=== PATIENT | female | born 1980 | race Caucasian/White ===

== ENCOUNTER → 2018-04-12 13:00 | Outpatient (CLI) | payer BC, SELFPAY ==
[2018-04-12 16:40] LABS: Chlamydia Trachomatis by PCR Negative (Negative); Neisserai gonorrhoeae by PCR Negative (Negative); Probe Check PASS; Sample Adequacy Control PASS; Specimen Processing Control PASS
== END ==
PROVIDERS: Visit Provider Obstetrics & Gynecology
DX: Z11.3 Encounter for screening for infections with a predominantly sexual mode of transmission (principal)
CPT/HCPCS: 87491; 87591

== ENCOUNTER 2018-05-03 10:45 | Day surgery (SDC) | payer BC, SELFPAY ==
[2018-05-03] VITALS (8 sets, daily range): BP systolic 93–110; BP diastolic 43–61; PULSE 71–96; RESP 14–18; TEMP 36.1–36.8; O2SAT 98–100; BMI 21.9
--- NOTE | 2018-05-03 10:58 | PCM.HP.BLA ---
History and Physical Date of Admission: 05/03/18 HISTORY OF PRESENT ILLNESS: On 05/03/2018, Laurence Loomis, a 37 year old female 1 1 0 0 2, presented for: -- Incomplete Miscarriage -- IUP without FHTs by u/s today at 8+ weeks gestation. 6 week size. Some bleeding starting this morning. ALLERGIES: NKDA MEDICATIONS HISTORY: Patient is also takin. Vitamin tablet REVIEW OF SYSTEMS: GENERAL - Denies fever, or chills SKIN - Denies skin changes EYES - Denies visual changes EARS - Denies difficulty hearing NOSE - Denies nasal congestion or bleeding MOUTH - Denies sore throat or difficulty swallowing NECK - Denies pain or swelling RESPIRATORY - Denies shortness of breath or wheezing CARDIOVASCULAR - Denies palpitations or chest pain GASTROINTESTINAL - Denies nausea, vomiting, diarrhea, constipation GENITOURINARY - amenorrhea and some spotting MUSCULOSKELETAL - Denies joint or muscle pain NEUROLOGICAL - Denies localized numbness or weakness PSYCHIATRIC - Denies depression or anxiety ENDOCRINE - Denies heat or cold intolerance, weight loss or gain HEMATO-IMMUNOLOGIC - Denies excesive bleeding with cuts PAST HISTORY: Breast/Ovarian/Colon Cancers - Aunt had Breast Cancer and maternal grandparent uterine ca Infections - Chicken pox childhood Illnesses - Abn paps,HPV,Herpes Accidents - no injuries of consequence History of Abnormal PAPS - YES Hospitalizations - None SURGICAL HISTORY: 1. 06/27/2014 primary Sandeep Corea M.D. failure to progress and CPD MENSTRUAL HISTORY: LMP Known?- DefiniteAmount/Duration - spotting, LMP - 02/21/18, Age Onset Menarche - 12 PAST PREGNANCIES: Total Pregnancies - 3; Full Term Pregnancies - 1; Premature - 1; Abortions, Induced - 0; Abortions, Spontaneous - 0; Ectopics - 0; Multiple Births - 0; Living Children - 2 FAMILY HISTORY: Father - FH: Diabetes mellitus type 2; Mother - FH: Hypertension; Aunt - Cancer; MaternalGrandparent - FH: Diabetes mellitus type 2; MaternalGrandparent - Cancer; PaternalGrandparent - Type 2 Diabetes; SOCIAL HISTORY: Alcohol Use - occasionally not while Smoking - Never Diet - moderate, balanced diet, caffeine > 2 drinks per day and LOW SALT Lifestyle - low stress lifestyle Exercise - Cardio and strength training Seat Belt Use - always 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 Drug Use - denies use of street drugs Sexual Activity - Hours Worked - 40-43 Spouse-Sig Other Name - Chris Loomis Spouse-Sig Other Occupation - [employer] Spouse-Sig Other Phone No - [phone] Children Name(s) - Adele(14) Jeannie Olvera(16) Control - Mirena PHYSICAL EXAMINATION BP Systolic: 104 BP Diastolic: 60 Weight: 114 CONSTITUTIONAL - NAD, well nourished, and well developed SKIN - No rash, lesions, or ulcers HEENT - Normocephalic, PERRLA, EOMI NECK - No nodes, no nuchal rigidity and thyroid normal size and texture LYMPH NODES - Palpation of lymph nodes in neck and groins within normal limits LUNGS - CTA x2 without wheezes, crackles or rales CARDIAC - Regular rate and rhythm without rubs, murmurs, or gallops ABDOMEN - Without hepatosplenomegaly, distention, masses, rebound, or guarding; normal bowel sounds; no hernias EXTREMITIES - No edema or calf tenderness NEUROLOGICAL - Cranial nerves II-XII grossly intact PSYCHIATRIC - A and O to time, place, person, mood and affect ASSESSMENT: 1. Spontaneous , Incomplete, Without Mention Of Complication PLAN BY DIAGNOSIS: 1. Spontaneous , Incomplete, Without Mention Of Complication Discussed options and patient desires proceeding with Suction D and E. Discussed RBAs and all questions answered.
[2018-05-03 11:33] LABS: Hematocrit 38.4 % (37-47); Hemoglobin 13.5 g/dl (12.0-15.0); Mean Corp Hgb Conc 35.2 g/gl (32-36); Mean Corpuscular Hgb 31.2 pg (27.0-32.0); Mean Corpuscular Volume 88.7 fL (81-99); Mean Platelet Vol. 10.4 fl (6.2-12.0); Platelet Count 291 K/mm3 (150-450); RBC Distribution Width SD 38.4 fl (35.1-43.9); Red Blood Count 4.33 M/mm3 (4.2-5.4); Scan Indicated on CBC? Y/N NO; White Blood Count 9.6 K/mm3 (4.4-11.0)
--- NOTE | 2018-05-03 13:30 | POC_PTH ---
PATIENT: IRENE LONDONO LOC: [facility] [place] U[place][id number] AGE/SX: 37/F ROOM: RE05/03/[address]: Dr. Sandeep Corea MD : 1980 BED: DIS: 05/03/2018 SPEC #: [id number] RECD: 05/03/18 14:23 STATUS: ABDIAS LEEROY #: [id number] VIVIEN: 05/03/18 13:[address]: Sandeep Corea DEPT: SURGICAL PATHOLOGY RECD BY: Norma Perez ENTERED: 05/04/18 08:38 SP TYPE: PROD CONC OTHR DR: Dr. Gayatri Becker, DO Tissues: Product of conception, NOS Procedures: Surgery Specimen Level IV HEADER OPERATION: Dilation and curettage, suction PRE-OP DIAGNOSIS: Incomplete spontaneous TISSUE SUBMITTED: Products of conception MICROSCOPIC DIAGNOSIS Products of conception: Decidua, gestational endometrium and immature chorionic villi (products of conception). See comment. SJ:ron 05/07/18 COMMENT A few of the villi show hydropic changes. Significant trophoblastic hyperplasia is not seen. Correlation with clinical findings and appropriate follow up are necessary. MICROSCOPIC DESCRIPTION Slides are reviewed. GROSS DESCRIPTION Received in fixative is one container labeled with the patient's name and designated products of conception. The specimen consists of multiple pieces of khan soft tissue that in aggregate measure 3 x 4 x 0.5 cm. tissue is not identified. The entire specimen is submitted in three cassettes. / RAAD:ron 04/2718 TC:5 CPT: 40636
--- NOTE | 2018-05-03 13:41 | PCM.OP.BLANK ---
Operative Report Date of Procedure: 05/03/18 Pre/Post-op: Incomplete Miscarriage Surgeon: Sandeep Corea MD, FACOG Anesthesia: Tan Solo CNA Type of anesthesia: MAC Procedure: Suction Dilation and Evacuation Findings: 8 cm EM cavity with POC Indication: 37 Year patient with incomplete AB at 8 weeks gestation with a 6 week IUP without FHTs. Pt has been counseled re RBAs and all questions answered. Procedure: Pt taken to the OR where she was given IV sedation. The patient was prepped and draped in the usual sterile fashion. Anterior cervix grasped and cervix dilated to 10mm. An 8 mm suction curette was inserted into the cervix and all contents removed. Uterus was gently curetted and remaining tissue removed. Pt tolerated the procedure well and was taken to the recovery room in satisfactory condition. Sponge, instruments and needle counts were all correct. There were no apparent complications of the surgery. To Pathology: POC EBL Minimal.
--- NOTE | 2018-05-03 13:43 | DCINST_ITS ---
Discharge Diet: No Restrictions Discharge Activity: Return to Normal Activity, May Shower, May Take a Tub Bath Call your doctor if you observe: Fever of 101 or Higher, Inability to urinate, Inability to have a bowel movement, Using more than one pad per hour Allergies/Adverse Reactions: Allergies No Known Allergies Allergy (Verified 03/18/16 19:58) Medications to take at Discharge Vits [Prenatabs FA ] 1 tablet PO DAILY 06/26/14 Primary Care Physician: Gayatri Becker DO [Primary Care Provider] - Test Results: Test results from this visit will be discussed in further detail at your follow- up appointment, if applicable. Please Follow Up With: Sandeep Corea MD When: 3-4 weeks
== END 2018-05-03 15:21 | disposition home or self-care (01) ==
LOC: SDC 10:49 → AC 11:09
PROVIDERS: Family Provider Family Medicine; PCP Family Medicine; Visit Provider Obstetrics & Gynecology
PROC: (CPT 59812; principal; 2018-05-03 13:15)
DX: O03.4 Incomplete spontaneous abortion without complication (principal)
CPT/HCPCS: 59812; 36415; 85027; 86850; 86900; 88305; J7120

== ENCOUNTER → 2018-08-02 21:47 | Outpatient (CLI) | payer BC, SELFPAY ==
[2018-08-08 10:32] LABS: HPV Reflexed? NOT INDICATED
== END ==
PROVIDERS: Family Provider Family Medicine; PCP Family Medicine; Referring Provider Obstetrics & Gynecology; Visit Provider Obstetrics & Gynecology
DX: Z12.4 Encounter for screening for malignant neoplasm of cervix (principal)
CPT/HCPCS: 87624; 88175; G0145

== ENCOUNTER → 2018-12-13 18:14 | Outpatient (CLI) | payer BC, SELFPAY ==
[2018-12-13 21:30] LABS: Chlamydia Trachomatis by PCR Negative (Negative); Neisserai gonorrhoeae by PCR Negative (Negative); Probe Check PASS; Sample Adequacy Control PASS; Specimen Processing Control PASS
== END ==
PROVIDERS: Family Provider Family Medicine; PCP Family Medicine; Referring Provider Obstetrics & Gynecology; Visit Provider Obstetrics & Gynecology
DX: Z11.3 Encounter for screening for infections with a predominantly sexual mode of transmission (principal)
CPT/HCPCS: 87491; 87591

== ENCOUNTER 2019-01-03 10:51 | Day surgery (SDC) | payer BC, SELFPAY ==
--- NOTE | 2019-01-03 09:17 | PCM.HP.BLA ---
History and Physical Date of Admission: 01/03/19 HISTORY OF PRESENT ILLNESS: On 01/02/2019, Laurence Loomis, a 38 year old female 1 1 2 0 2, presented for: -- Inevitable Miscarriage -- Laurence presents here today for follow-up from [facility] in our Office for possible SAB with calcified gestational sac and no heart beat. 38 y.o. G 4 P 2 non-smoker reporting that she continues with daily nausea. Denies spotting/bleeding thus far. Medication list up-dated. ALLERGIES: NKDA MEDICATIONS HISTORY: Patient is also takin. Vitamin tablet REVIEW OF SYSTEMS: GENERAL - Denies fever, or chills SKIN - Denies skin changes EYES - Denies visual changes EARS - Denies difficulty hearing NOSE - Denies nasal congestion or bleeding MOUTH - Denies sore throat or difficulty swallowing NECK - Denies pain or swelling RESPIRATORY - Denies shortness of breath or wheezing CARDIOVASCULAR - Denies palpitations or chest pain GASTROINTESTINAL - nausea continues GENITOURINARY - Denies dysuria, frequency of urination, incontinence of urine MUSCULOSKELETAL - Denies joint or muscle pain NEUROLOGICAL - Denies localized numbness or weakness PSYCHIATRIC - Denies depression or anxiety ENDOCRINE - Denies heat or cold intolerance, weight loss or gain HEMATO-IMMUNOLOGIC - Denies excesive bleeding with cuts PAST HISTORY: Breast/Ovarian/Colon Cancers - Aunt had Breast Cancer and maternal grandparent uterine ca Infections - Chicken pox childhood Illnesses - Abn paps,HPV,Herpes Accidents - no injuries of consequence History of Abnormal PAPS - YES Hospitalizations - None SURGICAL HISTORY: 1. 06/27/2014 primary Sandeep Corea M.D. failure to progress and CPD 2. 05/03/2018 Suction D and E Sandeep Corea M.D. MENSTRUAL HISTORY: LMP Known?- DefiniteAmount/Duration - 4-5 DAYS, Regularity - Regular, Frequency - monthly days, LMP - 10/29/18, Age Onset Menarche - 12 PAST PREGNANCIES: Total Pregnancies - 4; Full Term Pregnancies - 1; Premature - 1; Abortions, Induced - 0; Abortions, Spontaneous - 2; Ectopics - 0; Multiple Births - 0; Living Children - 2 FAMILY HISTORY: Father - FH: Diabetes mellitus type 2; Mother - FH: Hypertension; Aunt - Cancer; MaternalGrandparent - FH: Diabetes mellitus type 2; MaternalGrandparent - Cancer; PaternalGrandparent - Type 2 Diabetes; SOCIAL HISTORY: Alcohol Use - occasionally not while Smoking - Never Diet - moderate, balanced diet, caffeine > 2 drinks per day and LOW SALT Lifestyle - low stress lifestyle Exercise - Cardio and strength training Seat Belt Use - always 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 Drug Use - denies use of street drugs Sexual Activity - Hours Worked - 40-43 Spouse-Sig Other Name - Chris Loomis Spouse-Sig Other Occupation - [employer] Spouse-Sig Other Phone No - [phone] Children Name(s) - Adele(14) Jeannie Olvera(16) Control - NONE PHYSICAL EXAMINATION BP- 122/76 Sitting, Right arm, regular cuff Weight- 119.00 lbs Height- 60.00 inch BMI:23.29 CONSTITUTIONAL - NAD, well nourished, and well developed SKIN - No rash, lesions, or ulcers HEENT - Normocephalic, PERRLA, EOMI NECK - No nodes, no nuchal rigidity and thyroid normal size and texture LYMPH NODES - Palpation of lymph nodes in neck and groins within normal limits LUNGS - CTA x2 without wheezes, crackles or rales CARDIAC - Regular rate and rhythm without rubs, murmurs, or gallops ABDOMEN - Without hepatosplenomegaly, distention, masses, rebound, or guarding; normal bowel sounds; no hernias EXTREMITIES - No edema or calf tenderness NEUROLOGICAL - Cranial nerves II-XII grossly intact PSYCHIATRIC - A and O to time, place, person, mood and affect DETAILED PELVIC EXAM External Genitial Vagina - non-tender without lesions Urethra/Urethral Meatus - non-tender Bladder - non-tender Vagina - vaginal gonzalez are pink and moist without loss of rugae and no evidence of atropy Cervix - without cervical motion tenderness and has normal size and features without evident lesions Uterus - multiparous size 6 cm & wt 75-125 g Adnexa - clear without massess or tenderness ASSESSMENT: 1. Spontaneous , Incomplete, Without Mention Of Complication PLAN BY DIAGNOSIS: 1. Spontaneous , Incomplete, Without Mention Of Complication 9 week gestation with 5+ week fetus without FHTs confirmed last week and again today. No bleeding yet but having significant nausea. Discussed options and pt desires we proceed with Suction D and E. Discussed RBAs and all questions answered.
[2019-01-03 11:14] VITALS: BP 103/44; PULSE 65; RESP 16; TEMP 36.7; O2SAT 100; BMI 22.4
[2019-01-03 11:14] LABS: Hematocrit 37.3 % (37-47); Hemoglobin 13.3 g/dl (12.0-15.0); Mean Corp Hgb Conc 35.7 g/gl (32-36); Mean Corpuscular Hgb 31.3 pg (27.0-32.0); Mean Corpuscular Volume 87.8 fL (81-99); Mean Platelet Vol. 10.1 fl (6.2-12.0); Platelet Count 288 K/mm3 (150-450); RBC Distribution Width CV 12.6 % (11.6-14.6); RBC Distribution Width SD 40.7 fl (35.1-43.9); Red Blood Count 4.25 M/mm3 (4.2-5.4); White Blood Count 8.8 K/mm3 (4.4-11.0)
[2019-01-03 11:18] LABS: Scan Indicated on CBC? Y/N NO
--- NOTE | 2019-01-03 12:30 | POC_PTH ---
PATIENT: IRENE LONDONO LOC: [facility] – [place] U#:[id number] AGE/SX: 38/F ROOM: RE01/03/[address]: Dr. Sandeep Corea MD : 1980 BED: DIS: 01/03/2019 SPEC #: [id number] RECD: 01/03/19 13:52 STATUS: ABDIAS REFerny #: [id number] VIVIEN: 01/03/19 12:[address]: Sandeep Corea DEPT: SURGICAL PATHOLOGY RECD BY: Chris uMnoz ENTERED: 01/03/19 14:21 SP TYPE: PROD CONC OTHR DR: Dr. Gayatri Becker, DO Tissues: Product of conception, NOS Procedures: Surgery Specimen Level IV HEADER OPERATION: Dilation and curettage, suction PRE-OP DIAGNOSIS: Missed TISSUE SUBMITTED: Products of conception MICROSCOPIC DIAGNOSIS Products of conception: Decidua, gestational endometrium and immature chorionic villi (products of conception). SJ:ron 01/04/19 MICROSCOPIC DESCRIPTION Slides are reviewed. GROSS DESCRIPTION Received in fixative is one container labeled with the patient's name and designated products of conception. The specimen consists of multiple irregular fragments of pink-khan soft tissue that in aggregate measure 8 x 6.5 x 1 cm. parts are not grossly recognized. Otr Owner Operator Truck Driver portions are submitted in one cassette. / AM:ron 01/03/19 TC:5 CPT: 65872
--- NOTE | 2019-01-03 12:46 | PCM.OPRPT ---
Report of Operation Date of Procedure: 01/03/19 Pre-Operative Diagnosis: Inevitable Miscarriage Post-Operative Diagnosis: Inevitable Miscarriage Surgery/Procedure Performed:: Suction Dilation and Evacuation Description of Surgical Findings:: 10 cm endometrial cavity with products of conception. Type of Anesthesia:: MAC Anesthesiologist: Carlos Ritchie Estimated Blood Loss (mL): Minimal Fluids Replaced: Crystalloid Description of Procedure: Surgeon: Sandeep Corea MD, FACOG Indication: 38 year old patient with incomplete AB at 9 weeks gestation with a 6 week IUP without FHTs. Pt has been counseled re RBAs and all questions answered. Procedure: Pt taken to the OR where she was given IV sedation. Approximately 150 cc of clear yellow urine was drained from the bladder with a red rubber catheter. The patient was prepped and draped in the usual sterile fashion. Anterior cervix grasped and cervix dilated to 8-9 mm. An 9 mm suction curette was inserted into the cervix and all contents removed. Uterus was gently curetted and remaining tissue removed. Pt tolerated the procedure well and was taken to the recovery room in satisfactory condition. Sponge, instruments and needle counts were all correct. Cefotan 2 g IV was given prior to beginning the operative procedure. There were no apparent complications of the surgery. Specimen the pathology was products of conception. Grafts/Implants Used: None - Complications None - Admit VTE Documentation VTE Present on Admission: Yes VTE Mechan Device Prophylaxis: SCD's VTE Pharm Prophylaxis ordered?: No Reason prophylaxis not ordered:: Treatment Not Indicated
--- NOTE | 2019-01-03 12:52 | DCINST_ITS ---
Discharge Diet: No Restrictions Discharge Activity: Return to Normal Activity, May Shower, May Take a Tub Bath Call your doctor if you observe: Fever of 101 or Higher, Inability to urinate, Inability to have a bowel movement, Using more than one pad per hour Allergies/Adverse Reactions: Allergies No Known Allergies Allergy (Verified 03/18/16 19:58) Medications to take at Discharge Vits [Prenatabs FA ] 1 tablet PO DAILY 06/26/14 Primary Care Physician: Gayatri Becker DO [Primary Care Provider] - Test Results: Test results from this visit will be discussed in further detail at your follow- up appointment, if applicable. Please Follow Up With: Sandeep Corea MD When: 2-3 weeks
[2019-01-03 13:15] VITALS: BP 103/44; BP 91/46; PULSE 74; RESP 14; TEMP 37.3; O2SAT 96
[2019-01-03 13:20] VITALS: BP 103/44; BP 91/54; PULSE 64; RESP 16; O2SAT 96
[2019-01-03 13:25] VITALS: BP 103/44; BP 84/54; PULSE 60; RESP 16; O2SAT 96
[2019-01-03 13:30] VITALS: BP 103/44; BP 83/44; PULSE 64; RESP 16; TEMP 36.4; O2SAT 97
[2019-01-03 14:40] VITALS: BP 103/44
== END 2019-01-03 14:57 | disposition home or self-care (01) ==
LOC: SDC 10:53 → AC 10:54
PROVIDERS: Anesthesiology; Family Provider Family Medicine; PCP Family Medicine; Referring Provider Obstetrics & Gynecology; Visit Provider Obstetrics & Gynecology
PROC: (CPT 59812; principal; 2019-01-03 12:15)
DX: O03.4 Incomplete spontaneous abortion without complication (principal); Z3A.09 9 weeks gestation of pregnancy
CPT/HCPCS: 01965; 59812; 85027; 86850; 86900; 88305; J7120

== ENCOUNTER → 2019-04-25 | Outpatient (CLI) | payer BC, SELFPAY ==
[2019-04-25 18:06] LABS: hCG Titer Quant., Serum 17108 mIU/mL (1-3)
== END | disposition home or self-care (01) ==
LOC: MTLAB 16:20
PROVIDERS: Family Provider Family Medicine; PCP Family Medicine; Referring Provider Nurse Practitioner Women's Health; Visit Provider Nurse Practitioner Women's Health
DX: O09.299 Supervision of pregnancy with other poor reproductive or obstetric history, unspecified trimester (principal); Z3A.00 Weeks of gestation of pregnancy not specified
CPT/HCPCS: 36415; 84702

== ENCOUNTER → 2019-04-27 | Outpatient (CLI) | payer BC, SELFPAY ==
[2019-04-27 11:45] LABS: hCG Titer Quant., Serum 25317 mIU/mL (1-3)
== END | disposition home or self-care (01) ==
LOC: LAB 10:03
PROVIDERS: Family Provider Family Medicine; PCP Family Medicine; Referring Provider Nurse Practitioner Women's Health; Visit Provider Nurse Practitioner Women's Health
DX: O09.299 Supervision of pregnancy with other poor reproductive or obstetric history, unspecified trimester (principal); Z3A.00 Weeks of gestation of pregnancy not specified
CPT/HCPCS: 36415; 84702

== ENCOUNTER → 2019-05-08 | Outpatient (CLI) | payer BC, SELFPAY ==
[2019-04-30 04:06] VITALS: BMI 22.4
--- NOTE | 2019-05-08 13:48 | US_ITS ---
STUDY: FIRST TRIMESTER OBSTETRICAL ULTRASOUND REASON FOR EXAM: Female, 38 years old. with bleeding. LMP: 03/13/2019 TECHNIQUE: Transvaginal TECHNICAL QUALITY: Adequate. PRIOR ULTRASOUND: None. FINDINGS: There is visualization of a single gestational sac in a normal intrauterine position. The mean sac diameter (MSD) measures 3 cm, indicating an estimated gestational age (EGA) of 8 weeks, 2 days. The gestational sac shape is within normal limits. 1.7 cm probable subchorionic hemorrhage. There is a visualized yolk sac. The yolk sac measures 5.7 mm. The placenta is non-visualized. There is visualization of a live embryo. The crown-rump length (CRL) measures 1.0 cm, indicating an estimated gestational age (EGA) of 7 weeks, 1 days. There is demonstrated cardiac activity with a heart rate of 130 bpm. The estimated gestation age (EGA) by LMP is 8 weeks, 0 days. The estimated date of delivery (JULIEN) by LMP is 12/18/2019. The estimated gestation age (EGA) by US is 7 weeks, 5 days. The estimated date of delivery (JULIEN) by US is 12/20/2019 The uterus measures 9.7 x 6.5 x 5.3 cm. There is no demonstrated uterine fibroid. The cervix is closed. The right ovary measures 3.2 x 2.9 x 2.2 cm. There is no right ovarian cyst. There is no visualized right adnexal mass or complex lesion. The left ovary measures 4.1 x 3.7 x 1.9 cm. There is a 1.6 cm cyst. There is no visualized left adnexal mass or complex lesion. There is no fluid in the cul de sac. US/Init OB < 14Wks US IMPRESSION: Single live intrauterine gestation with ultrasound EGA of 7 weeks 5 days. Probable small subchorionic hemorrhage. Suggest short interval follow-up. Electronically Signed: Mat Gomez MD at 20:54 EDT , Service support ,
== END | disposition home or self-care (01) ==
LOC: OPUS 13:47
PROVIDERS: Family Provider Family Medicine; PCP Family Medicine; Referring Provider Obstetrics & Gynecology; Visit Provider Obstetrics & Gynecology
DX: O20.9 Hemorrhage in early pregnancy, unspecified (principal); Z3A.00 Weeks of gestation of pregnancy not specified
CPT/HCPCS: 76801

== ENCOUNTER → 2019-05-21 | Outpatient (CLI) | payer BC, SELFPAY ==
[2019-05-21 13:26] VITALS: BMI 22.4
[2019-05-21 18:53] LABS: Chlamydia Trachomatis by PCR Negative (Negative); Neisserai gonorrhoeae by PCR Negative (Negative); Probe Check PASS; Sample Adequacy Control PASS; Specimen Processing Control PASS
== END | disposition home or self-care (01) ==
LOC: LABSPEC 16:53
PROVIDERS: Family Provider Family Medicine; PCP Family Medicine; Referring Provider Nurse Practitioner Women's Health; Visit Provider Nurse Practitioner Women's Health
DX: O09.90 Supervision of high risk pregnancy, unspecified, unspecified trimester (principal); Z3A.00 Weeks of gestation of pregnancy not specified
CPT/HCPCS: 87086; 87088; 87491; 87591

== ENCOUNTER → 2019-06-04 | Outpatient (CLI) | payer BC, SELFPAY ==
[2019-06-04 14:51] VITALS: BMI 24.0
[2019-06-04 17:06] LABS: Absolute Lymphocyte Count 2.47 X10^3/uL (0.83-4.51); Absolute Neutrophil Count 9.6 X10^3/uL (2.0-7.7); Basophil# 0.06 X10^3/uL; Basophil% 0.5 % (0-1); Eosinophil# 0.24 X10^3/uL; Eosinophils% 1.8 % (0-5); Hematocrit 37.7 % (37-47); Hemoglobin 13.3 g/dL (12.0-15.0); Lymphocyte # 2.47 X10^3/ul (4.0); Lymphocyte % 18.6 % (19-41); Mean Corp Hgb Conc 35.3 g/dL (32-36); Mean Corpuscular Hgb 31.2 pg (27.0-32.0); Mean Corpuscular Volume 88.5 fL (81-99); Mean Platelet Vol. 10.5 fl (6.2-12.0); Monocyte# 0.84 X10^3/uL; Monocyte% 6.3 % (0-10); NRBC Flagged by Analyzer 0 % (0-5); Neutrophil # 9.59 X10^3/uL (2.7-7.7); Neutrophil % 72.3 % (47-70); Platelet Count 261 K/mm3 (150-450); RBC Distribution Width SD 39.1 fl (35.1-43.9); Red Blood Count 4.26 M/mm3 (4.2-5.4); White Blood Count 13.3 K/mm3 (4.4-11.0)
[2019-06-04 18:30] LABS: HIV - WCH Non-Reactive (Nonreactive); Rubella IgG 28.4 IU/mL
[2019-06-07 00:54] LABS: Rapid Plasmin Reagin (RPR) NONREACTIVE (NONREACTIVE)
== END | disposition home or self-care (01) ==
LOC: LAB 15:46
PROVIDERS: Family Provider Family Medicine; PCP Family Medicine; Referring Provider Nurse Practitioner Women's Health; Visit Provider Nurse Practitioner Women's Health
DX: Z34.81 Encounter for supervision of other normal pregnancy, first trimester (principal); O09.90 Supervision of high risk pregnancy, unspecified, unspecified trimester; Z3A.00 Weeks of gestation of pregnancy not specified
CPT/HCPCS: 36415; 85025; 86592; 86703; 86762; 86850; 86900; 86901

== ENCOUNTER → 2019-09-24 12:03 | Outpatient (CLI) | payer BC, SELFPAY ==
[2019-09-17 13:22] VITALS: BMI 22.4
[2019-09-24 13:37] LABS: Absolute Lymphocyte Count 1.41 X10^3/uL (0.83-4.51); Absolute Neutrophil Count 7.7 X10^3/uL (2.0-7.7); Basophil# 0.04 X10^3/uL; Basophil% 0.4 % (0-1); Eosinophil# 0.14 X10^3/uL; Eosinophils% 1.4 % (0-5); Hemoglobin 11.1 g/dL (12.0-15.0); Lymphocyte # 1.41 X10^3/ul (4.0); Mean Corp Hgb Conc 34.7 g/dL (32-36); Mean Corpuscular Hgb 31.4 pg (27.0-32.0); Mean Corpuscular Volume 90.4 fL (81-99); Mean Platelet Vol. 10.3 fl (6.2-12.0); Monocyte# 0.66 X10^3/uL; Monocyte% 6.5 % (0-10); NRBC Flagged by Analyzer 0 % (0-5); Neutrophil # 7.65 X10^3/uL (2.7-7.7); Neutrophil % 75.8 % (47-70); Platelet Count 237 K/mm3 (150-450); RBC Distribution Width CV 13.2 % (11.6-14.6); RBC Distribution Width SD 43.3 fl (35.1-43.9); Red Blood Count 3.54 M/mm3 (4.2-5.4); White Blood Count 10.1 K/mm3 (4.4-11.0)
[2019-09-24 13:53] LABS: Glucose Challenge Gest 1H 50g 118 mg/dL (70-140)
[2019-09-24 14:14] LABS: Hepatitis B Surface Antigen Non-Reactive (Nonreactive)
== END ==
PROVIDERS: Family Provider Family Medicine; PCP Family Medicine; Referring Provider Obstetrics & Gynecology; Visit Provider Obstetrics & Gynecology
DX: O09.91 Supervision of high risk pregnancy, unspecified, first trimester (principal); Z3A.00 Weeks of gestation of pregnancy not specified
CPT/HCPCS: 36415; 82950; 85025; 87340

== ENCOUNTER → 2019-11-21 | Outpatient (CLI) | payer BC, SELFPAY ==
[2019-11-21 15:36] VITALS: BMI 22.4
== END | disposition home or self-care (01) ==
LOC: LABSPEC 17:08
PROVIDERS: PCP Family Medicine; Referring Provider Obstetrics & Gynecology; Visit Provider Obstetrics & Gynecology
DX: O09.91 Supervision of high risk pregnancy, unspecified, first trimester (principal); Z3A.00 Weeks of gestation of pregnancy not specified
CPT/HCPCS: 87081

== ENCOUNTER 2019-11-29 22:45 | Inpatient (IN) | payer BC, SELFPAY ==
[2019-10-08 09:57] VITALS: BMI 22.4
[2019-11-28 11:28] VITALS: BMI 22.4
--- NOTE | 2019-11-29 | MISC_PTH ---
PATIENT: IRENE LONDONO LOC: [facility] U#:[id number] AGE/SX: 38/F ROOM: WP015 RE11/29/[address]: Dr. Mine Worrell MD : 1980 BED: 1 DIS: 12/01/2019 SPEC #: [id number] RECD: 11/30/19 07:42 STATUS: ABDIAS LEEROY #: [id number] VIVIEN: 11/29/19 00:[address]: Mine Worrell DEPT: SURGICAL PATHOLOGY RECD BY: Irving Mcmanus ENTERED: 12/02/19 09:16 SP TYPE: MISC OT DR: Dr. Gayatri Becker, DO Tissues: Skin appendage, NOS Procedures: Surgery Specimen Level IV HEADER OPERATION: Biopsy PRE-OP DIAGNOSIS: Mole TISSUE SUBMITTED: Tissue MICROSCOPIC DIAGNOSIS Skin lesion, not otherwise specified, biopsy: Compound nevus with predominantly intradermal component. See comment. AM:ron 12/03/19 COMMENT The lesion appears to have been completely excised in the planes examined. MICROSCOPIC DESCRIPTION Slides are reviewed. GROSS DESCRIPTION Received is one container labeled with the patient's name and not further designated. The specimen consists of an irregular fragment of dark khan soft tissue measuring 0.7 x 0.6 x 0.3 cm. The specimen is bisected and totally submitted in one cassette. / AM:ron 12/02/19 TC:5 CPT: 55912
[2019-11-30] VITALS (18 sets, daily range): BP systolic 90–118; BP diastolic 51–66; PULSE 72–94; RESP 14–20; TEMP 35.6–37.1; O2SAT 94–99; BMI 28.4
[2019-11-30] MEDS: Lactated Ringers 1,000 ML 50 ML IV (00:15)
[2019-11-30 00:42] LABS: Absolute Lymphocyte Count 1.22 X10^3/uL (0.83-4.51); Absolute Neutrophil Count 11.8 X10^3/uL (2.0-7.7); Basophil# 0.06 X10^3/uL; Basophil% 0.4 % (0-1); Eosinophil# 0.13 X10^3/uL; Eosinophils% 0.9 % (0-5); Hematocrit 31.8 % (37-47); Lymphocyte # 1.22 X10^3/ul (4.0); Lymphocyte % 8.5 % (19-41); Mean Corp Hgb Conc 34.6 g/dL (32-36); Mean Corpuscular Hgb 30.3 pg (27.0-32.0); Mean Corpuscular Volume 87.6 fL (81-99); Mean Platelet Vol. 10.5 fl (6.2-12.0); Monocyte# 0.92 X10^3/uL; Monocyte% 6.4 % (0-10); NRBC Flagged by Analyzer 0 % (0-5); Neutrophil % 82.6 % (47-70); Platelet Count 237 K/mm3 (150-450); RBC Distribution Width CV 13.7 % (11.6-14.6); RBC Distribution Width SD 43.1 fl (35.1-43.9); Red Blood Count 3.63 M/mm3 (4.2-5.4); White Blood Count 14.3 K/mm3 (4.4-11.0)
[2019-11-30] MEDS: Lactated Ringers 1,000 ML 200 ML IV (01:17)
[2019-11-30] MEDS: Sodium Citrate/Citric Acid 30 ML UDC PO (05:12)
--- NOTE | 2019-11-30 05:24 | HP.PCM_ITS ---
- Problem List (1) Placental insufficiency in third trimester Status: Acute (2) heart rate decelerations affecting management of mother Status: Acute (3) Velamentous insertion of umbilical cord Status: Acute Qualifiers: Comment: growth us every 4 weeks (4) History of Status: Acute Comment: First delivery CPD, plan RLTCS (5) Status: Acute Qualifiers: Comment: nl carrier, NIPT low risk. afp declined. anatomy reviewed (6) History of delivery, currently Status: Acute Comment: nl cervical lengths, growth borderline possible IUGR (7) History of cholestasis during Status: Acute (8) Supervision of high-risk Status: Acute Qualifiers: Comment: PRR JULIEN: 12/18/19 gender surprise for PC:Jeannie Angulo Spouse Chris History Date of Admission: 01/03/19 Final JULIEN: 12/18/19 Gestational age: 37 Weeks and 3 Days History of this : This is a 38 year-old, , at 37 weeks gestational age presents for co ntractions- made some initial cervical change from the office from 3 to 4 cm. Upon initial evaluation patient had several late decelerations which improved with IV fluids. Diagnosis of placental insufficiency was made and is recommended to proceed with delivery. Surgical History: Surgical History (Last Reviewed 11/28/19 @ 11:28 by Janet Jimenez) delivery delivered O82 x1 H/O dilation and curettage Z98.890 x2 2017,2018 Allergies No Known Allergies Allergy (Verified 11/30/19 00:11) Home Medications: Home Medications Vits [Prenatabs FA ] 1 tab PO DAILY 06/26/14 Oseltamivir Phosphate [Tamiflu] 75 mg PO DAILY 11/30/19 Smoking Status: Never smoker Alcohol: None Number of Fetus(es): 1 NST - FHR Rate Baby A Baseline: 140 Variability:: Moderate Accelerations:: 15 x 15 Decelerations:: Late - resolved with fluids NST Reactive:: Yes FHR Category:: Category II Uterine Activity:: q 2-5 History Past Pregnancies: Past Pregnancies Pregancy History 5 Elective abortions Hx Para 2 Spontaneous abortions 2 Hx # Term Pregnancies Ectopic pregnancies Hx # Pregnancies Multiple births # of living children 2 Past Pregnancies Del. Date Name GA/Weeks Outcome Route Bth Weight Gen Labor Lgth Anesthesia Del Locatn Provider FOB Unknown 2013 Adele 37 live - full term 6lbs 11oz Female spinal [facility] Anmol Perez Unknown 2015 Vera 30 live - 2lbs 11oz [place] Delivery Date: No notes to display Delivery Date: On 04/29/19 @ 14:46 Janet Jimenez Delivered in [place] on vacation Labs: Mom's Problem List Problem Status Onset Code Placental insufficiency in third trimester Acute O36.5130 heart rate decelerations affecting management of mother Acute O36.8390 Mom's Labs & Results 11/30/19 11/30/19 00:15 00:15 WBC 14.3 H RBC 3.63 L Hgb 11.0 L Hct 31.8 L MCV 87.6 MCH 30.3 MCHC 34.6 RDW Std Deviation 43.1 RDW Coeff of Opal 13.7 Plt Count 237 MPV 10.5 Immature Gran % (Auto) 1.200 H Neut % (Auto) 82.6 H Lymph % (Auto) 8.5 L Ford % (Auto) 6.4 Eos % (Auto) 0.9 Baso % (Auto) 0.4 Absolute Neuts (auto) 11.8 H Absolute Lymphs (auto) 1.22 Nucleated RBC % 0 Blood Type B POSITIVE Antibody Screen NEGATIVE Course Did the patient receive Yes care? Labs Blood Type: B RH: POSITIVE RPR/VDRL/Syphilis Nonreactive Rubella status Immune HbSAg Negative Date Done: 09/24/19 Chlamydia Negative Gonorrhea Negative HIV/AIDS Non-Reactive Group B Strep: Negative Current Obstetrical History Gestational Diabetes No Incompetent Cervix No Infertility No IUGR No Macrosomia No Hypertension/Pre-eclampsia No Placenta Previa/Abruption No PTL/PROM No Uterine anomaly No Oligohydramnios No Polyhydramnios No Multiple gestation No Past Medical History Asthma No Diabetes No Hypertension No Heart disease No Mitral valve prolapse No Neurologic/Seizure disorder/ No Migraines Kidney disease No Liver disease No Varicosities No Clotting disorders/Hx of DVT No Thyroid Dysfunction No Other medical diseases No Psychiatric disorders No Major trauma No Abnormal PAP smear Yes Sleep apnea No Mammogram in the last 2 years No Social History Marital Status: Alleged father Chris Hx Smoking No Smoking Status Never smoker Expected Delivery Method: Repeat Section Review of Systems Constitutional: Denies: Fever, Malaise Eyes: Denies: Blurred vision, Vision Change HEENT: Denies: Head Aches, Visual Changes Cardiovascular: Denies: Chest Pain, Palpitations Respiratory: Denies: Cough, Shortness of Breath, Wheezing Gastrointestinal: Denies: Abdominal Pain, Diarrhea, Nausea, Vomiting Genitourinary: Denies: Dysuria, Hematuria Musculoskeletal: Denies: Joint Pain, Muscle pain Skin: Denies: Lesions, Rash Neurological: Denies: Blurred vision, Focal weakness, Headaches Psychiatric: Denies: Anxiety, Depression Endocrine: Denies: Heat/ Cold Intolerance Hematologic/ Lymphatic: Denies: Easy Bruising, Easy Bleeding Physical Exam General: Alert, Cooperative, No apparent distress HEENT: Atraumatic, Normocephalic. Negative for: Thyromegaly, Lymphadenopathy Cardiovascular: Regular rate Lungs: Normal air movement Abdomen: Soft, Non Tender, Gravid Neurological: Deep Tendon Reflexes 2+/4 and Symmetrical, Neuro grossly intact. 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 Negative for: Vulvar lesions Estimated gestational size: Appropriate for gestational size Presentation: Cephalic Cervix Dilation (cm): 4 Station: 0 Effacement (%): 80 Assessment/Plan All Active Problems (Last Reviewed 11/28/19 @ 11:28 by Janet Jimenez) Placental insufficiency in third trimester (Acute) heart rate decelerations affecting management of mother (Acute) Velamentous insertion of umbilical cord (Acute) History of (Acute) (Acute) History of delivery, currently (Acute) History of cholestasis during (Acute) Supervision of high-risk (Acute) Bleeding in early (Resolved) Low-lying placenta (Resolved) This is a 38 year-old, at 37 weeks gestational age presents with placental insufficiency, decels. Recommend proceeding with repeat low transverse . Declines trial of labor. Patient ate at 930 this past evening, heart rate tracing at this time is stable so if remains reassuring will wait for n.p.o. status. Patient tima and if she makes additional cervical change would proceed with immediate .
[2019-11-30] MEDS: Cefazolin 2 GM in 0.9% Normal Saline 100 ML IV (05:35)
[2019-11-30] MEDS: Ketorolac 30 MG/ML Syringe IV ×4 (06:10→23:37)
[2019-11-30] MEDS: Methylergonovine 0.2 MG/ML Ampul IM (06:52)
[2019-11-30] MEDS: 0.9% Saline Lock 10 ML Syringe IV ×6 (07:15→23:37)
[2019-11-30 07:38] LABS: Pathology Specimen OB SEE PATHOLOGY REPORT
[2019-11-30] MEDS: Oxytocin 30 units/NS 500 ml 30 UNITS/500 ML IV.SOLN 167 UNITS IV (07:38)
--- NOTE | 2019-11-30 07:39 | PCM.OPRPT ---
Problem List (1) Placental insufficiency in third trimester Status: Acute (2) heart rate decelerations affecting management of mother Status: Acute (3) Velamentous insertion of umbilical cord Status: Acute Qualifiers: Comment: growth us every 4 weeks (4) History of Status: Acute Comment: First delivery CPD, plan RLTCS (5) Status: Acute Qualifiers: Comment: nl carrier, NIPT low risk. afp declined. anatomy reviewed (6) History of delivery, currently Status: Acute Comment: nl cervical lengths, growth borderline possible IUGR (7) History of cholestasis during Status: Acute (8) Supervision of high-risk Status: Acute Qualifiers: Comment: PRR JULIEN: 12/18/19 gender surprise for PC:Jeannie Angulo Spouse Chris Delivery Classification: Scheduled Final JULIEN: 12/18/19 Gestational age: 37 Weeks and 3 Days Type of Anesthesia:: Spinal Special Medications: luigi floseal Implants Used: none Date of Procedure: 11/30/19 Pre-Operative Diagnosis: heart rate decelerations, contractions and previous . placental insufficiency velamentous cord insertion Post-Operative Diagnosis: same Indications for : Repeat Elective Description of Procedure: 38-year-old presented at 37 and 3 with contractions and 4 cm dilated. She was stable with no further cervical change but she was noted to have intermittent late decelerations initially with contractions therefore placental insufficiency was suspected. Tracing improved with IV fluids but due to patient being term decision for proceeding with a repeat low transverse was made. Patient had eaten recently and therefore due to the stability of the fetus decision was made to wait until she was with an adequate n.p.o. status. spinal anesthesia was placed without difficulty. John catheter was placed. The patient was placed in the dorsal supine position with leftward tilt. Patient was prepped and draped in the normal sterile fashion. Pfannenstiel skin incision was made with the scalpel and carried through to the underlying layer of fascia with the scalpel. Fascia was nicked in the midline and the incision extended laterally. The rectus bellies were dissected off superiorly and inferiorly with out complication both sharply and bluntly. The peritoneum was entered digitally. The incision was stretched and a low transverse uterine incision was made with the scalpel. The 's head was delivered atraumatically followed by the anterior and posterior shoulders without complication the rest of the infant delivered. The cord was clamped and cut and the infant was handed off to awaiting nurse. The placenta was delivered spontaneously immediately following and was noted to be intact and have a three-vessel cord. The uterus was exteriorized cleared of all clots and debris, and the incision was closed in a double layer closure using #1 Monocryl. Additional [id number] suture was used to try and obtain hemostasis. Luigi was placed over the incision also and still some oozing was noted. The ovaries and fallopian tubes were noted to be within normal limits. The uterus was returned to the maternal abdomen and gutters were cleared of all clots and debris. Floseal was placed over the incision and finally hemostasis was noted. The peritoneum was closed with 3-0 Monocryl in a running fashion. Gloves were changed prior to fascial closure. Fascia was closed with 0 PDS in a running fashion. Subcutaneous tissue was copiously irrigated and the skin was closed with 3-0 Monocryl in a subcuticular fashion. Mepilex dressing was applied without complication. Patient was taken to recovery in stable condition. Amniotic Membrane Rupture Type: Artificial Amniotic Fluid Description: Clear Placenta Disposition: [facility] Drain: John to straight drain Fluids Replaced: crystalloid Cord Entanglement: None Nuchal Cord Compression: Without compression Esitmated Blood Loss (ml): 600 Infant Gender: Male Delayed cord clamping: Yes Antibiotic Given: Ancef 2 grams IV x1 Pt instructed on risks of surgery: Bleeding, Anesthesia Risks, Infection, Injury to surrounding structure(s) including bowel and bladder Complications: None - Admit VTE Documentation VTE Present on Admission: No VTE Mechan Device Prophylaxis: SCD's Multi Select Codes - Urinary/Genital Urinary/Genital CPT Codes: 58614 Delivery [facility]
[2019-11-30 08:03] LABS: Hemoglobin 9.8 g/dL (12.0-15.0)
[2019-11-30] MEDS: proCHLORPERazine 10 MG/2 ML Vial IV (09:44)
[2019-11-30] MEDS: Lactated Ringers 1,000 ML 100 ML IV (09:58)
[2019-11-30] MEDS: Lactated Ringers 1,000 ML 999 ML IV (11:46)
[2019-12-01 04:48] VITALS: BP 109/51; PULSE 69; RESP 18; TEMP 36.3
[2019-12-01] MEDS: 0.9% Saline Lock 10 ML Syringe IV ×2 (05:42→12:08)
[2019-12-01] MEDS: Ketorolac 30 MG/ML Syringe IV ×2 (05:42→12:08)
[2019-12-01 05:57] LABS: Hematocrit 24.5 % (37-47); Hemoglobin 8.2 g/dL (12.0-15.0); Mean Corp Hgb Conc 33.5 g/dL (32-36); Mean Corpuscular Hgb 30.1 pg (27.0-32.0); Mean Corpuscular Volume 90.1 fL (81-99); Mean Platelet Vol. 9.9 fl (6.2-12.0); Platelet Count 193 K/mm3 (150-450); RBC Distribution Width CV 14.2 % (11.6-14.6); RBC Distribution Width SD 45.9 fl (35.1-43.9); Red Blood Count 2.72 M/mm3 (4.2-5.4); White Blood Count 13.9 K/mm3 (4.4-11.0)
--- NOTE | 2019-12-01 08:45 | PCM.PN.OB ---
Patient Problems: Active and Suspected Problems (Last Reviewed 11/28/19 @ 11:28 by Janet Jimenez) Placental insufficiency in third trimester (Acute) heart rate decelerations affecting management of mother (Acute) Subjective: doing well no complaints pain controlled no CP SOB N V ambulating well tolerating po lochia moderate, going well - Physical Exam Vitals/I&O's: Vital Signs Temp Pulse Resp BP Pulse Ox 97.3 F L 69 18 109/51 L 98 12/01/19 04:48 12/01/19 04:48 12/01/19 04:48 12/01/19 04:48 11/30/19 17:31 Oxygen Delivery Method Room Air Weight: 145 lb 8.081 oz Body Mass Index (BMI) 28.4 Intake and Output for Last 24 Hours 11/29/19 11/30/19 12/01/19 23:59 23:59 23:59 Intake Total 4652.10 / 4652.10 Output Total 1600 / 1600 600 / 600 Balance 3052.10 / 3052.10 -600 / -600 General: Alert, Oriented x3 Laboratory Results 12/01/19 05:50: WBC 13.9 H, RBC 2.72 L, Hgb 8.2 L, Hct 24.5 L, MCV 90.1, MCH 30.1, MCHC 33.5, RDW Std Deviation 45.9 H, RDW Coeff of Opal 14.2, Plt Count 193, MPV 9.9 Current Medications Acetaminophen (Tylenol) 1,000 mg PO Q8H PRN PRN Reason: Pain Score 1-3/10 Bisacodyl (Dulcolax) 10 mg RECTAL UD PRN PRN Reason: If no BM Hydrocortisone (Hytone) 1 applic TOPICAL TID PRN PRN; Protocol PRN Reason: Discomfort Naloxone HCl 4 mg/ Dextrose 504 mls @ 0 mls/hr IV .Q0M PRN; Protocol PRN Reason: Respiratory depression Ketorolac Tromethamine (Toradol (Bkc)) 30 mg IV Q6 SACHIN Stop: 12/02/19 00:01 Last Admin: 12/01/19 05:42 Dose: 30 mg Documented by: Methylergonovine Maleate (Methergine) 0.2 mg IM X1 PRN PRN Reason: Uterine Atony Last Admin: 11/30/19 06:52 Dose: 0.2 mg Documented by: Naloxone HCl (Narcan) 0.02 mg IV Q1M PRN PRN Reason: RR <10 and pt unresponsive Naproxen (Naprosyn) 250 - 500 mg PO Q8H PRN PRN PRN Reason: Pain Score 1-3/10 Ondansetron HCl (Zofran) 4 mg IV Q4H PRN PRN PRN Reason: Nausea Oxycodone HCl (Oxyir) 5 - 10 mg PO Q4H PRN PRN PRN Reason: Pain Score 4-10/10 Multivit/Folic Acid/Iron (Prenatabs Fa) 1 tablet PO DAILY@1200 SACHIN Last Admin: 11/30/19 12:32 Dose: Not Given Documented by: Prochlorperazine Edisylate (Compazine Iv) 10 mg IV Q6H PRN PRN PRN Reason: NAUSEA Last Admin: 11/30/19 09:44 Dose: 10 mg Documented by: Senna/Docusate Sodium (Senokot-S, Imani-Colace) 0 tablet PO DAILY PRN PRN Reason: Constipation Simethicone (Mylicon) 80 mg PO PCHS PRN PRN Reason: Indigestion/stomach pain Sodium Chloride () 5 - 15 ml IV UD PRN PRN Reason: SALINE FLUSH Last Admin: 12/01/19 05:42 Dose: 10 ml Documented by: Medical Necessity - Tobacco Use Smoking Status: Never smoker Assessment/Plan All Active Problems (Last Reviewed 11/28/19 @ 11:28 by Janet Jimenez) Placental insufficiency in third trimester (Acute) heart rate decelerations affecting management of mother (Acute) Velamentous insertion of umbilical cord (Acute) History of (Acute) (Acute) History of delivery, currently (Acute) History of cholestasis during (Acute) Supervision of high-risk (Acute) Bleeding in early (Resolved) Low-lying placenta (Resolved) s/p LTCS PPD # 1 1. routine post care 2. breast feeding- support given 3. rh positive 4. rubella immune possible dc home
--- NOTE | 2019-12-01 08:46 | DCINST_ITS ---
Discharge Diet: No Restrictions Discharge Activity: May Not Drive - for 2 weeks, May not drive while taking narcotic pain medications., May Shower, May Take a Tub Bath - in 7 days May resume sexual activity in: 4-6 weeks Lifting Restrictions: 20 pounds Additional Activity Instructions:: Nothing in the vagina for 4-6 weeks. You may return to work/school in 6 weeks. Call your doctor if your incision/area has: Continuous Slow Oozing, Sudden Increased Bleeding, Increased Pain/ Swelling, Increased Redness, Foul Smelling Discharge Call your doctor if you observe: Fever of 101 or Higher, Using more than one pad per hour - for 2 hours Suture Line Care: Avoid Pulling/Pushing, Avoid Pinching/Bending Cleanse incision/area with: Keep Dressing Clean & Dry Additional Instructions: If you experience any of the following, contact your healthcare provider. * Bleeding that soaks a pad every hour for 2 hours * Fever 100.4 or higher * Unrelieved incision or abdominal pain * Swelling, redness, discharge or bleeding from your incision or episiotomy site * Your incision begins to separate * Problems urinating (including inability to urinate or burning while urinating). * Visual changes * Severe headache * Flu-like symptoms * Pain or redness in one of both of your breasts * Pain, warmth, tenderness or swelling in your legs, especially the calf area * Frequent nausea and vomiting * Symptoms of depression or anxiety If you experience any of the following, call 911 or go to the nearest Emergency Room. * Chest pain * Problems breathing * Seizure activity * Partial or complete paralysis of a body part, slurred speech, weakness or drooping of the face, or a sudden inability to walk or hold your balance Allergies/Adverse Reactions: Allergies No Known Allergies Allergy (Verified 11/30/19 00:11) Medications to take at Discharge Vits [Prenatabs FA ] 1 tab PO DAILY 06/26/14 Oseltamivir Phosphate [Tamiflu] 75 mg PO DAILY 11/30/19 Naproxen [Naprosyn] 250 - 500 mg PO Q8H PRN PRN #30 tab 12/01/19 Oxycodone HCl/Acetaminophen [Percocet 5-325] 1 - 2 tablet PO Q6H PRN PRN 7 Days #15 tablet 12/01/19 The following prescriptions were given: Naproxen [Naprosyn] 250 - 500 mg PO Q8H PRN PRN #30 tab PRN Reason: MILD PAIN Transmission Status: Pending to [facility] Oxycodone HCl/Acetaminophen [Percocet 5-325] 1 - 2 tablet PO Q6H PRN PRN 7 Days #15 tablet PRN Reason: Pain Transmission Status: [facility] Follow-Up: Call to make an appointment with your doctor for an incision check in 1-2 weeks. You will also need a 6 week post- follow up appointment. Test results from this visit will be discussed in further detail at your follow- up appointment, if applicable. Please Follow Up With: Mine Worrell MD - Call to make an appointment for an incision check in 1-2 [phone] When: You will need a post- check in 6 weeks. Primary Care Physician: Gayatri Becker DO [Primary Care Provider] -
[2019-12-01 08:55] VITALS: BP 100/55; PULSE 86; RESP 16; TEMP 37
[2019-12-01 14:38] VITALS: BP 97/49; PULSE 81; RESP 16; TEMP 36.6
== END 2019-12-01 15:00 | disposition home or self-care (01) | DRG 788 ==
PROVIDERS: Admitting Provider Obstetrics & Gynecology; Family Provider Family Medicine; PCP Family Medicine; Referring Provider Obstetrics & Gynecology; Visit Provider Obstetrics & Gynecology
DX: O34.211 Maternal care for low transverse scar from previous cesarean delivery (principal); N85.8 Other specified noninflammatory disorders of uterus; Z3A.37 37 weeks gestation of pregnancy; Z37.0 Single live birth; O76 Abnormality in fetal heart rate and rhythm complicating labor and delivery; O43.123 Velamentous insertion of umbilical cord, third trimester
CPT/HCPCS: 59025; 59050; 85018; 85025; 85027; 86850; 86900; 86901; 88305; 99218; 99251; J7120; A4216; G0378; G0463; J2405

== ENCOUNTER → 2019-12-12 | Outpatient (CLI) | payer BC, SELFPAY ==
[2019-12-12 10:45] VITALS: BMI 28.4
== END | disposition home or self-care (01) ==
LOC: LABSPEC 16:54
PROVIDERS: PCP Family Medicine; Referring Provider Nurse Practitioner Women's Health; Visit Provider Nurse Practitioner Women's Health
DX: R30.0 Dysuria (principal)
CPT/HCPCS: 87086; 87088

== ENCOUNTER 2022-01-06 16:04 | Outpatient (CLI) | payer BC, SELFPAY ==
[2022-01-12 16:38] LABS: HPV APTIMA, High Risk Negative (Negative)
== END 2022-01-06 23:59 | disposition home or self-care (01) ==
LOC: LABSPEC 16:05
PROVIDERS: PCP Family Medicine; Visit Provider Obstetrics & Gynecology
DX: Z12.4 Encounter for screening for malignant neoplasm of cervix (principal)
CPT/HCPCS: 87624; 88175; G0145

== ENCOUNTER → 2022-02-10 | Outpatient (CLI) | payer BC, SELFPAY ==
--- NOTE | 2022-02-10 15:33 | BI_ITS ---
MAMMOGRAPHY - BILATERAL SCREENING REASON FOR EXAM: Female, 41 years old. Routine annual screening examination. PERTINENT HISTORY: Aunt with breast cancer. TECHNIQUE: Digital bilateral breast mode (3D mammographic acquisition) in the CC and MLO projections. 2-D mediolateral oblique (MLO) and craniocaudad (CC) views of both breasts were obtained. CAD: Full Field Digital Mammography with Computer Added Detection was performed. COMPARISON: None. Baseline examination. FINDINGS: Breast Composition: The breasts are extremely dense, which lowers the sensitivity of mammography. There are no dominant masses or suspicious calcifications. No other significant abnormalities are identified. BI/SCRN MAMM (CAD)W/MODE BILAT IMPRESSION: Negative screening mammogram. Yearly followup mammogram recommended. (A) ASSESSMENT CATEGORY: BIRADS Category 1: Negative. A letter regarding these results will be sent to the patient by the facility within 30 days. Approximately 10% of breast cancers are not detected by mammography. A normal mammogram should not delay biopsy of a clinically suspicious abnormality. [id number] Electronically Signed: Natanael Ridley MD at 8:32 EDT ,
== END | disposition home or self-care (01) ==
LOC: WPPAT 15:32
PROVIDERS: PCP Family Medicine; Visit Provider Obstetrics & Gynecology
DX: Z12.31 Encounter for screening mammogram for malignant neoplasm of breast (principal)
CPT/HCPCS: 77063; 77067

== ENCOUNTER 2022-04-19 13:17 | Observation (INO) | payer BC, SELFPAY ==
[2022-04-19] VITALS (10 sets, daily range): BP systolic 98–136; BP diastolic 39–88; PULSE 70–99; RESP 16–18; TEMP 36.6–37.4; O2SAT 98–100; BMI 23.4; BMI 24.6
--- NOTE | 2022-04-19 13:36 | CT_ITS ---
STUDY: CT ABDOMEN AND PELVIS WITHOUT CONTRAST REASON FOR EXAM: Female, 41 years old. 2 day history of right lower quadrant pain. Elevated white cell count. RADIATION DOSAGE (If Supplied By Facility): CTDIvol = ( 6.1 ) mGy, DLP = ( 274.15 ) mGycm TECHNIQUE: Transaxial images were obtained from the dome of the diaphragm to the symphysis pubis without oral contrast, and without intravenous contrast. Sagittal and coronal images were reconstructed. Individualized dose optimization techniques were used for this CT. COMPARISON: None. FINDINGS: The visualized lung bases are unremarkable. The visualized portions of the heart are within normal limits. Normal liver. There are multiple small gallstones. Normal spleen. Normal pancreas. Normal bilateral adrenal glands. Normal right kidney. Normal left kidney. Normal visualized stomach. Normal small intestine. Inflammatory changes are seen in the peritoneal fat in the right lower quadrant extending into the region of the hepatic flexure. Small amount of fluid is seen along the inferior edge of the right lobe of the liver. The appendix is not identified with certainty. Mesenteric lymph nodes are seen in the right lower quadrant. Normal abdominal aorta. Normal inferior vena cava. Normal retroperitoneum. Normal urinary bladder. There is diastases of the rectus sheath. Normal osseous structures. CT/Abdomen/Pelvis without Cont IMPRESSION: Inflammatory changes are seen in the right lower quadrant extending into the region of the hepatic flexure with a small amount of free fluid along the inferior edge of the right lobe of the liver. The appendix is not identified with certainty. Multiple tiny gallstones. Electronically Signed: Natanael Ridley MD at 14:34 EDT ,
--- NOTE | 2022-04-19 13:36 | EDS_ITS ---
HPI HPI - GI History of Present Illness Chief Complaint: Abd Pain Detail of Chief Complaint: Aminal pain x3 days Informant: patient Abdominal Pain/Flank Pain Current Severity: 4/10 Nausea/Vomiting/Emesis GI Symptom: Positive for Nausea Narrative Narrative: Patient presents to the emergency department with complaint of abdominal pain that started 3 days ago. Patient describes it as right lower quadrant with at times some mild radiation to her back. Patient's had nausea and dry heaves at times. She denies any diarrhea. She denies blood in her stool or black tarry stool. She denies urinary symptoms. Her last menstrual period was March 30. Patient describes lack of appetite. Patient states the pain is worse with movement. Patient also states that she had a hard time sleeping last night because of the pain. Prior similar symptoms: No PFSH PFSH Home Medications multivitamin 1 tab PO DAILY 01/06/22 [History Last Taken Unknown] Allergy/AdvReac Type Severity Reaction Status Date / Time No Known Allergies Allergy Verified 01/06/22 14:11 Family History Mother Hypertension Hyperlipidemia Father Diabetes Hyperlipidemia Hypertension Surgical History delivery delivered H/O dilation and curettage Social History (Updated 01/06/22 @ 14:12 by Edel Gan) Smoking Status: Never smoker alcohol intake: current details: social substance use type: does not use caffeine: Yes what type of physical activity do you participate in: aerobics and weight training frequency: 5-6 times per week seatbelt use: always do you feel safe at home: Yes additional social history: [employer] 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 ROS ROS ED Review of Systems ROS Unobtainable: other Constitutional Constitutional ED: Reports lethargy; Denies chills, fever(s), sweats or weight loss Eyes Eyes: Denies blurry vision, change in vision or diplopia ENT ENT ED: Denies rhinorrhea or sore throat Cardiovascular Cardiovascular: Reports chest pain and racing heartbeat; Denies orthopnea Respiratory/Chest Respiratory/Chest: Reports dyspnea and dyspnea on exertion; Denies cough, orthopnea or sputum Gastrointestinal Gastrointestinal: Reports abdominal pain and nausea; Denies diarrhea or vomiting Genitourinary Genitourinary ED: Denies dysuria, hematuria or urinary frequency Musculoskeletal Musculoskeletal: Denies arthralgias, back pain, myalgias or neck pain Integumentary Denies abscess, Abrasions or rash Neurologic Neurologic: Denies headache(s) or weakness Psychiatric Psychiatric: Denies anxiety, depression or suicidal thoughts Endocrine Endocrinology: Denies polydipsia, polyphagia or polyuria Hematologic/Lymphatic Hematologic/Lymphatic: Denies easy bleeding, easy bruising or lymphadenopathy Allergic/Immunologic Allergic/Immunologic ED: Denies mouth swelling, tongue swelling or urticaria EXAM Physical Exam Const Vital Signs: 04/19/22 13:17 Temperature 99.3 F H Temperature Source Temporal Pulse Rate 99 Respiratory Rate 17 Blood Pressure 136/82 H Blood Pressure Mean 100 Pulse Ox 99 Oxygen Delivery Method Room Air Positive well nourished and well developed General Appearance ED: well developed and NAD HEENT Reports TM's clear and moist mucous membranes normocephalic and atraumatic; Negative for trauma or tenderness Tympanic Membrane ED: Yes TM's clear Eyes PERRL and EOMs intact bilaterally General Eye ED: Negative for pale conjunctiva or scleral icterus Neck no lymphadenopathy, supple and no JVD General: Negative for tenderness Chest Wall inspection of chest normal and palpation of chest normal Chest: Negative for tenderness Resp normal respiratory effort and clear to auscultation bilaterally Effort and Inspection: Negative for respiratory distress or pain with movement Auscultation: Negative for rhonchi, wheezes or diminished lung sounds Cardio regular rate, regular rhythm, S1 normal heart sound, S2 normal heart sound and no murmurs Peripheral Pulses: pulses 2+ throughout GI normal to inspection, nondistended, normoactive bowel sounds, soft to palpation, non-distended and no masses GI Narrative: Patient has tenderness to palpation over the right lower quadrant with guarding. No rebound, rigidity, peritoneal signs. She has positive heel strike. No CVA tenderness on exam. No tenderness over the right upper quadrant or left side of the abdomen. Back/Spine no CVA tenderness and no thoracic nor lumbar tenderness Extremity normal to inspection General Extremety ED: Negative for edema General Extremity: Negative for edema Neuro oriented x3, CN's II-XII intact bilaterally, no sensory deficits noted and gait normal Sensorium / Orientation: awake, alert, oriented to person, oriented to place and oriented to time Motor Exam: strength 5/5 throughout and strength abnormal Psych mental status grossly normal Skin no rashes or lesions noted and no wounds MDM MDM MDM Narrative Medical decision making narrative: Established on arrival. Patient did not want a thing for pain. She was noted to have an elevated white blood cell count of 14.1. Chemistries unremarkable and hCG was negative. CT scan of the abdomen pelvis was read by radiology as inflammatory changes to the right lower quadrant as well as some enlarged mesenteric lymph nodes however the appendix was not definitively seen. I did discuss case with Dr. Dixon who is on for general surgery who recommended we repeat the CAT scan with IV and p.o. contrast. Patient will be turned over to evening physician and surgeon will follow-up also on the CT results. Lab Data Attestation: I reviewed the patient's lab results. Labs: Laboratory Results - last 24 hr 04/19/22 04/19/22 04/19/22 13:26 13:26 13:26 WBC 14.1 H RBC 4.25 Hgb 13.0 Hct 38.0 MCV 89.4 MCH 30.6 MCHC 34.2 RDW Std Deviation 40.3 RDW Coeff of Opal 12.4 Plt Count 318 MPV 10.8 Immature Gran % (Auto) 0.400 Neut % (Auto) 80.1 H Lymph % (Auto) 11.2 L Benton % (Auto) 5.8 Eos % (Auto) 1.9 Baso % (Auto) 0.6 Absolute Neuts (auto) 11.2 H Absolute Lymphs (auto) 1.58 Nucleated RBC % 0 Sodium 137 Potassium 3.5 Chloride 103 Carbon Dioxide 27.0 Anion Gap 7 BUN 14 Creatinine 0.71 Estim Creat Clear Calc 74.90 Est GFR (MDRD) Af Amer 117 Est GFR (MDRD) Non-Af 97 BUN/Creatinine Ratio 19.8 Glucose 123 H Calcium 9.1 Serum , Qual NEGATIVE Urine Color Urine Clarity Urine pH Ur Specific [place] Urine Protein Urine Glucose (UA) Urine Ketones Urine Occult Blood Urine Nitrite Urine Bilirubin Urine Urobilinogen Ur Leukocyte Esterase Urine RBC Urine WBC Ur Squamous Epith Cells Urine Bacteria Urine Mucus 04/19/22 13:45 WBC RBC Hgb Hct MCV MCH MCHC RDW Std Deviation RDW Coeff of Opal Plt Count MPV Immature Gran % (Auto) Neut % (Auto) Lymph % (Auto) Benton % (Auto) Eos % (Auto) Baso % (Auto) Absolute Neuts (auto) Absolute Lymphs (auto) Nucleated RBC % Sodium Potassium Chloride Carbon Dioxide Anion Gap BUN Creatinine Estim Creat Clear Calc Est GFR (MDRD) Af Amer Est GFR (MDRD) Non-Af BUN/Creatinine Ratio Glucose Calcium Serum , Qual Urine Color Straw Urine Clarity Clear Urine pH 6.5 Ur Specific [place] 1.015 Urine Protein Negative Urine Glucose (UA) Normal Urine Ketones Negative Urine Occult Blood 10 H Urine Nitrite Negative Urine Bilirubin Negative Urine Urobilinogen Normal Ur Leukocyte Esterase Negative Urine RBC 0 SEEN Urine WBC 0 SEEN Ur Squamous Epith Cells 0-5 SEEN Urine Bacteria 0 SEEN Urine Mucus 0 SEEN Radiography Diagnostic Testing: Clinical Impression(s) from Imaging Studies Abdomen/Pelvis CT 04/19/22 13:36 IMPRESSION: Inflammatory changes are seen in the right lower quadrant extending into the region of the hepatic flexure with a small amount of free fluid along the inferior edge of the right lobe of the liver. The appendix is not identified with certainty. Multiple tiny gallstones. Electronically Signed: Natanael Ridley MD at 14:34 EDT , Discharge Plan Triage Chief Complaint: Abd Pain ED Provider: Irineo Kohli Dx/Rx/DC Orders Clinical Impression: Abdominal pain Prescriptions: No Action multivitamin Tablet 1 tab PO DAILY Primary Care Provider: Gayatri Becker Referrals: Gayatri Becker DO [Primary Care Provider] -
[2022-04-19] MEDS: 0.9% Normal Saline 1,000 ML 125 ML IV (13:44)
[2022-04-19 13:50] LABS: Bacteria 0 SEEN /hpf (None Seen); Mucous, Urine 0 SEEN /hpf (<or=2+); Red Blood Cells-Urine 0 SEEN /hpf (0-5); White Blood Cells 0 SEEN /hpf (0-5)
[2022-04-19 13:51] LABS: Absolute Lymphocyte Count 1.58 X10^3/uL (0.83-4.51); Absolute Neutrophil Count 11.2 X10^3/uL (2.0-7.7); Basophil# 0.08 X10^3/uL; Basophil% 0.6 % (0-1); Eosinophil# 0.27 X10^3/uL; Eosinophils% 1.9 % (0-5); Lymphocyte # 1.58 X10^3/ul (0.83-4.51); Lymphocyte % 11.2 % (19-41); Mean Corp Hgb Conc 34.2 g/dL (32-36); Mean Corpuscular Hgb 30.6 pg (27.0-32.0); Mean Corpuscular Volume 89.4 fL (81-99); Mean Platelet Vol. 10.8 fl (6.2-12.0); Monocyte# 0.82 X10^3/uL; Monocyte% 5.8 % (0-10); NRBC Flagged by Analyzer 0 % (0-5); Neutrophil # 11.24 X10^3/uL (2.7-7.7); Neutrophil % 80.1 % (47-70); Platelet Count 318 K/mm3 (150-450); RBC Distribution Width CV 12.4 % (11.6-14.6); RBC Distribution Width SD 40.3 fl (35.1-43.9); Red Blood Count 4.25 M/mm3 (4.2-5.4); White Blood Count 14.1 K/mm3 (4.4-11.0)
[2022-04-19 13:51] LABS: Color, Urine Straw (Yellow); Glucose, Dipstick Normal (Normal); Ketone-Dipstick Negative (Negative); Leukocyte Esterase-Dipstick Negative /ul (Negative); Nitrite-Dipstick Negative (Negative); Occult Blood-Urine 10 /ul (Negative); Protein-Dipstick Negative (Negative); Specific Gravity, Urine 1.015 (1.002-1.030); Urine Bilirubin Dipstick Negative (Negative); Urine Clarity Clear (Clear); Urine Urobilinogen Normal (Normal); Urine pH 6.5 (5.0 - 8.0)
[2022-04-19 13:56] LABS: Internal QC Validated? YES +Cl - CLEAR BKGD; Pregnancy, Serum, hCG Quali. NEGATIVE Negative
[2022-04-19 13:58] LABS: Squamous Epithelial Cells - UA 0-5 SEEN /hpf (5-10)
[2022-04-19 14:01] LABS: Anion Gap 7 (5-15); BUN 14 mg/dL (7-18); BUN/Creat Ratio 19.8 RATIO (10-20); Calcium,Total 9.1 mg/dL (8.5-10.1); Chloride 103 mmol/L (98-107); Creatinine, Serum 0.71 mg/dL (0.55-1.02); EST Glomerular Filtration Rate 97 mL/min (>60); Est Glom Filt Rate - Afr Amer 117 mL/min (>60); Glucose 123 mg/dL (74-106); Potassium 3.5 mmol/L (3.5-5.1); Sodium Level 137 mmol/L (136-145)
--- NOTE | 2022-04-19 14:51 | CT_ITS ---
STUDY: CT ABDOMEN AND PELVIS WITH CONTRAST REASON FOR EXAM: Female, 41 years old. ro appendicitis RADIATION DOSAGE (If Supplied By Facility): CTDIvol = ( 10.22 ) mGy, DLP = ( 358.77 ) mGycm TECHNIQUE: Transaxial images were obtained from the dome of the diaphragm to the symphysis pubis without oral contrast. Oral and amp; IV Gastrografin and amp; 100mL Isovue-300 was administered. Sagittal and coronal images were reconstructed. Individualized dose optimization techniques were used for this CT. COMPARISON: None. FINDINGS: The visualized lung bases are unremarkable. The visualized portions of the heart are within normal limits. Normal liver. Tiny polyps or poorly calcified gallstones without pericholecystic edema.. Normal spleen. Normal pancreas. Normal bilateral adrenal glands. Normal right kidney. Normal left kidney. Normal visualized stomach. Mild ileus with diffuse fecal retention in the colon.. There is marked thickening of the gonzalez of the appendix with narrowing of the lumen and stranding in the fat consistent with acute appendicitis is no periappendiceal abscess. Normal abdominal aorta. Normal inferior vena cava. Normal retroperitoneum. Normal urinary bladder. There is a very small right ovarian cyst and small amount of fluid in cul-de-sac possibly due to recent ovulation. Mild diastases of the transverse rectus sheath within the midline.. Normal osseous structures. CT/Abdomen/Pelvis WITH Contrast IMPRESSION: Findings consistent with acute appendicitis without evidence for periappendiceal abscess Tiny poorly calcified gallstones or polyps without pericholecystic edema. Small right ovarian cyst with small amount of fluid in the cul-de-sac Electronically Signed: Ferdinand Cantu MD at 16:52 EDT ,
--- NOTE | 2022-04-19 16:10 | NURSING ---
pt reports a little more discomfort to rt side and mild nausea after drinking contrast. iv atb completed and waiting on ct time. denies need of antiemetic or more pain meds. call light within reach. at bedside
--- NOTE | 2022-04-19 17:09 | NURSING ---
dr rivero in at bedside to see. pt aware of need for or
--- NOTE | 2022-04-19 17:20 | HP.PCM_ITS ---
HPI - General General Date of Service: 04/19/22 Chief Complaint: Right lower quadrant pain x3 days HPI Narrative IRENE LOMOIS, is a 41 F who presents to [facility] with acute onset abdominal pain that began 3 days ago. Pain has remained about the same intensity, but given the inability to get comfortable and interference with sleep last evening, Mrs. Loomis decided to present for evaluation. She states that there has been some anorexia and nausea associated with this abdominal pain. ER work-up is notable for CBC with leukocytosis of 14,000 and left shift. She had initial CT abdomen pelvis without contrast that showed some inflammator y changes in the right lower quadrant along with mesenteric adenopathy, but repeat CT with p.o. and IV contrast showed clear evidence of acute appendicitis without abscess. Patient notes that she is otherwise healthy and has a surgical history of 2 prior sections. [facility] Home Medications multivitamin 1 tab PO DAILY 01/06/22 [History Last Taken Unknown] Allergy/AdvReac Type Severity Reaction Status Date / Time No Known Allergies Allergy Verified 01/06/22 14:11 Family History Mother Hypertension Hyperlipidemia Father Diabetes Hyperlipidemia Hypertension Surgical History delivery delivered H/O dilation and curettage Social History (Updated 01/06/22 @ 14:12 by Edel Gan) Smoking Status: Never smoker alcohol intake: current details: social substance use type: does not use caffeine: Yes what type of physical activity do you participate in: aerobics and weight training frequency: 5-6 times per week seatbelt use: always do you feel safe at home: Yes additional social history: [employer] 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 Small umbilical hernia (estimated 1 cm fascial defect) without tenderness. Supraumbilical piercing present Results Lab / Micro Data Result Diagrams: 04/19/22 13:26 04/19/22 13:26 Labs: Laboratory Results - last 24 hr 04/19/22 13:26: WBC 14.1 H, RBC 4.25, Hgb 13.0, Hct 38.0, MCV 89.4, MCH 30.6, MCHC 34.2, RDW Std Deviation 40.3, RDW Coeff of Opal 12.4, Plt Count 318, MPV 10.8, Immature Gran % (Auto) 0.400, Neut % (Auto) 80.1 H, Lymph % (Auto) 11.2 L, [place] % (Auto) 5.8, Eos % (Auto) 1.9, Baso % (Auto) 0.6, Absolute Neuts (auto) 11.2 H, Absolute Lymphs (auto) 1.58, Nucleated RBC % 0 04/19/22 13:26: Sodium 137, Potassium 3.5, Chloride 103, Carbon Dioxide 27.0, Anion Gap 7, BUN 14, Creatinine 0.71, Estim Creat Clear Calc 74.90, Est GFR (MDRD) Af Amer 117, Est GFR (MDRD) Non-Af 97, BUN/Creatinine Ratio 19.8, Glucose 123 H, Calcium 9.1 04/19/22 13:26: Serum , Qual NEGATIVE 04/19/22 13:45: Urine Color Straw, Urine Clarity Clear, Urine pH 6.5, Ur Specific [place] 1.015, Urine Protein Negative, Urine Glucose (UA) Normal, Urine Ketones Negative, Urine Occult Blood 10 H, Urine Nitrite Negative, Urine Travis irubin Negative, Urine Urobilinogen Normal, Ur Leukocyte Esterase Negative, Urine RBC 0 SEEN, Urine WBC 0 SEEN, Ur Squamous Epith Cells 0-5 SEEN, Urine Bacteria 0 SEEN, Urine Mucus 0 SEEN Radiology Impression Abdomen/Pelvis CT 04/19/22 13:36 IMPRESSION: Inflammatory changes are seen in the right lower quadrant extending into the region of the hepatic flexure with a small amount of free fluid along the inferior edge of the right lobe of the liver. The appendix is not identified with certainty. Multiple tiny gallstones. Electronically Signed: Natanael Ridley MD at 14:34 EDT , Abdomen/Pelvis CT 04/19/22 14:51 IMPRESSION: Findings consistent with acute appendicitis without evidence for periappendiceal abscess Tiny poorly calcified gallstones or polyps without pericholecystic edema. Small right ovarian cyst with small amount of fluid in the cul-de-sac Electronically Signed: Ferdinand Cantu MD at 16:52 EDT , Assessment & Plan Assessment/Plan (1) Acute appendicitis: PLAN: Patient with signs and symptoms of acute appendicitis. Per CT imaging there is no evidence of perforation. Laparoscopic appendectomy recommended and recommendation shared with patient along with citation of recent CODA trial findings. Patient is excepting of this recommendation and we will plan to proceed with emergent laparoscopic appendectomy. Postoperative care instructions briefly covered. (2) Umbilical hernia without obstruction and without gangrene: PLAN: Patient with incidental finding of umbilical hernia that is neither incarcerated or strangulated. Does not appear to be symptomatic. Given that she has a supraumbilical piercing, this represents an ideal site for our port placement and therefore I will plan to perform a primary umbilical hernia repair along with above laparoscopic procedure.
--- NOTE | 2022-04-19 17:26 | NURSING ---
pt to or via bed with
[2022-04-19] MEDS: Bupivacaine 0.25% 30 ML Vial (20:19)
--- NOTE | 2022-04-19 20:20 | PCM.OPRPT ---
Report of Operation Date of Procedure: 04/19/22 Pre-Operative Diagnosis: 1. Acute appendicitis 2. Nonincarcerated umbilical hernia Post-Operative Diagnosis: 1. Acute, uncomplicated appendicitis 2. Nonincarcerated umbilical hernia Surgery/Procedure Performed:: 1. Laparoscopic appendectomy 2. Primary repair of umbilical hernia Surgeon: Dm Dixon measurement and verification engineer: None Anesthesiologist: Kandis Harden Estimated Blood Loss (mL): 10 Description of Procedure: After appropriate identification in the preoperative holding area, the patient was brought to the operating room and placed supine on the operating room table. Antibiotics had been preoperatively administered. Patient was then induced with general endotracheal anesthetic. The abdomen was prepped and draped in usual sterile fashion. Formal timeout was conducted to confirm both the patient and the procedure. I began the procedure with a block of local anesthetic at an infraumbilical position using 0.25% bupivacaine. 10 to the infraumbilical skin between 2 hemostats a 2 cm curvilinear incision was made. I then used a hemostat to bluntly dissect the soft tissue down to the level of the fascia and encircled the umbilical stalk. A knife was used to sharply separate the umbilical skin from the stalk and care was taken not to thin the umbilical skin. With the umbilical skin completely freed we visualized a almost 2 cm defect in the abdominal wall fascia and could visualize the omentum through this defect. After use of selective electrocautery to address some mild oozing on the fascia, a 12 mm balloon Laws trocar was placed through this defect and pneumoperitoneum established at 15 mmHg. Patient was positioned in Trendelenburg with the left side down. Performing sequential local blocks at the respective sites, 2 additional 5 mm trocars were placed in the left lower quadrant and suprapubic positions. The peritoneum was inspected and there were no signs of inadvertent injury from this Laws entry. The appendix was visualized with moderate to severe inflammation and only the appendiceal base was clearly visible. The appendix appeared to curl towards the right lateral sidewall and cephalad against the base of the cecum. I used a harmonic scalpel device to divide some adhesions to the lateral sidewall. Using blunt laparoscopic dissection, a window was made in the mesoappendix adjacent to the appendiceal base. Using a chopsticks technique I was able to establish a plane between the retroperitoneum and the severely inflamed mesoappendix. Except the more distal portion of the appendix could not clearly be extricated from the adjacent cecum due to an intense inflammatory reaction towards the appendiceal tip. Therefore the base of the appendix was sealed and amputated with the use of an Endo SWATI stapler and I continued to work with a combination of blunt dissection and very selective use of energy to divide adhesions towards the appendiceal tip. Ultimately I was able to clearly define this tip from the inflammatory process overlying the cecum and with additional blunt dissection. Some remaining attachments of the sale of the appendix to the lateral sidewall were divided with our energy device. Then the appendix was placed in an Endo Catch bag. The staple line was inspected for hemostasis. After hemostasis was confirmed the appendix was removed from the umbilical port site. All remaining irrigation was suctioned free of the peritoneum. Pneumoperitoneum was then evacuated and the ports were removed. The umbilical hernia was then closed in a running fashion using #1 PDS. We used a single interrupted 4-0 Monocryl to tack the umbilical skin back down to the fascia and the skin of this port site was then closed in a running subcuticular fashion. The remaining 5 mm port sites were closed with single interrupted 4-0 Monocryl in a subcuticular fashion. Steri-Strips and OpSite dressings were applied. At the umbilical hernia closure site, a rolled Telfa gauze was used to train the umbilical skin back down to the deeper fascia and a Tegaderm dressing was used to hold this ensemble in place. Patient tolerated procedure well without any apparent complications. They were awoken from general anesthetic without issue and transferred to post anesthesia care unit for ongoing recovery. Complications None Admit VTE Documentation VTE Present on Admission: Yes VTE Mechan Device Prophylaxis: SCD's
[2022-04-19] MEDS: 0.9% Normal Saline 1,000 ML 50 ML IV (21:15)
[2022-04-19] MEDS: HYDROmorphone 0.5 MG/0.5 ML SYRINGE IV (21:15)
--- NOTE | 2022-04-20 | APP_PTH ---
PATIENT: IRENE LONDONO LOC: MS3 U#:[id number] AGE/SX: 41/F ROOM: [facility] [place] RE04/19/[address]: Dr. Dm Dixon MD : 1980 BED: 1 DIS: 04/20/2022 SPEC #: [id number] RECD: 04/20/22 12:30 STATUS: ABDIAS REFerny #: [id number] VIVIEN: 04/20/22 00:[address]: Dm Dixon DEPT: SURGICAL PATHOLOGY RECD BY: Irving Mcmanus ENTERED: 04/20/22 12:30 SP TYPE: APPENDIX OTHR DR: Dr. Gayatri Becker, DO Tissues: Appendix, NOS Procedures: Surgery Specimen Level III HEADER OPERATION: Laparoscopic appendectomy with umbilical hernia repair PRE-OP DIAGNOSIS: Acute appendicitis TISSUE SUBMITTED: Appendix MICROSCOPIC DIAGNOSIS Appendix, appendectomy: Acute appendicitis and periappendicitis. RAAD:ron 04/21/2022 MICROSCOPIC DESCRIPTION Slides are reviewed. GROSS DESCRIPTION Received in fixative is one container labeled with the patient's name and designated appendix. The specimen consists of a previously, partially opened C-shaped appendix measuring 7 cm in length and up to 1.5 cm in diameter. No obvious perforation is identified. The serosal surface is covered with fairchild, purulent exudate. The lumen does not contain any fecalith. Lead Machinist sections are submitted in one cassette. / SJ:rg 04/20/2022 TC:2 CPT: 77626
[2022-04-20] MEDS: Ibuprofen 400 MG Tablet PO ×2 (00:53→06:10)
[2022-04-20 01:03] VITALS: BP 98/53; PULSE 65; RESP 16; TEMP 36.9; O2SAT 100
[2022-04-20 06:09] VITALS: BP 96/58; PULSE 73; RESP 16; TEMP 36.9; O2SAT 100
--- NOTE | 2022-04-20 08:29 | PCM.PN.SRG ---
Subjective Subjective Patient was seen and examined during AM rounds. She reports feeling much better but sore. States that she has already been up walking around. She has only required [id number] pain medication postoperatively. Objective Data Objective Data Vital Signs: Vital Signs Temp Pulse Resp BP Pulse Ox O2 Del Method 98.4 F 73 16 96/58 L 100 Room Air 04/20/22 06:09 04/20/22 06:09 04/20/22 06:09 04/20/22 06:09 04/20/22 06:09 04/20/22 06:09 Oxygen Delivery Method Room Air Weight: 125 lb 7.088 oz Body Mass Index (BMI) 24.6 Intake & Output: Intake and Output for Last 24 Hours 04/18/22 04/19/22 04/20/22 23:59 23:59 23:59 Intake Total 995.84 / 995.84 600 / 600 Output Total 300 / 300 Balance 995.84 / 995.84 300 / 300 Lab / Micro Data Result Diagrams: 04/19/22 13:26 04/19/22 13:26 Labs: Laboratory Results - last 24 hr 04/19/22 13:26: WBC 14.1 H, RBC 4.25, Hgb 13.0, Hct 38.0, MCV 89.4, MCH 30.6, MCHC 34.2, RDW Std Deviation 40.3, RDW Coeff of Opal 12.4, Plt Count 318, MPV 10.8, Immature Gran % (Auto) 0.400, Neut % (Auto) 80.1 H, Lymph % (Auto) 11.2 L, [place] % (Auto) 5.8, Eos % (Auto) 1.9, Baso % (Auto) 0.6, Absolute Neuts (auto) 11.2 H, Absolute Lymphs (auto) 1.58, Nucleated RBC % 0 04/19/22 13:26: Sodium 137, Potassium 3.5, Chloride 103, Carbon Dioxide 27.0, Anion Gap 7, BUN 14, Creatinine 0.71, Estim Creat Clear Calc 74.90, Est GFR (MDRD) Af Amer 117, Est GFR (MDRD) Non-Af 97, BUN/Creatinine Ratio 19.8, Glucose 123 H, Calcium 9.1 04/19/22 13:26: Serum , Qual NEGATIVE 04/19/22 13:45: Urine Color Straw, Urine Clarity Clear, Urine pH 6.5, Ur Specific [place] 1.015, Urine Protein Negative, Urine Glucose (UA) Normal, Urine Ketones Negative, Urine Occult Blood 10 H, Urine Nitrite Negative, Urine Bilirubin Negative, Urine Urobilinogen Normal, Ur Leukocyte Esterase Negative, Urine RBC 0 SEEN, Urine WBC 0 SEEN, Ur Squamous Epith Cells 0-5 SEEN, Urine Bacteria 0 SEEN, Urine Mucus 0 SEEN Radiography Diagnostic Testing: Radiology Impression Abdomen/Pelvis CT 04/19/22 13:36 IMPRESSION: Inflammatory changes are seen in the right lower quadrant extending into the region of the hepatic flexure with a small amount of free fluid along the inferior edge of the right lobe of the liver. The appendix is not identified with certainty. Multiple tiny gallstones. Electronically Signed: Natanael Ridley MD at 14:34 EDT , Abdomen/Pelvis CT 04/19/22 14:51 IMPRESSION: Findings consistent with acute appendicitis without evidence for periappendiceal abscess Tiny poorly calcified gallstones or polyps without pericholecystic edema. Small right ovarian cyst with small amount of fluid in the cul-de-sac Electronically Signed: Ferdinand Cantu MD at 16:52 EDT , Physical Exam Const oriented x3 and no apparent distress Resp normal respiratory effort GI GI Narrative: Nondistended, mild amount of red blood to patient's umbilical dressing beneath the Tegaderm. Otherwise the surgical dressings are intact. Soft, minimally tender to palpation Assessment & Plan Assessment/Plan (1) S/P appendectomy: PLAN: Patient postoperative day 1 from laparoscopic appendectomy with primary umbilical hernia repair. She reports that she is feeling better today with only minimal soreness. We will plan to advance her diet and if this is tolerated, discharge her later this morning. We have reviewed postoperative expectations and she confirms her intent to follow-up with me in 1 week to review her healing and pathology.
--- NOTE | 2022-04-20 08:33 | DCINST_ITS ---
Discharge Instructions Diet Discharge Diet: No restrictions Activity Discharge Activity: May Not Drive (May not drive while taking narcotic pain medications) and May Shower (May begin showering 48hours postop. Please avoid baths or submerging surgical incisions before skin is completely healed.) May shower in (days): 2 May resume sexual activity in: 2 weeks Ice area for (Minutes): 20 Lifting Restrictions: Limit lifting to <15lbs for 4 weeks following surgery Dressing / Incision Call your doctor if your incision/area has: Sudden Increased Bleeding, Increased Pain/ Swelling, Increased Redness, Foul Smelling Discharge and Swelling at the incision site Call your doctor if you observe: Fever of 101 or Higher, Inability to urinate, Inability to have a bowel movement and Uncontrolled pain Suture Line Care: Avoid Pulling/Pushing Remove Dressing in: 2 days (Please leave steri strips (medical tape) in place until they fall off spontaneously or are removed at your follow-up appointment) Cleanse incision/area with: Keep Dressing Clean & Dry Additional Dressing/Incision Instructions:: Please leave umbilical dressing in place for 3 days postop. The remaining dressings can be removed tomorrow Follow Up Care Please Follow Up With: Dm Dixon MD When: 2 weeks postop Test Results: Test results from this visit will be discussed in further detail at your follow- up appointment, if applicable. Discharge Plan Admission Admit Date/Time: 04/19/22 20:46 Primary Reason for Your Visit: Acute appendicitis Attending Provider: Dm Dixon Primary Care Provider: Gayatri Becker Instructions Patient Instructions: Appendectomy Laparoscopic Dc Discharge Orders/Prescriptions Prescriptions: New oxycodone 5 mg Tablet 5 mg PO Q6H PRN PRN (Reason: Pain Score 6-10) 3 Days Qty: 7 0RF Continued multivitamin Tablet 1 tab PO DAILY Referrals / Follow Up: Gayatri Becker DO [Primary Care Provider] - Disposition Disposition (needs filled in before D/C Order can be placed): Home, Self Care
--- NOTE | 2022-04-20 08:38 | DS.PCM_ITS ---
Providers Date of Admission: 04/19/22 Primary Care Physician: Dr. Gayatri Becker DO Reason For Visit: ACUTE APPENDICITIS Diagnosis Discharge Diagnosis (1) S/P appendectomy: Status: Acute Code(s): Z90.49 - Acquired absence of other specified parts of digestive tract Plan: Patient postoperative day 1 from laparoscopic appendectomy with primary umbilical hernia repair. She reports that she is feeling better today with only minimal soreness. We will plan to advance her diet and if this is tolerated, discharge her later this morning. We have reviewed postoperative expectations and she confirms her intent to follow-up with me in 1 week to review her healing and pathology. Medications at Discharge Home Medications multivitamin 1 tab PO DAILY 01/06/22 oxycodone 5 mg tablet 5 mg PO Q6H PRN PRN Pain Score 6-10 3 days #7 tabs 04/20/22 Hospital Course Operations appendectomy Procedures None Summary of Care Provided Minutes Spent on Discharge: 5 Hospital Course: Patient is a 41-year-old female who was admitted on 04/19/2022 following a laparoscopic appendectomy for acute appendicitis. The case proceeded uncomplicated, but given the late hour and more extensive dissection that was required, elected to admit the patient for observation. She did well during this observation stay and required minimal pain medications. On the morning of postoperative day 1 she was visited and found to have adequate pain control and had already begun ambulating. Her diet was advanced and she requested discharge to home. After reviewing postoperative activity restrictions and wound care instructions her request was granted. We will plan to follow-up in 1 week to review her healing progress and pathology. Physical Exam Const alert, oriented x3 and no apparent distress Weight / BMI Weight Weight: 125 lb 7.088 oz Body Mass Index (BMI) 24.6 ABG / Lab / Microbiology Data Result Diagrams: 04/19/22 13:26 04/19/22 13:26 Laboratory: Laboratory Results - last 24 hr 04/19/22 13:26: WBC 14.1 H, RBC 4.25, Hgb 13.0, Hct 38.0, MCV 89.4, MCH 30.6, MCHC 34.2, RDW Std Deviation 40.3, RDW Coeff of Opal 12.4, Plt Count 318, MPV 10.8, Immature Gran % (Auto) 0.400, Neut % (Auto) 80.1 H, Lymph % (Auto) 11.2 L, [place] % (Auto) 5.8, Eos % (Auto) 1.9, Baso % (Auto) 0.6, Absolute Neuts (auto) 11.2 H, Absolute Lymphs (auto) 1.58, Nucleated RBC % 0 04/19/22 13:26: Sodium 137, Potassium 3.5, Chloride 103, Carbon Dioxide 27.0, Anion Gap 7, BUN 14, Creatinine 0.71, Estim Creat Clear Calc 74.90, Est GFR (MDRD) Af Amer 117, Est GFR (MDRD) Non-Af 97, BUN/Creatinine Ratio 19.8, Glucose 123 H, Calcium 9.1 04/19/22 13:26: Serum , Qual NEGATIVE 04/19/22 13:45: Urine Color Straw, Urine Clarity Clear, Urine pH 6.5, Ur Specific [place] 1.015, Urine Protein Negative, Urine Glucose (UA) Normal, Urine Ketones Negative, Urine Occult Blood 10 H, Urine Nitrite Negative, Urine Bilirubin Negative, Urine Urobilinogen Normal, Ur Leukocyte Esterase Negative, Urine RBC 0 SEEN, Urine WBC 0 SEEN, Ur Squamous Epith Cells 0-5 SEEN, Urine Bacteria 0 SEEN, Urine Mucus 0 SEEN Radiography Diagnostic Testing: Radiology Impression Abdomen/Pelvis CT 04/19/22 13:36 IMPRESSION: Inflammatory changes are seen in the right lower quadrant extending into the region of the hepatic flexure with a small amount of free fluid along the inferior edge of the right lobe of the liver. The appendix is not identified with certainty. Multiple tiny gallstones. Electronically Signed: Natanael Ridley MD at 14:34 EDT , Abdomen/Pelvis CT 04/19/22 14:51 IMPRESSION: Findings consistent with acute appendicitis without evidence for periappendiceal abscess Tiny poorly calcified gallstones or polyps without pericholecystic edema. Small right ovarian cyst with small amount of fluid in the cul-de-sac Electronically Signed: Ferdinand Cantu MD at 16:52 EDT , D/C Instructions Discharge Diet: No restrictions May shower in (days): 2 May resume sexual activity in: 2 weeks Ice area for (Minutes): 20 Call your doctor if your incision/area has: Sudden Increased Bleeding, Increased Pain/ Swelling, Increased Redness, Foul Smelling Discharge and Swelling at the incision site Call your doctor if you observe: Fever of 101 or Higher, Inability to urinate, Inability to have a bowel movement and Uncontrolled pain Suture Line Care: Avoid Pulling/Pushing Cleanse incision/area with: Keep Dressing Clean & Dry Additional Dressing/Incision Instructions: Please leave umbilical dressing in place for 3 days postop. The remaining dressings can be removed tomorrow Please Follow Up With: Dm Dixon MD When: 2 weeks postop Meaningful Use Info Meaningful Use Diagnoses (Choose all that apply): None applicable Discharge Plan Admission Admit Date/Time: 04/19/22 20:46 Primary Reason for Your Visit: Acute appendicitis Attending Provider: Dm Dixon Primary Care Provider: Gayatri Becker Instructions Patient Instructions: Appendectomy Laparoscopic Dc Discharge Orders/Prescriptions Prescriptions: New oxycodone 5 mg Tablet 5 mg PO Q6H PRN PRN (Reason: Pain Score 6-10) 3 Days Qty: 7 0RF Continued multivitamin Tablet 1 tab PO DAILY Referrals / Follow Up: Gayatri Becker DO [Primary Care Provider] - Disposition Disposition (needs filled in before D/C Order can be placed): Home, Self Care
[2022-04-20 10:25] VITALS: BP 100/45; PULSE 86; RESP 16; TEMP 36.6; O2SAT 100
== END 2022-04-20 11:20 | disposition home or self-care (01) ==
LOC: ED 13:38 → AC 17:29 → MS3 20:42 → AC 20:50 → MS3 20:50
PROVIDERS: Admitting Provider Surgery; Emergency Provider Emergency Medicine; PCP Family Medicine; Referring Provider Surgery; Visit Provider Surgery
PROC: 0DTJ4ZZ Resection of Appendix, Percutaneous Endoscopic Approach (ICD-10-PCS; CPT 44970; principal; 2022-04-19 15:45)
DX: K35.80 Unspecified acute appendicitis (principal); K42.9 Umbilical hernia without obstruction or gangrene
CPT/HCPCS: 44970; 49652; 00840; 74176; 74177; 80048; 81001; 84703; 85025; 88304; 96361; 96365; 96375; 99218; 99285; J7030; Q9967; G0378; J2405

== ENCOUNTER → 2022-06-23 | Outpatient (CLI) | payer BC, SELFPAY ==
[2022-06-23 10:11] LABS: Hematocrit 37.6 % (37-47); Hemoglobin 12.9 g/dL (12.0-15.0); Mean Corp Hgb Conc 34.3 g/dL (32-36); Mean Corpuscular Hgb 31.2 pg (27.0-32.0); Mean Platelet Vol. 10.5 fl (6.2-12.0); Platelet Count 299 K/mm3 (150-450); RBC Distribution Width CV 12.4 % (11.6-14.6); RBC Distribution Width SD 41.2 fl (35.1-43.9); Red Blood Count 4.13 M/mm3 (4.2-5.4); White Blood Count 5.7 K/mm3 (4.4-11.0)
[2022-06-23 10:18] LABS: International Normalized Ratio 0.9; Prothrombin Time (Protime)PT. 12.3 SECONDS (11.7-14.9)
[2022-06-23 10:36] LABS: ALB/GLOB Ratio 1.2 RATIO (0.9-2.4); AST(SGOT) 16 U/L (15-37); Alanine Aminotransfer ALT/SGPT 30 U/L (13-56); Albumin, Serum 4.1 g/dL (3.2-5.0); Alkaline Phosphatase 78 U/L (45-117); Anion Gap 5 (5-15); BUN 26 mg/dL (7-18); BUN/Creat Ratio 29.6 RATIO (10-20); Calcium,Total 9.4 mg/dL (8.5-10.1); Chloride 105 mmol/L (98-107); Creatinine, Serum 0.88 mg/dL (0.55-1.02); EST Glomerular Filtration Rate 75 mL/min (>60); Est Glom Filt Rate - Afr Amer 91 mL/min (>60); Globulin 3.3 g/dL (2.2-4.2); Glucose 110 mg/dL (74-106); Protein, Total 7.4 g/dL (6.4-8.2); Sodium Level 138 mmol/L (136-145)
== END | disposition home or self-care (01) ==
PROVIDERS: PCP Family Medicine
DX: Z01.812 Encounter for preprocedural laboratory examination (principal); H80.90 Unspecified otosclerosis, unspecified ear
CPT/HCPCS: 36415; 80053; 85027; 85610; 85730

== ENCOUNTER → 2022-08-04 | Outpatient (CLI) | payer BC, SELFPAY ==
[2022-08-04 12:55] LABS: Cholesterol 195 mg/dL (200); High Density Lipoprotein 80 mg/dL; Triglycerides 62 mg/dL; Very Low Density Lipoprotein 12 mg/dL (5-40)
== END | disposition home or self-care (01) ==
PROVIDERS: PCP Family Medicine; Visit Provider Family Medicine
DX: Z00.00 Encounter for general adult medical examination without abnormal findings (principal)
CPT/HCPCS: 36415; 80061

== ENCOUNTER → 2023-08-01 | Outpatient (CLI) | payer BC, SELFPAY ==
--- NOTE | 2023-08-01 15:56 | BI_ITS ---
MAMMOGRAPHY - BILATERAL SCREENING REASON FOR EXAM: Female, 42 years old. Routine annual screening examination. PERTINENT HISTORY: Aunt with breast cancer. TECHNIQUE: Digital bilateral breast mode (3D mammographic acquisition) in the CC and MLO projections. 2-D mediolateral oblique (MLO) and craniocaudad (CC) views of both breasts were obtained. CAD: Full Field Digital Mammography with Computer Added Detection was performed. COMPARISON: Comparison is made with prior examination of February 10, 2022. FINDINGS: Breast Composition: The breasts are extremely dense, which lowers the sensitivity of mammography. There are no dominant masses or suspicious calcifications. No other significant abnormalities are identified. There has been no significant change since the prior study. BI/SCRN MAMM (CAD)W/MODE BILAT IMPRESSION: Stable bilateral screening mammogram. Yearly follow-up mammogram recommended. (A) ASSESSMENT CATEGORY: BIRADS Category 1: Negative. A letter regarding these results will be sent to the patient by the facility within 30 days. Approximately 10% of breast cancers are not detected by mammography. A normal mammogram should not delay biopsy of a clinically suspicious abnormality. [id number] Electronically Signed: Natanael Ridley MD at 8:20 EDT ,
== END | disposition home or self-care (01) ==
LOC: OPBI 15:56
PROVIDERS: PCP Family Medicine; Referring Provider Obstetrics & Gynecology; Visit Provider Obstetrics & Gynecology
DX: Z12.31 Encounter for screening mammogram for malignant neoplasm of breast (principal); Z80.3 Family history of malignant neoplasm of breast
CPT/HCPCS: 77063; 77067

== ENCOUNTER → 2024-08-02 | Outpatient (CLI) | payer BC, SELFPAY ==
--- NOTE | 2024-08-02 07:10 | BI_ITS ---
MAMMOGRAPHY - BILATERAL SCREENING REASON FOR EXAM: Female, 43 years old. Routine annual screening examination. PERTINENT HISTORY: Aunt with breast cancer. TECHNIQUE: Digital bilateral breast mode (3D mammographic acquisition) in the CC and MLO projections. 2-D mediolateral oblique (MLO) and craniocaudad (CC) views of both breasts were obtained. CAD: Full Field Digital Mammography with Computer Added Detection was performed. COMPARISON: Comparison is made with prior study dated August 01, 2023 and February 10, 2022. FINDINGS: Breast Composition: The breasts are extremely dense, which lowers the sensitivity of mammography. There are no dominant masses or suspicious calcifications. No other significant abnormalities are identified. There has been no significant change since the prior study. BI/SCRN MAMM (CAD)W/MODE BILAT IMPRESSION: Stable bilateral screening mammogram. Yearly follow-up mammogram recommended. (A) ASSESSMENT CATEGORY: BIRADS Category 1: Negative. A letter regarding these results will be sent to the patient by the facility within 30 days. Approximately 10% of breast cancers are not detected by mammography. A normal mammogram should not delay biopsy of a clinically suspicious abnormality. [id number] Electronically Signed: Natanael Ridley MD at 8:18 EDT ,
--- OUTSIDE RECORDS SUMMARY | 2024-08-02 07:13 | XMS RPT_ITS | CCD ---
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 Antonina Manriquez Attending Unav ailable Malys, Dr. Gayatri Randolph Primary Care Unavailable Shay, Dr. Kitty Galan Referring Unavail able Shay, Dr. Kitty Galan Referring Unavail able Malys, Dr. Gayatri Randolph Primary Care Unavailable Shay, Dr. Kitty Galan Attending Unavail able Shay, Dr. Kitty Galan Attending Unavail able Malys, Dr. Gayatri Randolph Primary Care Unavailable Shay, Dr. Kitty Galan Referring Unavail able Shay, Dr. Kitty Galan Attending Unavail able Malys, Dr. Gayatri Randolph Primary Care Unavailable Shay, Dr. Kitty Galan Admitting Unavail able Shay, Dr. Kitty Galan Referring Unavail able Shay, Dr. Kitty Galan Attending Unavail able Self, Referral Referring Unavailable Malys, Dr. Gayatri Randolph Primary Care Unavailable Gayatri Becker DO Primary Care Provider [phone] KITTY DAY Attending Unavailable MALYS, GAYATRI RANDOLPH Primary Care Unavailable Medications Current Medications Medication Drug Class(es) Dates Sig (Normalized) Sig (Original) multivit-min/ferrous fumarate (MULTI VITAMIN ORAL) (1 source) multivit-min/ashley derrick fumarate (MULTI VITAMIN ORAL) Take by mouth. 0 Active Completed/Discontinued Medications Medication Drug Class(es) Dates Sig (Normalized) Sig (Original) methylPREDNISolone 4 MG Oral Tablet Therapy Pack (1 source) Start: 11-26-2020 methylPREDNISolone 4 MG Oral Tablet Therapy Pack Quantity: 21 Refills: 0 Ordered: 26-Nov-2020 DO Start : 18-Feb-2021 Active Multi Vitamin Oral Tablet (5 sources) Start: 04-25-2022 take 1 tablet by mouth once daily Multi Vitamin Oral Tablet TAKE 1 TABLET DAILY. Quantity: 0 Refills: 0 Ordered: 25-Apr-2022 DO Start : 25-Apr-2022 Active Problems Active Problems Problem Classification Problem Date Documented Date Episodic/Chronic Other ear and sense organ disorders (9 sources) Conductive hearing loss, unilateral, left ear, with unrestricted hearing on the contralateral side; Translations: [Conductive hearing loss in left ear] Onset: 07-19-2022 Chronic Other ear and sense organ disorders (1 source) Mixed conductive AND sensorineural hearing loss; Translations: [Mixed hearing loss, bilateral] Chronic Other ear and sense organ disorders (1 source) Mixed conductive and sensorineural hearing loss, unilateral, right ear with restricted hearing on the contralateral side; Translations: [Mix cndct/snrl hear loss,uni,r ear w rstrcd hear cntra side] Onset: 10-20-2022 Chronic Other ear and sense organ disorders (1 source) Conductive hearing loss, unspecified; Translations: [Conductive hearing loss, unspecified] Onset: 07-19-2022 Chronic Otitis media and related conditions (12 sources) Otosclerosis; 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, unspecified] Onset: 07-19-2022 Episodic Past or Other Problems Problem Classification Problem Date Documented Da te Episodic/Chronic Unclassified (1 source) Onset: 10-19-2023 10-19-2023 Unclassified (1 source) s/p stapedectomy Onset: 10-19-2023 Results Test Name Value Interpretation Reference Range Facility Established Visit (Otolaryng ology)on 10-20-2022 Established Visit (Otolaryngology) Diagnoses/Problems 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 She is status post a left stapedectomy on 07/19/22. The patient is doing well and presents with no new otological complaints at this time. The patient?s current medications, active allergies and list of medical problems were reviewed in the EHR and confirmed electronically. RECALL 08/18/22: Post-op visit History of present illness: The patient is a 41-year-old female presenting for her first post-operative visit following a left stapedectomy on 07/19/22. Overall, pain is adequately controlled, and she denies significant imbalance, or discharge from the surgical ear. She has noticed improvements in her hearing subjectively following the surgical procedure. Physical Examination: CONSTITUTIONAL: No acute distress VOICE: No hoarseness or other abnormality RESPIRATION: Breathing comfortably, no stridor CV: No clubbing/cyanosis/edema in hands EYES: EOM intact, sclera clear NEURO: Alert and oriented times 3, Cranial nerves II-XII grossly intact and symmetric bilaterally HEAD AND FACE: Symmetric facial features, no masses or lesions RIGHT EAR: Normal external ear and post auricular area, no visible lesions, external auditory canal patent, tympanic membrane intact, no retraction, no signs of mass, effusion, or infection within the middle ear LEFT EAR: Air conduction is greater than bone conduction at 1024 Hz tuning forks in the left ear. Normal external ear and post auricular area, no visible lesions, external auditory canal patent, tympanic membrane intact, no retraction, no signs of mass, effusion, or infection within the middle ear NOSE: External nose midline, anterior rhinoscopy is normal with limited visualization to the anterior aspect of the interior turbinates, no bleeding or drainage, no lesions ORAL CAVITY/OROPHARYNX/LIPS: Normal mucous membranes, normal floor of mouth/tongue/OP, no masses or lesions PHARYNGEAL DEE: No masses or lesions NECK/LYMPH: No LAD, no thyroid masses, trachea midline SKIN: Neck and facial skin is without scar or injury PSYCH: Alert and oriented with appropriate mood and affect Diagnostic testing: Audiogram reviewed shows excellent closure of the air-bone gap on the left side. Excellent speech discrimination. On the right, moderate-mild conductive hearing loss. I personally reviewed the available patient?s external record and independently reviewed their audiometric testing and radiographic imaging through the appropriate viewing software as detailed in my note and agree with the detailed report. Impression: Status post left stapedectomy Recommendation: -Doing well. -Right ear is not a surgical candidate yet. -The patient will schedule for a follow-up visit in 1 year. This note was created using speech recognition plastics scientist software/or [employer] plastics scientist services. Despite proofreading, several typographical errors might be present that might affect the meaning of the content. Please call with any questions. By signing my name below, I, Jose Carlos Vo, attest that this documentation has been prepared under the direction and in the presence of Dr. Day. All medical record entries made by the Elliotibe were at my direction and personally dictated by me. I have reviewed the chart and agree that the record accurately reflects my personal performance of the history, physical exam, discussion, and plan. 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 Mixed hearing loss right ear. RECOMMENDATIONS 1. Continue medical follow-up with Kitty Day MD. 2. Return for audiologic assessment in conjunction with otologic care or annually. The patient and/or guardian received, read, and verbally consented to the Audiology Services notice, indicating all audiology services rendered will be billed separately from any other specialty services (ENT, Craniofacial, etc.) obtained in the same day. TIME: [phone] Chief Complaint post-op left stapedectomy Adult Risk ScreeningThere are no spiritual/cultural practices/values/needs that are important to know Domestic Violence Screen: Does not feel threatened or abused physically, emotionally or sexually. Do you feel UNSAFE? The patient feels safe in the home. Depression/Suicide Screening: During the past 2 weeks, the patient has not felt down, depressed or hopeless. During the past 2 weeks, the patient has not felt little interest or pleasure in doing things. Reference Documentation See scanned note audiogram. History of Present Illness Ms. Loomis, age 41 years, arrives today for a hearing evaluation following a left stapedectomy due to bilateral otosclerosis and conductive hearing loss (see audiogram from 06/17/2021). She reports improvement in hearing in the left ear since stapedectomy, denies pain, drainage, fullness, vertigo. Patient's preferred language: Czech Preferred language of the parent, legal guardian or surrogate decision-maker of this minor or incapacitated patient: Czech No overt signs of domestic violence/neglect/abuse. No referral made to Emergency Medical Technician. Pain not interfering with optimal level of function or ability to assess and/or treat. Pain Scale rank: 0/10 Pain Scale used: Numeric No referral made to primary care provider (PCP). Factors/Barriers influencing patient's ability to complete assessment or learn: none. Person taught: patient. Readiness to learn: no barriers. Results of Teaching/Counseling: verbalize recall / understanding and teaching complete. Procedure Otoscopy revealed clear ear canals and tympanic membrane visualized, bilaterally. RIGHT Tympanometry revealed normal middle ear pressure, mobility, and ear canal volume. Ipsilateral stapedial acoustic reflexes were absent 500-2000Hz. Behavioral audiometry was completed with supra-aural phones and good reliability revealed severe rising to mild mixed hearing loss with excellent word recognition (recorded; NU 6 list 2). LEFT Tympanometry revealed normal middle ear pressure, hypermobility, and normal ear canal volume. Ipsilateral stapedial acoustic reflexes were absent 500-2000Hz. Behavioral audiometry was completed with supra-aural phones and good reliability revealed mild conductive hearing loss at 250 Hz rising to within the normal hearing range with excellent word recognition (recorded; NU 6 list 3). Signatures Electronically signed by : Manuela Weaver; Oct 20 2022 9:54AM EST (Author) Normal [facility] Established Visit (Otolaryng ology)on 08-18-2022 Established Visit (Otolaryngology) Chief Complaint Post-operative visit status post left stapedectomy on 07/19/22 History of Present IllnessPost-op visit History of present illness: The patient is a 41-year-old female presenting for her first post-operative visit following a left stapedectomy on 07/19/22. Overall, pain is adequately controlled, and she denies significant imbalance, or discharge from the surgical ear. She has noticed improvements in her hearing subjectively following the surgical procedure. Physical Examination: Steri-strips were removed revealing the incision healing well without signs of infection. Ear canal examined using the otomicroscope. Packing was removed. Graft appears to be healing well. There are no signs to suggest an infection. Air conduction is greater than bone conduction at 1024 Hz tuning forks in the left ear. Impression: Status post left stapedectomy Doing well. Plan: Maintain dry ear precautions. Schedule a follow up in 8-10 weeks with an audiogram. This note was created using speech recognition plastics scientist software/or [employer] plastics scientist services. Despite proofreading, several typographical errors might be present that might affect the meaning of the content. Please call with any questions. By signing my name below, I, Jose Carlos Vo, attest that this documentation has been prepared under the direction and in the presence of Dr. Day. All medical record entries made by the Scribe were at my direction and personally dictated by me. I have reviewed the chart and agree that the record accurately reflects my personal performance of the history, physical exam, discussion, and plan. 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 Vitals Vital Signs Recorded: 18Aug2022 02:17PM [id number] F Rneslt121 lb 0.4 oz BMI Wzuvtnjtkq99.64 kg/m2 BSA Calculated1.51 'Scores and Scales' Signatures Electronically signed by : Kitty Day MD; Aug 18 2022 4:39PM EST (Author) Normal [facility] Order Reconciliationon 07-19 Order Reconciliation Page 1 Discharge Reconciliation Document Reconciliation Type: Discharge requested on behalf of Carmelita Dangelo (Resident) done by Carmelita Dangelo ( (Resident)) Discharge - Reconciliation: 19-Jul-2022 10:56 by: Carmelita Dangelo ( (Resident)) Home Medications EnteredHOME MEDICATIONS AT DISCHARGE DateReconciliation Comment/ Additional Information multivitamin orally once a day 19-Jul-2022 09:18 multivitamin orally once a day 19-Jul-2022 09:18 multivitamin is continued as multivitamin Current OrdersDateHOME MEDICATIONS AT DISCHARGE DateReconciliation Comment/ Additional Information ceFAZolin 1 gram Vial_IPRO SolutionGive 2 gram(s), IntraVenous, ONCE 19-Jul-2022 10:49 ceFAZolin 1 gram Vial_IPRO is not required DEXAMETHASONE 4MG/1ML 1ML INJ_IPRO SolutionGive 4 mg, IntraVenous, ONCE 19-Jul-2022 10:49 DEXAMETHASONE 4MG/1ML 1ML INJ_IPRO is not required FENTANYL 50MCG/1ML 2ML INJ_IPRO SolutionGive 50 microgram(s), IntraVenous, ONCE 19-Jul-2022 10:49 FENTANYL 50MCG/1ML 2ML INJ_IPRO is not required Ketorolac 30 mg/mL Inj 1mL_IPRO SolutionGive 30 mg, IntraVenous, ONCE 19-Jul-2022 10:50 Ketorolac 30 mg/mL Inj 1mL_IPRO is not required LIDOCAINE 2% PF 5ML VIAL_IPRO SolutionGive 50 mg, IntraVenous, ONCE 19-Jul-2022 10:50 LIDOCAINE 2% PF 5ML VIAL_IPRO is not required MIDAZOLAM PF 2MG/2ML 2ML INJ_IPRO SolutionGive 2 mg, IntraVenous, ONCE 19-Jul-2022 10:50 MIDAZOLAM PF 2MG/2ML 2ML INJ_IPRO is not required ONDANSETRON 4MG/2ML 2ML INJ_IPRO SolutionGive 4 mg, IntraVenous, ONCE 19-Jul-2022 10:50 ONDANSETRON 4MG/2ML 2ML INJ_IPRO is not required Propofol 10 mg/mL 50 mL Inj_IPRO SolutionGive 190.7725 mg, IntraVenous, ONCE 19-Jul-2022 10:50 Propofol 10 mg/mL 50 mL Inj_IPRO is not required Home Medications Added During Discharge Reconciliation Activity as Tolerated 19-Jul-2022, Routine, Assistance Level: None, Restrictions: None Additional Patient Instructions Do not engage in sports, heavy work or lifting. Additional Patient Instructions See handout for additional instructions Call Physician For: excessive bleeding (slow general oozing that completely soaks dressing or fresh bright red bleeding) or bleeding that will not stop. Apply pressure to the area and elevate. Call Physician For: signs and sypmtoms of infection Increased redness or swelling at incision site, increased pain/tenderness at surgical site, increased temperature greater than 100 degress, increasing and/or progressive drainage from surgical site, and/or unusual odor from surgical site. cephalexin 500 mg oral tablet 1 tab(s) orally 3 times a day Diet Regular Discharge Discharge Diagnosis< H80.90 Otosclerosis Discharge Provider, Kitty Day Discharge Disposition : .Home Condition at Discharge: Satisfactory Discharge Communication Instructions for Nursing Only: Remove IV prior to discharge from hospital. Do not remove any midline, if present, without an order from the provider. Discharge Instructions - PHR After your discharge from the hospital, two Summary of Care Documents will be available online in your Personal Health Record (PHR). 1.Consolidated-Clinical Document Architecture (C-CDA) Patient Discharge Summary This document is a summary of your hospital stay to be kept for your reference.2.C-CDA Visit Summary This document is a summary of your hospital stay to be shared with your follow-up providers (doctor, life sciences instructor, physical therapist, etc.). Follow Up with Shay in 4 Weeks 08/22/22 @ 11:45 [facility] clinic May not drive or operate motor vehicles for 24 hours. May shower ofloxacin 0.3% ophthalmic solution 5 drop(s) in each ear 2 times a day Post Procedure Discharge Criteria Criteria: Easily arousable / responding appropriately; Significant complications are absent; SpO2 = or > 92%, or if SpO2 < 92%, maintains within 2% of baseline; Vital signs +/- 20% of preprocedure status; Ambulates without dizziness / age appropriate activity and ambulatory status returns to pre-procedure baseline. All Active Home Medications at time of Discharge Reconciliation: 19-Jul-2022 10:56 Activity as Tolerated 19-Jul-2022, Routine, Assistance Level: None, Restrictions: None Additional Patient Instructions Do not engage in sports, heavy work or lifting. Additional Patient Instructions See handout for additional instructions Call Physician For: excessive bleeding (slow general oozing that completely soaks dressing or fresh bright red bleeding) or bleeding that will not stop. Apply pressure to the area and elevate. Call Physician For: signs and sypmtoms of infection Increased redness or swelling at incision site, increased pain/tenderness at surgical site, increased temperature greater than 100 degress, increasing and/or progressive drainage from surgical site, and/or unusual odor from surgical site. cephalexin 500 mg oral tablet 1 tab(s) orally 3 times a day Diet Regular Discharge Discharge Diagnosis< H80 (more content not included)... Normal [facility] Patient Profile - Preop v3on 07-18-2022 Patient Profile - Preop v3 Patient Profile - Preop: Initial Info: Patient DemographicsName: LAURENCE LOOMIS Date: 1980 Address: [address] [place], [place] [id number] Date/Time [id number] 13:23 Primary Phone [phone] Instructions Givenanticoagulant meds - patient advised to consult ordering provider, appropriate clothing, bring list of medications, bring responsible adult as the wedding transportation driver (procedure may be cancelled if no wedding transportation driver), center location, diabetes meds - patient advised to consult ordering provider, insurance information, remove jewerly/piercings, time to arrive How to be AddressedShannon Spoken Language PreferredEnglish Stated Reason for Admissionleft stapedectomy Primary Contact Name and NumberChris [phone] Medications Brought to Hospitalno General Health: Patient or Family Member Reaction to Anesthesiapatient reaction; no previous family member reaction Patient Reaction to Anesthesianausea and vomiting Blood Avoidance/Restrictionsnone Previous Transfusion Reactionnot applicable Health Mgmt: Symptoms/Conditions Managed at HomeHEENT (head, eyes, ears, nose, throat) HEENT Symptoms/Conditionsear problem(s) HEENT Symptoms/Conditions Commenthearing loss Barriers to Managing Healthnone Relationship/Environ: Lives Withspouse; dependent child(shira) Living Arrangementshouse Resource/Environmental Concernsnone Anticipated Transition [place] [facility] Anticipated at Transitionnone Tobacco Use: Tobacco Useno Pre-op Checklist: Arrival [id number] Arrival Time09:15 Procedure Typeleft stapedectomy NPOyes Last Food [id number] 23:00 ID Band On Patientpatient ID (name) Consent Signedpending Additional Information: Information Review: Allergies, Home Meds and Significant Events have been Reviewed and Verified with Patient/Familyyes Significant Events: 19-Jul-2022 umbilical hernia: Past Surgical History, Active 19-Jul-2022 appendectomy: Past Surgical History, Active 19-Jul-2022 D+ C X 2: Past Surgical History, Active 19-Jul-2022 X 2: Past Surgical History, Active Electronic Signatures: Jes Brumfield (RN) (Signed 19-Jul-2022 09:26) Authored: Initial Info, General Health, Health Mgmt, Relationship/Environ, Pre-op Checklist, Additional Information Tatiana Fournier (ABDULKADIR) (Signed 18-Jul-2022 13:25) Authored: Initial Info, General Health, Health Mgmt, Tobacco Use Last Updated: 19-Jul-2022 09:26 by Jes Brumfield (RN) Normal [facility] CORONAVIRUS 2019, SCREEN ASY MPTOMATICon 07-16-2022 SARS-CoV-2 (COVID-19) RNA ANDRIY+probe Ql (Unsp spec) Not detected Normal Not Detected [facility] Comment on above: Result Comment: . This assay is designed to detect the N, ORF1ab and/or S genes of SARS-CoV-2 via nucleic acid amplification. A Negative (NOT DETECTED) result does not preclude 2019-nCoV infection since the adequacy of sample collection and/or low viral burden may result in presence of viral nucleic acids below the clinical sensitivity of this test method. Negative (NOT DETECTED) result should not be used as the sole basis for treatment or other patient management decisions. Rather negative results should be combined with clinical observations, patient history, and epidemiological information to make patient management decisions. Fact sheet for providers: https://www.fda.gov/media/097037/download Fact sheet for patients: https://www.fda.gov/media/225383/download This test has received FDA Emergency Use Authorization (EUA) and has been verified by [facility] ([facility]). This test is only authorized for the duration of time that circumstances exist to justify the authorization of the emergency use of in vitro diagnostic tests for the detection of SARS-CoV-2 virus and/or diagnosis of COVID-19 infection under section 564(b)(1) of the Act, 21 U.S.C. 360bbb-3(b)(1), unless the authorization is terminated or revoked sooner. [facility] is certified under CLIA-88 as qualified to perform high complexity testing. Testing is performed in the [facility] laboratories located at [address] [place] [address]. Performed By: #### C OVSC #### [facility] [id number] [place] [address] Lab Specimen Source Nasal, Nasopharyngeal Normal [facility] Comment on above: Performed By: #### C OVSC #### [place] [address] Coronavirus 2019 RNA by PCR, Screening Asymptomticon 07-16-2022 Coronavirus 2019 RNA by PCR, Screening Asymptomtic Not detected Normal See Below MG-Otolaryngo logy-Faith howard Work Phone: Comment on above: SOURCE: Nasal, Nasop haryngealReference Range: Not Detected.This assay is designed to detect the N, ORF1ab and/or S genes of SARS-CoV-2 via nucleic acid amplification. A Negative (NOT DETECTED) result does not preclude 2019-nCoV infection since the adequacy of sample collection and/or low viral burden may result in presence of viral nucleic acids below the clinical sensitivity of this test method. Negative (NOT DETECTED) result should not be used as the sole basis for treatment or other patient management decisions. Rather negative results should be combined with clinical observations, patient history, and epidemiological information to make patient management decisions.Fact sheet for providers: https://www.fda.gov/media/110191/downloadFact sheet for patients: https://www.fda.gov/media/862085/downloadThis test has received FDA Emergency Use Authorization (EUA) and has been verified by [facility] ([facility]). This test is only authorized for the duration of time that circumstances exist to justify the authorization of the emergency use of in vitro diagnostic tests for the detection of SARS-CoV-2 virus and/or diagnosis of COVID-19 infection under section 564(b)(1) of the Act, 21 U.S.C. 360bbb-3(b)(1), unless the authorization is terminated or revoked sooner. [facility] is certified under CLIA-88 as qualified to perform high complexity testing. Testing is performed in the [facility] laboratories located at [address] [place] [address]. Covid 19 Resultson 2 SARS-CoV-2 (COVID-19) RNA ANDRIY+probe Ql (Unsp spec) NEGATIVE COVID-19 Test Coronaviruses are common world-wide and are the cause of many common colds. SARS-COV2 is a new coronavirus that began circulating worldwide in 2019 so we are calling it COVID-19. It has been estimated that four out of five patients with COVID-19 will recover at home without the need for medical attention. Symptoms of COVID-19 may include cough, fever, shortness of breath, loss of taste or smell and other flu-like symptoms including chills, sore muscles, sore throat, and headache. Severe illness is more common in older people and people with other health problems such as high blood pressure, obesity, and immune system problems. If the test is positive, you have COVID-19. You will be contacted by the ordering physicians office and instructed to remain on home isolation, in accordance with CDC guidelines. You may also be contacted by the [place] [facility] to see if any of your close contacts may have been exposed to the virus and need to quarantine. If the test is negative, you likely do not have COVID-19 at this time, but you still may have a different illness that can spread to other people (like Influenza, or the Flu) and could still be at risk for getting COVID-19. We recommend that you stay away from other people to limit the spread of illness until your symptoms are improving and you are fever-free for 24 hours without the use of fever lowering medications such as acetaminophen or ibuprofen. No test is 100% accurate so if you are still concerned you may have COVID-19, talk to your doctor about the need to continue to stay away from others. Medicines Unless your provider told you not to use the following: Acetaminophen (Tylenol and others) is generally safe. Anti-inflammatory medications, such as Ibuprofen (Advil or Motrin) or Naproxen (Aleve) can also be used. Rlit-wil-qaokvsh cough and cold medicines can be used according to the instructions on the package. Some dadj-cut-bsregsy medicines also contain acetaminophen. Make sure you are not taking more than your recommended dose. For those not hospitalized, there is no specific treatment available for this illness. Antibiotics do not treat Coronaviruses. Follow-Up Follow up with your doctor by scheduling a virtual visit or consider follow-up at one of our urgent care fever clinics. If you are having difficulty breathing, or are very weak and having difficulty standing, this is a medical emergency. Call 911 or have someone take you to the nearest emergency room immediately. If possible, wear a facemask. Additional guidance from the CDC for patients who tested POSITIVE for COVID-19 How to isolate: Isolate yourself in a specific room at home and limit your contact with others. Use a separate bathroom from other members of the household, when possible. Leave home only to get essential medical care. Do not go to work, school or public areas. Avoid using public transportation, ride-sharing, or taxis. Restrict contact with pets and other animals. If you must care for your pet or be around animals while you are sick, wash your hands before and after your interaction and wear a facemask. Make sure that shared spaces in the home have good airflow, such as by an air conditioner or an opened window, weather permitting. Personal Hygiene Procedures: Wear a face mask when in the same room as other people or pets. If a face mask interferes with your breathing, others should wear a mask when sharing space with you. Frequent hand-washing: wash your hands with soap and water for at least 20 seconds. If soap and water are not available, use alcohol-based hand meat molder. Avoid touching your eyes, nose, and mouth with unwashed hands. Household Hygiene Procedures: Avoid sharing personal household items such as dishes, glassware, cups, eating utensils, towels or bedding with other people or pets in your home. After use, these items should be washed with soap and hot water. Disinfect all high-touch surfaces every day with antibacterial cleaning solutions such as Lysol wipes, bleach, cleansers, etc. High-touch surfaces include tabletops, doorknobs, bathroom fixtures, toilets, phones, keyboards, tablets and bedside tables. Immediately clean any surfaces that may have blood, poop or body fluids on them, using antibacterial cleaning solutions such as Lysol wipes, bleach, cleansers, etc. If clothing or bedding come into contact with blood, poop or body fluids, they should be washed immediately. Follow the directions on the laundry detergent and clothing labels but hot water is recommended when possible. Stopping home isolation precautions: If possible, consult your doctor before stopping home isolation precautions. According to the CDC, you can discontinue home isolation precautions when you have met both of these criteria: Your fever and respiratory symptoms have been gone for 24 ceasar (more content not included)... Normal [facility] Tobacco Screening.on 022 Adult depression screening assessment No [facility] Work Phone: Fall risk assessment a) No falls within the last year [facility] Work Phone: Tobacco use status [facility] b) No [facility] Work Phone: Tobacco Screening.on 021 Fall risk assessment a) No falls within the last year [facility] Work Phone: Tobacco use status [facility] b) No [facility] Work Phone: Vital Signs Date Time Vital Sign Value Performing Clinician Facility 10-19-2023 09:50-0500 Body mass index (BMI) [Ratio] 24.02 kg/m2 Kitty Day MD Work Phone: [facility] 10-19-2023 09:50-0500 Body weight 55.79 kg Kitty Day MD Work Phone: [facility] 08-18-2022 14:17-0500 Body mass index (BMI) [Ratio] 23.64 kg/m2 Gayatri Becker Work Phone: PG-Swqfgwmzkodshj-J [place] Work Phone: 08-18-2022 14:17-0500 Body surface area Derived from formula 1.51 m2 Gayatri Becker Work Phone: ET-Xmlasvtpcryksq-W [place] Work Phone: 08-18-2022 14:17-0500 Body temperature 98 [degF] Gayatri BerryMedivance Work Phone: MG-Lmwamcorqwnvqa-Q [place] Work Phone: 08-18-2022 14:17-0500 Body weight 54.9 kg Gayatri [employer] Work Phone: RI-Dccqyovspzqigt-K [place] Work Phone: 04-25-2022 10:37-0400 Body height 152.4 cm Gayatri BerryMedivance Work Phone: DM-Bepbnkzeoqlb-Nsr [place] Work Phone: 04-25-2022 10:37-0400 Body mass index (BMI) [Ratio] 23.31 kg/m2 Gayatri BerryMedivance Work Phone: ZF-Ljimjuuqsokp-Vel [place] Work Phone: 04-25-2022 10:37-0400 Body surface area Derived from formula 1.5 m2 Gayatri BerryMedivance Work Phone: ND-Jgplbisbyoza-Ufc [place] Work Phone: 04-25-2022 10:37-0400 Body temperature 97.1 [degF] Gayatri BerryMedivance Work Phone: FN-Ecprymwawzgl-Phe [place] Work Phone: 04-25-2022 10:37-0400 Body weight 54.15 kg Gayatri Berryys Work Phone: GP-Mkrhhsimryur-Bwr [place] Work Phone: 07-16-2021 09:06-0400 Body height 152.4 cm Gayatri Berryys Work Phone: IT-Ojgplpiisajxjc-X [place] Work Phone: 07-16-2021 09:06-0400 Body mass index (BMI) [Ratio] 24.42 kg/m2 Gayatri Becker Work Phone: KS-Jeqigqpsrktkrn-P [place] Work Phone: 07-16-2021 09:06-0400 Body surface area Derived from formula 1.53 m2 Gayatri Becker Work Phone: RA-Bnigmhkqvkajhd-Y [place] Work Phone: 07-16-2021 09:06-0400 Body temperature 97.2 [degF] Gayatri Becker Work Phone: GO-Nhjbyiuduotayc-M [place] Work Phone: 07-16-2021 09:06-0400 Body weight 56.71 kg Gayatri Becker Work Phone: YL-Fsddrteqkflrbq-M [place] Work Phone: Encounters Encounter Date Encounter Type Care Provider Facility Start: 10-19-2023 End: 10-19-2023 ambulatory KITTY Cardenas SHAY [facility] Ambulatory Start: 10-19-2023 End: 10-19-2023 Office outpatient visit 15 minutes Kitty Day MD Work Phone: [facility] Comment on above: Otosclerosis, bilate ral (Primary Dx) Start: 10-20-2022 FQHC visit new patient Gayatri Becker Work Phone: KB-Tigudaybz-Gorhwkeiv Work Phone: Start: 10-20-[address] Kitty Austin Shay Facility:[id number] Start: 08-18-2022 Postop follow up vis it related to original px Gayatri Becker Work Phone: HS-Daonkjgdtvlrkc-Orfq sb Work Phone: Start: 08-18-[address] Kitty Austin Shay Facility:[id number] Start: 07-19-2022 SURGWEST, Provider: Kitty Day, Status: Pen, Time: 11:00 AM Gayatri Becker Work Phone: JM-Kgmjyuiwnworep-Scxj [place] Work Phone: Start: 07-19-2022 End: 07-19-[address] Kitty Day Facility:[facility] Start: 07-18-2022 Chart Update Gayatri Becker Work Phone: DX-Jwjlqbtbpksiwl-Upos [place] Work Phone: Start: 04-25-[address] Kitty Day Facility:[id number] Start: 04-25-2022 Office outpatient vi sit 15 minutes Gayatri Becker Work Phone: XC-Mmptmenvuenf-Whtzfk an Work Phone: Start: 07-16-2021 Office consultation new/estab patient 60 min Gayatri Becker Work Phone: GC-Fwrkouikycmomf-Lngc [place] Work Phone: Evaluation finding Gayatri Becker Work Phone: QE-Tiuffuiwhfje-Jxfxhr an Work Phone: Plan of Treatment Date Care Activity Detail Author Start: 2030 Zoster Vaccines (1 of 2) Zoste r Vaccines (1 of 2) [facility] Start: 09-17-2029 DTaP/Tdap/Td Vaccine s (3 - Td or Tdap) DTaP/Tdap/Td Vaccines (3 - Td or Tdap) [facility] Start: 10-19-2023 FUV, Provider: Kitty Day, Status: Pen, Time: 9:45 AM FUV, Provider: Kitty Day, Status: Pen, Time: 9:45 AM LE-Qwafufkur-Ipzcjcdci Work Phone: Start: 10-19-2023 DUALAUDIO, Provider: Antonina Manriquez, Status: Pen, Time: 9:00 AM DUALAUDIO, Provider: Antonina Manriquez, Status: Pen, Time: 9:00 AM AC-Slgrwliyn-Hpanwkevq Work Phone: Start: 06-09-2023 Influenza vaccination Influenza Vacc ine (#1) [facility] Start: 10-20-2022 FUV, Provider: Kitty Day, Status: Pen, Time: 10:30 AM FUV, Provider: Kitty Day, Status: Pen, Time: 10:30 AM ZR-Dqofvfsnhfucnp-Wydi [place] Work Phone: Start: 10-20-2022 DUALAUDIO, Provider: Antonina Manriquez, Status: Pen, Time: 9:30 AM DUALAUDIO, Provider: Antonina Manriquez, Status: Pen, Time: 9:30 AM PF-Xftstscqqzwzqg-Gxsx [place] Work Phone: Start: 08-22-2022 POV, Provider: Kitty Day, Status: Pen, Time: 11:45 AM POV, Provider: Kitty Day, Status: Pen, Time: 11:45 AM TH-Ltnfbudqmexu-Rerqaz an Work Phone: Start: 07-19-2022 SURGWEST, Provider: Kitty Day, Status: Pen, Time: 11:00 AM SURGWEST, Provider: Kitty Day, Status: Pen, Time: 11:00 AM RL-Arfxzqwzvzfcth-Ovzl [place] Work Phone: Start: 11-25-2021 COVID-19 Vaccine (4 - Moderna series) COVID-19 Vaccine (4 - Moderna series) [facility] Start: 10-22-2021 POV, Provider: Kitty Day, Status: Pen, Time: 10:30 AM POV, Provider: Kitty Day, Status: Pen, Time: 10:30 AM JQ-Cpavnvhconsfkx-Xxkb [place] Work Phone: Start: 2020 Screening for malign ant neoplasm of breast Mammogram [facility] Start: 2001 Screening for malign ant neoplasm of cervix [facility] Start: 1998 Hepatitis C screening Hepatitis C [facility] Start: 1981 MMR Vaccines (1 of 1 - Standard series) MMR Vaccines (1 of 1 - Standard series) [facility] Start: 1981 Varicella vaccination Varicell a Vaccines (1 of 2 - 2-dose childhood series) [facility] Start: 1980 Hepatitis B Vaccines (1 of 3 - 3-dose series) Hepatitis B Vaccines (1 of 3 - 3-dose series) [facility] Start: 1980 HIV screening HIV Screening [facility] Start: 1980 Lipid panel Lipid Panel [facility] Start: 1980 Yearly Adult Physical Yearly Adult P hysical [facility] Immunizations Immunization Date Immunization Notes Care Provider Yusuf clark 09-30-2021 Moderna COVID-19 Vac cine 100 MCG/0.5ML Intramuscular Suspension Gayatri A Malys Work Phone: [facility] Work Phone: 11-27-2020 Moderna COVID-19 Vac cine 100 MCG/0.5ML Intramuscular Suspension Gayatri A Malys [facility] Phone: 10-27-2020 Moderna COVID-19 Vac cine 100 MCG/0.5ML Intramuscular Suspension Gayatri A Malys [facility] Work Phone: 09-17-2019 tetanus toxoid, redu matt diphtheria toxoid, and acellular pertussis vaccine, adsorbed Gayatri A Malys Work Phone: [facility] Work Phone: Payers Date Payer Category Payer Unknown 2022 Unknown [id number] 1980 Unknown [id number] [id number]. [id number] 1980 Unknown [id number] 1980 Unknown [id number] [id number]. [id number] 1980 Unknown [id number] 2.16. [id number] 1980 Unknown [id number] 2.16. [id number] 1980 Unknown [id number] Unknown [id number] Social History Date Type Detail Facility Start: 10-19-2023 [facility] Work Phone: Start: 10-19-2023 Tobacco use and exposure Smokeless tobacco non-user [facility] Work Phone: Start: 10-19-2023 History of Social function [facility] Work Phone: Start: 10-19-2023 Tobacco use panel [facility] Work Phone: Start: 1980 Sex Assigned At Not on file U [facility] Work Phone: Start: 10-09-2023 End: 10-19-2023 Exposure to SARS-CoV-2 (event) Not sure [facility] Medical Equipment Procedure Code Equipment Code Equipment Original Text Equipment Identifier Dates Piston, 0.6mm Di a X 4.50mm Eclipse Flat Ribbon Case [id number] Start: 07-19-2022 Comment on above: Description: Convert ed from [facility]. Please see archived information for full log information. History of Present illness Narrative 10-19-2023 Kitty Day MD - 10/19/2023 9:45 AM EST Note Date & Type Note Facility 10-19-2023 History of Present illness Narrative History of present illness: Laurence Loomis is a 42 y.o. female presenting today for her annual follow-up. She has no new complaints. RECALL 10/20/2022 The patient is a 41 year old female presenting in clinic today for a follow-up visit. She is status post a left stapedectomy on 07/19/22. The patient is doing well and presents with no new otological complaints at this time. RECALL 08/18/22: The patient is a 41-year-old female presenting for her first post-operative visit following a left stapedectomy on 07/19/22. Overall, pain is adequately controlled, and she denies significant imbalance, or discharge from the surgical ear. She has noticed improvements in her hearing subjectively following the surgical procedure. The patient's current medications, active allergies and list of medical problems were reviewed in the EHR and confirmed electronically there are as follows; Allergies: No Known Allergies Current list of medications: Current Outpatient Medications Medication Sig Dispense Refill multivit-min/ferrous fumarate (MULTI VITAMIN ORAL) Take by mouth. No current facility-administered medications for this visit. Problem list: There is no problem list on file for this patient. Physical Examination: CONSTITUTIONAL: No acute distress VOICE: No hoarseness or other abnormality RESPIRATION: Breathing comfortably, no stridor CV: No clubbing/cyanosis/edema in hands EYES: EOM intact, sclera clear NEURO: Alert and oriented times 3, Cranial nerves II-XII grossly intact and symmetric bilaterally HEAD AND FACE: Symmetric facial features, no masses or lesions RIGHT EAR: Normal external ear and post auricular area, no visible lesions, external auditory canal patent, tympanic membrane intact, no retraction, no signs of mass, effusion, or infection within the middle ear LEFT EAR: Normal external ear and post auricular area, no visible lesions, external auditory canal patent, tympanic membrane intact, no retraction, no signs of mass, effusion, or infection within the middle ear NOSE: Anterior rhinoscopy clear, no significant external deformity. ORAL CAVITY/OROPHARYNX/LIPS: normal lining, mobile tongue. PHARYNGEAL DEE: Moist mucosal lining, good palatal elevation NECK/LYMPH: No LAD, no thyroid masses, trachea midline SKIN: Neck and facial skin is without scar or injury PSYCH: Alert and oriented with appropriate mood and affect Diagnostic testing: Audiometry: Audiometry testing done on 10/19/23 reveals: On the right: Stable moderate to mild conductive hearing loss(unchanged from previous testing) On the left: Excellent closure of the air-bone gap. Mild hearing loss rising to within normal limits I personally reviewed the available patient's external record and independently reviewed their audiometric testing [and] radiographic imaging through the appropriate viewing software as detailed in my note and agree with the detailed report. Impression: Status post left stapedectomy Recommendation: Doing well. Follow-up with Dr Zapata in 5-6 months. See her on as needed basis. Scribe Attestation By signing my name below, IAlthea Scribe attest that this documentation has been prepared under the direction and in the presence of Kitty Day MD. documented in this encounter [facility] Work Phone: History of Present illness Narrative 07-19-2022 Note Date & Type Note Facility 07-19-2022 History of Present illness Narrative Post-op visitHistory of present illness:The patient is a 41-year-old female presenting for her first post-operative visit following a left stapedectomy on 07/19/22. Overall, pain is adequately controlled, and she denies significant imbalance, or discharge from the surgical ear. She has noticed improvements in her hearing subjectively following the surgical procedure.Physical Examination:Steri-strips were removed revealing the incision healing well without signs of infection.Ear canal examined using the otomicroscope. Packing was removed. Graft appears to be healing well.There are no signs to suggest an infection.Air conduction is greater than bone conduction at 1024 Hz tuning forks in the left ear.Impression:Status post left stapedectomyDoing well.Plan:Maintain dry ear precautions. Schedule a follow up in 8-10 weeks with an audiogram.This note was created using speech recognition plastics scientist software/or [employer] plastics scientist services. Despite proofreading, several typographical errors might be present that might affect the meaning of the content. Please call with any questions.By signing my name below, ILucy Scribe, attest that this documentation has been prepared under the direction and in the presence of Dr. Day. All medical record entries made by the Elliotibe were at my direction and personally dictated by me. I have reviewed the chart and agree that the record accurately reflects my personal performance of the history, physical exam, discussion, and plan. QV-Fxwkagpdknziqe-Uhcwthw rg Work Phone: Clinical Note 07-19-2022 Note Date & Type Note Facility 07-19-2022 Note PROCEDURE DETAILS Preoperative Diagnosis: Left conductive hearing loss Postoperative Diagnosis: Left non-obliterative otosclerosis Surgeon: Shay Resident/Fellow/Other Tyre Builder: Antolin Procedure: 1. Left stapedectomy with use of CO2 Omniguide laser 2. Microsurgical techniques requiring use of operating microscope. Anesthesia: general Estimated Blood Loss: 2 Findings: see operative report Specimens(s) Collected: no, Complications: none Implants: 4.50 x 0.6 mm, 360-degree Eclipse nitinol-based piston manufactured by [employer] Patient Returned To/Condition: PACU/stable Operative Report: Pre-operative diagnosis: Left conductive hearing loss Post-operative diagnosis: Left non-obliterative otosclerosis Procedure: Left stapedectomy with use of CO2 Omniguide laser Microsurgical techniques requiring use of operating microscope. Surgeon: Kitty Day MD Tyre Builder surgeon: Anesthesia: General Endotracheal. Estimated blood loss: 2 ml. History: The patient was referred to the practice for evaluation of Left progressive hearing loss. There was no pertinent past otological history. The physical examination showed an intact tympanic membrane. Her audiogram showed a Left -sided conductive hearing loss, with absent reflexes. The presumed diagnosis was otosclerosis. Options for hearing rehabilitation were discussed and included hearing amplification or stapedectomy. The patient elected to undergo stapes surgery. The risks discussed included but were not limited to bleeding, infection with labyrinthitis, persistent or worsening hearing loss, tinnitus, dizziness, taste disturbance, tympanic membrane perforation and rarely iatrogenic cholesteatoma. Operative findings: the malleus and incus were mobile. The stapes was fixed. A small fenestra stapedotomy was done using the CO2 laser. A 4.25 x 0.6 mm, an Eclipse 360, nitinol-based piston was placed and crimped onto the incus. Gentle palpation confirmed adequate mobility. Operative procedure: The patient was seen in the pre-operative area. The informed consent was signed, and the correct side was marked. the patient was then taken back to the operative suite and laid on the operative table. A time-out was completed according to the protocol. General anesthesia was induced, and endotracheal intubation was done. The endotracheal tube was secured. The table was tilted 180 degrees. The patient was strapped to the surgical bed. The operative ear was exposed and prepped and draped using the standard sterile techniques. An appropriately sized ear speculum was introduced in the ear canal and the operative microscope was brought into the field and utilized throughout the procedure to provide high-powered magnification. Four-quadrant canal injection was done with a mixture of 1% lidocaine and 1/100.000 epinephrine. An anteriorly based tympanomeatal flap was elevated, the tympanic annulus was visualized and elevated and the middle ear was exposed by elevating the annulus circumferentially. The posterior malleolar ligament was lysed, and the chorda tympani was dissected off the undersurface of the drum. The malleus and incus were palpated and noted to be mobile. The stapes was gently palpated and the footplate were fixed confirming the diagnosis. A focus of otosclerosis was seen along the anterior annular ligament. Bone was removed from the scutum with a curette. The incudo-stapedial joint was then . The CO2 laser was utilized to vaporize the stapedial tendon and the posterior kerrie. Then, the stapes superstructure was down fractured and removed. The distance between the incus and footplate was measured. Using the laser, a jerel was created in the footplate. The small fenestration was created with a 0.7 mm fluted microdrill. A 4.50 x 0.6 mm, 360-degree Eclipse nitinol-based piston manufactured by [employer], [place], [place] was then placed and crimped onto the long process using the laser at low thermal energy. Adequate mobility of the prosthesis with movement in and out of the vestibule was confirmed by gently palpating the incus. A blood patch obtained in a sterile fashion was placed in the middle ear and the tympanomeatal flap was laid back to its original position. No perforation was noted. Gelfoam was placed in the canal to pack the flap. The table was then rotated back to the anesthesiologist and the patient was awakened and transferred to recovery in stable condition. I was present and supervised the entire procedure. Attestation: Note Completion: Attending AttestationI was present for the entire procedure Attending AttestationI was present for the entire procedure Electronic Signatures: Carmelita Dangelo (Resident)) (Signed 19-Jul-2022 11:02) Authored: Post-Operative Note, Chart Review, Note Completion Kitty Day) (Signed 27-Jul-2022 07:47) Authored: N (more content not included)... [facility] Clinical Note 07-19-2022 Note Date & Type Note Facility 07-19-2022 Note History of Present I llness: /Lactating: Are You no Are You Currently Breastfeedingno History Present Illness: Reason for surgery: hearing loss HPI: -HPI: 41 [address] Zapata for progressive bilateral CHL L>R. She has hearing loss for the past 3 years, tinnitus more recently. -PMH: CHL -Meds: vitamin -All: NKDA -Social: none -Imaging: none -Last Audio: 06/2021 Allergies: Allergies: No Known Allergies: Home Medication Review: Home Medications Reviewed: no Impression/Procedure: Impression and Planned Procedure: 15 Left middle ear exploration and stapedectomy ERAS (Enhanced Recovery After Surgery): ERAS Patient: no Vital Signs: Temperature C: 36.5 degrees C Temperature F: 97.7 degrees F Heart Rate: 63 beats per minute Respiratory Rate: 18 breath per minute Blood Pressure Systolic: 123 mm/Hg Blood Pressure Diastolic: 63 mm/Hg Physical Exam by System: Respiratory/Thorax: nonlabored Cardiovascular: regular rate Consent: COVID-19 Consent: COVID-19 Risk ConsentSurgeon has reviewed valencia risks related to the risk of tima COVID-19 and if they contract COVID-19 what the risks are. Attestation: Note Completion: Electronic Signatures: Carmelita Dangelo (Resident)) (Signed 19-Jul-2022 09:36) Authored: History of Present Illness, Allergies, Home Medication Review, Impression/Procedure, ERAS, Physical Exam, Consent, Note Completion Kitty Day) (Signed 27-Jul-2022 07:47) Authored: Note Completion Co-Signer: History of Present Illness, Allergies, Home Medication Review, Impression/Procedure, ERAS, Physical Exam, Consent, Note Completion Last Updated: 27-Jul-2022 07:47 by Kitty Day) [facility] Clinical Note 04-25-2022 Note Date & Type Note Facility 04-25-2022 Note Diagnoses/Problems Blood tests prior to treatment or procedure (V72.63) (Z01.812) Otosclerosis (387.9) (H80.90) Orders Complete Blood Count; Status:Active - Retrospective By Protocol Authorization; Requested for:[id number]; Comprehensive Metabolic Panel; Status:Active - Retrospective By Protocol Authorization; Requested for:[id number]; Coagulation Screen; Status:Active - Retrospective By Protocol Authorization; Requested for:[id number]; Chief Complaint Follow-up visit to discuss surgery for a middle ear exploration and possible stapedectomy History of Present IllnessUPDATE: The patient is a 41-year-old female presenting in clinic for a follow-up visit to discuss surgery for a middle ear exploration and possible stapedectomy. She has left conductive hearing loss, likely secondary to otosclerosis. The patient is doing well and notes no significant changes since her prior visit. She states that she underwent an emergency appendectomy and also had repair for an umbilical hernia. She is recovering well. The patient?s current medications, active allergies and list of medical problems were reviewed in the EHR and confirmed electronically. RECALL 07/16/21: History of present illness: This is the initial visit for this patient who is referred by Dr. Zapata for evaluation of progressive bilateral conductive hearing loss worse on the left and possible otosclerosis in the left ear. The patient is 40 years old. When asked about ear pain, hearing loss, discharge from ear, tinnitus, aural fullness or autophony in the affected ear, the patient admits to hearing loss for the past 3 years, tinnitus has started more recently. The patient's better hearing ear subjectively is the right ear. When asked about a significant past otological history including history of prior ear surgery, noise exposure, exposure to ototoxic drugs or agents, and/or family history of hearing loss, the patient admits to none. 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 A comprehensive 10-point review of systems was obtained including constitutional, neurological, HEENT, pulmonary, cardiovascular, genito-urinary, and other pertinent systems and was negative except as noted in the HPI. I have reviewed the intake sheet filled out by the patient and signed it. The patient?s current medications, active allergies and list of medical problems were reviewed in the EHR and confirmed electronically. Physical Examination: CONSTITUTIONAL: No acute distress VOICE: No hoarseness or other abnormality RESPIRATION: Breathing comfortably, no stridor CV: No clubbing/cyanosis/edema in hands EYES: EOM intact, sclera clear NEURO: Alert and oriented times 3, Cranial nerves II-XII grossly intact and symmetric bilaterally HEAD AND FACE: Symmetric facial features, no masses or lesions RIGHT EAR: Normal external ear and post auricular area, no visible lesions, external auditory canal patent, tympanic membrane intact, no retraction, no signs of mass, effusion, or infection within the middle ear. Right AC=BC at 512 and 1024Hz. LEFT EAR: Normal external ear and post auricular area, no visible lesions, external auditory canal patent, tympanic membrane intact, no retraction, no signs of mass, effusion, or infection within the middle ear. Valdez to the left. BC>AC at 512 and 1024Hz. NOSE: External nose midline, anterior rhinoscopy is normal with limited visualization to the anterior aspect of the interior turbinates, no bleeding or drainage, no lesions ORAL CAVITY/OROPHARYNX/LIPS: Normal mucous membranes, normal floor of mouth/tongue/OP, no masses or lesions PHARYNGEAL DEE: No masses or lesions NECK/LYMPH: No LAD, no thyroid masses, trachea midline SKIN: Neck and facial skin is without scar or injury PSYCH: Alert and oriented with appropriate mood and affect Diagnostic testing: Audiogram reviewed from June 2021 shows, on the right, moderate-mild conductive hearing loss. On the left, moderate conductive hearing loss. Large air-bone gap in the low-mid frequency range. The audiogram reviewed showed on the right moderate rising to mild conductive hearing loss with excellent speech discrimination. On the left moderate conductive hearing loss predominantly in the low and mid frequency range with a Carhart notch. Excellent speech discrimination. I personally reviewed the available patient?s external record and independently reviewed their audiometric testing through the appropriate viewing software as detailed in my note and agree with the detailed report. Impression: Bilateral conductive hearing loss Likely bilateral otosclerosis Recommendation: The condition was reviewed and explained. The patient's auditory rehabilitative options were discussed. Those included observation, hearing amplification and stapedectomy. The pros and cons of each of the approaches were discussed. The risks of stapedectomy discussed included but not limited to bleeding, infection, tympanic membrane perforation, taste disturba (more content not included)... [place] History of Present illness Narrative 06-17-2021 Note Date & Type Note Facility 06-17-2021 History of Present illness Narrative Ms. Loomis, age 41 years, arrives today for a hearing evaluation following a left stapedectomy due to bilateral otosclerosis and conductive hearing loss (see audiogram from 06/17/2021). She reports improvement in hearing in the left ear since stapedectomy, denies pain, drainage, fullness, vertigo.Patient's preferred language: EnglishPreferred language of the parent, legal guardian or surrogate decision-maker of this minor or incapacitated patient: EnglishNo overt signs of domestic violence/neglect/abuse.No referral made to Emergency Medical Technician.Pain not interfering with optimal level of function or ability to assess and/or treat.Pain Scale rank: 0/10Pain Scale used: NumericNo referral made to primary care provider (PCP).Factors/Barriers influencing patient's ability to complete assessment or learn: none.Person taught: patient.Readiness to learn: no barriers.Results of Teaching/Counseling: verbalize recall / understanding and teaching complete. [id number] Work Phone: Evaluation note Note Date & Type Note Facility Evaluation note Diagnosis Otosclerosis, bilateral- Primary documented in this encounter [facility] Work Phone: History of Present illness Narrative Note Date & Type Note Facility History of Present illness Narrative History of present illness:This is the initial visit for this patient who is referred by Dr. Zapata for evaluation of progressive bilateral conductive hearing loss worse on the left and possible otosclerosis in the left ear. 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 I have reviewed the intake sheet filled out by the patient and signed it.The patient s current medications, active allergies and list of medical problems were reviewed in the EHR and confirmed electronically.Physical Examination:CONSTITUTIONAL: No acute distressVOICE: No hoarseness or other abnormalityRESPIRATION: Breathing comfortably, no stridorCV: No clubbing/cyanosis/edema in handsEYES: EOM intact, sclera clearNEURO: Alert and oriented times 3, Cranial nerves II-XII grossly intact and symmetric bilaterallyHEAD AND FACE: Symmetric facial features, no masses or lesionsRIGHT EAR: Normal external ear and post auricular area, no visible lesions, external auditory canal patent, tympanic membrane intact, no retraction, no signs of mass, effusion, or infection within the middle earLEFT EAR: Normal external ear and post auricular area, no visible lesions, external auditory canal patent, tympanic membrane intact, no retraction, no signs of mass, effusion, or infection within the middle earWeber to the left.Right AC=BC at 512 and 1024HzLeft BC>AC at 512 and 1024HzNOSE: Deferred due to Covid-19 pandemic.ORAL CAVITY/OROPHARYNX/LIPS: Deferred due to Covid-19 pandemic.PHARYNGEAL DEE: Deferred due to Covid-19 pandemic.NECK/LYMPH: No LAD, no thyroid masses, trachea midlineSKIN: Neck and facial skin is without scar or injuryPSYCH: Alert and oriented with appropriate mood and affectDiagnostic testing:The audiogram reviewed showed on the right moderate rising to mild conductive hearing loss with excellent speech discrimination. On the left moderate conductive hearing loss predominantly in the low and mid frequency range with a Carhart notch. Excellent speech discrimination.I personally reviewed the available patient s external record and independently reviewed their audiometric testing through the appropriate viewing software as detailed in my note and agree with the detailed report.Impression:Left conductive hearing loss.Possible left otosclerosis.Recommendation:The condition was reviewed and explained. The patient's auditory rehabilitative options were discussed. Those included observation, hearing amplification and stapedectomy. The pros and cons of each of the approaches were discussed. The risks of stapedectomy discussed included but not limited to bleeding, infection, tympanic membrane perforation, taste disturbance, hearing loss, dizziness, tinnitus and rarely facial injury. The patient desires to have a left ALONDRA/stapedectomy.I discussed with the patient the complexity of my medical decision making including the treatment and testing rational, indications of their elective procedure and possible adverse effects and/or complications. Based on the provided documentation and my professional assessment of this patient s chronic progressive condition, the complexity of evaluation and treatment is moderate.This note was created using speech recognition plastics scientist software/or [employer] plastics scientist services. Despite proofreading, several typographical errors might be present that might affect the meaning of the content. Please call with any questions.Patient Information:StapedectomyStapedect raven/Stapedotomy is a middle ear operation to restore hearing related to a frozen bone or bones in the middle ear. This allows improvement of hearing by restoring vibration of the middle ear bones to the fluid of the middle ear.Complications from stapedectomy are infrequent and are usually related to uncommon variations in anatomy or defects. The likelihood of total hearing loss is rare. Facial paralysis is extremely rare for stapedectomy. Loss of taste on the side of the tongue is a common complaint that usually resolves within a few months. Some dizziness after surgery is normal and may last several days or weeks. Severe or disabling dizziness is less common and could be a symptom of inner ear disturbances. Tinnitus that was present before surgery commonly persists, but could disappear or diminish. On the other hand, tinnitus may develop as a result of surgery.Failure to improve hearing occurs in about 2-10% of cases. If there is deterioration of hearing after successful surgery and adequate nerve function remains, it may be possible to restore that hearing by additional surgery. The likelihood of success in those cases has been estimated at 60-80%. A hearing aid may be a reasonable alternative to surgery and that option should be discussed. Unless otherwise advised by your surgeon, stapedectomy for otosclerosis is an elective procedure. [facility] Work Phone: History of Present illness Narrative Note Date & Type Note Facility History of Present illness Narrative UPDATE:The patient is a 41-year-old female presenting in clinic for a follow-up visit to discuss surgery for a middle ear exploration and possible stapedectomy. She has left conductive hearing loss, likely secondary to otosclerosis. The patient is doing well and notes no significant changes since her prior visit.She states that she underwent an emergency appendectomy and also had repair for an umbilical hernia. She is recovering well.The patient s current medications, active allergies and list of medical problems were reviewed in the EHR and confirmed electronically.RECALL 07/16/21:History of present illness:This is the initial visit for this patient who is referred by Dr. Zapata for evaluation of progressive bilateral conductive hearing loss worse on the left and possible otosclerosis in the left ear. 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 I have reviewed the intake sheet filled out by the patient and signed it.The patient s current medications, active allergies and list of medical problems were reviewed in the EHR and confirmed electronically.Physical Examination:CONSTITUTIONAL: No acute distressVOICE: No hoarseness or other abnormalityRESPIRATION: Breathing comfortably, no stridorCV: No clubbing/cyanosis/edema in handsEYES: EOM intact, sclera clearNEURO: Alert and oriented times 3, Cranial nerves II-XII grossly intact and symmetric bilaterallyHEAD AND FACE: Symmetric facial features, no masses or lesionsRIGHT EAR: Normal external ear and post auricular area, no visible lesions, external auditory canal patent, tympanic membrane intact, no retraction, no signs of mass, effusion, or infection within the middle ear. Right AC=BC at 512 and 1024Hz.LEFT EAR: Normal external ear and post auricular area, no visible lesions, external auditory canal patent, tympanic membrane intact, no retraction, no signs of mass, effusion, or infection within the middle ear. Valdez to the left. BC>AC at 512 and 1024Hz.NOSE: External nose midline, anterior rhinoscopy is normal with limited visualization to the anterior aspect of the interior turbinates, no bleeding or drainage, no lesionsORAL CAVITY/OROPHARYNX/LIPS: Normal mucous membranes, normal floor of mouth/tongue/OP, no masses or lesionsPHARYNGEAL DEE: No masses or lesionsNECK/LYMPH: No LAD, no thyroid masses, trachea midlineSKIN: Neck and facial skin is without scar or injuryPSYCH: Alert and oriented with appropriate mood and affectDiagnostic testing:Audiogram reviewed from June 2021 shows, on the right, moderate-mild conductive hearing loss. On the left, moderate conductive hearing loss. Large air-bone gap in the low-mid frequency range.The audiogram reviewed showed on the right moderate rising to mild conductive hearing loss with excellent speech discrimination. On the left moderate conductive hearing loss predominantly in the low and mid frequency range with a Carhart notch. Excellent speech discrimination.I personally reviewed the available patient s external record and independently reviewed their audiometric testing through the appropriate viewing software as detailed in my note and agree with the detailed report.Impression:Bilateral conductive hearing lossLikely bilateral otosclerosisRecommendation:The condition was reviewed and explained. The patient's auditory rehabilitative options were discussed. Those included observation, hearing amplification and stapedectomy. The pros and cons of each of the approaches were discussed. The risks of stapedectomy discussed included but not limited to bleeding, infection, tympanic membrane perforation, taste disturbance, hearing loss, dizziness, tinnitus and rarely facial injury. The patient desires to have a left ALONDRA/stapedectomy. All of the patient's questions were answered to her satisfaction. We will reach out to the patient for scheduling the procedure in the future.I discussed with the patient the complexity of my medical decision making including the treatment and testing rational, indications of their elective procedure and possible adverse effects and/or complications. Based on the provided documentation and my professional assessment of this patient s chronic progressive condition, the complexity of evaluation and treatment is moderate.This note was created using speech recognition plastics scientist software/or [employer] plastics scientist services. Despite proofreading, several typographical errors might be present that might affect the meaning of the content. Please call with any questions.By signing my name below, I, Jose Carlos Vo, attest that this documentation has been prepared under the direction and in the presence of Dr. Day. All medical record entries made by the Scribe were at my direction and personally dictated by me. I have reviewed the chart and agree that the record accurately reflects my personal performance of the history, physical exam, discussion, and plan.Patient Information:StapedectomyStapedecto my/Stapedotomy is a middle ear operation to restore hearing related to a frozen bone or bones in the middle ear. This allows improvement of hearing by restoring vibration of the middle ear bones to the fluid of the middle ear.Complications from stapedectomy are infrequent and are usually related to uncommon variations in anatomy or defects. The likelihood of total hearing loss is rare. Facial paralysis is extremely rare for stapedectomy. Loss of taste on the side of the tongue is a common complaint that usually resolves within a few months. Some dizziness after surgery is normal and may last several days or weeks. Severe or disabling dizziness is less common and could be a symptom of inner ear disturbances. Tinnitus that was present before surgery commonly persists, but could disappear or diminish. On the other hand, tinnitus may develop as a result of surgery.Failure to improve hearing occurs in about 2-10% of cases. If there is deterioration of hearing after successful surgery and adequate nerve function remains, it may be possible to restore that hearing by additional surgery. The likelihood of success in those cases has been estimated at 60-80%. A hearing aid may be a reasonable alternative to surgery and that option should be discussed. Unless otherwise advised by your surgeon, stapedectomy for otosclerosis is an elective procedure. TJ[facility]wk[facility]srbkn[facility]Gbbjefwt Work Phone: History of Present illness Narrative Note Date & Type Note Facility History of Present illness Narrative UPDATE:The patient is a 41-year-old female presenting in clinic for a follow-up visit to discuss surgery for a middle ear exploration and possible stapedectomy. She has left conductive hearing loss, likely secondary to otosclerosis. The patient is doing well and notes no significant changes since her prior visit.She states that she underwent an emergency appendectomy and also had repair for an umbilical hernia. She is recovering well.The patient s current medications, active allergies and list of medical problems were reviewed in the EHR and confirmed electronically.RECALL 07/16/21:History of present illness:This is the initial visit for this patient who is referred by Dr. Zapata for evaluation of progressive bilateral conductive hearing loss worse on the left and possible otosclerosis in the left ear. 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 I have reviewed the intake sheet filled out by the patient and signed it.The patient s current medications, active allergies and list of medical problems were reviewed in the EHR and confirmed electronically.Physical Examination:CONSTITUTIONAL: No acute distressVOICE: No hoarseness or other abnormalityRESPIRATION: Breathing comfortably, no stridorCV: No clubbing/cyanosis/edema in handsEYES: EOM intact, sclera clearNEURO: Alert and oriented times 3, Cranial nerves II-XII grossly intact and symmetric bilaterallyHEAD AND FACE: Symmetric facial features, no masses or lesionsRIGHT EAR: Normal external ear and post auricular area, no visible lesions, external auditory canal patent, tympanic membrane intact, no retraction, no signs of mass, effusion, or infection within the middle ear. Right AC=BC at 512 and 1024Hz.LEFT EAR: Normal external ear and post auricular area, no visible lesions, external auditory canal patent, tympanic membrane intact, no retraction, no signs of mass, effusion, or infection within the middle ear. Valdez to the left. BC>AC at 512 and 1024Hz.NOSE: External nose midline, anterior rhinoscopy is normal with limited visualization to the anterior aspect of the interior turbinates, no bleeding or drainage, no lesionsORAL CAVITY/OROPHARYNX/LIPS: Normal mucous membranes, normal floor of mouth/tongue/OP, no masses or lesionsPHARYNGEAL DEE: No masses or lesionsNECK/LYMPH: No LAD, no thyroid masses, trachea midlineSKIN: Neck and facial skin is without scar or injuryPSYCH: Alert and oriented with appropriate mood and affectDiagnostic testing:Audiogram reviewed from June 2021 shows, on the right, moderate-mild conductive hearing loss. On the left, moderate conductive hearing loss. Large air-bone gap in the low-mid frequency range.The audiogram reviewed showed on the right moderate rising to mild conductive hearing loss with excellent speech discrimination. On the left moderate conductive hearing loss predominantly in the low and mid frequency range with a Carhart notch. Excellent speech discrimination.I personally reviewed the available patient s external record and independently reviewed their audiometric testing through the appropriate viewing software as detailed in my note and agree with the detailed report.Impression:Bilateral conductive hearing lossLikely bilateral otosclerosisRecommendation:The condition was reviewed and explained. The patient's auditory rehabilitative options were discussed. Those included observation, hearing amplification and stapedectomy. The pros and cons of each of the approaches were discussed. The risks of stapedectomy discussed included but not limited to bleeding, infection, tympanic membrane perforation, taste disturbance, hearing loss, dizziness, tinnitus and rarely facial injury. The patient desires to have a left ALONDRA/stapedectomy. All of the patient's questions were answered to her satisfaction. We will reach out to the patient for scheduling the procedure in the future.I discussed with the patient the complexity of my medical decision making including the treatment and testing rational, indications of their elective procedure and possible adverse effects and/or complications. Based on the provided documentation and my professional assessment of this patient s chronic progressive condition, the complexity of evaluation and treatment is moderate.This note was created using speech recognition plastics scientist software/or [employer] plastics scientist services. Despite proofreading, several typographical errors might be present that might affect the meaning of the content. Please call with any questions.By signing my name below, I, Jose Carlos Vo, attest that this documentation has been prepared under the direction and in the presence of Dr. Day. All medical record entries made by the Elliotibe were at my direction and personally dictated by me. I have reviewed the chart and agree that the record accurately reflects my personal performance of the history, physical exam, discussion, and plan.Patient Information:StapedectomyStapedecto my/Stapedotomy is a middle ear operation to restore hearing related to a frozen bone or bones in the middle ear. This allows improvement of hearing by restoring vibration of the middle ear bones to the fluid of the middle ear.Complications from stapedectomy are infrequent and are usually related to uncommon variations in anatomy or defects. The likelihood of total hearing loss is rare. Facial paralysis is extremely rare for stapedectomy. Loss of taste on the side of the tongue is a common complaint that usually resolves within a few months. Some dizziness after surgery is normal and may last several days or weeks. Severe or disabling dizziness is less common and could be a symptom of inner ear disturbances. Tinnitus that was present before surgery commonly persists, but could disappear or diminish. On the other hand, tinnitus may develop as a result of surgery.Failure to improve hearing occurs in about 2-10% of cases. If there is deterioration of hearing after successful surgery and adequate nerve function remains, it may be possible to restore that hearing by additional surgery. The likelihood of success in those cases has been estimated at 60-80%. A hearing aid may be a reasonable alternative to surgery and that option should be discussed. Unless otherwise advised by your surgeon, stapedectomy for otosclerosis is an elective procedure. [employer]-Nrv[employer]wr anjana Work Phone: Chief Complaint New patient visit possible otosclerosisFollow-up visit to discuss surgery for a middle ear exploration and possible stapedectomyFollow-up visit to discuss surgery for a middle ear exploration and possible stapedectomyPost-operative visit status post left stapedectomy on 07/19/22post-op left stapedectomy Summary Purpose Family History No Family History Records FoundNo Family History Records FoundNo Family History Records Found Advance Directives No Advanced Directives Records FoundNo Advanced Directives Records FoundNo Advanced Directives Records Found Additional Source Comments INFORMATION SOURCE (unrecogn ized section and content) DATE CREATED AUTHOR 10/20/2022 [facility] DATE CREATED AUTHOR AUTHOR'S ORGANIZ ATION 10/21/2022 [facility] DATE CREATED AUTHOR AUTHOR'S ORGANIZ ATION 10/22/2023 [facility] Ambulatory Reason for Visit (unrecogniz ed section and content) Reason Comments s/p stapedectomy Care Teams (unrecognized sec tion and content) 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 This clinical summary was aggregated from multiple sources. Caution should be exercised in using it in the provision of clinical care. This summary normalizes information from multiple sources, and as a consequence, information in this document may materially change the coding, format and clinical context of patient data. In addition, data may be omitted in some cases. CLINICAL DECISIONS SHOULD BE BASED ON THE PRIMARY CLINICAL RECORDS. [facility]. provides no warranty or guarantee of the accuracy or completeness of information in this document.
== END | disposition home or self-care (01) ==
LOC: OPBI 07:10
PROVIDERS: PCP Family Medicine; Referring Provider Advanced Practice Midwife; Visit Provider Advanced Practice Midwife
DX: Z12.31 Encounter for screening mammogram for malignant neoplasm of breast (principal); Z80.3 Family history of malignant neoplasm of breast
CPT/HCPCS: 77063; 77067

== ENCOUNTER → 2024-08-07 | Outpatient (CLI) | payer BC, SELFPAY ==
[2024-08-07 12:53] LABS: Estradiol 37.4 pg/mL; Follicle Stimulating Hormone 5.2 mIU/mL; Luteinizing Hormone 3.8 mIU/mL
[2024-08-08 04:08] LABS: PROGESTERONE 0.7 ng/mL (.)
[2024-08-08 16:10] LABS: Thyroglobulin Antibody < 1.0 IU/mL (0.0-0.9); Thyroid Peroxidase AB 13 IU/mL (0-34)
== END | disposition home or self-care (01) ==
LOC: BFHLAB 09:00
PROVIDERS: PCP Family Medicine; Referring Provider Family Medicine; Visit Provider Family Medicine
DX: N93.8 Other specified abnormal uterine and vaginal bleeding (principal); N92.1 Excessive and frequent menstruation with irregular cycle; R53.83 Other fatigue
CPT/HCPCS: 36415; 82670; 83001; 83002; 84144; 84443; 86376; 86800

== ENCOUNTER 2025-04-28 07:54 | Emergency (ER) | payer BC, SELFPAY ==
[2025-04-28 07:55] VITALS: BP 123/74; PULSE 109; RESP 16; TEMP 37; O2SAT 99; BMI 25.6
--- NOTE | 2025-04-28 08:24 | CT_ITS ---
EXAM: CT Abdomen and Pelvis With Intravenous Contrast CLINICAL INDICATION: LLQ PAIN TECHNIQUE: Axial computed tomography images of the abdomen and pelvis with intravenous contrast. This CT exam was performed using one or more of the following dose reduction techniques: automated exposure control, adjustment of the mA and/or kV according to patient size, and/or use of iterative reconstruction technique. COMPARISON: No relevant prior studies available. FINDINGS: LUNG BASES: Unremarkable. No mass. No consolidation. ABDOMEN: LIVER: Hepatomegaly with fatty infiltration. GALLBLADDER AND BILE DUCTS: Cholelithiasis and gallbladder sludge. Subtle fat stranding. Acute cholecystitis can not be excluded. Clinical correlation is recommended. No ductal dilation. PANCREAS: Unremarkable. No mass. No ductal dilation. SPLEEN: Unremarkable. No splenomegaly. ADRENALS: Unremarkable. No mass. KIDNEYS AND URETERS: Unremarkable. No solid mass. No hydronephrosis. STOMACH AND BOWEL: Scattered diverticula in the colon. There is mucosal thickening in the descending colon with surrounding inflammation consistent with acute diverticulitis. No abscess. No obstruction. PELVIS: APPENDIX: No findings to suggest acute appendicitis. BLADDER: Unremarkable. No mass. REPRODUCTIVE: Unremarkable as visualized. ABDOMEN and PELVIS: INTRAPERITONEAL SPACE: Unremarkable. No free air. No significant fluid collection. BONES/JOINTS: No acute fracture. No dislocation. SOFT TISSUES: Unremarkable. VASCULATURE: Unremarkable. No abdominal aortic aneurysm. LYMPH NODES: Unremarkable. No enlarged lymph nodes. CT/Abdomen/Pelvis W IV Cont ONLY IMPRESSION: 1. Cholelithiasis and gallbladder sludge. Subtle fat stranding. Acute cholec ystitis can not be excluded. Clinical correlation is recommended. 2. Scattered diverticula in the colon. There is mucosal thickening in the francesco cending colon with surrounding inflammation consistent with acute diverticulitis. No abscess. 3. Hepatomegaly with fatty infiltration. Reading [facility]
--- NOTE | 2025-04-28 08:24 | ED.VIS.GI ---
HPI HPI - GI History of Present Illness Chief Complaint: Abd Pain Informant: patient Narrative Narrative: Present increasing pain in left lower quadrant abdomen for last couple days. Patient states she remembers lifting a heavy case of water which she felt symptoms later. Symptoms worse with movement. Improved with rest. She had a fever yesterday of 100. No urinary symptoms no cough. Today no fevers. Appendectomy 2 years ago with umbilical hernia repair by Dr. Dixon. No nausea or vomiting. x 2 in the past last menstrual period 2 weeks ago. No allergies. No history of diverticulitis. No history of colonoscopy. Having bowel movements having flatus. Prior similar symptoms: No PFSH PFSH Medical History Hearing loss, left Hearing loss, right Non-smoker Placental insufficiency in third trimester Velamentous insertion of umbilical cord History of delivery, currently History of cholestasis during Home Medications ?Medication ?Instructions ?Recorded ?Last Taken ?Type multivitamin 1 tab PO DAILY 01/06/22 Unknown History calcium carbonate (Calcium 600) 600 mg PO QDAY 07/04/24 Unknown History amoxicillin 875 mg-potassium 875 mg PO Q12H #20 TABLETS 04/28/25 Unknown Rx clavulanate 125 mg tablet Allergy/AdvReac Type Severity Reaction Status Date / Time No Known Allergies Allergy Verified 04/28/25 07:57 Family History Mother Hypertension Hyperlipidemia Father Diabetes Hyperlipidemia Hypertension Surgical History Status post umbilical hernia repair, follow-up exam S/P appendectomy H/O dilation and curettage delivery delivered Social History Smoking Status: Never smoker alcohol intake: current details: social substance use type: does not use caffeine: Yes what type of physical activity do you participate in: walking and weight training frequency: 3-4 times per week seatbelt use: always do you feel safe at home: Yes additional social history: ChrisJason RayMiamigurdeep Mtz 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 [facility] ED Constitutional Constitutional ED: Denies chills, fever(s) or sweats ENT ENT ED: Denies sore throat Cardiovascular Cardiovascular: Denies chest pain, leg edema, palpitations or racing heartbeat Respiratory/Chest Respiratory/Chest: Denies cough, dyspnea or dyspnea on exertion Gastrointestinal Gastrointestinal: Reports abdominal pain; Denies diarrhea, nausea or vomiting Genitourinary Genitourinary ED: Denies dysuria, hematuria or urinary frequency Musculoskeletal Musculoskeletal: Denies back pain, extremity pain or neck pain Integumentary Denies rash or wounds Neurologic Neurologic: Denies headache(s), paresthesias or weakness EXAM Physical Exam Const Vital Signs: 04/28/25 07:55 04/28/25 09:54 04/28/25 11:08 Temperature 98.6 F 98.6 F Temperature Source Oral Pulse Rate 109 H 89 97 Respiratory Rate 16 16 18 Blood Pressure 123/74 H 103/57 L 98/59 L Blood Pressure Mean 90 72 72 Pulse Ox 99 100 100 Oxygen Delivery Method Room Air Room Air Positive well nourished and well developed General Appearance ED: well developed and NAD HEENT Reports moist mucous membranes normocephalic and atraumatic Eyes General Eye ED: Yes normal appearance of both eyes Neck full ROM Chest Wall Chest: Negative for tenderness Resp normal respiratory effort and normal air movement Effort and Inspection: symmetric chest movement; Negative for respiratory distress Cardio regular rhythm and no murmurs Rate: tachycardic Peripheral Pulses: pulses 2+ throughout GI normal to inspection, nondistended, normoactive bowel sounds GI Narrative: Tender palpation left lower quadrant. No guarding or rebound. Negative Mcelroy's negative Chelo's. Palpation: Negative for guarding or rebound tenderness present Extremity normal to inspection General Extremety ED: Negative for edema or tenderness General Extremity: Negative for edema Neuro oriented x3 and no sensory deficits noted Sensorium / Orientation: awake and alert Skin no rashes or lesions noted and no wounds MDM MDM MDM Narrative Medical decision making narrative: Interventions / MDM: Differential diagnosis: Acute diverticulitis, left lower quadrant abdominal pain. Diagnosis considered but do not suspect: No clinical cholecystitis. My EKG interpretation: N/A Imaging independently reviewed and interpreted by myself: CT abdomen pelvis IV contrast: Descending diverticulitis. Cholelithiasis with gallbladder sludge. External documents reviewed: N/A Test considered but not ordered:N/A ED course: Patient afebrile progressive left lower quadrant abdominal pain declines any pain medicines currently. IV established for labs will check urine hCG. Fluids started. CT abdomen pelvis IV contrast for further evaluation. 1045: CT scan noncomplicated diverticulitis in the descending colon. Also reported by radiology cholelithiasis gallbladder sludge with concerning fat stranding. Clinically she has no pain in this area. Discussed patient further she has had no biliary colic symptoms with foods. Leukocytosis of 15 for diverticulitis. Started on Augmentin. I will touch bases with surgery due to the cholecystitis report from radiology for outpatient evaluation. I discussed with Dr. Salinas, this patient's history and findings. No clinical cholecystitis. Agrees with Augmentin. Discussed low fiber diet for the patient next few weeks. Patient can follow-up with their office for reevaluation and outpatient colonoscopy discussions. This was discussed with patient who understands and agrees with plan. All questions were answered. Re-evaluation: stable Disposition discussed with patient/family/significant other: Patient Case discussed with consulting clinician: General Surgery This note was generated with [employer] dictation software. It may contain incorrect words, spelling, and punctuation that were not noted in checking the note before signing. Lab Data Attestation: I reviewed the patient's lab results. Labs: Laboratory Results - last 24 hr 04/28/25 04/28/25 08:36 08:50 WBC 15.3 H RBC 4.32 Hgb 13.6 Hct 38.4 MCV 88.9 MCH 31.5 MCHC 35.4 RDW Std Deviation 41.9 RDW Coeff of Opal 12.9 Plt Count 276 MPV 10.4 Immature Gran % (Auto) 0.700 Neut % (Auto) 85.6 H Lymph % (Auto) 6.2 L [place] % (Auto) 6.4 Eos % (Auto) 0.7 Baso % (Auto) 0.4 Absolute Neuts (auto) 13.1 H Absolute Lymphs (auto) 0.95 Nucleated RBC % 0 Sodium 139 Potassium 3.8 Chloride 103 Carbon Dioxide 24.9 Anion Gap 11 BUN 10 Creatinine 0.77 Estim Creat Clear Calc 74.10 Est GFR (MDRD) Non-Af 97 BUN/Creatinine Ratio 13.2 Glucose 111 H Calcium 9.2 Serum , Qual NEGATIVE Urine Color Yellow Urine Clarity Sl. Cloudy Urine pH 6.0 Ur Specific [place] 1.015 Urine Protein 15 H Urine Glucose (UA) Normal Urine Ketones Negative Urine Occult Blood 150 H Urine Nitrite Negative Urine Bilirubin Negative Urine Urobilinogen Normal Ur Leukocyte Esterase 25 H Urine RBC 0-5 SEEN Urine WBC 0-5 SEEN Ur Squamous Epith Cells 0-5 SEEN Urine Bacteria 2+ Urine Mucus RARE Radiography Diagnostic Testing: Clinical Impression(s) from Imaging Studies Abdomen/Pelvis CT 04/28/25 08:24 IMPRESSION: 1. Cholelithiasis and gallbladder sludge. Subtle fat stranding. Acute cholecystitis can not be excluded. Clinical correlation is recommended. 2. Scattered diverticula in the colon. There is mucosal thickening in the descending colon with surrounding inflammation consistent with acute diverticulitis. No abscess. 3. Hepatomegaly with fatty infiltration. Reading Location: [facility] Discharge Plan Triage Chief Complaint: Abd Pain ED Provider: Stephen Plascencia Dx/Rx/DC Orders Clinical Impression: Acute diverticulitis, Abdominal pain, Gallstone Instructions: Diverticulitis Dc, Gallstones Dc Prescriptions: New amoxicillin-pot clavulanate 875-125 mg tablet 875 mg PO Q12H Qty: 20 0RF No Action multivitamin Tablet 1 tab PO DAILY calcium carbonate [Calcium 600] 600 mg calcium (1,500 mg) tablet 600 mg PO QDAY Primary Care Provider: Gayatri Becker Referrals: Gayatri Becker DO [Primary Care Provider] - Dm Dixon MD [Med Staff - Active Staff] - 1-2 Weeks Activity Restrictions/Additional Instructions: Uncomplicated diverticulitis seen on CT white count 15. You had incidental findings gallbladder stones with sludge you have no pain in this area. Taking finish antibiotic as prescribed. Use Tylenol as needed. Low fiber diet for next few weeks after discussion with Dr. Salinas. Follow-up with their office with Dr. Dixon for reevaluation and discussion for future colonoscopy. Print Language: Mosotho Disposition Disposition: Home, Self Care Discharge Date/Time: 04/28/25 11:16
[2025-04-28] MEDS: 0.9% Normal Saline (1000mL) 1,000 ML 125 ML IV (08:32)
[2025-04-28 08:46] LABS: Hematocrit 38.4 % (37-47); Hemoglobin 13.6 g/dL (12.0-15.0); Immature Granulocytes Count 0.100 X10^3/uL (0.0-0.0); Mean Corp Hgb Conc 35.4 g/dL (32-36); Mean Corpuscular Volume 88.9 fL (81-99); Mean Platelet Vol. 10.4 fl (6.2-12.0); NRBC Flagged by Analyzer 0 % (0-5); Platelet Count 276 K/mm3 (150-450); RBC Distribution Width CV 12.9 % (11.6-14.6); RBC Distribution Width SD 41.9 fl (35.1-43.9); Red Blood Count 4.32 M/mm3 (4.2-5.4); White Blood Count 15.3 K/mm3 (4.4-11.0)
[2025-04-28 08:58] LABS: Color, Urine Yellow (Yellow); Glucose, Dipstick Normal (Normal); Ketone-Dipstick Negative (Negative); Leukocyte Esterase-Dipstick 25 /ul (Negative); Nitrite-Dipstick Negative (Negative); Occult Blood-Urine 150 /ul (Negative); Protein-Dipstick 15 mg/dl (Negative); Specific Gravity, Urine 1.015 (1.002-1.030); Urine Bilirubin Dipstick Negative (Negative)
[2025-04-28 09:04] LABS: Mucous, Urine RARE /hpf (<or=2+); Red Blood Cells-Urine 0-5 SEEN /hpf (0-5); Squamous Epithelial Cells - UA 0-5 SEEN /hpf (5-10)
[2025-04-28 09:10] LABS: Anion Gap 11 (5-15); BUN 10 mg/dL (4-19); BUN/Creat Ratio 13.2 RATIO (10-20); Calcium,Total 9.2 mg/dL (7.6-11.0); Carbon Dioxide 24.9 mmol/L (21.0-32.0); Chloride 103 mmol/L (98-108); Estimated Creatinine Clearance 74.10 ml/min (50-250); Glucose 111 mg/dL (70-99); Potassium 3.8 mmol/L (3.3-5.1)
[2025-04-28 09:29] LABS: Internal QC Validated? YES +Cl - CLEAR BKGD; Pregnancy, Serum, hCG Quali. NEGATIVE Negative; Record Kit Lot#, Serum Preg. 962302
[2025-04-28 09:54] VITALS: BP 103/57; PULSE 89; RESP 16; O2SAT 100
[2025-04-28 11:08] VITALS: BP 98/59; PULSE 97; RESP 18; TEMP 37; O2SAT 100
--- OUTSIDE RECORDS SUMMARY | 2025-04-28 13:23 | XMS RPT_ITS | CCD ---
Author Organization [facility] Care Team Providers Care Double End Production Grinder Name Role Phone Gayatri Becker Unavailable Unavailable Unavailable Dr. Gayatri Becker Primary Care Provider [phone] Dr. Gayatri Becker Referring Provider [phone] Liberty Rondon Attending Provider [phone] Dr. Gayatri Becker Primary Care Provider Dr. Irineo Kohli Emergency Provider Dr. Dm Dixon Attending Provider [phone] Zack, Dr. Chaidez Referring Provider [phone] Zack, Dr. Chaidez Other Provider [phone] Zack, Dr. Chaidez Admit Provider Ms. Antonina Manriquez Attending Unav ailable Eugenio, Dr. Gayatri Foss Primary Care Unavailable Shay, Dr. Kitty Galan Referring Unavail able Shay, Dr. Kitty Galan Referring Unavail able Malys, Dr. Gayatri Foss Primary Care Unavailable Shay, Dr. Kitty Galan Attending Unavail able Shay, Dr. Kitty Galan Attending Unavail able Malys, Dr. Gayatri Foss Primary Care Unavailable Shay, Dr. Kitty Galan Referring Unavail able Shay, Dr. Kitty Galan Attending Unavail able Malys, Dr. Gayatri Foss Primary Care Unavailable Shya, Dr. Kitty Galan Admitting Unavail able Shay, Dr. Kitty Galan Referring Unavail able Shay, Dr. Kitty Galan Attending Unavail able Self, Referral Referring Unavailable Eugenio, Dr. Gayatri Foss Primary Care Unavailable Malys , Gayatri Foss Primary Care Provider [phone] Gayatri Becker Primary Care Unavailable Shani Mo Attending Unavailable Jamalazalea Gayatri Referring Unavailable JamalMckenna tristana Attending Unavailable MalGayatri tristan Primary Care Unavailable Malazalea, Gayatri Referring Unavailable MalGayatri tristan Primary Care Unavailable Shani Mo Referring Unavailable Shani Mo Attending Unavailable SHAY, MAROUN T Attending Unavailable GAYATRI BECKER AGUSTÍN Primary Care Unavailable SHAY, MAROUN T Attending Unavailable JAMALAZALEAGAYATRI AGUSTÍN Primary Care Unavailable SHAY, MAROUN T Admitting Unavailable SHAY, MAROUN T Attending Unavailable JAMALGAYATRI TRISTAN AGUSTÍN Primary Care Unavailable Dr. Gayatri Becker DO Primary Care Provider [phone] Stephen Plascencia DO Emergency Provider Medications Current Medications Medication Drug Class(es) Dates Sig (Normalized) Sig (Original) amoxicillin 875 mg / clavulanate 125 mg oral tablet (1 source) Penicillin-class Antibacterial Start: 04-28-2025 take 1 tablet by mouth every twelve hours Amoxicillin-Pot Clavulanate 875-125 mg tablet Active 875 mg PO Q12H 20 0 April 28, 2025 12:00am calcium carbonate 1500 mg oral tablet (1 source) Start: 07-04-2024 take 1 tablet by mouth once daily Calcium Carbonate (Calcium 600) 600 mg calcium (1,500 mg) tablet Active 600 mg PO daily July 04, 2024 12:00am multivit-min/aleksandra us fumarate (MULTI VITAMIN ORAL) (2 sources) multivit-min/ashley r ous fumarate (MULTI VITAMIN ORAL) Take by mouth. Active multivit-min/ashley derrick fumarate (MULTI VITAMIN ORAL) Take by mouth. 0 Active Multivitamin preparation (4 sources) Start: 01-06-2022 take 1 tablet by mouth once daily Multivitamin Active 1 TABLET PO DAILY January 06, 2022 2:12pm Start: 01-06-2022 take 1 tablet by enriqueta th once daily Multivitamin Active 1 TABLET PO DAILY January 06, 2022 12:00am Multivitamin tablet (1 source) Start: 01-06-2022 Multivitamin t ablet Active 1 {tbl} PO DAILY January 06, 2022 12:00am Completed/Discontinued Medications Medication Drug Class(es) Dates Sig (Normalized) Sig (Original) 1.1 ml HYDROXYprogesterone caproate (prison) 250 mg/ml auto-injector (5 sources) Start: 05-27-2019 End: 10-10-2019 Hydroxyprogest(Pf)( Preg Presv) (Larose (Pf)) 275 mg/1.1 mL auto-injector Discontinued 275 mg SC EVERY WEEK 1.1 12 May 27, 2019 12:00am October 10, 2019 9:37am acetaminophen 325 mg / oxyCODONE hydrochloride 5 mg oral tablet (5 sources) Opioid Agonist Start: 12-01-2019 End: 12-08-2019 Oxycodone-Acetamino phen 1 TABLET tablet Discontinued 1 - 2 {tbl} PO EVERY 6 HOURS NEEDED as needed for Pain 15 7 0 December 01, 2019 December 07, 2019 1:00am December 08, 2019 1:10am Other acute postprocedural pain Start: 12-01-2019 End: 12-08-2019 take 1 tablet by mouth every six hours as needed Oxycodone-Acetaminophen Discontinued 1 - 2 TABLET PO EVERY 6 HOURS NEEDED 15 7 December 01, 2019 December 08, 2019 1:10am cephalexin 500 mg oral capsule (5 sources) Cephalosporin Antibacterial Start: 12-12-2019 End: 12-19-2019 take 1 capsule by mouth every twelve hours Cephalexin (Keflex) 500 mg capsule Discontinued 500 mg PO Q12H 14 7 0 December 12, 2019 1:00am December 18, 2019 12:00am December 19, 2019 12:07am methylPREDNISolone 4 MG Oral Tablet Therapy Pack (1 source) Start: 11-26-2020 methylPREDNISolone 4 MG Oral Tablet Therapy Pack Quantity: 21 Refills: 0 Ordered: 26-Nov-2020 DO Start : 26-Nov-2020 Active Multi Vitamin Oral Tablet (5 sources) Start: 04-25-2022 take 1 tablet by mouth once daily Multi Vitamin Oral Tablet TAKE 1 TABLET DAILY. Quantity: 0 Refills: 0 Ordered: 25-Apr-2022 DO Start : 25-Apr-2022 Active naproxen 250 mg oral tablet (5 sources) Nonsteroidal Anti-inflammatory Drug Start: 12-01-2019 End: 12-12-2019 take 250-500 mg by mouth every eight hours as needed for pain Naproxen 250 MG tablet Discontinued 250 - 500 mg PO EVERY 8 HOURS NEEDED as needed for MILD PAIN 30 1 December 01, 2019 1:00am December 12, 2019 11:44am oseltamivir 75 mg oral capsule (10 sources) Neuraminidase Inhibitor Start: 11-25-2019 End: 12-12-2019 take 1 capsule by mouth once daily Oseltamivir 75 MG capsule Discontinued 75 mg PO DAILY November 30, 2019 1:15am December 12, 2019 11:45am Check with primary doctor oxyCODONE hydrochloride 5 mg oral tablet (3 sources) Opioid Agonist Start: 04-20-2022 End: 06-02-2023 take 1 tablet by mouth every six hours as needed for pain Oxycodone 5 mg Tablet Discontinued 5 mg PO EVERY 6 HOURS NEEDED as needed for Pain Score 6-10 7 3 0 April 20, 2022 June 02, 2023 11:28am Status post appendectomy Acquired absence of other specified parts of digestive tract Vit,[id number]-Ywso-Huelb (4 sources) Start: 06-26-2014 End: 01-06-2022 take 1 tablet by mouth once daily Vit,Unpw84-Mpte-Qzobw Discontinued 1 TABLET PO DAILY June 26, 2014 4:08pm January 06, 2022 2:11pm Start: 06-26-2014 End: 01-06-2022 take 1 tablet by mouth once daily Vit,Gzjn39-Ghcx-Jocou Discontinued 1 TABLET PO DAILY June 26, 2014 12:00am January 06, 2022 2:11pm Vit,Fxff16-Bpad-Vjgjf 1 TABLET tablet (1 source) Start: 06-26-2014 End: 01-06-2022 take 1 tablet by mouth once daily Vit,Fhvb68-Dril-Xolnr 1 TABLET tablet Discontinued 1 {tbl} PO DAILY June 26, 2014 12:00am January 06, 2022 2:11pm Problems Active Problems Problem Classification Problem Date Documented Date Episodic/Chronic Abdominal hernia (5 sources) Umbilical hernia; Translations: [Umbilical hernia without obstruction or gangrene] Episodic Abdominal pain (6 sources) Abdominal pain; Translations: [Unspecified abdominal pain] Episodic Appendicitis and other appendiceal conditions (5 sources) Acute appendicitis; Translations: [Unspecified acute appendicitis] Episodic Biliary tract disease (1 source) Gallstone; Translations: [Calculus of gallbladder without cholecystitis without obstruction] 04-28-2025 Episodic Diverticulosis and diverticulitis (1 source) Diverticulitis of intestine; Translations: [Diverticulitis of intestine, part unspecified, without perforation or abscess without bleeding] 04-28-2025 Chronic Hemorrhage during ; abruptio placenta; placenta previa (10 sources) Antepartum hemorrhage; Translations: [Hemorrhage in early , unspecified] 09-17-2019 Episodic Comment on above: Subchorionic hematom a: 05/08: 1.7cm; 13 .9cm resolved. Other aftercare (3 sources) History of repair of umbilical hernia; Translations: [Encounter for follow-up examination after completed treatment for conditions other than malignant neoplasm] 06-02-2023 Episodic Comment on above: Patient is status po st primary repair of umbilical hernia. He has some mounding of the scar tissue deep to her incision (particularly in the right side). However, the wound appears well-healing. I have informed the patient that she requires another 6 months before we will see the final appearance of this wound. She has now encouraged to apply triple antibiotic to her wound at least nightly to facilitate further healing. 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 Other aftercare (2 sources) Encounter for follow-up examination after completed treatment for conditions other than malignant neoplasm; Translations: [Follow-up examination, following other surgery] Episodic Other complications of (4 sources) bradycardia affecting management of mother; Translations: [Maternal care for abnormalities of the heart rate or rhythm, unspecified trimester, not applicable or unspecified] Episodic Other complications of (4 sources) High risk ; Translations: [Supervision of high risk , unspecified, unspecified trimester] Episodic Other complications of (5 sources) Placental insufficiency; Translations: [Maternal care for known or suspected placental insufficiency, third trimester, not applicable or unspecified] 06-02-2023 Episodic Other complications of (5 sources) H/O: premature delivery; Translations: [Supervision of other high risk pregnancies, unspecified trimester] 06-02-2023 Episodic Comment on above: nl cervical lengths, growth borderline possible IUGR Other ear and sense organ disorders (9 [...] [Conductive hearing loss, unspecified] Onset: 07-19-2022 Chronic Other ear and sense organ disorders (3 sources) Conductive hearing loss, unilateral, right ear, with unrestricted hearing on the contralateral side; Translations: [Conductive hearing loss, unilateral] Onset: 09-19-2024 09-19-2024 Chronic Other female genital disorders (1 source) Other specified abnormal uterine and vaginal bleeding; Translations: [Other specified abnormal uterine and vaginal bleeding] Onset: 08-28-2024 Chronic Other and delivery including normal (4 sources) ; Translations: [Encounter for supervision of normal , unspecified, unspecified trimester] Episodic Other screening for suspected conditions (not mental disorders or infectious disease) (1 source) Encounter for screening mammogram for malignant neoplasm of breast; Translations: [Encounter for screening mammogram for malignant neoplasm of breast] Onset: 08-23-2024 Episodic Otitis media and related conditions (18 sources) Otosclerosis; 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, unspecified] Onset: 07-19-2022 Episodic Residual codes; unclassified (5 sources) History of cholestasis in ; Translations: [Personal history of other complications of , childbirth and the puerperium] 06-02-2023 Episodic Residual codes; unclassified (4 sources) Acquired absence of other specified parts of digestive tract; Translations: [Other postprocedural status] Episodic Umbilical cord complication (5 sources) Velamentous insertion of umbilical cord; Translations: [Velamentous insertion of umbilical cord, unspecified trimester] 06-02-2023 Episodic Comment on above: growth us every 4 we eks Unclassified (2 sources) s/p stapedectomy Onset: 10-19-2023 Past or Other Problems Problem Classification Problem Date Documented Da te Episodic/Chronic Unclassified (2 sources) Onset: 10-19-2023 Resolved: 09-19-2024 4 Results Test Name Value Interpretation Reference Range Facility Absolute lymphocyte countOrd ered By: Stephne Plascencia on 04-28-2025 Lymphocytes Auto (Unsp spec) [#/Vol] 0.95 10*3/uL 0.83-4.51 [facility] Absolute neutrophil countOrd ered By: Stephen Plascencia on 04-28-2025 Neutrophils (Bld) [#/Vol] 13.1 10*3/uL High 2.0-7.7 [facility] Anion gap in Serum or Plasma Ordered By: Stephen Plascencia on 04-28-2025 Anion gap [Moles/Vol] 11 mmol/L 5-15 [facility] Automated lymphocyte count a s percentage of total leukocytesOrdered By: Stephen Plascencia on 04-28-2025 Lymphocytes/100 WBC Auto (Unsp spec) 6.2 % Low 19-41 [facility] BUN/creatinine ratioOrdered By: Stephen Plascencia on 04-28-2025 Urea nitrogen/Creatinine [Mass ratio] 13.2 mg/mg 10-20 [facility] Basophil percentageOrdered B y: Stephen Plascencia on 04-28-2025 Basophils/100 WBC (Bld) 0.4 % 0-1 [facility] Bilirubin Test strip Ql (U)O rdered By: Stephen Plascencia on 04-28-2025 Bilirubin Ql (U) Negative Negative [facility] Carbon dioxide, total [Moles /volume] in Central venous bloodOrdered By: Stephen Plascencia on 04-28-2025 CO2 [Moles/Vol] 24.9 mmol/L 21.0-32.0 [facility] Chloride assayOrdered By: Yonis Plascencia on 04-28-2025 Chloride [Moles/Vol] 103 mmol/L 98-108 [facility] Eosinophil percentageOrdered By: Stephen Plascencia on 04-28-2025 Eosinophils/100 WBC (Bld) 0.7 % 0-5 [facility] Erythrocyte distribution wid th ratioOrdered By: Stephen Plascencia on 04-28-2025 Erythrocyte distribution width (RBC) [Ratio] 12.9 % 11.6-14.6 [facility] Erythrocyte distribution wid th standard deviationOrdered By: Stephen Plascencia on 04-28-2025 Erythrocyte distribution width (RBC) [Ratio] 41.9 fl 35.1-43.9 [facility] Glomerular filtration rate ( GFR) estimation/1.73 sq m using serum, plasma, or whole bOrdered By: tSephen Plascencia on 04-28-2025 GFR/1.73 sq M.predicted among non-blacks MDRD (S/P/Bld) [Vol rate/Area] 97 mL/min/{1.73_m2} >60 [facility] Comment on above: mL/min/1.73m2 CKD-EP I Creatinine Equation (2020) Hematocrit Auto (Bld) [Volum e fraction]Ordered By: Stephen Plascencia on 04-28-2025 Hematocrit (Bld) [Volume fraction] 38.4 % 37-47 [facility] Hemoglobin measurementOrdere d By: Stephen Plascencia on 04-28-2025 Hemoglobin (Bld) [Mass/Vol] 13.6 g/dL 12.0-15.0 [facility] Immature granulocytes/100 WB C Auto (Bld)Ordered By: Stephen Plascencia 04-28-2025 Immature granulocytes/100 WBC (Bld) 0.700 % 0.0-0.9 [facility] Comment on above: IG% - Immature Granu locytes (promyelocytes, myelocytes and metamyelocytes) > 1% indicates that a LEFT SHIFT is Present. Ketones Test strip Ql (U)Ord ered By: Stephen Plascencia on 04-28-2025 Ketones Ql (U) Negative Negative [facility] MCV (mean corpuscular volume ) determinationOrdered By: Stephen Plascencia 04-28-2025 MCV (RBC) [Entitic vol] 88.9 fL 81-99 [facility] Mean corpuscular hemoglobin (MCH) determinationOrdered By: Stephen Plascencia 04-28-2025 MCH (RBC) [Entitic mass] 31.5 pg 27.0-32.0 [facility] Mean corpuscular hemoglobin concentration (MCHC) determinationOrdered By: Stephen Plascencia 04-28-2025 MCHC (RBC) [Mass/Vol] 35.4 g/dL 32-36 [facility] Mean platelet volume determi nationOrdered By: Stephen Plascencia 04-28-2025 Platelet mean volume (Bld) [Entitic vol] 10.4 fL 6.2-12.0 [facility] Microscopic analysis of urin e for red blood cells (RBC)Ordered By: Stephen Plascencia on 04-28-2025 Microscopic analysis of urine for red blood cells (RBC) 0-5 SEEN /hpf 0-5 [facility] Monocyte percentageOrdered B y: Stephen Berny on 04-28-2025 Monocytes/100 WBC (Bld) 6.4 % 0-10 [facility] Mucus LM Ql (Urine sed)Order ed By: Stephen Plascencia on 04-28-2025 Mucus Ql (Urine sed) RARE /hpf [facility] Neutrophil percentageOrdered By: Stephen Plascencia on 04-28-2025 Neutrophils/100 WBC (Bld) 85.6 % High 47-70 [facility] Nitrite Test strip Ql (U)Ord ered By: Stephen Plascencia on 04-28-2025 Nitrite Ql (U) Negative Negative [facility] Nucleated red blood cell per centageOrdered By: Stephen Plascencia on 04-28-2025 Nucleated RBC/100 WBC (Bld) [Ratio] 0 % 0-5 [facility] Platelet countOrdered By: Yonis Plascencia on 04-28-2025 Platelets (Bld) [#/Vol] 276 10*3/uL 150-450 [facility] Potassium measurement (mass/ volume)Ordered By: Stephen Plascencia on 04-28-2025 Potassium (Unsp spec) [Mass/Vol] 3.8 mmol/L 3.3-5.1 [facility] Protein Test strip Ql (U)Ord ered By: Stephen Plascencia on 04-28-2025 Protein Ql (U) 15 mg/dl High Negative [facility] RBC Auto (Bld) [#/Vol]Ordere d By: Stephen Plascencia on 04-28-2025 RBC (Bld) [#/Vol] 4.32 10*6/uL 4.2-5.4 [facility] Serum beta-hCG test, qualita tiveOrdered By: Stephen Plascencia on 04-28-2025 Beta HCG ( test) Ql Negative [facility] Serum creatinine measurement (mass/volume)Ordered By: Stephen Plascencia on 04-28-2025 Creatinine [Mass/Vol] 0.77 mg/dL 0.70-1.20 [facility] Serum glucose measurement (m ass/volume)Ordered By: Stephen Plascencia on 04-28-2025 Glucose [Mass/Vol] 111 mg/dL High 70-99 [facility] Serum or plasma calcium blake urement (mass/volume)Ordered By: Stephen Plascencia on 04-28-2025 Calcium [Mass/Vol] 9.2 mg/dL 7.6-11.0 [facility] Serum or plasma urea nitroge n measurement (mass/volume)Ordered By: Stephen Plascencia on 04-28-2025 Urea nitrogen [Mass/Vol] 10 mg/dL 4-19 [facility] Sodium levelOrdered By: Stephen Plascencia on 04-28-2025 Sodium [Moles/Vol] 139 mmol/L 133-145 [facility] Squamous epithelial cells de tection in urine sediment by light microscopyOrdered By: Stephen Plascencia on 04-28-2025 Epithelial cells.squamous LM Ql (Urine sed) 0-5 SEEN /hpf 5-10 [facility] Urine clarityOrdered By: Nazario Plascencia on 04-28-2025 Clarity (U) Sl. Cloudy Clear [facility] Urine color determinationOrd ered By: Stephen Plascencia on 04-28-2025 Color (U) Yellow Yellow [facility] Urine glucose detectionOrder ed By: Stephen Plascencia on 04-28-2025 Glucose Ql (U) Normal mg/dl Normal [facility] Urine leukocyte esterase det ection by dipstickOrdered By: Stephen Plascencia on 04-28-2025 Leukocyte esterase Test strip Ql (U) 25 /ul High Negative [facility] Urine pHOrdered By: Stephen Plascencia on 04-28-2025 pH (U) 6.0 [pH] 5.0 - 8.0 [facility] Urine sediment bacteria coun t by microscopy (number/high power field)Ordered By: Stephen Plascencia on 04-28-2025 Bacteria LM.HPF (Urine sed) [#/Area] 2 /[HPF] None Seen [facility] Urine specific gravity measu rementOrdered By: Stephen Plascencia on 04-28-2025 Specific gravity (U) [Rel density] 1.015 1.002-1.030 [facility] Urine urobilinogen measureme ntOrdered By: Stephen Plascencia on 04-28-2025 Urobilinogen Ql (U) Normal mg/dl Normal [facility] White blood cell (WBC) count Ordered By: Stephen Plascencia on 04-28-2025 WBC (Bld) [#/Vol] 15.3 10*3/uL High 4.4-11.0 [facility] White blood cell countOrdere d By: Stephen Plascencia on 04-28-2025 White blood cell count 0-5 SEEN /hpf 0-5 [facility] PROGESTERONE 4317on 08-08-20 24 PROGESTERONE 0.7 ng/mL Normal . [facility] Comment on above: Order Comment: N Result Comment: Foll icular phase 0.1 - 0.9 Luteal phase 1.8 - 23.9 Ovulation phase 0.1 - 12.0 First trimester 11.0 - 44.3 Second trimester 25.4 - 83.3 Third trimester 58.7 - 214.0 Postmenopausal 0.0 - 0.1 Performed at: [email or web address] [id number] General Science Teacher: Mike Anderson PhD, Phone: [phone] Performed By: #### L 3300.6750, L801.2600, L501.9520, L3100.5170, L3100.5125, L3300.1750 #### [facility] [address] [place], [place], [id number] Thyroid Antibodieson 024 TG AB < 1.0 Normal 0.0-0.9 [facility] Comment on above: Result Comment: Thyr oglobulin Antibody measured by [employer] It should be noted that the presence of thyroglobulin antibodies may not be pathogenic nor diagnostic, especially at very low levels. The assay instructor business education has found that four percent of individuals without evidence of thyroid disease or autoimmunity will have positive TgAb levels up to 4 IU/mL. Performed at: [email or web address] [id number] General Science Teacher: Mike Anderson PhD, Phone: [phone] Performed By: #### L 3300.6750, L801.2600, L501.9520, L3100.5170, L3100.5125, L3300.1750 #### [facility] [address] [place], [place], [id number] THYR PEROX AB 13 IU/mL Normal 0-34 [facility] Comment on above: Performed By: #### L 3300.6750, L801.2600, L501.9520, L3100.5170, L3100.5125, L3300.1750 #### [facility] [address] [place], [place], [id number] Estradiolon 08-07-2024 ESTRADIOL 37.4 pg/mL Normal [facility] Comment on above: Result Comment: NORM AL REFERENCE RANGES FEMALE FOLLICULAR 21.4 - 164.8 pg/mL MID-CYCLE PEAK 49.9 - 367.2 pg/mL LUTEAL 40.2 - 259.0 pg/mL POST-MENOPAUSAL ON MHT <11.0 - 462.1 pg/mL NOT ON MHT <11.0 - 58.3 pg/mL MALE <11.0 - 52.5 pg/mL NOTE: [employer] HAS CONFIRMED THE DRUG FULVETRANT (FASLODEX) MAY CAUSE FALSELY ELEVATED ESTRADIOL RESULTS WHEN USING THIS TEST METHOD. IF PATIENT IS TAKING FULVESTRANT AN ALTERNATIVE METHOD SHOULD BE USED TO DETERMINE ESTRADIOL CONCENTRATION. Performed By: #### L 3300.6750, L801.2600, L501.9520, L3100.5170, L3100.5125, L3300.1750 #### [facility] [address] [place], [place], [id number] Follicle Stimulating Hormone on 08-07-2024 FSH 5.2 mIU/mL Normal [facility] Comment on above: Result Comment: NORMAL REFERENCE RANGES FEMALE FOLLICULAR 2.3 - 12.6 mIU/mL MID-CYCLE PEAK 5.2 - 17.5 mIU/mL LUTEAL 1.7 - 12.9 mIU/mL POST-MENOPAUSAL ON MHT 5.9 - 72.8 mIU/mL NOT ON MHT 12.7 - 132.2 mlU/mL MALE 0.7 - 10.8 mIU/mL Performed By: #### L 3300.6750, L801.2600, L501.9520, L3100.5170, L3100.5125, L3300.1750 #### [facility] [address] [facility] [place], [address] ( Luteinizing Hormoneon 2023 LH 3.8 mIU/mL Normal [facility] Comment on above: Result Comment: NORMAL REFERENCE RANGES FEMALE FOLLICULAR 1.9 - 26.2 mIU/mL MID-CYCLE PEAK 22.8 - 76.1 mIU/mL LUTEAL 0.6 - 16.6 mIU/mL POST-MENOPAUSAL ON MHT 1.1 - 52.4 mIU/mL NOT ON MHT 8.6 - 61.8 mIU/mL MALE 1.2 - 10.6 mIU/mL Performed By: #### L 3300.6750, L801.2600, L501.9520, L3100.5170, L3100.5125, L3300.1750 #### [facility] [address] [facility] [place], [place], [id number] Thyroid Stim Hormone (TSH)on 08-07-2024 TSH 1.600 uIU/mL Normal 0.358-3.740 [facility] Comment on above: Performed By: #### L 3300.6750, L801.2600, L501.9520, L3100.5170, L3100.5125, L3300.1750 #### [facility] [address] [place], [place], [id number] SCRN MAMM (CAD)W/MODE BILATo n 08-02-2024 SCRN MAMM (CAD)W/MODE BILAT [facility] [address] [place], [place] [id number] SCRN MAMM (CAD)W/MODE BILAT MR#: [id number] Acct: [id number] Name: IRENE LOOMIS Rep #: [id number] : 1980 F 43 From: Natanael montano MD PCP: Dr. Gayatri Becker, DO Status: REG CLI Study: SCRN MAMM (CAD)W/MODE BILAT Date of Exam: 07/10 03/01 Exam# [id number] Ordering Dr: Shani Mo CNM [id number] MAMMOGRAPHY - BILATERAL SCREENING REASON FOR EXAM: Female, 43 years old. Routine annual screening examination. PERTINENT HISTORY: Aunt with breast cancer. TECHNIQUE: Digital bilateral breast mode (3D mammographic acquisition) in the CC and MLO projections. 2-D mediolateral oblique (MLO) and craniocaudad (CC) views of both breasts were obtained. CAD: Full Field Digital Mammography with Computer Added Detection was performed. COMPARISON: Comparison is made with prior study dated August 01, 2023 and February 10, 2022. FINDINGS: Breast Composition: The breasts are extremely dense, which lowers the sensitivity of mammography. There are no dominant masses or suspicious calcifications. No other significant abnormalities are identified. There has been no significant change since the prior study. BI/SCRN MAMM (CAD)W/MODE BILAT IMPRESSION: Stable bilateral screening mammogram. Yearly follow-up mammogram recommended. (A) ASSESSMENT CATEGORY: BIRADS Category 1: Negative. A letter regarding these results will be sent to the patient by the facility within 30 days. Approximately 10% of breast cancers are not detected by mammography. A normal mammogram should not delay biopsy of a clinically suspicious abnormality. [id number] Electronically Signed: Natanael Ridley MD at 8:18 EDT , CC: GATITO Mo; Dr. Gayatri Malys, DO Java Flex Developer: Signed Normal [facility] Digital Recruiter Office Visit Reporton 07-04-2024 Digital Recruiter Office Visit Report [facility]'s [address], [address] [place] [address] OFFICE VISIT Date of Service: 07/04/24 MR#: [id number] Acct: [id number] Name: IRENE LOOMIS Rep #: [id number] : 1980 Provider: GATITO Kuhn ams Age/Sex: 43/F [place] [facility] [place]: Signed Intake Vital Signs 06/02/23 11:24 07/04/24 08:05 07/04/24 08:11 Height 4 ft 11 in 4 ft 11 in 4 ft 11 in Weight: 124 lb BMI 25.0 BP 106/71 Intake Visit Reasons: Annual (VP 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) Surveillance Investigator Required: No Is patient in pain?: No Allergies No Known Allergies Allergy (Verified 07/04/24 08:06) Medications ???Medication ???Instructions ???Recorded ???Confirmed ???Type multivitamin 1 tab PO DAILY 01/06/22 07/04/24 History calcium carbonate (Calcium 600) 600 mg PO QDAY 07/04/24 07/04/24 History Is last menstrual period known: Yes Last Menstrual Period: 06/14/24 Post menopausal: No Patient : No : No Control Method: Vasectomy [facility] Medical History Hearing loss, left Hearing loss, right Non-smoker Placental insufficiency in third trimester Velamentous insertion of umbilical cord History of delivery, currently History of cholestasis during Surgical History (Updated 06/02/23 @ 11:30 by Edel Gan) Status post umbilical hernia repair, follow-up exam S/P appendectomy H/O dilation and curettage delivery delivered Family History Mother Hypertension Hyperlipidemia Father Diabetes Hyperlipidemia Hypertension Social History Smoking Status: Never smoker alcohol intake: current details: social substance use type: does not use caffeine: Yes what type of physical activity do you participate in: walking and weight training frequency: 3-4 times per week seatbelt use: always do you feel safe at home: Yes additional social history: ShannenJason Nighat Mtz 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 Date Name GA/Weeks Outcome Route Bth Weight Gen Labor Lgth Anesthesia Del Locatn Provider FOB Unknown 2013 Adele 37 live - full term 6lbs 11oz Female spinal WC H Anmol Perez Unknown 2015 Vera 30 live - 2lbs 11oz Female [facility] Car olina 11/30/19 Natanael 37 live - full term Male spinal [facility] M Delivery Date: Last Updated by: Janet Jimenez Delivered in [place] on vacation HPI Encounter for routine gynecological examination Details: IRENE LOOMIS is a 43 year old who presents for annual exam. Last PAP: 2021 History of abnormal PAP: several years ago Last mammogram: 07/2023 History of abnormal mammogram: no Other preventative health care screenings: Malys - sees PCP at the end of JUL Female Reproductive History Last Menstrual Period: 06/14/24 Cycle Length: 21-35 Bleeding Duration: 5 Questions: metorrhagia: No, sexually active: Yes, dyspareunia: No and PCB: No ROS Const Constitutional: Reports system reviewed and no additional complaints, except as documented Eyes Eyes: Reports system reviewed and no additional complaints, except as documented ENT ENT: Reports system reviewed and no additional complaints, except as documented Cardio Card: Reports system reviewed and no additional complaints, except as documented Resp Resp: Reports system reviewed and no additional complaints, except as documented GI GI: Reports system reviewed and no additional complaints, except as documented; Denies nausea or vomiting : Reports system reviewed and no additional complaints, except as documented Musc Musc: Reports system reviewed and no additional complaints, except as documented Skin Skin/Breast: Reports system reviewed and no additional complaints, except as documented Neuro Neuro: Reports system reviewed and no additional complaints, except as documented Psych Psych: Reports system reviewed and no additional complaints, except as documented Endo Endo: Reports system reviewed and no additional complaints, except as documented Cedric/Lymph Hematologic/Lymphatic: Reports system reviewed and no additional complaints, except as documented Aller/Immun Allergic/Immunologic: Reports system reviewed and no additional complaints, except as documented Exam Const General: cooperative, healthy appearing and no acute distress Orientation: alert, awake and oriented x3 Neck Neck: normal visual inspection and full ROM T (more content not included)... Normal [facility] Established Visit (Otolaryng ology)on 10-20-2022 Established Visit [...] This note was created using speech recognition coat operator software/or [employer] coat operator services. Despite proofreading, several typographical errors might [...] Oct 20 2022 10:52AM EST (Author) Normal [facility] Office Visit (Audiology)on 0 10-20-2022 Follow-up visit [...] pain, drainage, fullness, vertigo. Patient's preferred language: Bermudian Preferred language of the parent, legal guardian or surrogate decision-maker of this minor or incapacitated patient: Bermudian No overt signs of domestic violence/neglect/abuse. No referral made to Medical Sales Associate. Pain not interfering with optimal level of [...] Oct 20 2022 9:54AM EST (Author) Normal [facility] Established Visit (Otolaryng ology)on 08-18-2022 Established Visit [...] This note was created using speech recognition coat operator software/or [employer] coat operator services. Despite proofreading, several typographical errors might [...] DAILY. Vitals Vital Signs Recorded: 18Aug2022 02:17PM [id number] F Cospqv027 lb 0.4 oz BMI Wjzuuamfrc88.64 kg/m2 BSA Calculated1.51 'Scores and Scales' Signatures Electronically signed by : Kitty Day MD; Aug 18 2022 4:39PM EST (Author) Normal [facility] Basophil percentageon 2021 Cholesterol [Mass/Vol] 195 mg/dL <200 [facility] Work Phone: Comment on above: <200 mg/dL Desirable 200-240 mg/dL Borderline >240 mg/dL High Risk Triglyceride [Mass/Vol] 62 mg/dL <199 [facility] Work Phone: Comment on above: The drugs N-Acetylcy steine and Metamizole may falsely depress this assay.Serum Triglycerides Reference Interval Normal <150 mg/dL Borderline high 150 - 199 mg/dL High 200 - 499 mg/dL Very High > or = 500 mg/dL Serum or plasma cholesterol in HDL measurement (mass/volume)on 08-04-2022 Cholesterol in HDL [Mass/Vol] 80 mg/dL >40 [facility] Work Phone: Comment on above: The drugs N-Acetylcy steine and Metamizole may falsely depress this assay. Reference Range HDL <40 mg/dL Low HDL Cholesterol HDL >or= 60 mg/dL High HDL Cholesterol Serum or plasma cholesterol in VLDL measurement (mass/volume)on 08-04-2022 Cholesterol in VLDL [Mass/Vol] 12 mg/dL 5-40 [facility] Work Phone: Serum or plasma low density lipoprotein (LDL) cholesterol measurement (mass/volume)on 08-04-2022 Cholesterol in LDL [Mass/Vol] 103 mg/dL 0-130 [facility] Work Phone: Order Reconciliationon 07-19 Order Reconciliation Page 1 [...] be shared with your follow-up providers (doctor, major assembly inspector, physical therapist, etc.). Follow Up with Shay in 4 Weeks 08/22/22 @ 11:45 [facility] clinic May not drive or [...] Diagnosis< H80 (more content not included)... Normal [facility] Patient Profile - Preop v3on 07-18-2022 Patient Profile - Preop v3 Patient Profile - Preop: Initial Info: Patient DemographicsName: IRENE LOOMIS Date: 1980 [address]: [address] [place] [address] Date/Time [id number] 13:23 Primary Phone [phone] Instructions Givenanticoagulant meds - patient advised to consult ordering provider, appropriate clothing, bring list of medications, bring responsible adult as the emt driver (procedure may be cancelled if no emt driver), center location, diabetes meds - patient advised to consult ordering provider, insurance information, remove jewerly/piercings, time to arrive How to be AddressedShannon Spoken Language PreferredEnglish Stated Reason for Admissionleft stapedectomy Primary Contact Name and NumberWaubay [phone] Medications Brought to Hospitalno General Health: Patient or Family Member Reaction to Anesthesiapatient reaction; no previous family member reaction Patient Reaction to Anesthesianausea and vomiting Blood Avoidance/Restrictionsnon e Previous Transfusion Reactionnot applicable Health Mgmt: Symptoms/Conditions Managed at HomeHEENT (head, eyes, ears, nose, throat) HEENT Symptoms/Conditionsear problem(s) HEENT Symptoms/Conditions Commenthearing loss Barriers to Managing Healthnone Relationship/Environ: Lives Withspouse; dependent child(shira) Living Arrangementshouse Resource/Environmental Concernsnone [facility] Anticipated at Transitionnone Tobacco Use: Tobacco Useno Pre-op Checklist: Arrival [id number] Arrival Time09:15 Procedure Typeleft stapedectomy NPOyes Last Food [id number] 23:00 ID Band On Patientpatient ID (name) [...] 19-Jul-2022 09:26 by Jes Brumfield (RN) Normal [facility] CORONAVIRUS 2019, SCREEN ASY MPTOMATICon 07-16-2022 SARS-CoV-2 (COVID-19) RNA ANDRIY+probe Ql (Unsp spec) Not detected Normal Not Detected [facility] Comment on above: Result Comment: . This [...] patient management decisions. Fact sheet for providers: https://www.fda.gov/media/032212/download Fact sheet for patients: https://www.fda.gov/media/211280/download This test has received FDA Emergency Use Authorization (EUA) and has been verified by [facility] ([facility]). This test is only authorized for the duration of time that circumstances exist to justify the authorization of the emergency use of in vitro diagnostic tests for the detection of SARS-CoV-2 virus and/or diagnosis of COVID-19 infection under section 564(b)(1) of the Act, 21 U.S.C. 360bbb-3(b)(1), unless the authorization is terminated or revoked sooner. [facility] is certified under CLIA-88 as qualified to perform high complexity testing. Testing is performed in the [facility] laboratories located at [address] [place] [address]. Performed By: #### C OVSC #### [place] [address] Lab Specimen Source Nasal, Nasopharyngeal Normal [facility] Comment on above: Performed By: #### C OVSC #### [place] [address] Coronavirus 2019 RNA by PCR, Screening Asymptomticon 07-16-2022 Coronavirus 2019 RNA by PCR, Screening Asymptomtic Not detected Normal See Below -Otolaryng ology-[facility] urg Work Phone: Comment on above: SOURCE: Nasal, [...] make patient management decisions.Fact sheet for providers: https://www.fda.gov/media/598629/downloadFact sheet for patients: https://www.fda.gov/media/470956/downloadThis test has received FDA Emergency Use Authorization (EUA) and has been verified by [facility] ([facility]). This test is only authorized for the duration of time that circumstances exist to justify the authorization of the emergency use of in vitro diagnostic tests for the detection of SARS-CoV-2 virus and/or diagnosis of COVID-19 infection under section 564(b)(1) of the Act, 21 U.S.C. 360bbb-3(b)(1), unless the authorization is terminated or revoked sooner. [facility] is certified under CLIA-88 as qualified to perform high complexity testing. Testing is performed in the [facility] laboratories located at [address] [place] [address]. Covid 19 Resultson 2 SARS-CoV-2 (COVID-19) RNA [...] You may also be contacted by the [facility] to see if any of your close [...] or Naproxen (Aleve) can also be used. Gwds-wds-xunhlpz cough and cold medicines can be used according to the instructions on the package. Some jnaq-ynm-oxarrot medicines also contain acetaminophen. Make sure you [...] water are not available, use alcohol-based hand erp implementation consultant. Avoid touching your eyes, nose, and mouth [...] 24 ceasar (more content not included)... Normal [facility] Basophil percentageon 2021 Bilirubin [Mass/Vol] 0.60 mg/dL 0.20-1.00 [facility] Work Phone: Comment on above: For patients on eltr ombopag therapy, use of Dimension [place] TBIL is not recommended. Chloride [Moles/Vol] 105 mmol/L 98-107 [facility] Work Phone: [phone] Glucose [Mass/Vol] 110 mg/dL 74-106 [facility] Work Phone: [phone] Comment on above: Fasting Glucose resu lt from 100 to 125 mg/dL suggests IMPAIRED HOMEOSTASIS per A.D.A. criteria. Potassium [Moles/Vol] 4.0 mmol/L 3.5-5.1 [facility] Work Phone: [phone] Protein [Mass/Vol] 7.4 g/dL 6.4-8.2 [facility] Work Phone: [phone] Sodium [Moles/Vol] 138 mmol/L 136-145 [facility] Work Phone: [phone] WBC (Bld) [#/Vol] 5.7 10*3/uL 4.4-11.0 [facility] Work Phone: [phone] Blood erythrocytes count (nu mber/volume)on 06-23-2022 RBC (Bld) [#/Vol] 4.13 10*6/uL 4.2-5.4 [facility] Work Phone: Blood hemoglobin measurement (mass/volume)on 06-23-2022 Hemoglobin (Bld) [Mass/Vol] 12.9 g/dL 12.0-15.0 [facility] Work Phone: Blood platelet mean volumeon 06-23-2022 Platelet mean volume (Bld) [Entitic vol] 10.5 fL 6.2-12.0 [facility] Work Phone: Determination of erythrocyte mean corpuscular volume (MCV)on 06-23-2022 MCV (RBC) [Entitic vol] 91.0 fL 81-99 [facility] Work Phone: Hematocrit Auto (Bld) [Volum e fraction]on 06-23-2022 Hematocrit (Bld) [Volume fraction] 37.6 % 37-47 [facility] Work Phone: INR in Blood by Coagulation assayon 06-23-2022 INR Coag (Bld) [Relative time] 0.9 {INR} [facility] Work Phone: Laboratory - Chemistry and C hemistry - challengeon 06-23-2022 ALP [Catalytic activity/Vol] 78 U/L 45-117 [facility] Work Phone: ALT [Catalytic activity/Vol] 30 U/L 13-56 [facility] Work Phone: [phone] CO2 [Moles/Vol] 28.0 mmol/L 21.0-32.0 [facility] Work Phone: Globulin (S) [Mass/Vol] 3.3 g/dL 2.2-4.2 [facility] Work Phone: Urea nitrogen/Creatinine [Mass ratio] 29.6 mg/mg 10-20 [facility] Work Phone: Laboratory - Coagulationon 0 06-23-2022 aPTT Coag (Bld) [Time] 28.0 s 24.1-36.2 [facility] Work Phone: PT Coag (PPP) [Time] 12.3 s 11.7-14.9 [facility] Work Phone: [phone] Laboratory - Hematology and Cell countson 06-23-2022 Erythrocyte distribution width (RBC) [Entitic vol] 41.2 fL 35.1-43.9 [facility] Work Phone: [phone] Erythrocyte distribution width (RBC) [Ratio] 12.4 % 11.6-14.6 [facility] Work Phone: [phone] MCH (RBC) [Entitic mass] 31.2 pg 27.0-32.0 [facility] Work Phone: [phone] MCHC Auto (RBC) [Mass/Vol]on 06-23-2022 MCHC (RBC) [Mass/Vol] 34.3 g/dL 32-36 [facility] Work Phone: [phone] No Panel Informationon 06-23 Estimated GFR (MDRD) Amer 91 mL/min >60 [facility] Work Phone: [phone] Comment on above: GFR Calc Estimated GFR (MDRD) Non-Af Amer 75 mL/min >60 [facility] Work Phone: [phone] Comment on above: Non- GFR Calc Platelets bldon 06-23-2022 Platelets (Bld) [#/Vol] 299 10*3/uL 150-450 [facility] Work Phone: [phone] Serum or plasma albumin blake urement (mass/volume)on 06-23-2022 Albumin [Mass/Vol] 4.1 g/dL 3.2-5.0 [facility] Work Phone: [phone] Serum or plasma albumin/glob ulin mass ratioon 06-23-2022 Albumin/Globulin [Mass ratio] 1.2 {ratio} 0.9-2.4 [facility] Work Phone: [phone] Serum or plasma calcium blake urement (mass/volume)on 06-23-2022 Calcium [Mass/Vol] 9.4 mg/dL 8.5-10.1 [facility] Work Phone: Serum or plasma creatinine m easurement (mass/volume)on 06-23-2022 Creatinine [Mass/Vol] 0.88 mg/dL 0.55-1.02 [facility] Work Phone: Comment on above: The validity of the calculated GFR & GFRAA in patients over 70 years has not been determined. Clinical correlation is essential. Serum or plasma urea nitroge n measurement (mass/volume)on 06-23-2022 Urea nitrogen [Mass/Vol] 26 mg/dL 7-18 [facility] Work Phone: Thin prep Papanicolaou smear with manual screeningon 06-23-2022 Thin prep Papanicolaou smear with manual screening 16 U/L 15-37 [facility] Work Phone: Thin prep Papanicolaou smear with manual screening 5 5-15 [facility] Work Phone: Tobacco Screening.on 022 Adult depression screening assessment No [facility] Work Phone: Fall risk assessment a) No falls within the last year [facility] Work [facility]: Tobacco use status CPH[facility] b) No [facility] Work Phone: Absolute lymphocyte counton 04-19-2022 Lymphocytes Auto (Unsp spec) [#/Vol] 1.58 10*3/uL 0.83-4.51 [facility] Work Phone: Basophil percentageon 2021 Basophil percentage 0 SEEN /hpf 0-5 [facility] Work Phone: Basophils/100 WBC (Bld) 0.6 % 0-1 [facility] Work Phone: Chloride [Moles/Vol] 103 mmol/L 98-107 [facility] Work Phone: Eosinophils/100 WBC (Bld) 1.9 % 0-5 [facility] Work Phone: Glucose [Mass/Vol] 123 mg/dL 74-106 [facility] Work Phone: Comment on above: Fasting Glucose resu lt from 100 to 125 mg/dL suggests IMPAIRED HOMEOSTASIS per A.D.A. criteria. Neutrophils (Bld) [#/Vol] 11.2 10*3/uL 2.0-7.7 [facility] Work Phone: Neutrophils/100 WBC (Bld) 80.1 % 47-70 [facility] Work Phone: Potassium [Moles/Vol] 3.5 mmol/L 3.5-5.1 [facility] Work Phone: Sodium [Moles/Vol] 137 mmol/L 136-145 [facility] Work Phone: WBC (Bld) [#/Vol] 14.1 10*3/uL 4.4-11.0 [facility] Work Phone: Beta hCG serum qualon 2021 Beta HCG ( test) Ql Negative [facility] Work Phone: Bilirubin Test strip Ql (U)o n 04-19-2022 Bilirubin Ql (U) Negative Negative [facility] Work Phone: Blood erythrocytes count (nu mber/volume)on 04-19-2022 RBC (Bld) [#/Vol] 4.25 10*6/uL 4.2-5.4 [facility] Work Phone: Blood hemoglobin measurement (mass/volume)on 04-19-2022 Hemoglobin (Bld) [Mass/Vol] 13.0 g/dL 12.0-15.0 [facility] Work Phone: Blood lymphocytes/100 leukoc yteson 04-19-2022 Lymphocytes/100 WBC (Bld) 11.2 % 19-41 [facility] Work Phone: Blood monocytes/100 leukocyt eson 04-19-2022 Monocytes/100 WBC (Bld) 5.8 % 0-10 [facility] Work Phone: Blood platelet mean volumeon 04-19-2022 Platelet mean volume (Bld) [Entitic vol] 10.8 fL 6.2-12.0 [facility] Work Phone: [phone] Determination of erythrocyte mean corpuscular volume (MCV)on 04-19-2022 MCV (RBC) [Entitic vol] 89.4 fL 81-99 [facility] Work Phone: [phone] Hematocrit Auto (Bld) [Volum e fraction]on 04-19-2022 Hematocrit (Bld) [Volume fraction] 38.0 % 37-47 [facility] Work Phone: [phone] Ketones Test strip Ql (U)on 04-19-2022 Ketones Ql (U) Negative Negative [facility] Work Phone: [phone] Laboratory - Chemistry and C hemistry - challengeon 04-19-2022 CO2 [Moles/Vol] 27.0 mmol/L 21.0-32.0 [facility] Work Phone: [phone] Urea nitrogen/Creatinine [Mass ratio] 19.8 mg/mg 10-20 [facility] Work Phone: [phone] Laboratory - Hematology and Cell countson 04-19-2022 Erythrocyte distribution width (RBC) [Entitic vol] 40.3 fL 35.1-43.9 [facility] Work Phone: [phone] Erythrocyte distribution width (RBC) [Ratio] 12.4 % 11.6-14.6 [facility] Work Phone: [phone] Immature granulocytes/100 WBC (Bld) 0.400 % 0.0-0.9 [facility] Work Phone: [phone] Comment on above: IG% - Immature Granu locytes (promyelocytes, myelocytes and metamyelocytes) > 1% indicates that a LEFT SHIFT is Present. MCH (RBC) [Entitic mass] 30.6 pg 27.0-32.0 [facility] Work Phone: [phone] Nucleated RBC/100 WBC (Bld) [Ratio] 0 % 0-5 [facility] Work Phone: [phone] MCHC Auto (RBC) [Mass/Vol]on 04-19-2022 MCHC (RBC) [Mass/Vol] 34.2 g/dL 32-36 [facility] Work Phone: Mucus LM Ql (Urine sed)on Mucus Ql (Urine sed) 0 SEEN /hpf [facility] Work Phone: Nitrite Test strip Ql (U)on 04-19-2022 Nitrite Ql (U) Negative Negative [facility] Work Phone: No Panel Informationon 04-19 Estimated Creatinine Clearance Calc 74.90 ml/min [facility] Work Phone: Estimated GFR (MDRD) Amer 117 mL/min >60 [facility] Work Phone: Comment on above: GFR Calc Estimated GFR (MDRD) Non-Af Amer 97 mL/min >60 [facility] Work Phone: Comment on above: Non- GFR Calc Platelets bldon 04-19-2022 Platelets (Bld) [#/Vol] 318 10*3/uL 150-450 [facility] Work Phone: Protein Test strip Ql (U)on 04-19-2022 Protein Ql (U) Negative Negative [facility] Work Phone: Serum or plasma calcium blake urement (mass/volume)on 04-19-2022 Calcium [Mass/Vol] 9.1 mg/dL 8.5-10.1 [facility] Work Phone: [phone] Serum or plasma creatinine m easurement (mass/volume)on 04-19-2022 Creatinine [Mass/Vol] 0.71 mg/dL 0.55-1.02 [facility] Work Phone: Comment on above: The validity of the calculated GFR & GFRAA in patients over 70 years has not been determined. Clinical correlation is essential. Serum or plasma urea nitroge n measurement (mass/volume)on 04-19-2022 Urea nitrogen [Mass/Vol] 14 mg/dL 7-18 [facility] Work Phone: [phone] Squamous epithelial cells de tection in urine sediment by light microscopyon 04-19-2022 Epithelial cells.squamous LM Ql (Urine sed) 0-5 SEEN /hpf 5-10 [facility] Work Phone: Thin prep Papanicolaou smear with manual screeningon 04-19-2022 Thin prep Papanicolaou smear with manual screening 7 5-15 [facility] Work Phone: Urine blood detectionon 04-08 RBC Ql (U) 10 /ul Negative [facility] Work Phone: RBC Ql (U) 0 SEEN /hpf 0-5 [facility] Work Phone: Urine clarityon 04-19-2022 Clarity (U) Clear Clear [facility] Work Phone: Urine color determinationon 04-19-2022 Color (U) Straw Yellow [facility] [facility] Work Phone: Urine glucose detectionon Glucose Ql (U) Normal mg/dl Normal [facility] Work Phone: Urine leukocyte esterase det ection by dipstickon 04-19-2022 Leukocyte esterase Test strip Ql (U) Negative Negative [facility] Work Phone: Urine pHon 04-19-2022 pH (U) 6.5 [pH] 5.0 - 8.0 [facility] Work Phone: Urine sediment bacteria coun t by microscopy (number/high power field)on 04-19-2022 Bacteria LM.HPF (Urine sed) [#/Area] 0 /[HPF] None Seen [facility] Work Phone: Urine specific gravity measu rementon 04-19-2022 Specific gravity (U) [Rel density] 1.015 1.002-1.030 [facility] Work Phone: Urobilinogen Auto test strip Ql (U)on 04-19-2022 Urobilinogen Ql (U) Normal mg/dl Normal [facility] Work Phone: Cervical or vagninal specime n microscopic examination by cytology stain (reported ason 01-06-2022 Cytology report Cyto stain Doc (Cvx/Vag) Comment [facility] Work Phone: Comment on above: The Pap smear is a s creening test designed to aid in thedetection of premalignant and malignant conditions of theuterine cervix. It is not a diagnostic procedure andshould not be used as the sole means of detecting cervicalcancer. Both false-positive and false-negative reports dooccur. Detection in cervical specim en of any of human papilloma virus (HPV) 16, 18, 31, 33,on 01-06-2022 HPV 16+18+31+33+35+39+45+5 1+52+56+58+59+66+68 DNA Probe+sig amp Ql (Cvx) Negative Negative [facility] Work Phone: Comment on above: This nucleic acid am plification test detects fourteen high- risk HPV types (16,18,31,33,35,39,45,51,52,56,58,59,66,68)without differentiation.Performed at: - [facility] [id number] Director: Geraldine Aguilar MD, Phone: [phone] at: =[facility] [id number] Director: Geraldine Aguilar MD, Phone: [phone] Laboratory - Cytologyon 12-09 [facility] Cyto stain Nom (Cvx/Vag) [ID] Comment [facility] Work Phone: Comment on above: Radha Gaitan hnologist (ASCP) Laboratory - Miscellaneous t estson 01-06-2022 Service comment (Unsp spec) [Interp] Comment [facility] Work Phone: Comment on above: This liquid based Th inPrep(R) pap test was screened withthe use of an image guided system. Service comment (Unsp spec) [Interp] . [facility] Work Phone: No Panel Informationon 01-06 Pathology report final diagnosis Narrative Comment [facility] Work Phone: Comment on above: NEGATIVE FOR INTRAEP ITHELIAL LESION OR MALIGNANCY. Tobacco Screening.on 021 Fall risk assessment a) No falls within the last year [facility] Work Phone: Tobacco use status [facility] b) No [facility] Work Phone: Vital Signs Date Time Vital Sign Value Performing Clinician Facility 04-28-2025 11:08-0400 Body temperature 98.6 [degF] Dr. Gayatri Becker DO Work Phone: [facility] 04-28-2025 11:08-0400 Diastolic blood pressure 59 mm[Hg] Dr. Gayatri Becker DO Work Phone: [facility] 04-28-2025 11:08-0400 Heart rate 97 /min Dr. Gayatri Becker DO Work Phone: [facility] 04-28-2025 11:08-0400 Respiratory rate 18 /min Dr. Gayatri Becker DO Work Phone: [facility] 04-28-2025 11:08-0400 SaO2% (BldA) [Mass fraction] 100 % Dr. Gayatri Becker DO Work Phone: [facility] 04-28-2025 11:08-0400 Systolic blood pressure 98 mm[Hg] Dr. Gayatri Becker DO Work Phone: [facility] 04-28-2025 07:55-0400 Body height 149.[address] Gayatri Becker DO Work Phone: [facility] 04-28-2025 07:55-0400 Body mass index (BMI) [Ratio] 25.6 kg/m2 Dr. Gayatri Becker DO Work Phone: [facility] 04-28-2025 07:55-0400 Body weight 57.[address] Gayatri Becker DO Work Phone: [facility] 09-19-2024 15:59-0500 Body height 152.4 cm Kitty Day MD Work Phone: [facility] 09-19-2024 15:59-0500 Body mass index (BMI) [Ratio] 23.24 kg/m2 Kitty Day MD Work Phone: [facility] 09-19-2024 15:59-0500 Body temperature 98.6 [degF] Kitty Day MD Work Phone: [facility] 09-19-2024 15:59-0500 Body weight 53.98 kg Kitty Day MD Work Phone: [facility] 10-19-2023 09:50-0500 Body mass index (BMI) [Ratio] 24.02 kg/m2 Kitty Day MD Work Phone: [facility] 10-19-2023 09:50-0500 Body weight 55.79 kg Kitty Day MD Work Phone: [facility] 08-18-2022 14:17-0500 Body mass index (BMI) [Ratio] 23.64 kg/m2 Gayatri Dorota Malys Work Phone: MJ[facility]Frveqquntrjdfe-W [facility] Work Phone: 08-18-2022 14:17-0500 Body surface area Derived from formula 1.51 m2 Gayatri A Malys Work Phone: ZB-Ivptkxkvtqcwcv-Z [facility] Work Phone: 08-18-2022 14:17-0500 Body temperature 98 [degF] Gayatri A Malys Work Phone: JQ-Kcnpyjtnzcwgzs-M [facility] Work Phone: 08-18-2022 14:17-0500 Body weight 54.9 kg Gayatri A Malys Work Phone: UC-Aafradcvyoqteg-L [facility] Work Phone: 04-25-2022 10:37-0400 Body height 152.4 cm Gayatri Becker Work Phone: ON[facility]Clewvmswzsdv[facility] Work Phone: 04-25-2022 10:37-0400 Body mass index (BMI) [Ratio] 23.31 kg/m2 Gayatri Becker Work Phone: II-Aouixgkbkatd-Olp [facility] Work Phone: 04-25-2022 10:37-0400 Body surface area Derived from formula 1.5 m2 Gayatri Becker Work Phone: TW-Gcekyyfmxjoe-Huw [facility] Work Phone: 04-25-2022 10:37-0400 Body temperature 97.1 [degF] aGyatri Becker Work Phone: QD-Yqkssljjbbzi-Hju [facility] Work Phone: 04-25-2022 10:37-0400 Body weight 54.15 kg Gayatri Raya Eugenio Work Phone: LJ-Bmruugsazkqw-Tix [facility] Work Phone: 04-20-2022 10:25-0400 Body temperature 97.9 [degF] Dr. Gayatri Becker Work Phone: [facility] Work Phone: 04-20-2022 10:25-0400 Diastolic blood pressure 45 mm[Hg] Dr. Gayatri Becker Work Phone: [facility] Work Phone: 04-20-2022 10:25-0400 Heart rate 86 /min Dr. Gayatri Becker Work Phone: [facility] Work Phone: 04-20-2022 10:25-0400 Respiratory rate 16 /min Dr. Gayatri Becker Work Phone: [facility] Work Phone: 04-20-2022 10:25-0400 SaO2% (BldA) [Mass fraction] 100 % Dr. Gayatri Becker Work Phone: [facility] Work Phone: 04-20-2022 10:25-0400 Systolic blood pressure 100 mm[Hg] Dr. Gayatri Becker Work Phone: [facility] Work Phone: 04-19-2022 21:25-0400 Body height 151.[address] Gayatri Becker Work Phone: [facility] Work Phone: 04-19-2022 21:25-0400 Body mass index (BMI) [Ratio] 24.6 kg/m2 Dr. Gayatri Becker Work Phone: [facility] Work Phone: 04-19-2022 21:25-0400 Body weight 56.[address] Gayatri Becker Work Phone: [facility] Work Phone: 01-06-2022 14:11-0400 Body height 152.[address] Gayatri Becker Work Phone: [facility] Work Phone: 01-06-2022 14:11-0400 Body mass index (BMI) [Ratio] 23.8 kg/m2 Dr. Gayatri Becker Work Phone: [facility] Work Phone: 01-06-2022 14:11-0400 Body weight 55.[address] Gayatri Becker Work Phone: [facility] Work Phone: 01-06-2022 14:11-0400 Diastolic blood pressure 90 mm[Hg] Dr. Gayatri Becker Work Phone: [facility] Work Phone: 01-06-2022 14:11-0400 Systolic blood pressure 120 mm[Hg] Dr. Gayatri Becker Work Phone: [facility] Work Phone: 07-16-2021 09:06-0400 Body height 152.4 cm Gayatri Becker Work Phone: JL-Qijifbifrglspc-V [facility] Work Phone: 07-16-2021 09:06-0400 Body mass index (BMI) [Ratio] 24.42 kg/m2 Gayatri Berryazalea Work Phone: XH-Fmlkvbnpeemjok-O [facility] Work Phone: 07-16-2021 09:06-0400 Body surface area Derived from formula 1.53 m2 Gayatri Berryazalea Work Phone: TH-Tdefwuwkhyqieg-V [facility] Work Phone: 07-16-2021 09:06-0400 Body temperature 97.2 [degF] Gayatri Berryazalea Work Phone: DC-Oxdvobjfmphvqs-L [facility] Work Phone: 07-16-2021 09:06-0400 Body weight 56.71 kg Gayatri Berryazalea Work Phone: LV-Qhjagnjquepupk-V [facility] Work Phone: Encounters Encounter Date Encounter Type Care Provider Facility Start: 04-28-2025 End: 04-28-2025 Emergency department patient visit Dr. Gayatri Becker DO Work Phone: -Emergency Department Work Phone: Start: 01-15-[address] [facility] Start: 09-19-2024 End: 09-19-2024 Office outpatient visit 15 minutes Kitty Day MD Work Phone: [facility] Comment on above: Conductive hearing l oss of right ear with unrestricted hearing of left ear (Primary Dx); Otosclerosis of right ear Start: 09-19-2024 End: 09-20-2024 ambulatory KITTY Cardenas [facility] Start: 08-07-2024 End: 08-07-2024 ambulatory Gayatri Becker Facility:[facility] Start: 08-02-2024 End: 08-02-2024 ambulatory Gayatri Becker Facility:[facility] Start: 07-04-2024 Encounter for gynecological examination (general) (routine) without abnormal findings Shani Mo [facility] Start: 07-04-2024 End: 07-04-2024 ambulatory Gayatri Becker [place] Start: 10-19-2023 End: 10-19-2023 Office outpatient visit 15 minutes Kitty Day MD Work Phone: [facility] Comment on above: Otosclerosis, bilate ral (Primary Dx) Start: 10-19-2023 End: 10-19-[facility] Start: 10-20-2022 [facility] visit new patient Gayatri Becker Work Phone: XM-Iafkomzux-Jtendbaff Work Phone: Start: 10-20-[address] Kitty Austin Shay Facility:[id number] Start: 08-18-2022 Postop follow up vis it related to original px Gayatri Becker Work Phone: BJ-Lhllvizqspmurw-Nljr sb Work Phone: Start: 08-18-[address] Kitty Day Facility:[id number] Start: 08-04-2022 End: 08-04-[address] Gayatri Becker Work Phone: [facility] Work Phone: Start: 08-04-2022 End: 08-04-[address] Gayatri Becker Work Phone: [facility]-Daljit, Barney Lan [facility] Start: 07-19-2022 SURGWEST, Provider: Kitty Day, Status: Pen, Time: 11:00 AM Gayatri Becker Work Phone: FV-Goysgcrvatdzlx-Vphp [facility] Work Phone: Start: 07-19-2022 End: 07-19-[address] Kitty Day Facility:[facility] Start: 07-18-2022 Chart Update Gayatri Becker Work Phone: WC-Ipwwqfsjwwhidr-Hvxb [facility] Work Phone: Start: 06-23-2022 End: 06-23-[address] Gayatri Becker Work Phone: [facility] Work Phone: Start: 06-23-2022 End: 06-23-[address] Gayatri Becker Work Phone: [facility] Start: 04-29-2022 End: 04-29-[address] Gayatri Becker Work Phone: [facility] Start: 04-25-[address] Kitty Day Facility:[id number] Start: 04-25-2022 Office outpatient vi sit 15 minutes Gayatri Becker Work Phone: QR-Xjjjuqmuphhx-Yecpej an Work Phone: Start: 04-20-2022 Non-patient / Non-visit Dr. Marily Becker Work Phone: [facility] Start: 04-19-2022 End: 04-20-2022 Evaluation and management of inpatient Dr. Gayatri Becker Work Phone: [facility]-Medical Surgical 3 Start: 04-19-2022 Non-patient / Non-visit Dr. Marily Becker Work Phone: [facility] Start: 02-10-2022 End: 02-10-[address] Gayatri Becker Work Phone: [facility] Start: 01-06-2022 End: 01-06-[address] Gayatri Becker Work Phone: [facility]-Laboratory, Specimen Start: 01-06-2022 End: 01-06-[address] Gayatri Becker Work Phone: [facility] Start: 07-16-2021 Office consultation new/estab patient 60 min Gayatri Becker Work Phone: ER-Ppmhqdbgirvnku-Ryqp [facility] Work Phone: Evaluation finding Gayatri Becker Work Phone: KM-Nsschyawajxw-Neyptt an Work Phone: Procedures Date Procedure Procedure Detail Performing Clinician Start: 04-28-2025 Urnls dip stick/tabl et reagent auto microscopy Dr. Gayatri Becker DO Work Phone: Start: 04-28-[address] Gayatri Becker DO Work Phone: Start: 04-28-2025 Computed tomography of abdomen and pelvis with intravenous contrast Dr. Gayatri Becker DO Work Phone: Start: 04-19-2022 Computed tomography of abdomen and pelvis with contrast Dr. Gayatri Becker Work Phone: Start: 04-19-2022 CT of abdomen and pe lvis without contrast Dr. Gayatri Becker Work Phone: Start: 02-10-2022 Screening mammography D taylor Becker Work Phone: H/O: section History of C-sectio n Dr. Gayatri Becker Work Phone: History of appendectomy S/P appendectomy Dr. Gayatri Becekr Work Phone: Comment on above: Patient recovering w ell following laparoscopic appendectomy 04/19/2022. Pathology was reviewed and consistent with acute appendicitis. Her wounds are well-healing. No further formal clinic follow-up required. Plan of Treatment Date Care Activity Detail Author Start: 2030 Zoster Vaccines (1 of 2) Zoster Vaccines (1 of 2) [facility] Start: 09-17-2029 DTaP/Tdap/Td Vaccines (3 - Td or Tdap) DTaP/Tdap/Td Vaccines (3 - Td or Tdap) [facility] Start: 07-22-2025 Subsequent hospital visit by physician 07/22/2025 Hospital Encounter [facility] OR [address] [place] [id number] Kitty Day MD [address] [place] [address] [facility] OR Start: 04-28-2025 [facility] Start: 06-09-2024 COVID-19 Vaccine ( season) COVID-19 Vaccine ( season) [facility] Start: 06-09-2024 Influenza vaccination Influenza Vaccine (#1) [facility] Start: 10-19-2023 FUV, Provider: Kitty Day, Status: Pen, Time: 9:45 AM FUV, Provider: Kitty Day, Status: Pen, Time: 9:45 AM CJ-Drnxpinkq-Maatvykq g Work Phone: Start: 10-19-2023 DUALJOSE ROBERTO, Provider: Antonina Manriquez, Status: Pen, Time: 9:00 AM DUALAUDIO, Provider: Antonina Manriquez, Status: Pen, Time: 9:00 AM LJ-Skaiigepc-Fanefxjh g 202A Work Phone: Start: 06-09-2023 Influenza vaccination Influenza Vaccine (#1) [facility] Start: 10-20-2022 FUV, Provider: Kitty Day, Status: Pen, Time: 10:30 AM FUV, Provider: Kitty Day, Status: Pen, Time: 10:30 AM XB-Astmwvsjaxkcqz-Oav nsburg Work Phone: Start: 10-20-2022 DUALAUDIO, Provider: Antonina Manriquez, Status: Pen, Time: 9:30 AM DUALAUDIO, Provider: Antonina Manriquez, Status: Pen, Time: 9:30 AM ZP-Agxfvzrahlnban-Eap nsburg Work Phone: Start: 08-22-2022 POV, Provider: Kitty Day, Status: Pen, Time: 11:45 AM POV, Provider: Kitty Day, Status: Pen, Time: 11:45 AM TD-Chrytfqafawt-Efbnb ban Work Phone: Start: 07-19-2022 SURGWEST, Provider: Kitty Day, Status: Pen, Time: 11:00 AM SURGWEST, Provider: Kitty Day, Status: Pen, Time: 11:00 AM QM-Edcaallmwpihgo-Izz tlake Work Phone: Start: 04-20-2022 Patient discharge [facility] Work Phone: Start: 04-19-2022 Application of intermittent pneumatic compression device [facility] Work Phone: Start: 04-19-2022 Following clinical pathway protocol [facility] Work Phone: Start: 04-19-2022 Application of ice collar, cap or bag [facility] Work Phone: Start: 04-19-2022 Admission procedure [facility] Work Phone: Start: 04-19-2022 Anesthesia intraperitoneal lower abd w/laps nos ANESTH SURG LOWER ABDOMEN [facility] Work Phone: Start: 04-19-2022 Laparoscopic appendectomy LAPAROSCOPY APPENDECTOMY [facility] Work Phone: Start: 04-19-2022 Laps repair hernia except incal/ingun reducible LAP VENT/ABD HERNIA REPAIR [facility] Work Phone: Start: 11-25-2021 COVID-19 Vaccine (4 - Moderna series) COVID-19 Vaccine (4 - Moderna series) [facility] Start: 10-22-2021 POV, Provider: Kitty Day, Status: Pen, Time: 10:30 AM POV, Provider: Kitty Day, Status: Pen, Time: 10:30 AM SK-Pmhrlgxbsukcri-Qxd nsburg Work Phone: Start: 2020 Screening for malignant neoplasm of breast Mammogram [facility] Start: 2001 Screening for malignant neoplasm of cervix [facility] Start: 12-24-1999 Hepatitis B Vaccines (1 of 3 - 19+ 3-dose series) Hepatitis B Vaccines (1 of 3 - 19+ 3-dose series) [facility] Start: 1998 Hepatitis C screening Hepatitis C Screening [facility] Start: 1993 Varicella vaccination Varicella Vaccines (1 of 2 - 13+ 2-dose series) [facility] Start: 1981 MMR Vaccines (1 of 1 - Standard series) MMR Vaccines (1 of 1 - Standard series) [facility] Start: 1981 Varicella vaccination Varicella Vaccines (1 of 2 - 2-dose childhood series) [facility] Start: 1980 Hepatitis B Vaccines (1 of 3 - 3-dose series) Hepatitis B Vaccines (1 of 3 - 3-dose series) [facility] Start: 1980 HIV screening HIV Screening [facility] Start: 1980 Lipid panel Lipid Panel [facility] Start: 1980 Yearly Adult Physical Yearly Adult Physical [facility] Patient Education [facility] Work Phone: Patient referral [facility] Work Phone: Stapedectomy/stapedotomy Stapede ctomy Otosclerosis of right ear [facility] Immunizations Immunization Date Immunization Notes Care Provider Fa jocelyn 09-30-2021 Hair (Moderna) Dr. Gayatri tristan Work Phone: [facility] 11-27-2020 Moderna COVID-19 Vac cine 100 MCG/0.5ML Intramuscular Suspension Gayatri Becker Work Phone: [facility] 10-27-2020 Moderna COVID-19 Vac cine 100 MCG/0.5ML Intramuscular Suspension Gayatri Becker Work Phone: [facility] 09-17-2019 tetanus toxoid, redu matt diphtheria toxoid, and acellular pertussis vaccine, adsorbed Gayatri Becker Work Phone: [facility] 09-17-2019 diphtheria, tetanus toxoids and acellular pertussis vaccine, unspecified formulation Dr. Gayatri Becker Work Phone: [facility] Work Phone: Payers Date Payer Category Payer Self-pay [id number] 2022 [employer] [place] [facility] [id number] 2022 Unknown 2022 Unknown [id number] 1980 Unknown [id number] 1980 Unknown [id number] 1980 Unknown [id number]. [id number] 1980 Unknown [id number] [id number]. 2.356 1980 Unknown [id number]. [id number] 1980 Unknown [id number]. [id number] 1980 Unknown [id number]. [id number] 1980 Unknown [id number]. [id number] Unknown [id number] Unknown [id number] [id number] Unknown [id number]. [id number] Unknown [id number] [id number] Social History Date Type Detail Facility Start: 01-06-2022 End: 04-19-2022 Tobacco smoking status IAIS Unknown if ever smoked [facility] Work Phone: Start: 11-30-2019 None [facility] Start: 1980 Sex Assigned At Female W [facility] Start: 10-19-2023 End: 04-28-2025 Tobacco smoking status NHIS Never smoked tobacco [facility] Work Phone: Start: 10-19-2023 Tobacco use and exposure Smokeless tobacco non-user [facility] Work Phone: Start: 10-19-2023 End: 09-19-2024 History of Social function [facility] Start: 10-19-2023 End: 09-19-2024 Tobacco use panel [facility] Start: 1980 Sex Assigned At Not on file [facility] Work Phone: Start: 10-09-2023 End: 09-19-2024 Exposure to SARS-CoV-2 (event) Not sure [facility] Medical Equipment Procedure Code Equipment Code Equipment Original Text Equipment Identifier Dates Appendectomy, laparoscopic RELOAD,STD [id number] FDA Start: 04-19-2022 Appendectomy, laparoscopic RELOAD,STD [id number] FDA Start: 04-19-2022 Appendectomy, laparoscopic RELOAD,STD 45 [id number] FDA Start: 04-19-2022 Piston, 0.6mm Di a X 4.50mm Eclipse Flat Ribbon Case [id number] Start: 07-19-2022 Comment on above: Description: Convert ed from [facility]. Please see archived information for full log information. Goals Date Patient Goal Desired Activity /State Functional Status Date Assessment Result Facility 04-20-2022 Functional status Up ad sintia [facility] Work Phone: Mental Status Date Assessment Result Facility 04-20-2022 Cognitive function Level Of Cons ciousness Awake;Alert;Appropriate;Follow s Commands [facility] Work Phone: 04-19-2022 Cognitive function Voice/Name [facility] Work Phone: Clinical Notes 06-17-2021 to 04-28-2025 Kitty Day MD - 09/19/2024 3:45 PM ESTKitty Day MD - 10/19/2023 9:45 AM EST Note Date & Type Note Facility 04-28-2025 Radiology Diagnostic study note [facility] Imaging Services [address], [place] [address] Abdomen/Pelvis W IV Cont ONLY MR#: [id number] Acct: [id number] Name: IRENE LOOMIS Rep #: [id number] : 1980 F 44 From: Sujit Plascencia MD PCP: Dr. Gayatri Becker DO Status: REG ER Study:Abdomen/Pelvis W IV Cont ONLY Date of E xam: 04/28/25 Exam# [id number] Ordering Dr: Stephen Plascencia DO EXAM: CT Abdomen and Pelvis With Intravenous Contrast CLINICAL INDICATION: LLQ PAIN TECHNIQUE: Axial computed tomography images of the abdomen and pelvis with intravenous contrast. This CT exam was performed using one or more of the following dose reduction techniques: automated exposure control, adjustment of the mA and/or kV according to patient size, and/or use of iterative reconstruction technique. COMPARISON: No relevant prior studies available. FINDINGS: LUNG BASES: Unremarkable. No mass. No consolidation. ABDOMEN: LIVER: Hepatomegaly with fatty infiltration. GALLBLADDER AND BILE DUCTS: Cholelithiasis and gallbladder sludge. Subtle fat stranding. Acute cholecystitis can not be excluded. Clinical correlation is recommended. No ductal dilation. PANCREAS: Unremarkable. No mass. No ductal dilation. SPLEEN: Unremarkable. No splenomegaly. ADRENALS: Unremarkable. No mass. KIDNEYS AND URETERS: Unremarkable. No solid mass. No hydronephrosis. STOMACH AND BOWEL: Scattered diverticula in the colon. There is mucosal thickening in the descending colon with surrounding inflammation consistent with acute diverticulitis. No abscess. No obstruction. PELVIS: APPENDIX: No findings to suggest acute appendicitis. BLADDER: Unremarkable. No mass. REPRODUCTIVE: Unremarkable as visualized. ABDOMEN and PELVIS: INTRAPERITONEAL SPACE: Unremarkable. No free air. No significant fluid collection. BONES/JOINTS: No acute fracture. No dislocation. SOFT TISSUES: Unremarkable. VASCULATURE: Unremarkable. No abdominal aortic aneurysm. LYMPH NODES: Unremarkable. No enlarged lymph nodes. CT/Abdomen/Pelvis W IV Cont ONLY IMPRESSION: 1. Cholelithiasis and gallbladder sludge. Subtle fat stranding. Acute cholecystitis can not be excluded. Clinical correlation is recommended. 2. Scattered diverticula in the colon. There is mucosal thickening in the descending colon with surrounding inflammation consistent with acute diverticulitis. No abscess. 3. Hepatomegaly with fatty infiltration. Reading [facility] CC: Dr. Gayatri Becker DO; Dr. Stephen Plascencia DO ~ Java Flex Developer: Signed [facility] 09-19-2024 History of Present illness Narrative History of present illness: Irene Loomis is a 43 y.o. female presenting today for follow up. She is s/p left stapedectomy. She endorses progressive hearing loss in her right ear. Left ear has been doing great. 10/19/2023 Irene Loomis is a 42 y.o. female presenting [...] mass, effusion, or infection within the middle ear, bone conductivity> Air conductivity at 512 Hz Bone conductivity = air conductivity at 1024 Hz LEFT EAR: Normal external ear and post [...] Diagnostic testing: Audiometry: Audiometry testing done on 09/19/2024 reveals: On the right: moderately to severe mixed hearing loss On the left: mild conductive hearing loss I personally reviewed the available patient's external record and independently reviewed their audiometric testing [and] radiographic imaging through the appropriate viewing software as detailed in my note and agree with the detailed report. Impression: Left otosclerosis s/p stapedectomy Right conductive hearing loss Right otosclerosis recommendation: The condition was reviewed and explained. The patient's auditory rehabilitative options were discussed. Those included observation, hearing amplification and stapedectomy. The pros and cons of each of the approaches were discussed. The risks of stapedectomy discussed included but not limited to bleeding, infection, tympanic membrane perforation, taste disturbance, hearing loss, dizziness, tinnitus and rarely facial injury. The patient desires to right-sided middle ear exploration with stapedectomy. I discussed with the patient the complexity of my medical decision making including the treatment and testing rational, indications of their elective procedure and possible adverse effects and/or complications. Based on the provided documentation and my professional assessment of this patient's progressive chronic condition, the complexity of evaluation and treatment is low. This note was created using speech recognition coat operator software. Despite proofreading, several typographical errors might be present that might affect the meaning of the content. Please call with any questions. By signing my name below, IJasvir Scribe attest that this documentation has been prepared under the direction and in the presence of Kitty Day MD documented in this encounter [facility] Work Phone: 10-19-2023 History of Present illness Narrative History of present illness: Irene Loomis is a 42 y.o. female presenting [...] Attestation By signing my name below, IAlthea Jose Carlos Bruno attest that this documentation has been prepared under the direction and in the presence of Kitty Day MD. documented in this encounter [facility] Work Phone: 07-19-2022 History of Present illness Narrative Post-op [...] audiogram.This note was created using speech recognition coat operator software/or [employer] coat operator services. Despite proofreading, several typographical errors might [...] the history, physical exam, discussion, and plan. [facility]xsy[facility]fmjybdocd[facility]Nntzkgin g Work Phone: 07-19-2022 Note PROCEDURE DETAILS Preoperative Diagnosis: Left conductive hearing loss Postoperative Diagnosis: Left non-obliterative otosclerosis Surgeon: Shay Resident/Fellow/Other Volleyball Assembler: Antolin Procedure: 1. Left stapedectomy with use of CO2 Omniguide laser 2. Microsurgical techniques requiring use of operating microscope. Anesthesia: general Estimated Blood Loss: 2 Findings: see operative report Specimens(s) Collected: no, Complications: none Implants: 4.50 x 0.6 mm, 360-degree Eclipse nitinol-based piston manufactured by [employer] Patient Returned To/Condition: PACU/stable Operative Report: Pre-operative diagnosis: Left conductive hearing loss Post-operative diagnosis: Left non-obliterative otosclerosis Procedure: Left stapedectomy with use of CO2 Omniguide laser Microsurgical techniques requiring use of operating microscope. Surgeon: Kitty Day MD Volleyball Assembler surgeon: Anesthesia: General Endotracheal. Estimated blood loss: [...] mm, 360-degree Eclipse nitinol-based piston manufactured by [employer], [place], [place] was then placed and crimped onto [...] 07:47) Authored: N (more content not included)... [facility] 07-19-2022 Note History of Present I llness: [...] Last Updated: 27-Jul-2022 07:47 by Kitty Day) [facility] 04-25-2022 Note Diagnoses/Problems Blood tests prior to treatment or procedure (V72.63) (Z01.812) Otosclerosis (387.9) (H80.90) Orders Complete Blood Count; Status:Active - Retrospective By Protocol Authorization; Requested for:[id number]; Comprehensive Metabolic Panel; Status:Active - Retrospective By Protocol Authorization; Requested for:[id number]; Coagulation Screen; Status:Active - Retrospective By Protocol Authorization; Requested for:[id number]; Chief Complaint Follow-up visit to discuss surgery [...] to none. 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 A comprehensive 10-point review of systems was [...] perforation, taste disturba (more content not included)... [employer] 01-06-2022 Note [facility] Work Phone: Pap Smear Specimen Adequacy January 06, 2022 3:41pm Comment Satisfactory for evaluation. Endocervical and/or squamous metaplasticcells (endocervical component) are present. Comment on above: Satisfactory for josef luation. Endocervical and/or squamous metaplasticcells (endocervical component) are present. 01-06-2022 Note [facility] Work Phone: Pap Smear Specimen Adequacy January 06, 2022 3:41pm Comment Satisfactory for evaluation. Endocervical and/or squamous metaplasticcells (endocervical component) are present. Comment on above: Satisfactory for josef luation. Endocervical and/or squamous metaplasticcells (endocervical component) are present. 06-17-2021 History of Present illness Narrative Ms. [...] signs of domestic violence/neglect/abuse.No referral made to Medical Sales Associate.Pain not interfering with optimal level of function or ability to assess and/or treat.Pain Scale rank: 0/10Pain Scale used: NumericNo referral made to primary care provider (PCP).Factors/Barriers influencing patient's ability to complete assessment or learn: none.Person taught: patient.Readiness to learn: no barriers.Results of Teaching/Counseling: verbalize recall / understanding and teaching complete. [facility] Work Phone: Evaluation note No assessment inform ation available [facility] Work Phone: Evaluation note Diagnosis Onset Date S/P appendectomy acute Abdominal pain resolved Acute appendicitis resolved Umbilical hernia without obs truction and without gangrene resolved S/P appendectomy acute Status post umbilical hernia repair, follow-up exam acute [facility] Work Phone: Evaluation note* Diagnosis Otosclerosis, bilateral- Primary documented in this encounter [facility] Work Phone: Evaluation note* Diagnosis Conductive hearing loss of right ear with unrestricted hearing of left ear- Primary 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 Zapata for evaluation of progressive bilateral conductive hearing loss worse on the left and possible otosclerosis in the left ear.The patient is 40 years old. * When asked about ear pain, hearing loss, discharge from ear, tinnitus, aural fullness or autophony in the affected ear, the patient admits to hearing loss for the past 3 years, tinnitus has started more recently. * The patient's better hearing ear subjectively is the right ear. * When asked about a significant past otological history including history of prior ear surgery, noise exposure, exposure to ototoxic drugs or agents, and/or family history of hearing loss, the patientadmits to none. 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 * A comprehensive 10-point review of systems was obtained including constitutional, neurological, HEENT, pulmonary, cardiovascular, genito- urinary, and other pertinent systems and was negative except as noted in the HPI. I have reviewed the intake sheet filled out by the patient and signed it. * The patient s current medications, active allergies and list of medical problems were reviewed in the EHR and confirmed electronically. * Physical Examination: * CONSTITUTIONAL: No acute distress * VOICE: No hoarseness or other abnormality * RESPIRATION: Breathing comfortably, no stridor * CV: No clubbing/cyanosis/edema in hands * EYES: EOM intact, sclera clear * NEURO: Alert and oriented times 3, Cranial nerves II-XII grossly intact and symmetric bilaterally * HEAD AND FACE: Symmetric facial features, no masses or lesions * RIGHT EAR: Normal external ear and post auricular area, no visible lesions, external auditory canalpatent, tympanic membrane intact, no retraction, no signs of mass, effusion, or infection within the middle ear * LEFT EAR: Normal external ear and post auricular area, no visible lesions, external auditory canal patent, tympanic membrane intact, no retraction, no signs of mass, effusion, or infection within themiddle ear * Valdez to the left. * Right AC=BC at 512 and 1024Hz * Left BC>AC at 512 and 1024Hz * NOSE: Deferred due to Covid-19 pandemic. * ORAL CAVITY/OROPHARYNX/LIPS: Deferred due to Covid-19 pandemic. * PHARYNGEAL DEE: Deferred due to Covid-19 pandemic. * NECK/LYMPH: No LAD, no thyroid masses, trachea midline * SKIN: Neck and facial skin is without scar or injury * PSYCH: Alert and oriented with appropriate mood and affect * Diagnostic testing: * The audiogram reviewed showed on the right moderate rising to mild conductive hearing loss with excellent speech discrimination. On the left moderate conductive hearing loss predominantly in the low and mid frequency range with a Carhart notch. Excellent speech discrimination. * I personally reviewed the available patient s external record and independently reviewed their audiometric testing through the appropriate viewing software as detailed in my note and agree with the detailed report. * Impression: * Left conductive hearing loss. 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 * Recommendation: * The condition was reviewed and explained. The [...] patient desires to have a left ALONDRA/stapedectomy. * I discussed with the patient the complexity of my medical decision making including the treatment and testing rational, indications of their elective procedure and possible adverse effects and/or complications. Based on the provided documentation and my professional assessment of this patient s vp organizational development truong progressive condition, the complexity of evaluation and treatment is moderate. * This note was created using speech recognition coat operator software/or [employer] coat operator services. Despite proofreading, several typographical errors might be present that might affect the meaning of the content. Please call with any questions. * Patient Information: * Stapedectomy * Stapedectomy/Stapedotomy is a middle ear operation to restore hearing related to a frozen bone or bones in the middle ear. This allows improvement of hearing by restoring vibration of the middle ear bones to the fluid of the middle ear. * Complications from stapedectomy are infrequent and are usually related to uncommon variations in anatomy or defects. The likelihood of total hearing loss is rare. Facial paralysis is extremely rare for stapedectomy. Loss of taste on the side of the tongue is a common complaint that usually res olves within a few months. Some dizziness after surgery is normal and may last several days or weeks. Severe or disabling dizziness is less common and could be a symptom of inner ear disturbances. Tinnitus that was present before surgery commonly persists, but could disappear or diminish. On the other hand, tinnitus may develop as a result of surgery. * Failure to improve hearing occurs in about 2-10% [...] stapedectomy for otosclerosis is an elective procedure. [facility]Yybkwsefvgixwx[facility]Vgywkmriy Work Phone: History of Present illness Narrative* UPDATE: * The patient is a 41-year-old female presenting in clinic for a follow-up visit to discuss surgery for a middle ear exploration and possible stapedectomy. She has left conductive hearing loss, likely secondary to otosclerosis. The patient is doing well and notes no significant changes since her prior visit. * She states that she underwent an emergency appendectomy and also had repair for an umbilical hernia. She is recovering well. * The patient s current medications, active allergies and list of medical problems were reviewed in the EHR and confirmed electronically. * RECALL 07/16/21: * History of present illness: * This is the initial visit for this patient who is referred by Dr. Zapata for evaluation of progressive bilateral conductive hearing loss worse on the left and possible otosclerosis in the left ear.The patient is 40 years old. * When asked about ear pain, hearing loss, discharge from ear, tinnitus, aural fullness or autophony in the affected ear, the patient admits to hearing loss for the past 3 years, tinnitus has started more recently. * The patient's better hearing ear subjectively is the right ear. * When asked about a significant past otological history including history of prior ear surgery, noise exposure, exposure to ototoxic drugs or agents, and/or family history of hearing loss, the patientadmits to none. 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 * A comprehensive 10-point review of systems was obtained including constitutional, neurological, HEENT, pulmonary, cardiovascular, genito- urinary, and other pertinent systems and was negative except as noted in the HPI. I have reviewed the intake sheet filled out by the patient and signed it. * The patient s current medications, active allergies and list of medical problems were reviewed in the EHR and confirmed electronically. * Physical Examination: * CONSTITUTIONAL: No acute distress * VOICE: No hoarseness or other abnormality * RESPIRATION: Breathing comfortably, no stridor * CV: No clubbing/cyanosis/edema in hands * EYES: EOM intact, sclera clear * NEURO: Alert and oriented times 3, Cranial nerves II-XII grossly intact and symmetric bilaterally * HEAD AND FACE: Symmetric facial features, no masses or lesions * RIGHT EAR: Normal external ear and post auricular area, no visible lesions, external auditory canalpatent, tympanic membrane intact, no retraction, no signs of mass, effusion, or infection within the middle ear. Right AC=BC at 512 and 1024Hz. * LEFT EAR: Normal external ear and post auricular area, no visible lesions, external auditory canal patent, tympanic membrane intact, no retraction, no signs of mass, effusion, or infection within themiddle ear. Valdez to the left. BC>AC at 512 and 1024Hz. * NOSE: External nose midline, anterior rhinoscopy is normal with limited visualization to the anterior aspect of the interior turbinates, no bleeding or drainage, no lesions * ORAL CAVITY/OROPHARYNX/LIPS: Normal mucous membranes, normal floor of mouth/tongue/OP, no masses orlesions * PHARYNGEAL DEE: No masses or lesions * NECK/LYMPH: No LAD, no thyroid masses, trachea midline * SKIN: Neck and facial skin is without scar or injury * PSYCH: Alert and oriented with appropriate mood and affect * Diagnostic testing: * Audiogram reviewed from June 2021 shows, on the right, moderate-mild conductive hearing loss. On the left, moderate conductive hearing loss. Large air-bone gap in the low-mid frequency range. * The audiogram reviewed showed on the right moderate rising to mild conductive hearing loss with excellent speech discrimination. On the left moderate conductive hearing loss predominantly in the low and mid frequency range with a Carhart notch. Excellent speech discrimination. * I personally reviewed the available patient s external record and independently reviewed their audiometric testing through the appropriate viewing software as detailed in my note and agree with the detailed report. 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 The [...] patient for scheduling the procedure in the future. * I discussed with the patient the complexity of my medical decision making including the treatment and testing rational, indications of their elective procedure and possible adverse effects and/or complications. Based on the provided documentation and my professional assessment of this patient s vp organizational development truong progressive condition, the complexity of evaluation and treatment is moderate. * This note was created using speech recognition coat operator software/or [employer] coat operator services. Despite proofreading, several typographical errors might be present that might affect the meaning of the content. Please call with any questions. * By signing my name below, I, Jose [...] the history, physical exam, discussion, and plan. * Patient Information: * Stapedectomy * Stapedectomy/Stapedotomy is a middle ear operation to restore hearing related to a frozen bone or bones in the middle ear. This allows improvement of hearing by restoring vibration of the middle ear bones to the fluid of the middle ear. * Complications from stapedectomy are infrequent and are usually related to uncommon variations in anatomy or defects. The likelihood of total hearing loss is rare. Facial paralysis is extremely rare for stapedectomy. Loss of taste on the side of the tongue is a common complaint that usually res olves within a few months. Some dizziness after surgery is normal and may last several days or weeks. Severe or disabling dizziness is less common and could be a symptom of inner ear disturbances. Tinnitus that was present before surgery commonly persists, but could disappear or diminish. On the other hand, tinnitus may develop as a result of surgery. * Failure to improve hearing occurs in about 2-10% [...] stapedectomy for otosclerosis is an elective procedure. [facility]lex[facility] Work Phone: History of Present illness Narrative* UPDATE: * The patient is a 41-year-old female presenting in clinic for a follow-up visit to discuss surgery for a middle ear exploration and possible stapedectomy. She has left conductive hearing loss, likely secondary to otosclerosis. The patient is doing well and notes no significant changes since her prior visit. * She states that she underwent an emergency appendectomy and also had repair for an umbilical hernia. She is recovering well. * The patient s current medications, active allergies and list of medical problems were reviewed in the EHR and confirmed electronically. * RECALL 07/16/21: * History of present illness: * This is the initial visit for this patient who is referred by Dr. Zapata for evaluation of progressive bilateral conductive hearing loss worse on the left and possible otosclerosis in the left ear.The patient is 40 years old. * When asked about ear pain, hearing loss, discharge from ear, tinnitus, aural fullness or autophony in the affected ear, the patient admits to hearing loss for the past 3 years, tinnitus has started more recently. * The patient's better hearing ear subjectively is the right ear. * When asked about a significant past otological history including history of prior ear surgery, noise exposure, exposure to ototoxic drugs or agents, and/or family history of hearing loss, the patientadmits to none. 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 * A comprehensive 10-point review of systems was obtained including constitutional, neurological, HEENT, pulmonary, cardiovascular, genito- urinary, and other pertinent systems and was negative except as noted in the HPI. I have reviewed the intake sheet filled out by the patient and signed it. * The patient s current medications, active allergies and list of medical problems were reviewed in the EHR and confirmed electronically. * Physical Examination: * CONSTITUTIONAL: No acute distress * VOICE: No hoarseness or other abnormality * RESPIRATION: Breathing comfortably, no stridor * CV: No clubbing/cyanosis/edema in hands * EYES: EOM intact, sclera clear * NEURO: Alert and oriented times 3, Cranial nerves II-XII grossly intact and symmetric bilaterally * HEAD AND FACE: Symmetric facial features, no masses or lesions * RIGHT EAR: Normal external ear and post auricular area, no visible lesions, external auditory canalpatent, tympanic membrane intact, no retraction, no signs of mass, effusion, or infection within the middle ear. Right AC=BC at 512 and 1024Hz. * LEFT EAR: Normal external ear and post auricular area, no visible lesions, external auditory canal patent, tympanic membrane intact, no retraction, no signs of mass, effusion, or infection within themiddle ear. Valdez to the left. BC>AC at 512 and 1024Hz. * NOSE: External nose midline, anterior rhinoscopy is normal with limited visualization to the anterior aspect of the interior turbinates, no bleeding or drainage, no lesions * ORAL CAVITY/OROPHARYNX/LIPS: Normal mucous membranes, normal floor of mouth/tongue/OP, no masses orlesions * PHARYNGEAL DEE: No masses or lesions * NECK/LYMPH: No LAD, no thyroid masses, trachea midline * SKIN: Neck and facial skin is without scar or injury * PSYCH: Alert and oriented with appropriate mood and affect * Diagnostic testing: * Audiogram reviewed from June 2021 shows, on the right, moderate-mild conductive hearing loss. On the left, moderate conductive hearing loss. Large air-bone gap in the low-mid frequency range. * The audiogram reviewed showed on the right moderate rising to mild conductive hearing loss with excellent speech discrimination. On the left moderate conductive hearing loss predominantly in the low and mid frequency range with a Carhart notch. Excellent speech discrimination. * I personally reviewed the available patient s external record and independently reviewed their audiometric testing through the appropriate viewing software as detailed in my note and agree with the detailed report. 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 The [...] patient for scheduling the procedure in the future. * I discussed with the patient the complexity of my medical decision making including the treatment and testing rational, indications of their elective procedure and possible adverse effects and/or complications. Based on the provided documentation and my professional assessment of this patient s vp organizational development truong progressive condition, the complexity of evaluation and treatment is moderate. * This note was created using speech recognition coat operator software/or [employer] coat operator services. Despite proofreading, several typographical errors might be present that might affect the meaning of the content. Please call with any questions. * By signing my name below, I, Jose [...] the history, physical exam, discussion, and plan. * Patient Information: * Stapedectomy * Stapedectomy/Stapedotomy is a middle ear operation to restore hearing related to a frozen bone or bones in the middle ear. This allows improvement of hearing by restoring vibration of the middle ear bones to the fluid of the middle ear. * Complications from stapedectomy are infrequent and are usually related to uncommon variations in anatomy or defects. The likelihood of total hearing loss is rare. Facial paralysis is extremely rare for stapedectomy. Loss of taste on the side of the tongue is a common complaint that usually res olves within a few months. Some dizziness after surgery is normal and may last several days or weeks. Severe or disabling dizziness is less common and could be a symptom of inner ear disturbances. Tinnitus that was present before surgery commonly persists, but could disappear or diminish. On the other hand, tinnitus may develop as a result of surgery. * Failure to improve hearing occurs in about 2-10% [...] stapedectomy for otosclerosis is an elective procedure. [id number] Work Phone: Hospital Discharge instructionsAdditional Instructions Uncomplicated diverticulitis seen on CT white count 15. You had incidental findings gallbladder stones with sludge you have no pain in this area. Taking finish antibiotic as prescribed. Use Tylenol as needed. Low fiber diet for next few weeks after discussion with Dr. Salinas. Follow-up with their office with Dr. Dixon for reevaluation and discussion for future colonoscopy.[facility] Work Phone: Reason for referral (narrative)No reason for referral information availableWUniversity Hospitals [facility] Work Phone: Chief Complaint New patient visit possible otosclerosisFollow-up visit to discuss surgery for a middle ear exploration and possible stapedectomyFollow-up visit to discuss surgery for a middle ear exploration and possible stapedectomyPost-operative visit status post left stapedectomy on 07/19/22post-op left stapedectomy Chief Complaint and Reason for Visit Chief Complaint Annual (VP HUMAN RESOURCES) Chief Complaint Annual (VP HUMAN RESOURCES) SCREENING Chief Complaint APPENDECTOMY ACUTE APPENDICITIS ACUTE APPENDICITIS ER 10 day f/u appy 04/19 Reason for Visit S/P appendectomy Abdominal pain Acute appendicitis Umbilical hernia without obstruction and without gangrene S/P appendectomy Status post umbilical hernia repair, follow-up exam Chief Complaint Admit Date ABD PAIN; LLQ April 28, 2025 7:54 am Family History Relationship Condition Age at Onset Recorded Date/T [place] mother Hypertension Unknown Hyperlipidemia Unknown father Diabetes mellitus Unknown Hypertension Unknown Advance Directives Advance Directive Response Recorded Date/ Time Advance Directives No August 4:53pm Living Will No November 30 1:44am Power of Vat House Laborer No November 30, 2019 1:44am Advance Directive Response Recorded Date/ Time Advance Directives No August 4:53pm Living Will No April 19, 2022 9:24pm Power of Vat House Laborer No April 19 9:24pm Advance Directive Response Recorded Date/ Time Do you have a Healthcare Power of Vat House Laborer? No April 28, 2025 8:04am Advance Directives No August 4:53pm Summary Purpose Additional Source Comments Goals (unrecognized section and content) Goals may be documented in a n alternate sectionGoals may be documented in an alternate sectionGoals may be documented in an alternate section INFORMATION SOURCE (unrecogn ized section and content) DATE CREATED AUTHOR 10/20/2022 [employer] DATE CREATED AUTHOR AUTHOR'S ORGANIZ ATION 10/21/2022 [facility] DATE CREATED AUTHOR AUTHOR'S ORGANIZ ATION 08/31/2024 [facility] DATE CREATED AUTHOR AUTHOR'S ORGANIZ ATION 09/22/2024 [facility] DATE CREATED AUTHOR AUTHOR'S ORGANIZ ATION 01/17/[address] 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 Gayatri Becker DO Primary Care Provider Active Team Status: Inactive Member Role/Relationship Status Dates Dr. Gayatri Becker DO Primary Care Provider Active Start: April 28, 2025 End: April 28, 2025 Dr. Stephen Plascencia DO Emergency Provider Active Start : April 28, 2025 End: April 28, 2025 FOR RECORDS PERTAINING TO PATIENTS WHO ARE [...] BE BASED ON THE PRIMARY CLINICAL RECORDS. [facility]. provides no warranty or guarantee of the accuracy or completeness of information in this document.
== END 2025-04-28 11:16 | disposition home or self-care (01) ==
PROVIDERS: Emergency Provider Emergency Medicine; PCP Family Medicine; Visit Provider Emergency Medicine
DX: R10.32 Left lower quadrant pain (principal); K80.20 Calculus of gallbladder without cholecystitis without obstruction; K57.92 Diverticulitis of intestine, part unspecified, without perforation or abscess without bleeding; Z90.49 Acquired absence of other specified parts of digestive tract
CPT/HCPCS: 74177; 80048; 81001; 84703; 85025; 96360; 96361; 99283; Q9967

== ENCOUNTER → 2025-05-13 | Outpatient (CLI) | payer BC, SELFPAY ==
--- NOTE | 2025-05-13 07:18 | US_ITS ---
PROCEDURE: ABDOMEN LIMITED 05/13/2025 REASON FOR EXAM: GALLBLADDER SLUDGE COMPARISON: Prior CT scan of the abdomen and pelvis dated April 28, 2025. FINDINGS: Liver: Grossly normal size and echotexture. Gallbladder: Multiple echogenic gallstones are identified. Common bile duct: Normal measuring 3 mm . Pancreas: Normal Other: Visualized portions of the right kidney are unremarkable. No right upper quadrant ascites. US/Abdomen Limited IMPRESSION: Multiple gallstones. Reading Location: [id number]
--- OUTSIDE RECORDS SUMMARY | 2025-05-13 07:29 | XMS RPT_ITS | CCD ---
Author Organization [facility] Care Team Providers Care Art Teacher Name Role Phone Gayatri Becker Unavailable Unavailable Unavailable Dr. Gayatri Becker Primary Care Provider [phone] Eugenio, Dr. Mendieta Referring Provider [phone] Liberty Rondon Attending Provider Eugenio, Dr. Mendieta Primary Care Provider Dr. Irineo Kohli Emergency Provider Dr. Dm Dixon Attending Provider [phone] Zack, Dr. Chaidez Referring Provider Zack, Dr. Chaidez Other Provider [phone] Zack, Dr. Chaidez Admit Provider Ms. Antonina Manriquez Attending Unav ailable Malys, Dr. Gayatri Foss Primary Care Unavailable [...] Self, Referral Referring Unavailable Malys, Dr. Gayatri Foss Primary Care Unavailable Malys DO, Gayatri Foss Primary Care Provider SHAY, MAROUN T Attending Unavailable MALYS, GAYATRI AGUSTÍN Primary Care Unavailable SHAY SUJITOUN T Attending Unavailable MALAZALEA, GAYATRI AGUSTÍN Primary Care Unavailable SHAY, MAROUN T Admitting Unavailable SHAY, MAROUN T Attending Unavailable MALFRANCISCA TRISTANA AGUSTÍN Primary Care Unavailable Jamalazalea , Dr. Mendieta Primary Care Provider [phone] Thais ZHAO, Dr. Mitchell Emergency Provider Thais ZHAO, Dr. Mitchell Attending Provider Eugenio ZHAO, Dr. Mendieta Referring Provider [phone] Dr. Dm Dixon MD Attending Provider Malys, Gayatri Referring Unavailable Malys, Gayatri Attending Unavailable Malys, Gayatri Primary Care Unavailable Malys, Gayatri Primary Care Unavailable Shani Mo Referring Unavailable Shani Mo Attending Unavailable Stephen Plascencia Attending Unavailable Malys, Gayatri Primary Care Unavailable Malys, Gayatri Primary Care Unavailable Dm Dixon Attending Unavailable Dm Dixon Attending Unavailable Malys, Gayatri Primary Care Unavailable Dm Dixon Referring Unavailable Malys, Gayatri Primary Care Unavailable Malys, Gayatri Referring Unavailable Dm Dixon Attending Unavailable Malys, Gayatri Referring Unavailable Malys, Gayatri Primary Care Unavailable Shani Mo Attending Unavailable Medications Current Medications Medication Drug Class(es) Dates Sig (Normalized) Sig (Original) amoxicillin 875 mg / clavulanate 125 mg oral tablet (2 sources) Penicillin-class Antibacterial Start: 04-28-2025 take 1 tablet by mouth every twelve hours Amoxicillin-Pot Clavulanate 875-125 mg tablet Active 875 mg PO Q12H 20 0 April 28, 2025 12:00am calcium carbonate 1500 mg oral tablet (2 sources) Start: 07-04-2024 take 1 tablet by mouth [...] DAILY January 06, 2022 12:00am Multivitamin tablet (2 sources) Start: 01-06-2022 Multivitamin t ablet Active 1 {tbl} PO DAILY January 06, 2022 12:00am Completed/Discontinued Medications Medication Drug Class(es) Dates Sig (Normalized) Sig (Original) 1.1 ml HYDROXYprogesterone caproate (fpc) 250 mg/ml auto-injector (6 sources) Start: 05-27-2019 End: 10-10-2019 Hydroxyprogest(Pf)( Preg Presv) (Gonzalez (Pf)) 275 mg/1.1 mL auto-injector Discontinued 275 mg SC EVERY WEEK 1.1 May 27, 2019 12:00am October 10, 2019 9:37am acetaminophen 325 mg / oxyCODONE hydrochloride 5 mg oral tablet (6 sources) Opioid Agonist Start: 12-01-2019 End: 12-08-2019 [...] 2019 1:10am cephalexin 500 mg oral capsule (6 sources) Cephalosporin Antibacterial Start: 12-12-2019 End: 12-19-2019 [...] 25-Apr-2022 Active naproxen 250 mg oral tablet (6 sources) Nonsteroidal Anti-inflammatory Drug Start: 12-01-2019 End: 12-12-2019 take 250-500 mg by mouth every eight hours as needed for pain Naproxen 250 MG tablet Discontinued 250 - 500 mg PO EVERY 8 HOURS NEEDED as needed for MILD PAIN 30 1 December 01, 2019 1:00am December 12, 2019 11:44am oseltamivir 75 mg oral capsule (12 sources) Neuraminidase Inhibitor Start: 11-25-2019 End: 12-12-2019 take 1 capsule by mouth once daily Oseltamivir 75 MG capsule Discontinued 75 mg PO DAILY November 30, 2019 1:15am December 12, 2019 11:45am Check with primary doctor oxyCODONE hydrochloride 5 mg oral tablet (4 sources) Opioid Agonist Start: 04-20-2022 End: 06-02-2023 take 1 tablet by mouth every six hours as needed for pain Oxycodone 5 mg Tablet Discontinued 5 mg PO EVERY 6 HOURS NEEDED as needed for Pain Score 6-10 7 3 0 April 20, 2022 June 02, 2023 11:28am Status post appendectomy Acquired absence of other specified parts of digestive tract Vit,Exlr25-Bgex-Cjeht (4 sources) Start: 06-26-2014 End: 01-06-2022 take 1 tablet by mouth once daily Vit,Yotp86-Jacx-Nmgxr Discontinued 1 TABLET PO DAILY June 26, 2014 4:08pm January 06, 2022 2:11pm Start: 06-26-2014 End: 01-06-2022 take 1 tablet by mouth once daily Vit,Eigm45-Touw-Puxzp Discontinued 1 TABLET PO DAILY June 26, 2014 12:00am January 06, 2022 2:11pm Vit,Uvpf68-Gzam-Htzsn 1 TABLET tablet (2 sources) Start: 06-26-2014 End: 01-06-2022 take 1 tablet by mouth once daily Vit,Xtkw39-Ispq-Ykcoo 1 TABLET tablet Discontinued 1 {tbl} PO DAILY June 26, 2014 12:00am January 06, 2022 2:11pm Problems Active Problems Problem Classification Problem Date Documented Date Episodic/Chronic Abdominal hernia (6 sources) Umbilical hernia; Translations: [Umbilical hernia without obstruction or gangrene] Episodic Abdominal pain (9 sources) Abdominal pain; Translations: [Unspecified abdominal pain] Onset: 05-01-2025 Episodic Appendicitis and other appendiceal conditions (6 sources) Acute appendicitis; Translations: [Unspecified acute appendicitis] Episodic Biliary tract disease (4 sources) Gallstone; Translations: [Calculus of gallbladder without cholecystitis without obstruction] Onset: 05-06-2025 04-28-2025 Episodic Diverticulosis and diverticulitis (3 sources) Diverticulitis of intestine; Translations: [Diverticulitis of intestine, part unspecified, without perforation or abscess without bleeding] 04-28-2025 Chronic Hemorrhage during ; abruptio placenta; placenta previa (12 sources) Antepartum hemorrhage; Translations: [Hemorrhage in early , unspecified] 09-17-2019 Episodic Comment on above: Subchorionic hematom a: 05/08: 1.7cm; 05/21 .9cm resolved. 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, unspecified] Onset: 07-19-2022 Episodic Residual codes; unclassified (6 sources) History of cholestasis in ; Translations: [Personal history of other complications of , childbirth and the puerperium] 06-02-2023 Episodic Residual codes; unclassified (4 sources) Acquired absence of other specified parts of digestive tract; Translations: [Other postprocedural status] Episodic Umbilical cord complication (6 sources) Velamentous insertion of umbilical cord; Translations: [Velamentous insertion of umbilical cord, unspecified trimester] 06-02-2023 Episodic Comment on above: growth us every 4 we eks Unclassified (2 sources) s/p stapedectomy Onset: 10-19-2023 Past or Other Problems Problem Classification Problem Date Documented Da te Episodic/Chronic Other screening for suspected conditions (not mental disorders or infectious disease) (1 source) Encounter for screening mammogram for malignant neoplasm of breast; Translations: [Encounter for screening mammogram for malignant neoplasm of breast] Onset: 08-23-2024 Episodic Unclassified (2 sources) Onset: 10-19-2023 Resolved: 09-19-2024 10-19-2023 Results Test Name Value Interpretation Reference Range Facility Surgery Visit Reporton 05-06 Surgery Visit Report [facility] [address] [place] [address] OFFICE VISIT Date of Service: 05/06/25 MR#: [id number] Acct: [id number] Name: IRENE LOOMIS Rep #: [id number] : 1980 Provider: Dr. Dm jay MD Age/Sex: 44/F Location: [facility] Status: Signed Intake Vital Signs 04/28/25 07:55 05/06/25 12:39 Height 4 ft 11 in 4 ft 11 in Weight: 125 lb 4 oz BMI 25.2 BP 137/74 H Blood Pressure Location Rt brachial Position Sitting Respiration 18 Pulse 79 Pulse Source Monitor Temp 97.2 F L Temp Source Temporal Pulse Oximetry (%) 99 Oxygen Delivery Method room air Intake Visit Reasons: ER F/U - DIVERTICULITS Chief Complaint: ER F/U- diverticulitis Is patient in pain?: No Allergies No Known Allergies Allergy (Verified 05/06/25 12:39) Medications ???Medication ???Instructions ???Recorded ???Confirmed ???Type multivitamin 1 tab PO DAILY 01/06/22 05/06/25 H istory calcium carbonate (Calcium 600) 600 mg PO QDAY 07/04/24 05/06/25 H istory amoxicillin 875 mg-potassium 875 mg PO Q12H #20 TABLETS 5 05/06/25 Rx clavulanate 125 mg tablet PFSH Medical History (Updated 05/06/25 @ 16:[address] 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 She is known to me for a history of acute appendicitis status post laparoscopic appendectomy April 2022. Approximately ten days ago, she developed left lower quadrant abdominal pain after lifting a heavy object, initially suspecting a hernia. Her visit to the emergency department occurred a day and a half later since symptoms persisted. Medical assessment confirmed acute diverticulitis through CT imaging, and she commenced antibiotic therapy with Augmentin, nearing completion of the course. She reports significant improvement in her symptoms on antibiotics and declares no discomfort presently. She noted no significant alteration in baseline bowel habits prior to the antibiotic but reports transient looser stools following initiation. Generally she describes her bowel habits as experiencing 1 bowel movement daily without significant straining. She estimates her toilet time at approximately 5 minutes. She denies any history of bloody or dark stools. She denies any recent weight change. Family history negative for diverticulitis, inflammatory bowel disease, or colon cancer. Patient has not undergone previous colonoscopy. In addition to diverticulitis, imaging indicated biliary sludge, with no clinical correlation of epigastric discomfort or significant gallbladder-related symptoms. She wishes to know the significance of this finding. She further clarifies that she has had some very seldom epigastric discomfort that occurs no more frequently than 1 time per month. She denies any associated nausea or vomiting. She further denies any unexplained fevers. She expresses surprise that she had evidence of gallstones given her very healthy diet. ROS General General: No weight change, appetite, fatigue, colon cancer, breast cancer or weakness HEENT HEENT: No difficulty swallowing, eye injury, eye surgery, swollen glands or hoarseness Endo Endocrine: No thyroid disease, diabetes mellitus, thyroid cancer, Hair loss, heat intolerance or cold intolerance Skin Skin: No rash or changing moles Musc Musculoskeletal: No back problems, arthritis, rheumatoid arthritis, gout or joint pain Cardio Cardiovascular: No murmur, pacemaker, heart disease, atrial fibrillation, high blood pressure, heart attack, heart stent, palpitations, shortness of breath with exertion or chest pain Psych Psychiatric: No depression, anxiety or hearing voices (more content not included)... Normal [facility] Abdomen/Pelvis W IV Cont ONL Yon 04-28-2025 Abdomen/Pelvis W IV Cont ONLY [facility] [address] [place], [place] [address] Abdomen/Pelvis W IV Cont ONLY MR#: [id number] Acct: [id number] Name: IRENE LOOMIS Rep #: [id number] : 1980 F 44 From: Glenn Plascencia MD PCP: Dr. Gayatri Becker DO Status: REG ER Study: Abdomen/Pelvis W IV Cont ONLY Date of Exam: Exam# [id number] Ordering Dr: Stephen Plascencia DO EXAM: CT [...] 3. Hepatomegaly with fatty infiltration. Reading [facility] CC: Dr. Gayatri Becker DO; Dr. 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 Normal [facility] Absolute lymphocyte countOrd ered By: Stephen Plascencia on 04-28-2025 Lymphocytes Auto (Unsp spec) [#/Vol] 0.95 10*3/uL 0.83-4.51 [facility] Absolute neutrophil countOrd ered By: Stephen Plascencia on 04-28-2025 Neutrophils (Bld) [#/Vol] 13.1 10*3/uL High 2.0-7.7 [facility] Anion gap in Serum or Plasma Ordered By: Stephen Plascencia on 04-28-2025 Anion gap [Moles/Vol] 11 mmol/L 5-15 [facility] Automated lymphocyte count a s percentage of total leukocytesOrdered By: Stephen Plascencia on 04-28-2025 Lymphocytes/100 WBC Auto (Unsp spec) 6.2 % Low 19-41 [facility] BUN/creatinine ratioOrdered By: Stephen Plascencia on 04-28-2025 Urea nitrogen/Creatinine [Mass ratio] 13.2 mg/mg 10-20 [facility] Basic Metabolic Profile (BMP )on 04-28-2025 BUN/CRE 13.2 RATIO Normal - [facility] Comment on above: Performed By: #### L 700.6800, L100.0100, L500.2500 ####[facility] [address] [place], [address] Calcium [Mass/Vol] 9.2 mg/dL Normal 7.6-11.0 [facility] Comment on above: Performed By: #### L 700.6800, L100.0100, L500.2500 ####[facility] [address] [place], [address] Chloride [Moles/Vol] 103 mmol/L Normal 98-108 [facility] Comment on above: Performed By: #### L 700.6800, L100.0100, L500.2500 ####[facility] [address] [place], [address] CO2 [Moles/Vol] 24.9 mmol/L Normal 21.0-32.0 [facility] Comment on above: Performed By: #### L 700.6800, L100.0100, L500.2500 ####[facility] [address] [place], [address] Creatinine [Mass/Vol] 0.77 mg/dL Normal 0.70-1.20 [facility] Comment on above: Performed By: #### L 700.6800, L100.0100, L500.2500 ####[facility] [address] [place], [address] ECRCL 74.10 ml/min Normal 50-250 [facility] Comment on above: Performed By: #### L 700.6800, L100.0100, L500.2500 ####[facility] [address] [place], [address] GAP 11 Normal 5-15 [facility] Comment on above: Performed By: #### L 700.6800, L100.0100, L500.2500 ####[facility] [address] [place], [address] GFR/1.73 sq M.predicted among non-blacks MDRD (S/P/Bld) [Vol rate/Area] 97 mL/min/{1.73_m2} Normal >60 [facility] Comment on above: Result Comment: mL/m in/1.73m2 CKD-EPI Creatinine Equation (2020) Performed By: #### L 700.6800, L100.0100, L500.2500 ####[facility] [address] [place], [address] Glucose [Mass/Vol] 111 mg/dL High 70-99 [facility] Comment on above: Performed By: #### L 700.6800, L100.0100, L500.2500 ####[facility] [address] [place], [address] Potassium [Moles/Vol] 3.8 mmol/L Normal 3.3-5.1 [facility] Comment on above: Performed By: #### L 700.6800, L100.0100, L500.2500 ####[facility] [address] [place], [address] Sodium [Moles/Vol] 139 mmol/L Normal 133-145 [facility] Comment on above: Performed By: #### L 700.6800, L100.0100, L500.2500 ####[facility] [address] [place], [address] Urea nitrogen [Mass/Vol] 10 mg/dL Normal 4-19 [facility] Comment on above: Performed By: #### L 700.6800, L100.0100, L500.2500 ####[facility] [address] [place], [address] Basophil percentageOrdered B y: Stephen Plascencia on 04-28-2025 Basophils/100 WBC (Bld) 0.4 % 0-1 [facility] Bilirubin Test strip Ql (U)O rdered By: Stephen Plascencia on 04-28-2025 Bilirubin Ql (U) Negative Negative [facility] CBC W/Diff, Automatedon 04-09 Absolute Lymph 0.95 X10 3/uL Normal 0.83-4.51 [facility] Comment on above: Performed By: #### L 700.6800, L100.0100, L500.2500 ####[facility] [address] [place], [address] Absolute Neut 13.1 X10 3/uL High 2.0-7.7 [facility] Comment on above: Performed By: #### L 700.6800, L100.0100, L500.2500 ####[facility] [address] [place], [address] Basophils/100 WBC (Bld) 0.4 % Normal 0-1 [facility] Comment on above: Performed By: #### L 700.6800, L100.0100, L500.2500 ####[facility] [address] [place], [address] Eosinophils/100 WBC (Bld) 0.7 % Normal 0-5 [facility] Comment on above: Performed By: #### L 700.6800, L100.0100, L500.2500 ####[facility] [address] [place], [address] Erythrocyte distribution width (RBC) [Ratio] 12.9 % Normal 11.6-14.6 [facility] Comment on above: Performed By: #### L 700.6800, L100.0100, L500.2500 ####[facility] [address] [place], [address] Hematocrit (Bld) [Volume fraction] 38.4 % Normal 37-47 [facility] Comment on above: Performed By: #### L 700.6800, L100.0100, L500.2500 ####[facility] [address] [place], [address] Hemoglobin (Bld) [Mass/Vol] 13.6 g/dL Normal 12.0-15.0 [facility] Comment on above: Performed By: #### L 700.6800, L100.0100, L500.2500 ####[facility] [address] [place], [address] IG% 0.700 Normal 0.0-0.9 [facility] Comment on above: Result Comment: IG% - Immature Granulocytes (promyelocytes, myelocytes and metamyelocytes) > 1% indicates that a LEFT SHIFT is Present. Performed By: #### L 700.6800, L100.0100, L500.2500 ####[facility] [address] [place], [address] Lymphocytes/100 WBC (Bld) 6.2 % Low 19-41 [facility] Comment on above: Performed By: #### L 700.6800, L100.0100, L500.2500 ####[facility] [address] [place], [address] MCH (RBC) [Entitic mass] 31.5 pg Normal 27.0-32.0 [facility] Comment on above: Performed By: #### L 700.6800, L100.0100, L500.2500 ####[facility] [address] [place], [address] MCHC (RBC) [Mass/Vol] 35.4 g/dL Normal 32-36 [facility] Comment on above: Performed By: #### L 700.6800, L100.0100, L500.2500 ####[facility] [address] [place], [address] MCV (RBC) [Entitic vol] 88.9 fL Normal 81-99 [facility] Comment on above: Performed By: #### L 700.6800, L100.0100, L500.2500 ####[facility] [address] [place], [address] Monocytes/100 WBC (Bld) 6.4 % Normal 0-10 [facility] Comment on above: Performed By: #### L 700.6800, L100.0100, L500.2500 ####[facility] [address] [place], [address] Neutrophils/100 WBC (Bld) 85.6 % High 47-70 [facility] Comment on above: Performed By: #### L 700.6800, L100.0100, L500.2500 ####[facility] [address] [place], [address] Nucleated RBC (Bld) [#/Vol] 0 10*3/uL Normal 0-5 [facility] Comment on above: Performed By: #### L 700.6800, L100.0100, L500.2500 ####[facility] [address] [place], [address] Platelet mean volume (Bld) [Entitic vol] 10.4 fL Normal 6.2-12.0 [facility] Comment on above: Performed By: #### L 700.6800, L100.0100, L500.2500 ####[facility] [address] [place], [address] Platelets (Bld) [#/Vol] 276 10*3/uL Normal 150-450 [facility] Comment on above: Performed By: #### L 700.6800, L100.0100, L500.2500 ####[facility] [address] [place], [address] RBC (Bld) [#/Vol] 4.32 10*6/uL Normal 4.2-5.[address] [facility] Comment on above: Performed By: #### L 700.6800, L100.0100, L500.2500 ####[facility] [address] [place], [address] RDW SD 41.9 fl Normal 35.1-43.9 [facility] Comment on above: Performed By: #### L 700.6800, L100.0100, L500.2500 ####[facility] [address] [place], [address] WBC (Bld) [#/Vol] 15.3 10*3/uL High 4.4-11.[address] [facility] Comment on above: Performed By: #### L 700.6800, L100.0100, L500.2500 ####[facility] [address] [place], [address] Carbon dioxide, total [Moles /volume] in Central venous bloodOrdered By: Stephen Plascencia on 04-28-2025 CO2 [Moles/Vol] 24.9 mmol/L 21.0-32.0 [facility] Chloride assayOrdered By: Yonis Plascencia on 04-28-2025 Chloride [Moles/Vol] 103 mmol/L 98-108 [facility] Emergency Department Summary on 04-28-2025 Emergency Department Summary [facility] Medical Records Department [address] [place] [address] Emergency Department Summary 04/28/25 MR#: [id number] Acct: [id number] Name: IRENE LOOMIS Rep #: [id number] : 1980 44 From: Stephen Jones PCP: Dr. Gayatri Becker, DO Status:DEP ER Location: ED HPI HPI - GI History of Present Illness Chief Complaint: Abd Pain Informant: patient Narrative Narrative: Present increasing pain in left lower quadrant abdomen for last couple days. Patient states she remembers lifting a heavy case of water which she felt symptoms later. Symptoms worse with movement. Improved with rest. She had a fever yesterday of 100. No urinary symptoms no cough. Today no fevers. Appendectomy 2 years ago with umbilical hernia repair by Dr. Dixon. No nausea or vomiting. x 2 in the past last menstrual period 2 weeks ago. No allergies. No history of diverticulitis. No history of colonoscopy. Having bowel movements having flatus. Prior similar symptoms: No PFSH PFSH Medical History Hearing loss, left Hearing loss, right Non-smoker Placental insufficiency in third trimester Velamentous insertion of umbilical cord History of delivery, currently History of cholestasis during Home Medications ???Medication ???Instructions ???Recorded ???Last Taken ???Type multivitamin 1 tab PO DAILY 01/06/22 Unknown Hi story calcium carbonate (Calcium 600) 600 mg PO QDAY 07/04/24 Unknown Hi story amoxicillin 875 mg-potassium 875 mg PO Q12H #20 TABLETS 5 Unknown Rx clavulanate 125 mg tablet Allergy/AdvReac Type Severity Reaction Status Date / Time No Known Allergies Allergy Verified 04/28/25 07:57 Family History Mother Hypertension Hyperlipidemia Father Diabetes Hyperlipidemia Hypertension Surgical History Status post umbilical hernia repair, follow-up exam S/P appendectomy H/O dilation and curettage delivery delivered Social History Smoking Status: Never smoker alcohol intake: current details: social substance use type: does not use caffeine: Yes what type of physical activity do you participate in: walking and weight training frequency: 3-4 times per week seatbelt use: always do you feel safe at home: Yes additional social history: Ash Disla Bibi 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 ROS [facility] ED Constitutional Constitutional ED: Denies chills, fever(s) or sweats ENT ENT ED: Denies sore throat Cardiovascular Cardiovascular: Denies chest pain, leg edema, palpitations or racing heartbeat Respiratory/Chest Respiratory/Chest: Denies cough, dyspnea or dyspnea on exertion Gastrointestinal Gastrointestinal: Reports abdominal pain; Denies diarrhea, nausea or vomiting Genitourinary Genitourinary ED: Denies dysuria, hematuria or urinary frequency Musculoskeletal Musculoskeletal: Denies back pain, extremity pain or neck pain Integumentary Denies rash or wounds Neurologic Neurologic: Denies headache(s), paresthesias or weakness EXAM Physical Exam Const Vital Signs: 04/28/25 07:55 04/28/25 09:54 04/28/25 11:08 Temperature 98.6 F 98.6 F Temperature Source Oral Pulse Rate 109 H 89 97 Respiratory Rate 16 16 18 Blood Pressure 123/74 H 103/57 L 98/59 L Blood Pressure Mean 90 72 72 Pulse Ox 99 100 100 Oxygen Delivery Method Room Air Room Air Positive well nourished and well developed General Appearance ED: well developed and NAD HEENT Reports moist mucous membranes normocephalic and atraumatic Eyes General Eye ED: Yes normal appearance of both eyes Neck full ROM Chest Wall Chest: Negative for tenderness Resp normal respiratory effort and normal air movement Effort and Inspection: symmetric chest movement; Negative for respiratory distress Cardio regular rhythm and no murmurs Rate: tachycardic Peripheral Pulses: pulses 2+ throughout GI normal to inspection, nondistended, normoactive bowel sounds GI Narrative: Tender palpation left lower quadrant. No guarding or rebound. Negative Mcelroy's negative Chelo's. Palpation: Negative for guarding or rebound tenderness present Extremity normal to inspection General Extremety ED: Negative for edema or tenderness General Extremity: Negative for edema Neuro oriented x3 and no sensory deficits noted Sensorium / Orientation: awake and alert Skin no rashes or lesions noted and no wounds MDM MDM MDM Narrative Medical decision making narrative: Interventions / MDM: Differential diagnosis: Acute diverticulitis, left lower quadrant abdominal pain. Diagnosis considered but do not yue (more content not included)... Normal [facility] Eosinophil percentageOrdered By: Stephen Plascencia on 04-28-2025 Eosinophils/100 WBC (Bld) 0.7 % 0-5 [facility] Erythrocyte distribution wid th ratioOrdered By: Stephen Plascencia on 04-28-2025 Erythrocyte distribution width (RBC) [Ratio] 12.9 % 11.6-14.6 [facility] Erythrocyte distribution wid th standard deviationOrdered By: Stephen Plascencia on 04-28-2025 Erythrocyte distribution width (RBC) [Ratio] 41.9 fl 35.1-43.9 [facility] Glomerular filtration rate ( GFR) estimation/1.73 sq m using serum, plasma, or whole bOrdered By: Stephen Plascencia on 04-28-2025 GFR/1.73 sq M.predicted among non-blacks MDRD (S/P/Bld) [Vol rate/Area] 97 mL/min/{1.73_m2} >60 [facility] Comment on above: mL/min/1.73m2 CKD-EP I Creatinine Equation (2020) Hematocrit Auto (Bld) [Volum e fraction]Ordered By: Stephen Plascencia on 04-28-2025 Hematocrit (Bld) [Volume fraction] 38.4 % 37-47 [facility] Hemoglobin measurementOrdere d By: Stephen Plascencia on 04-28-2025 Hemoglobin (Bld) [Mass/Vol] 13.6 g/dL 12.0-15.0 [facility] Immature granulocytes/100 WB C Auto (Bld)Ordered By: Stephen Plascencia on 04-28-2025 Immature granulocytes/100 WBC (Bld) 0.700 % 0.0-0.9 [facility] Comment on above: IG% - Immature Granu locytes (promyelocytes, myelocytes and metamyelocytes) > 1% indicates that a LEFT SHIFT is Present. Ketones Test strip Ql (U)Ord ered By: Stephen Plascencia on 04-28-2025 Ketones Ql (U) Negative Negative [facility] MCV (mean corpuscular volume ) determinationOrdered By: Stephen Plascencia 04-28-2025 MCV (RBC) [Entitic vol] 88.9 fL 81-99 [facility] Mean corpuscular hemoglobin (MCH) determinationOrdered By: Stephen Plascencia 04-28-2025 MCH (RBC) [Entitic mass] 31.5 pg 27.0-32.0 [facility] Mean corpuscular hemoglobin concentration (MCHC) determinationOrdered By: Stephen Plascencia 04-28-2025 MCHC (RBC) [Mass/Vol] 35.4 g/dL 32-36 [facility] Mean platelet volume determi nationOrdered By: Stephen Plascencia 04-28-2025 Platelet mean volume (Bld) [Entitic vol] 10.4 fL 6.2-12.0 [facility] Microscopic analysis of urin e for red blood cells (RBC)Ordered By: Stephen Plascencia on 04-28-2025 Microscopic analysis of urine for red blood cells (RBC) 0-5 SEEN /hpf 0-5 [facility] Monocyte percentageOrdered B y: Stephen Le on 04-28-2025 Monocytes/100 WBC (Bld) 6.4 % 0-10 [facility] Mucus LM Ql (Urine sed)Order ed By: Stephen Plascencia on 04-28-2025 Mucus Ql (Urine sed) RARE /hpf [facility] Neutrophil percentageOrdered By: Stephen Plascencia on 04-28-2025 Neutrophils/100 WBC (Bld) 85.6 % High 47-70 [facility] Nitrite Test strip Ql (U)Ord ered By: Stephen Plascencia on 04-28-2025 Nitrite Ql (U) Negative Negative [facility] Nucleated red blood cell per centageOrdered By: Stephen Plascencia on 04-28-2025 Nucleated RBC/100 WBC (Bld) [Ratio] 0 % 0-5 [facility] Platelet countOrdered By: Yonis Plascencia on 04-28-2025 Platelets (Bld) [#/Vol] 276 10*3/uL 150-450 [facility] Potassium measurement (mass/ volume)Ordered By: Stephen Plascencia on 04-28-2025 Potassium (Unsp spec) [Mass/Vol] 3.8 mmol/L 3.3-5.1 [facility] ,Serum,hCG Quali.on 04-28-2025 HCG, SERUM QUAL Negative Normal [facility] Comment on above: Performed By: #### L 700.6800, L100.0100, L500.2500 ####[facility] [address] [place], [place], [id number] Protein Test strip Ql (U)Ord ered By: Stephen Plascencia on 04-28-2025 Protein Ql (U) 15 mg/dl High Negative [facility] RBC Auto (Bld) [#/Vol]Ordere d By: Stephen Plascencia on 04-28-2025 RBC (Bld) [#/Vol] 4.32 10*6/uL 4.2-5.[address] [facility] Serum beta-hCG test, qualita tiveOrdered By: Stephen Plascencia on 04-28-2025 Beta HCG ( test) Ql Negative [facility] Serum creatinine measurement (mass/volume)Ordered By: Stephen Plascencia on 04-28-2025 Creatinine [Mass/Vol] 0.77 mg/dL 0.70-1.20 [facility] Serum glucose measurement (m ass/volume)Ordered By: Stephen Plascencia on 04-28-2025 Glucose [Mass/Vol] 111 mg/dL High 70-99 [facility] Serum or plasma calcium blake urement (mass/volume)Ordered By: Stephen Plascencia on 04-28-2025 Calcium [Mass/Vol] 9.2 mg/dL 7.6-11.0 [facility] Serum or plasma urea nitroge n measurement (mass/volume)Ordered By: Stephen Plascencia on 04-28-2025 Urea nitrogen [Mass/Vol] 10 mg/dL 4-19 [facility] Sodium levelOrdered By: Stephen Plascencia on 04-28-2025 Sodium [Moles/Vol] 139 mmol/L 133-145 [facility] Squamous epithelial cells de tection in urine sediment by light microscopyOrdered By: Stephen Plascencia on 04-28-2025 Epithelial cells.squamous LM Ql (Urine sed) 0-5 SEEN /hpf 5- [facility] Urinalysis, Completeon 04-28 BACTERIA 2+ /hpf Normal None Seen [facility] Comment on above: Order Comment: CLEAN CATCH Performed By: #### L 400.0001 ####[facility] [address] [place], [place], [id number] EPI,SQUAMOUS 0-5 SEEN Normal 5-10 [facility] Comment on above: Order Comment: CLEAN CATCH Performed By: #### L 400.0001 ####[facility] [address] [place], [address] Mucus Ql (Urine sed) RARE Normal [facility] Comment on above: Order Comment: CLEAN CATCH Performed By: #### L 400.0001 ####[facility] [address] [place], [place], [id number] RBC 0-5 SEEN Normal 0-5 [facility] Comment on above: Order Comment: CLEAN CATCH Performed By: #### L 400.0001 ####[facility] [address] [place], [place], [id number] WBC 0-5 SEEN Normal 0-5 [facility] Comment on above: Order Comment: CLEAN CATCH Performed By: #### L 400.0001 ####[facility] [address] [place], [place], [id number] Urine clarityOrdered By: Nazario Plascencia on 04-28-2025 Clarity (U) Sl. Cloudy Clear [facility] Urine color determinationOrd ered By: Stephen Plascencia on 04-28-2025 Color (U) Yellow Yellow [facility] Urine glucose detectionOrder ed By: Stephen Plascencia on 04-28-2025 Glucose Ql (U) Normal mg/dl Normal [facility] Urine leukocyte esterase det ection by dipstickOrdered By: Stephen Plascencia on 04-28-2025 Leukocyte esterase Test strip Ql (U) 25 /ul High Negative [facility] Urine pHOrdered By: Stephen Plascencia on 04-28-2025 pH (U) 6.0 [pH] 5.0 - 8.0 [facility] Urine sediment bacteria coun t by microscopy (number/high power field)Ordered By: Stephen Plascencia on 04-28-2025 Bacteria LM.HPF (Urine sed) [#/Area] 2 /[HPF] None Seen [facility] Urine specific gravity measu rementOrdered By: Stephen Plascencia on 04-28-2025 Specific gravity (U) [Rel density] 1.015 1.002-1.030 [facility] Urine urobilinogen measureme ntOrdered By: Stephen Plascencia on 04-28-2025 Urobilinogen Ql (U) Normal mg/dl Normal [facility] White blood cell (WBC) count Ordered By: Stephen Plascencia on 04-28-2025 WBC (Bld) [#/Vol] 15.3 10*3/uL High 4.4-11.[address] [facility] White blood cell countOrdere d By: Stephen Plascencia on 04-28-2025 White blood cell count 0-5 SEEN /hpf 0-5 [facility] PROGESTERONE 4317on 08-08-20 24 PROGESTERONE 0.7 ng/mL Normal . [facility] Comment on above: Order Comment: N Result Comment: Foll icular phase 0.1 - 0.9 Luteal phase 1.8 - 23.9 Ovulation phase 0.1 - 12.0 First trimester 11.0 - 44.3 Second trimester 25.4 - 83.3 Third trimester 58.7 - 214.0 Postmenopausal 0.0 - 0.1 Performed at: [address] [id number] [employer]: Mike Anderson PhD, Phone: [phone] Performed By: #### L 3100.5125, L3300.1750, L3300.6750, L801.2600, L501.9520, L3100.5170 #### [facility] [address] [place], [address] Thyroid Antibodieson 024 TG AB < 1.0 Normal 0.0-0.9 [facility] Comment on above: Result Comment: Thyr oglobulin Antibody measured by [employer] It should be noted that the presence of thyroglobulin antibodies may not be pathogenic nor diagnostic, especially at very low levels. The assay director underwriter sales has found that four percent of individuals without evidence of thyroid disease or autoimmunity will have positive TgAb levels up to 4 IU/mL. Performed at: [address] [id number] [employer]: Mike Anderson PhD, Phone: [phone] Performed By: #### L 3100.5125, L3300.1750, L3300.6750, L801.2600, L501.9520, L3100.5170 ####[facility] [address] [place], [address] THYR PEROX AB 13 IU/mL Normal 0-34 [facility] Comment on above: Performed By: #### L 3100.5125, L3300.1750, L3300.6750, L801.2600, L501.9520, L3100.5170 ####[facility] [address] [place], [place], [id number] Estradiolon 08-07-2024 ESTRADIOL 37.4 pg/mL Normal [facility] Comment on above: Result Comment: NORM AL [...] DETERMINE ESTRADIOL CONCENTRATION. Performed By: #### L 3100.5125, L3300.1750, L3300.6750, L801.2600, L501.9520, L3100.5170 #### [facility] [address] [place], [address] Follicle Stimulating Hormone on 08-07-2024 FSH 5.2 mIU/mL Normal [facility] Comment on above: Result Comment: NORMAL REFERENCE RANGES FEMALE FOLLICULAR 2.3 - 12.6 mIU/mL MID-CYCLE PEAK 5.2 - 17.5 mIU/mL LUTEAL 1.7 - 12.9 mIU/mL POST-MENOPAUSAL ON MHT 5.9 - 72.8 mIU/mL NOT ON MHT 12.7 - 132.2 mlU/mL MALE 0.7 - 10.8 mIU/mL Performed By: #### L 3100.5125, L3300.1750, L3300.6750, L801.2600, L501.9520, L3100.5170 #### [facility] [address] [place], [place], [address] Luteinizing Hormoneon 2023 LH 3.8 mIU/mL Normal [facility] Comment on above: Result Comment: NORMAL REFERENCE RANGES FEMALE FOLLICULAR 1.9 - 26.2 mIU/mL MID-CYCLE PEAK 22.8 - 76.1 mIU/mL LUTEAL 0.6 - 16.6 mIU/mL POST-MENOPAUSAL ON MHT 1.1 - 52.4 mIU/mL NOT ON MHT 8.6 - 61.8 mIU/mL MALE 1.2 - 10.6 mIU/mL Performed By: #### L 3100.5125, L3300.1750, L3300.6750, L801.2600, L501.9520, L3100.5170 #### [facility] [address] [facility] [place], [address] Thyroid Stim Hormone (TSH)on 08-07-2024 TSH 1.600 uIU/mL Normal 0.358-3.740 [facility] Comment on above: Performed By: #### L 3100.5125, L3300.1750, L3300.6750, L801.2600, L501.9520, L3100.5170 #### [facility] [address] [place], [address] SCRN MAMM (CAD)W/MODE BILATo n 08-02-2024 SCRN MAMM (CAD)W/MODE BILAT [facility] Imaging Services [address] [place], [place] [address] SCRN MAMM (CAD)W/MODE BILAT MR#: [id number] Acct: [id number] Name: RIENE LOOMIS Rep #: [id number] : 1980 F 43 From: Natanael montano MD PCP: Dr. Gayatri Becker, Status: [facility] Study: SCRN MAMM (CAD)W/MODE BILAT Date of Exam: 07/10 03/01 Exam# [id number] Ordering Dr: Shani Mo [facility] [id number] MAMMOGRAPHY - BILATERAL SCREENING REASON FOR EXAM: [...] delay biopsy of a clinically suspicious abnormality. [id number] Electronically Signed: Natanael Ridley MD at 8:18 EDT , CC: GATITO Mo; Dr. Gayatri Becker DO Shot Core Drill Operator: Signed Normal [facility] Diplomatic Interpreter Office Visit Reporton 07-04-2024 Diplomatic Interpreter Office Visit Report [facility] [address], [address] [place] [address] OFFICE VISIT Date of Service: 07/04/24 MR#: [id number] Acct: [id number] Name: IRENE LOOMIS Rep #: [id number] : 1980 Provider: GATITO Kunh ams Age/Sex: 43/F Location: [facility] [place] Status: Signed Intake Vital Signs 06/02/23 11:24 07/04/24 08:05 07/04/24 08:11 Height 4 ft 11 in 4 ft 11 in 4 ft 11 in Weight: 124 lb BMI 25.0 BP 106/71 Intake Visit 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 Is patient in pain?: No Allergies No Known Allergies Allergy (Verified 07/04/24 08:06) Medications ???Medication ???Instructions ???Recorded ???Confirmed ???Type multivitamin 1 tab PO DAILY 01/06/22 07/04/24 History calcium carbonate (Calcium 600) 600 mg PO QDAY 07/04/24 07/04/24 History Is last menstrual period known: Yes Last Menstrual Period: 06/14/24 Post menopausal: No Patient : No : No Control Method: Vasectomy PFSH Medical History Hearing loss, left Hearing loss, [...] safe at home: Yes additional social history: [employer] 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 Date Name GA/Weeks Outcome Route Bth Weight Infant Gen Labor Lgth Anesthesia Del Locatn Provider FOB Unknown 2013 Adele 37 live - full term 6lbs 11oz Female spinal WC H Anmol Perez Unknown 2015 Vera 30 live - 2lbs 11oz Female Gen linares 11/30/19 Natanael 37 live - full term Male spinal [facility] SE M Delivery Date: Last Updated by: Janetgerald Jimenez Delivered in [place] on vacation HPI Encounter for routine gynecological [...] ROM T (more content not included)... Normal [facility] Established Visit (Otolaryng ology)on 10-20-2022 Established Visit [...] This note was created using speech recognition collector of port software/or StudyTube collector of port services. Despite proofreading, several typographical errors might [...] Oct 20 2022 10:52AM EST (Author) Normal [facility] Office Visit (Audiology)on 0 10-20-2022 Follow-up visit [...] pain, drainage, fullness, vertigo. Patient's preferred language: [place] Preferred language of the parent, legal guardian or surrogate decision-maker of this minor or incapacitated patient: [place] No overt signs of domestic violence/neglect/abuse. No referral made to Vc++ Developer. Pain not interfering with optimal level of [...] Oct 20 2022 9:54AM EST (Author) Normal [facility] Established Visit (Otolaryng ology)on 08-18-2022 Established Visit [...] This note was created using speech recognition collector of port software/or StudyTube collector of port services. Despite proofreading, several typographical errors might [...] DAILY. Vitals Vital Signs Recorded: 18Aug2022 02:17PM Ndfamwtnadi66 F Fpjejb071 lb 0.4 oz BMI Mxlwcvulan04.64 kg/m2 BSA Calculated1.51 'Scores and Scales' Signatures Electronically signed by : Kitty Day MD; Aug 18 2022 4:39PM EST (Author) Normal [facility] Basophil percentageon 2021 Cholesterol [Mass/Vol] 195 mg/dL <200 [facility] Work Phone: Comment on above: <200 mg/dL Desirable 200-240 mg/dL Borderline >240 mg/dL High Risk Triglyceride [Mass/Vol] 62 mg/dL <199 [facility] Work Phone: Comment on above: The drugs N-Acetylcy steine and Metamizole may falsely depress this assay.Serum Triglycerides Reference Interval Normal <150 mg/dL Borderline high 150 - 199 mg/dL High 200 - 499 mg/dL Very High > or = 500 mg/dL Serum or plasma cholesterol in HDL measurement (mass/volume)on 08-04-2022 Cholesterol in HDL [Mass/Vol] 80 mg/dL >40 [facility] Work Phone: Comment on above: The drugs N-Acetylcy steine and Metamizole may falsely depress this assay. Reference Range HDL <40 mg/dL Low HDL Cholesterol HDL >or= 60 mg/dL High HDL Cholesterol Serum or plasma cholesterol in VLDL measurement (mass/volume)on 08-04-2022 Cholesterol in VLDL [Mass/Vol] 12 mg/dL 5-40 [facility] Work Phone: Serum or plasma low density lipoprotein (LDL) cholesterol measurement (mass/volume)on 08-04-2022 Cholesterol in LDL [Mass/Vol] 103 mg/dL 0-130 [facility] Work Phone: Order Reconciliationon 07-19 Order Reconciliation Page 1 Discharge Reconciliation Document Reconciliation Type: Discharge requested on behalf of Carmelita Dangelo (Resident) done by Carmelita Dangelo ( (Resident)) Discharge - Reconciliation: 19-Jul-2022 10:56 by: Carmelita Dangelo (Resident)) Home Medications EnteredHOME MEDICATIONS AT DISCHARGE [...] be shared with your follow-up providers (doctor, racing board marker, physical therapist, etc.). Follow Up with Shay in 4 Weeks 08/22/22 @ 11:45 [facility] May not drive or operate motor [...] H80 (more content not included)... Normal [facility] Patient Profile - Preop v3on 07-18-2022 Patient Profile - Preop v3 Patient Profile - Preop: Initial Info: Patient DemographicsName: IRENE LOOMIS Date: 1980 Address: [address] [place] [id number] Date/Time [id number] 13:23 Primary Phone [phone] Instructions Givenanticoagulant meds - patient advised to consult ordering provider, appropriate clothing, bring list of medications, bring responsible adult as the swing driver (procedure may be cancelled if no swing driver), center location, diabetes meds - patient advised to consult ordering provider, insurance information, remove jewerly/piercings, time to arrive How to be AddressedShannon Spoken Language PreferredEnglish Stated Reason for Admissionleft stapedectomy Primary Contact Name and NumberShannen [phone] Medications Brought to Hospitalno General Health: Patient [...] child(shira) Living Arrangementshouse Resource/Environmental Concernsnone Anticipated Transition Tosan pedro Services Anticipated at Transitionnone Tobacco Use: Tobacco Useno Pre-op Checklist: Arrival [id number] Arrival Time09:15 Procedure Typeleft stapedectomy NPOyes Last Food [id number] 23:00 ID Band On Patientpatient ID (name) [...] 09:26 by Jes Brumfield (RN) Normal [facility] CORONAVIRUS 2019, SCREEN ASY MPTOMATICon 07-16-2022 SARS-CoV-2 (COVID-19) RNA ANDRIY+probe Ql (Unsp spec) Not detected Normal Not Detected [facility] Comment on above: Result Comment: . This [...] patient management decisions. Fact sheet for providers: https://www.fda.gov/media/953053/download Fact sheet for patients: https://www.fda.gov/media/019724/download This test has received FDA Emergency Use Authorization (EUA) and has been verified by [facility] ([facility]). This test is only authorized for the duration of time that circumstances exist to justify the authorization of the emergency use of in vitro diagnostic tests for the detection of SARS-CoV-2 virus and/or diagnosis of COVID-19 infection under section 564(b)(1) of the Act, 21 U.S.C. 360bbb-3(b)(1), unless the authorization is terminated or revoked sooner. [facility] is certified under CLIA-88 as qualified to perform high complexity testing. Testing is performed in the [facility] laboratories located at [address] [place] [address]. Performed By: #### C OVSC #### [place] [address] Lab Specimen Source Nasal, Nasopharyngeal Normal [facility] Comment on above: Performed By: #### C OVSC #### [place] [address] Coronavirus 2019 RNA by PCR, Screening Asymptomticon 07-16-2022 Coronavirus 2019 RNA by PCR, Screening Asymptomtic Not detected Normal See Below -Otolaryng ology-[facility] Work Phone: Comment on above: SOURCE: [...] make patient management decisions.Fact sheet for providers: https://www.fda.gov/media/094601/downloadFact sheet for patients: https://www.fda.gov/media/871448/downloadThis test has received FDA Emergency Use Authorization (EUA) and has been verified by [facility] ([facility]). This test is only authorized for the duration of time that circumstances exist to justify the authorization of the emergency use of in vitro diagnostic tests for the detection of SARS-CoV-2 virus and/or diagnosis of COVID-19 infection under section 564(b)(1) of the Act, 21 U.S.C. 360bbb-3(b)(1), unless the authorization is terminated or revoked sooner. [facility] is certified under CLIA-88 as qualified to perform high complexity testing. Testing is performed in the [facility] laboratories located at [address] [place] [id number]. Covid 19 Resultson 2 SARS-CoV-2 (COVID-19) RNA [...] You may also be contacted by the [facility] to see if any of [...] or Naproxen (Aleve) can also be used. Xfie-ahw-jojtqbw cough and cold medicines can be used according to the instructions on the package. Some gyxs-zjp-hlbsndm medicines also contain acetaminophen. Make sure you [...] water are not available, use alcohol-based hand sewing pattern layout technician. Avoid touching your eyes, nose, and mouth [...] ceasar (more content not included)... Normal [facility] Basophil percentageon 2021 Bilirubin [Mass/Vol] 0.60 mg/dL 0.20-1.00 [facility] Work Phone: Comment on above: For patients on eltr ombopag therapy, use of Dimension [place] TBIL is not recommended. Chloride [Moles/Vol] 105 mmol/L 98-107 [facility] Work Phone: [phone] Glucose [Mass/Vol] 110 mg/dL 74-106 [facility] Work Phone: Comment on above: Fasting Glucose resu lt from 100 to 125 mg/dL suggests IMPAIRED HOMEOSTASIS per A.D.A. criteria. Potassium [Moles/Vol] 4.0 mmol/L 3.5-5.1 [facility] Work Phone: [phone] Protein [Mass/Vol] 7.4 g/dL 6.4-8.2 [facility] Work Phone: [phone] Sodium [Moles/Vol] 138 mmol/L 136-145 [facility] Work Phone: [phone] WBC (Bld) [#/Vol] 5.7 10*3/uL 4.4-11.0 [facility] Work Phone: [phone] Blood erythrocytes count (nu mber/volume)on 06-23-2022 RBC (Bld) [#/Vol] 4.13 10*6/uL 4.2-5.[address] [facility] Work Phone: [phone] Blood hemoglobin measurement (mass/volume)on 06-23-2022 Hemoglobin (Bld) [Mass/Vol] 12.9 g/dL 12.0-15.0 [facility] Work Phone: [phone] Blood platelet mean volumeon 06-23-2022 Platelet mean volume (Bld) [Entitic vol] 10.5 fL 6.2-12.0 [facility] Work Phone: Determination of erythrocyte mean corpuscular volume (MCV)on 06-23-2022 MCV (RBC) [Entitic vol] 91.0 fL 81-99 [facility] Work Phone: Hematocrit Auto (Bld) [Volum e fraction]on 06-23-2022 Hematocrit (Bld) [Volume fraction] 37.6 % 37-47 [facility] Work Phone: INR in Blood by Coagulation assayon 06-23-2022 INR Coag (Bld) [Relative time] 0.9 {INR} [facility] Work Phone: Laboratory - Chemistry and C hemistry - challengeon 06-23-2022 ALP [Catalytic activity/Vol] 78 U/L 45-117 [facility] Work Phone: ALT [Catalytic activity/Vol] 30 U/L 13-56 [facility] Work Phone: CO2 [Moles/Vol] 28.0 mmol/L 21.0-32.0 [facility] Work Phone: Globulin (S) [Mass/Vol] 3.3 g/dL 2.2-4.2 [facility] Work Phone: Urea nitrogen/Creatinine [Mass ratio] 29.6 mg/mg 10-20 [facility] Work Phone: Laboratory - Coagulationon 0 06-23-2022 aPTT Coag (Bld) [Time] 28.0 s 24.1-36.2 [facility] Work Phone: PT Coag (PPP) [Time] 12.3 s 11.7-14.9 os [facility] Work Phone: Laboratory - Hematology and Cell countson 06-23-2022 Erythrocyte distribution width (RBC) [Entitic vol] 41.2 fL 35.1-43.9 [facility] Work Phone: Erythrocyte distribution width (RBC) [Ratio] 12.4 % 11.6-14.6 [facility] Work Phone: [phone] MCH (RBC) [Entitic mass] 31.2 pg 27.0-32.0 [facility] Work Phone: [phone] MCHC Auto (RBC) [Mass/Vol]on 06-23-2022 MCHC (RBC) [Mass/Vol] 34.3 g/dL 32-36 [facility] Work Phone: No Panel Informationon 06-23 Estimated GFR (MDRD) Amer 91 mL/min >60 [facility] Work Phone: Comment on above: GFR Calc Estimated GFR (MDRD) Non-Af Amer 75 mL/min >60 [facility] Work Phone: Comment on above: Non- GFR Calc Platelets bldon 06-23-2022 Platelets (Bld) [#/Vol] 299 10*3/uL 150-450 [facility] Work Phone: [phone] Serum or plasma albumin blake urement (mass/volume)on 06-23-2022 Albumin [Mass/Vol] 4.1 g/dL 3.2-5.0 [facility] Work Phone: [phone] Serum or plasma albumin/glob ulin mass ratioon 06-23-2022 Albumin/Globulin [Mass ratio] 1.2 {ratio} 0.9-2.4 [facility] Work Phone: [phone] Serum or plasma calcium blake urement (mass/volume)on 06-23-2022 Calcium [Mass/Vol] 9.4 mg/dL 8.5-10.1 [facility] Work Phone: [phone] Serum or plasma creatinine m easurement (mass/volume)on 06-23-2022 Creatinine [Mass/Vol] 0.88 mg/dL 0.55-1.02 [facility] Work Phone: Comment on above: The validity of the calculated GFR & GFRAA in patients over 70 years has not been determined. Clinical correlation is essential. Serum or plasma urea nitroge n measurement (mass/volume)on 06-23-2022 Urea nitrogen [Mass/Vol] 26 mg/dL 7-18 [facility] Work Phone: Thin prep Papanicolaou smear with manual screeningon 06-23-2022 Thin prep Papanicolaou smear with manual screening 16 U/L 15-37 [facility] Work Phone: Thin prep Papanicolaou smear with manual screening 5 5-15 [facility] Work Phone: Tobacco Screening.on 022 Adult depression screening assessment No [facility] Work Phone: Fall risk assessment a) No falls within the last year [facility] Work [facility]: Tobacco use status CPHS b) No [facility] Work Phone: Absolute lymphocyte counton 04-19-2022 Lymphocytes Auto (Unsp spec) [#/Vol] 1.58 10*3/uL 0.83-4.51 [facility] Work Phone: Basophil percentageon 2021 Basophil percentage 0 SEEN /hpf 0-5 [facility] Work Phone: Basophils/100 WBC (Bld) 0.6 % 0-1 [facility] Work Phone: Chloride [Moles/Vol] 103 mmol/L 98-107 [facility] Work Phone: Eosinophils/100 WBC (Bld) 1.9 % 0-5 [facility] Work Phone: Glucose [Mass/Vol] 123 mg/dL 74-106 [facility] Work Phone: Comment on above: Fasting Glucose resu lt from 100 to 125 mg/dL suggests IMPAIRED HOMEOSTASIS per A.D.A. criteria. Neutrophils (Bld) [#/Vol] 11.2 10*3/uL 2.0-7.7 [facility] Work Phone: Neutrophils/100 WBC (Bld) 80.1 % 47-70 [facility] Work Phone: Potassium [Moles/Vol] 3.5 mmol/L 3.5-5.1 [facility] Work Phone: Sodium [Moles/Vol] 137 mmol/L 136-145 [facility] Work Phone: WBC (Bld) [#/Vol] 14.1 10*3/uL 4.4-11.0 [facility]: Beta hCG serum qualon 2021 Beta HCG ( test) Ql Negative [facility] Work Phone: Bilirubin Test strip Ql (U)o n 04-19-2022 Bilirubin Ql (U) Negative Negative [facility] Work Phone: Blood erythrocytes count (nu mber/volume)on 04-19-2022 RBC (Bld) [#/Vol] 4.25 10*6/uL 4.2-5.[address] [facility] Work Phone: Blood hemoglobin measurement (mass/volume)on 04-19-2022 Hemoglobin (Bld) [Mass/Vol] 13.0 g/dL 12.0-15.0 [facility] Work Phone: Blood lymphocytes/100 leukoc yteson 04-19-2022 Lymphocytes/100 WBC (Bld) 11.2 % 19-41 [facility] Work Phone: [phone] Blood monocytes/100 leukocyt eson 04-19-2022 Monocytes/100 WBC (Bld) 5.8 % 0-10 [facility] Work Phone: [phone] Blood platelet mean volumeon 04-19-2022 Platelet mean volume (Bld) [Entitic vol] 10.8 fL 6.2-12.0 [facility] Work Phone: Determination of erythrocyte mean corpuscular volume (MCV)on 04-19-2022 MCV (RBC) [Entitic vol] 89.4 fL 81-99 [facility] Work Phone: [phone] Hematocrit Auto (Bld) [Volum e fraction]on 04-19-2022 Hematocrit (Bld) [Volume fraction] 38.0 % 37-47 [facility] Work Phone: [phone] Ketones Test strip Ql (U)on 04-19-2022 Ketones Ql (U) Negative Negative [facility] Work Phone: [phone] Laboratory - Chemistry and C hemistry - challengeon 04-19-2022 CO2 [Moles/Vol] 27.0 mmol/L 21.0-32.0 [facility] Work Phone: [phone] Urea nitrogen/Creatinine [Mass ratio] 19.8 mg/mg 10-20 [facility] Work Phone: [phone] Laboratory - Hematology and Cell countson 04-19-2022 Erythrocyte distribution width (RBC) [Entitic vol] 40.3 fL 35.1-43.9 [facility] Work Phone: [phone] Erythrocyte distribution width (RBC) [Ratio] 12.4 % 11.6-14.6 [facility] Work Phone: [phone] Immature granulocytes/100 WBC (Bld) 0.400 % 0.0-0.9 [facility] Work Phone: [phone] Comment on above: IG% - Immature Granu locytes (promyelocytes, myelocytes and metamyelocytes) > 1% indicates that a LEFT SHIFT is Present. MCH (RBC) [Entitic mass] 30.6 pg 27.0-32.0 [facility] Work Phone: [phone] Nucleated RBC/100 WBC (Bld) [Ratio] 0 % 0-5 [facility] Work Phone: [phone] MCHC Auto (RBC) [Mass/Vol]on 04-19-2022 MCHC (RBC) [Mass/Vol] 34.2 g/dL 32-36 [facility] Work Phone: [phone] Mucus LM Ql (Urine sed)on Mucus Ql (Urine sed) 0 SEEN /hpf [facility] Work Phone: [phone] Nitrite Test strip Ql (U)on 04-19-2022 Nitrite Ql (U) Negative Negative [facility] Work Phone: No Panel Informationon 04-19 Estimated Creatinine Clearance Calc 74.90 ml/min [facility] Work Phone: Estimated GFR (MDRD) Amer 117 mL/min >60 [facility] Work Phone: Comment on above: GFR Calc Estimated GFR (MDRD) Non-Af Amer 97 mL/min >60 [facility] Work Phone: Comment on above: Non- GFR Calc Platelets bldon 04-19-2022 Platelets (Bld) [#/Vol] 318 10*3/uL 150-450 [facility] Work Phone: Protein Test strip Ql (U)on 04-19-2022 Protein Ql (U) Negative Negative [facility] Work Phone: Serum or plasma calcium blake urement (mass/volume)on 04-19-2022 Calcium [Mass/Vol] 9.1 mg/dL 8.5-10.1 [facility] Work Phone: Serum or plasma creatinine m easurement (mass/volume)on 04-19-2022 Creatinine [Mass/Vol] 0.71 mg/dL 0.55-1.02 [facility] Work Phone: Comment on above: The validity of the calculated GFR & GFRAA in patients over 70 years has not been determined. Clinical correlation is essential. Serum or plasma urea nitroge n measurement (mass/volume)on 04-19-2022 Urea nitrogen [Mass/Vol] 14 mg/dL 7-18 [facility] Work Phone: [phone] Squamous epithelial cells de tection in urine sediment by light microscopyon 04-19-2022 Epithelial cells.squamous LM Ql (Urine sed) 0-5 SEEN /hpf 5-10 [facility] Work Phone: Thin prep Papanicolaou smear with manual screeningon 04-19-2022 Thin prep Papanicolaou smear with manual screening 7 5-15 [facility] Work Phone: Urine blood detectionon 04-08 RBC Ql (U) 10 /ul Negative [facility] Work Phone: [phone] RBC Ql (U) 0 SEEN /hpf 0-5 [facility] Work Phone: Urine clarityon 04-19-2022 Clarity (U) Clear Clear [facility] Work Phone: Urine color determinationon 04-19-2022 Color (U) Straw Yellow [facility] Work Phone: Urine glucose detectionon Glucose Ql (U) Normal mg/dl Normal [facility] Work Phone: [phone] Urine leukocyte esterase det ection by dipstickon 04-19-2022 Leukocyte esterase Test strip Ql (U) Negative Negative [facility] Work Phone: Urine pHon 04-19-2022 pH (U) 6.5 [pH] 5.0 - 8.0 [facility] Work Phone: Urine sediment bacteria coun t by microscopy (number/high power field)on 04-19-2022 Bacteria LM.HPF (Urine sed) [#/Area] 0 /[HPF] None Seen [facility] Work Phone: Urine specific gravity measu rementon 04-19-2022 Specific gravity (U) [Rel density] 1.015 1.002-1.030 [facility] Work Phone: Urobilinogen Auto test strip Ql (U)on 04-19-2022 Urobilinogen Ql (U) Normal mg/dl Normal [facility] Work Phone: Cervical or vagninal specime n microscopic examination by cytology stain (reported ason 01-06-2022 Cytology report Cyto stain Doc (Cvx/Vag) Comment [facility] Work Phone: Comment on above: The Pap [...] DNA Probe+sig amp Ql (Cvx) Negative Negative [facility] Work Phone: Comment on above: This nucleic acid am plification test detects fourteen high- risk HPV types (16,18,31,33,35,39,45,51,52,56,58,59,66,68)without differentiation.Performed at: - [facility] [id number] Director: Geraldine Aguilar MD, Phone: [phone] at: =G - [facility] [address] [id number] Director: Geraldine Aguilar MD, Phone: [phone] Laboratory - Cytologyon 12-09 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 Service comment (Unsp spec) [Interp] . [facility] Work Phone: No Panel Informationon 01-06 Pathology report final diagnosis Narrative Comment [facility] Work Phone: Comment on above: NEGATIVE FOR INTRAEP ITHELIAL LESION OR MALIGNANCY. Tobacco Screening.on 021 Fall risk assessment a) No falls within the last year [facility] [facility] Work Phone: Tobacco use status CPHS b) No [facility] Work Phone: Vital Signs Date Time Vital Sign Value Performing Clinician Facility 05-06-2025 12:39-0400 Body height 149.[address] Gayatri Becker DO Work Phone: [facility] 05-06-2025 12:39-0400 Body mass index (BMI) [Ratio] 25.2 kg/m2 Dr. Gayatri Becker DO Work Phone: [facility] 05-06-2025 12:39-0400 Body temperature 97.2 [degF] Dr. Gayatri Becker DO Work Phone: [facility] 05-06-2025 12:39-0400 Body weight 56.[address] Gayatri Becker DO Work Phone: [facility] 05-06-2025 12:39-0400 Diastolic blood pressure 74 mm[Hg] Dr. Gayatri Becker DO Work Phone: [facility] 05-06-2025 12:39-0400 Heart rate 79 /min Dr. Gayatri Becker DO Work Phone: [facility] 05-06-2025 12:39-0400 Respiratory rate 18 /min Dr. Gayatri Becker DO Work Phone: [facility] 05-06-2025 12:39-0400 SaO2% (BldA) [Mass fraction] 99 % Dr. Gayatri Becker DO Work Phone: [facility] 05-06-2025 12:39-0400 Systolic blood pressure 137 mm[Hg] Dr. Gayatri Becker DO Work Phone: [facility] 04-28-2025 11:08-0400 Body temperature 98.6 [degF] Dr. Gayatri Becker DO Work Phone: [facility] 04-28-2025 11:08-0400 Diastolic blood pressure 59 mm[Hg] Dr. Gayatri Becker DO Work Phone: [facility] 04-28-2025 11:08-0400 Heart rate 97 /min Dr. Gayatri Becker DO Work Phone: [facility] 04-28-2025 11:08-0400 Respiratory rate 18 /min Dr. Gayatri Becker DO Work Phone: [facility] 04-28-2025 11:08-0400 SaO2% (BldA) [Mass fraction] 100 % Dr. Gayatri Becker DO Work Phone: [facility] 04-28-2025 11:08-0400 Systolic blood pressure 98 mm[Hg] Dr. Gayatri Becker DO Work Phone: [facility] 04-28-2025 07:55-0400 Body height 149.[address] Gayatri Becker DO Work Phone: [facility] 04-28-2025 07:55-0400 Body mass index (BMI) [Ratio] 25.6 kg/m2 Dr. Gayarti Becker DO Work Phone: [facility] 04-28-2025 07:55-0400 Body weight 57.[address] Gayatri Becker DO Work Phone: [facility] 09-19-2024 15:59-0500 Body height 152.4 cm Kitty Day MD Work Phone: [facility] 09-19-2024 15:59-0500 Body mass index (BMI) [Ratio] 23.24 kg/m2 Kitty Day MD Work Phone: [facility] 09-19-2024 15:59-0500 Body temperature 98.6 [degF] Kitty Day MD Work Phone: [facility] 09-19-2024 15:59-0500 Body weight 53.98 kg Kitty Day MD Work Phone: [facility] 10-19-2023 09:50-0500 Body mass index (BMI) [Ratio] 24.02 kg/m2 Kitty Day MD Work Phone: [facility] 10-19-2023 09:50-0500 Body weight 55.79 kg Kitty Day MD Work Phone: [facility] 08-18-2022 14:17-0500 Body mass index (BMI) [Ratio] 23.64 kg/m2 Gayatrilashawn Becker Work Phone: TE-Pipdedwkevwlyo-I [facility] Work Phone: 08-18-2022 14:17-0500 Body surface area Derived from formula 1.51 m2 Gayatri A Malys Work Phone: EK-Kxqtzcxjysnpah-E [facility] Work Phone: 08-18-2022 14:17-0500 Body temperature 98 [degF] Gayatri Berryys Work Phone: CL-Cxfmhwtijvmksp-F [facility] Work Phone: 08-18-2022 14:17-0500 Body weight 54.9 kg Gayatri A Jamalys Work Phone: VL-Tioqjwupzmlahy-T [facility] Work Phone: 04-25-2022 10:37-0400 Body height 152.4 cm Gayatri A Malys Work Phone: RS[facility]Mhthrzpwotmv[facility] Work Phone: 04-25-2022 10:37-0400 Body mass index (BMI) [Ratio] 23.31 kg/m2 Gayatri A Malys Work Phone: YR-Bhhfobfendms-Lgd [facility] Work Phone: 04-25-2022 10:37-0400 Body surface area Derived from formula 1.5 m2 Gayatri A Malys Work Phone: IK-Pmsdfetwhgiq-Elg [facility] Work Phone: 04-25-2022 10:37-0400 Body temperature 97.1 [degF] Gayatri A Malys Work Phone: UR-Ghceryaejzko-Dyb [facility] Work Phone: 04-25-2022 10:37-0400 Body weight 54.15 kg Gayatri Becker Work Phone: PH-Nymociquydmc-Laq [facility] Work Phone: 04-20-2022 10:25-0400 Body temperature 97.9 [degF] Dr. Gayatri Becker Work Phone: [facility] Work Phone: 04-20-2022 10:25-0400 Diastolic blood pressure 45 mm[Hg] Dr. Gayatri Becker Work Phone: [facility] Work Phone: 04-20-2022 10:25-0400 Heart rate 86 /min Dr. Gayatri Becker Work Phone: [facility] Work Phone: 04-20-2022 10:25-0400 Respiratory rate 16 /min Dr. Gayatri Becker Work Phone: [facility] Work Phone: 04-20-2022 10:25-0400 SaO2% (BldA) [Mass fraction] 100 % Dr. Gayatri Becker Work Phone: [facility] Work Phone: 04-20-2022 10:25-0400 Systolic blood pressure 100 mm[Hg] Dr. Gayatri Becker Work Phone: [facility] Work Phone: 04-19-2022 21:25-0400 Body height 151.[address] Gayatri Becker Work Phone: [facility] Work Phone: 04-19-2022 21:25-0400 Body mass index (BMI) [Ratio] 24.6 kg/m2 Dr. Gayatri Becker Work Phone: [facility] Work Phone: 04-19-2022 21:25-0400 Body weight 56.[address] Gayatri Becker Work Phone: [facility] Work Phone: 01-06-2022 14:11-0400 Body height 152.[address] Gayatri Becker Work Phone: [facility] Work Phone: 01-06-2022 14:11-0400 Body mass index (BMI) [Ratio] 23.8 kg/m2 Dr. Gayatri Becker Work Phone: [facility] Work Phone: 01-06-2022 14:11-0400 Body weight 55.[address] Gayatri Becker Work Phone: [facility] Work Phone: 01-06-2022 14:11-0400 Diastolic blood pressure 90 mm[Hg] Dr. Gayatri Becker Work Phone: [facility] Work Phone: 01-06-2022 14:11-0400 Systolic blood pressure 120 mm[Hg] Dr. Gayatri Becker Work Phone: [facility] Work Phone: 07-16-2021 09:06-0400 Body height 152.4 cm Gayatri Becker Work Phone: GM-Clzntezgbixjia-Y [place] Work Phone: 07-16-2021 09:06-0400 Body mass index (BMI) [Ratio] 24.42 kg/m2 Gayatri Becker Work Phone: XP-Qxpxftwkhdwbna-K [place] Work Phone: 07-16-2021 09:06-0400 Body surface area Derived from formula 1.53 m2 Gayatri Becker Work Phone: OO-Kenpmexdqydrlv-Q [place] Work Phone: 07-16-2021 09:06-0400 Body temperature 97.2 [degF] Gayatri Becker Work Phone: QI-Xgllbzplegyvpf-L [place] Work Phone: 07-16-2021 09:06-0400 Body weight 56.71 kg Gayatri Becker Work Phone: HT-Yktqkemkzqtkpz-P [place] Work Phone: Encounters Encounter Date Encounter Type Care Provider Facility Start: 07-03-2025 ambulatory Gayatri Becker Facility:[facility] Start: 05-13-2025 ambulatory Dm Dixon Facility: [facility] Start: 05-06-2025 End: 05-06-[address] Dm Dixon MD -[facility] Work Phone: Start: 05-06-2025 End: 05-06-[address] Gayatri Becker DO Work Phone: -[facility] Start: 04-28-2025 End: 04-28-2025 Emergency department patient visit Dr. Gayatri Becker DO Work Phone: -Emergency Department Work Phone: Start: 01-15-2025 ambulatory [facility] Start: 09-19-2024 End: 09-19-2024 Office outpatient visit 15 minutes Kitty Day MD Work Phone: 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); Otosclerosis of right ear Start: 09-19-2024 End: 09-20-2024 ambulatory [facility]ulatory Start: 08-07-2024 End: 08-07-2024 [facility] Start: 08-02-2024 End: 08-02-2024 [facility] Start: 07-04-2024 Encounter for gynecological examination (general) (routine) without abnormal findings Shani Mo [facility] Start: 07-04-2024 End: 07-04-2024 ambulatory Gayatri Becker Facility:[facility] Start: 10-19-2023 End: 10-19-2023 Office outpatient visit 15 minutes Kitty Day MD Work Phone: [facility] Comment on above: Otosclerosis, bilate ral (Primary Dx) Start: 10-19-2023 End: 10-19-2023 ambulatory KITTY DAY [facility] Ambulatory Start: 10-20-2022 [facility] visit new patient Gayatri Becker Work Phone: CR-Wyrfjkgjk-Zrshhoqby Work Phone: Start: 10-20-[address] Kitty Day Facility:[id number] Start: 08-18-2022 Postop follow up vis it related to original px Gayatri Bceker Work Phone: RK-Duhynuozzouuju-Qpqa [place] Work Phone: Start: 08-18-[address] Kitty Austin Shay Facility:[id number] Start: 08-04-2022 End: 08-04-[address] Gayatri Becker Work Phone: [facility] Work Phone: Start: 08-04-2022 End: 08-04-[address] Gayatri Becker Work Phone: [facility] Start: 07-19-2022 SURGWEST, Provider: Kitty Day, Status: Pen, Time: 11:00 AM Gayatri Becker Work Phone: FP-Urmmrkpzvnznbi-Cbsk [place] Work Phone: Start: 07-19-2022 End: 07-19-[address] Kitty Austin Shay Facility:[facility] Start: 07-18-2022 Chart Update Gayatri Becker Work Phone: FJ-Vifnjjzvpgbpwq-Tbwg [place] Work Phone: Start: 06-23-2022 End: 06-23-[address] Gayatri Becker Work Phone: [facility] Work Phone: Start: 06-23-2022 End: 06-23-[address] Gayatri Becker Work Phone: [facility], [place] Start: 04-29-2022 End: 04-29-[address] Gayatri Becker Work Phone: [facility] Start: 04-25-[address] Kitty Austin [facility] Facility:[id number] Start: 04-25-2022 Office outpatient vi sit 15 minutes Gayatri Becker Work Phone: XZ-Ukrodmiqraqq-Hlemoi an Work Phone: Start: 04-20-2022 Non-patient / Non-visit Dr. Marily Becker Work Phone: [facility] Start: 04-19-2022 End: 04-20-2022 Evaluation and management of inpatient Dr. [facility]atri [facility] Start: 04-19-2022 Non-patient / Non-visit Dr. Marily Becker Work Phone: [facility] Start: 02-10-2022 End: 02-10-[address] Gayatri Becker [facility] Start: 01-06-2022 End: 01-06-[address] Gayatri Becker Work Phone: [facility]-Laboratory, Specimen Start: 01-06-2022 End: 01-06-[address] Gayatri Becker Work Phone: [facility] [place] [facility] Start: 07-16-2021 Office consultation new/estab patient 60 min Gayatri Becker Work Phone: UY-Lputpulptfalms-Lmzi [place] Work Phone: Evaluation finding Gayatri Becker Work Phone: HT-Facfvldqgnrl-Luuanm an Work Phone: Procedures Date Procedure Procedure [...] Becker Work Phone: Start: 02-10-2022 Screening mammography Taylor Becker Work Phone: H/O: section History of C-sectio n Dr. Gayatri Becker Work Phone: History of appendectomy S/P appendectomy Dr. Gayatri Becker Work Phone: Comment on above: Patient recovering w ell following laparoscopic appendectomy 04/19/2022. Pathology was reviewed and consistent with acute appendicitis. Her wounds are well-healing. No further formal clinic follow-up required. Plan of Treatment Date Care Activity Detail Author Start: 2030 Zoster Vaccines (1 of 2) Zoster Vaccines (1 of 2) [facility] Start: 09-17-2029 DTaP/Tdap/Td Vaccines (3 - Td or Tdap) DTaP/Tdap/Td Vaccines (3 - Td or Tdap) [facility] Start: 07-22-2025 Subsequent hospital visit by physician 07/22/2025 Hospital Encounter [facility] [place] [address] [place] [id number] Kitty Day MD [address] [place] [address] [facility] Start: 04-28-2025 [facility] Start: 06-09-2024 COVID-19 Vaccine ( season) COVID-19 Vaccine ( season) [facility] Start: 06-09-2024 Influenza vaccination Influenza Vaccine (#1) [facility] Start: 10-19-2023 FUV, Provider: Kitty Day, Status: Pen, Time: 9:45 AM FUV, Provider: Kitty Day, Status: Pen, Time: 9:45 AM AT-Csdvpzpzj-Vbmzynzc g 202A Work Phone: Start: 10-19-2023 DUALAUDIO, Provider: Antonina Manriquez, Status: Pen, Time: 9:00 AM DUALAUDIO, Provider: Antonina Manriquez, Status: Pen, Time: 9:00 AM OB-Uinipbfzx-Famgjqfo g 202A Work Phone: Start: 06-09-2023 Influenza vaccination Influenza Vaccine (#1) [facility] Start: 10-20-2022 FUV, Provider: Kitty Day, Status: Pen, Time: 10:30 AM FUV, Provider: Kitty Day, Status: Pen, Time: 10:30 AM PF-Njbqvcybvubrgc-Zyv nsburg Work Phone: Start: 10-20-2022 DUALAUDIO, Provider: Antonina Manriquez, Status: Pen, Time: 9:30 AM DUALAUDIO, Provider: Antonina Manriquez, Status: Pen, Time: 9:30 AM WE-Gtikgdlpwpsmxv-Tcz nsburg Work Phone: Start: 08-22-2022 POV, Provider: Kitty Day, Status: Pen, Time: 11:45 AM POV, Provider: Kitty Day, Status: Pen, Time: 11:45 AM GI-Tmhircoookrp-Gliwo ban Work Phone: Start: 07-19-2022 SURGWEST, Provider: Kitty Day, Status: Pen, Time: 11:00 AM SURGWEST, Provider: Kitty Day, Status: Pen, Time: 11:00 AM DC-Tluhlxunvdisrf-Edu tlake Work Phone: Start: 04-20-2022 Patient discharge [facility] Work Phone: Start: 04-19-2022 Application of intermittent pneumatic compression device [facility] Work Phone: Start: 04-19-2022 Following clinical pathway protocol [facility] Work Phone: Start: 04-19-2022 Application of ice collar, cap or bag [facility] Work Phone: Start: 04-19-2022 Admission procedure [facility] Work Phone: Start: 04-19-2022 Anesthesia intraperitoneal lower abd w/laps nos ANESTH SURG LOWER ABDOMEN [facility] Work Phone: Start: 04-19-2022 Laparoscopic appendectomy LAPAROSCOPY APPENDECTOMY [facility] Work Phone: Start: 04-19-2022 Laps repair hernia except incal/ingun reducible LAP VENT/ABD HERNIA REPAIR [facility] Work Phone: Start: 11-25-2021 COVID-19 Vaccine (4 - Moderna series) COVID-19 Vaccine (4 - Moderna series) [facility] Start: 10-22-2021 POV, Provider: Kitty Day, Status: Pen, Time: 10:30 AM POV, Provider: Kitty Day, Status: Pen, Time: 10:30 AM KD-Dhrpdbtmadocra-Gou renea Work Phone: Start: 2020 Screening for malignant neoplasm of breast Mammogram [facility] Start: 2001 Screening for malignant neoplasm of cervix [facility] Start: 12-24-1999 Hepatitis B Vaccines (1 of 3 - 19+ 3-dose series) Hepatitis B Vaccines (1 of 3 - 19+ 3-dose series) [facility] Start: 1998 Hepatitis C screening Hepatitis C Screening [facility] Start: 1993 Varicella vaccination Varicella Vaccines (1 of 2 - 13+ 2-dose series) [facility] Start: 1981 MMR Vaccines (1 of 1 - Standard series) MMR Vaccines (1 of 1 - Standard series) [facility] Start: 1981 Varicella vaccination Varicella Vaccines (1 of 2 - 2-dose childhood series) [facility] Start: 1980 Hepatitis B Vaccines (1 of 3 - 3-dose series) Hepatitis B Vaccines (1 of 3 - 3-dose series) [facility] Start: 1980 HIV screening HIV Screening [facility] Start: 1980 Lipid panel Lipid Panel [facility] Start: 1980 Yearly Adult Physical Yearly Adult Physical [facility] Patient Education [facility] Work Phone: Patient referral [facility] Work Phone: Stapedectomy/stapedotomy Stapede ctomy Otosclerosis of right ear [facility] OR US Abdomen limited [facility] Immunizations Immunization Date Immunization Notes Care Provider Fa eduardo 09-30-2021 Hair (Moderna) Dr. Gayatri tristan Work Phone: [facility] 11-27-2020 Moderna COVID-19 Vac cine 100 MCG/0.5ML Intramuscular Suspension Gayatri Becker Work Phone: [facility] 10-27-2020 Moderna COVID-19 Vac cine 100 MCG/0.5ML Intramuscular Suspension Gayatri Becker Work Phone: [facility] 09-17-2019 tetanus toxoid, redu matt diphtheria toxoid, and acellular pertussis vaccine, adsorbed Gayatri Becker Work Phone: [facility] 09-17-2019 diphtheria, tetanus toxoids and acellular pertussis vaccine, unspecified formulation Dr. Gayatri Becker Work Phone: [facility] Work Phone: Payers Date Payer Category Payer Self-pay [id number] 2022 Blue Cross Blue Shie ld Managed Care [facility] [id number] 2022 Unknown 2022 Unknown [id number] 1980 Unknown [id number] .[id number]. 2.356 1980 Unknown [id number] ..1.282831.3.579. 2. 1980 Unknown [id number] .0.1.437682.3.579. 2.356 1980 Unknown [id number] .0.1.474541.3.579. 2.356 1980 Unknown [id number] .16.840.1.316145.3.579. 2.356 1980 Unknown [id number] 2.16.840.1.053929.3.579. 2.1244 1980 Unknown [id number] 2.16.840.1.641897.3.579. 2.1244 1980 Unknown [id number] 2.16.840.1.580923.3.579. 2.1245 Unknown [id number] Unknown [id number] 2.16.840.1.691172.3.579. 2.462 Unknown [id number] 2.16.840.1.732792.3.579. 2.462 Unknown [id number] 2.16.840.1.743027.3.579. 2.462 Unknown [id number] 2.16.840.1.172261.3.579. 2.462 Unknown [id number] 2.16.840.1.002193.3.579. 2.462 Unknown [id number] 2.16.840.1.610106.3.579. 2.462 Unknown [id number] 2.16.840.1.289650.3.579. 2.462 Social History Date Type Detail Facility Start: 01-06-2022 End: 04-19-2022 Tobacco smoking status MEIS Unknown if ever smoked [facility] Work Phone: Start: 11-30-2019 None [facility] Start: 1980 Sex Assigned At Female W [facility] Start: 10-19-2023 End: 04-28-2025 Tobacco smoking status NHIS Never smoked tobacco [facility] Work Phone: Start: 10-19-2023 Tobacco use and exposure Smokeless tobacco non-user [facility] Work Phone: Start: 10-19-2023 End: 12-12-2024 History of Social function [facility] Start: 10-19-2023 End: 09-19-2024 Tobacco use panel [facility] Start: 1980 Sex Assigned At Not on file [facility] Work Phone: Start: 10-09-2023 End: 09-19-2024 Exposure to SARS-CoV-2 (event) Not sure [facility] Medical Equipment Procedure Code Equipment Code Equipment Original Text Equipment Identifier Dates Appendectomy, laparoscopic RELOAD,STD 45 [id number] FDA Start: 04-19-2022 Appendectomy, laparoscopic RELOAD,STD 45 [id number] FDA Start: 04-19-2022 Appendectomy, laparoscopic RELOAD,STD 45 [id number] FDA Start: 04-19-2022 Appendectomy, laparoscopic RELOAD,STD 45 [id number] FDA Start: 04-19-2022 Piston, 0.6mm Di a X 4.50mm Eclipse Flat Ribbon Case [id number] Start: 07-19-2022 Comment on above: Description: Convert ed from [facility]. Please see archived information for full log information. Goals Date Patient Goal Desired Activity /State Functional Status Date Assessment Result Facility 04-20-2022 Functional status Up ad sintia [facility] Work Phone: Mental Status Date Assessment Result Facility 04-20-2022 Cognitive function Level Of Cons ciousness Awake;Alert;Appropriate;Follow s Commands [facility] Work Phone: 04-19-2022 Cognitive function Voice/Name [facility] Work Phone: Clinical Notes 06-17-2021 to 04-28-2025 Kitty Day MD - 09/19/2024 3:45 PM Steve Day MD - 10/19/2023 9:45 AM EST Note Date & Type Note Facility 04-28-2025 Radiology Diagnostic study note [facility] Imaging Services [address] [place] [address] Abdomen/Pelvis W IV Cont ONLY MR#: [id number] Acct: [id number] Name: IRENE LOOMIS Rep #: [id number] : 1980 F 44 From: Sujit Plascencia MD PCP: Dr. Gayatri Becker DO Status: REG ER Study:Abdomen/Pelvis W IV Cont ONLY Date of E xam: 04/28/25 Exam# [id number] Ordering Dr: Stephen Plascencia DO EXAM: CT [...] 3. Hepatomegaly with fatty infiltration. Reading [facility] CC: Dr. Gayatri Becker DO; Dr. 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 Despite proofreading, several typographical errors might be present that might affect the meaning of the content. Please call with any questions. By signing my name below, Jasvir Adan Scribe attest that this documentation has been prepared under the direction and in the presence of Kitty Day MD documented in this encounter [facility] Work Phone: 10-19-2023 History of Present illness [...] Kitty Day MD. documented in this encounter [facility] Work Phone: 07-19-2022 History of Present illness [...] audiogram.This note was created using speech recognition collector of port software/or Study[employer] collector of port services. Despite proofreading, several typographical errors might be present that might affect the meaning of the content. Please call with any questions.By signing my name below, I, Jose Carlos Vo, attest that this documentation has been prepared under the direction and in the presence of Dr. Day. All medical record entries made by the Elliotibanjana were at my direction and personally dictated by me. I have reviewed the chart and agree that the record accurately reflects my personal performance of the history, physical exam, discussion, and plan. PY-Dmxmqtnnfgqrmd-Bhijvfpy Work Phone: 07-19-2022 Note PROCEDURE DETAILS Preoperative Diagnosis: Left conductive hearing loss Postoperative Diagnosis: Left non-obliterative otosclerosis Surgeon: Shay Resident/Fellow/Other Alterations Tailor: Antolin Procedure: 1. Left stapedectomy with use of CO2 Omniguide laser 2. Microsurgical techniques requiring use of operating microscope. Anesthesia: general Estimated Blood Loss: 2 Findings: see operative report Specimens(s) Collected: no, Complications: none Implants: 4.50 x 0.6 mm, 360-degree Eclipse nitinol-based piston manufactured by [employer] Patient Returned To/Condition: PACU/stable Operative Report: Pre-operative diagnosis: Left conductive hearing loss Post-operative diagnosis: Left non-obliterative otosclerosis Procedure: Left stapedectomy with use of CO2 Omniguide laser Microsurgical techniques requiring use of operating microscope. Surgeon: Kitty Day MD Alterations Tailor surgeon: Anesthesia: General Endotracheal. Estimated blood loss: [...] mm, 360-degree Eclipse nitinol-based piston manufactured by [employer], [place], [place] was then placed and crimped onto [...] Authored: N (more content not included)... [facility] 07-19-2022 Note History of Present I llness: [...] Updated: 27-Jul-2022 07:47 by Kitty Day) [facility] 04-25-2022 Note Diagnoses/Problems Blood tests prior to treatment or procedure (V72.63) (Z01.812) Otosclerosis (387.9) (H80.90) Orders Complete Blood Count; Status:Active - Retrospective By Protocol Authorization; Requested for:[id number]; Comprehensive Metabolic Panel; Status:Active - Retrospective By Protocol Authorization; Requested for:[id number]; Coagulation Screen; Status:Active - Retrospective By Protocol Authorization; Requested for:[id number]; Chief Complaint Follow-up visit to discuss surgery [...] to none. 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 A comprehensive 10-point review of systems [...] perforation, taste disturba (more content not included)... PASSNFLY 01-06-2022 Note [facility] Work Phone: Pap Smear Specimen Adequacy January 06, 2022 3:41pm Comment Satisfactory for evaluation. Endocervical and/or squamous metaplasticcells (endocervical component) are present. Comment on above: Satisfactory for josef luation. Endocervical and/or squamous metaplasticcells (endocervical component) are present. 01-06-2022 Note [facility] Work Phone: Pap Smear Specimen Adequacy January [...] signs of domestic violence/neglect/abuse.No referral made to Vc++ Developer.Pain not interfering with optimal level of function or ability to assess and/or treat.Pain Scale rank: 0/10Pain Scale used: NumericNo referral made to primary care provider (PCP).Factors/Barriers influencing patient's ability to complete assessment or learn: none.Person taught: patient.Readiness to learn: no barriers.Results of Teaching/Counseling: verbalize recall / understanding and teaching complete. DS-Hpepcgnhe-Aafwhxihj Work Phone: Evaluation note No assessment inform ation available [facility] Work Phone: Evaluation note Diagnosis Onset Date S/P appendectomy acute Abdominal pain resolved Acute appendicitis resolved Umbilical hernia without obs truction and without gangrene resolved S/P appendectomy acute Status post umbilical hernia repair, follow-up exam acute [facility] Work Phone: Evaluation note* Diagnosis Otosclerosis, bilateral- Primary documented in this encounter [facility] Work Phone: Evaluation note* Diagnosis Conductive hearing loss of right ear with unrestricted hearing of left ear- Primary Otosclerosis of right ear Otosclerosis of right ear- Primary documented in this encounter [facility] Work Phone: History of Present illness Narrative* [...] none. 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 * A comprehensive 10-point review of systems [...] The patient desires to have a left ALONRDA/stapedectomy. * I discussed with the patient the complexity of my medical decision making including the treatment and testing rational, indications of their elective procedure and possible adverse effects and/or complications. Based on the provided documentation and my professional assessment of this patient s animal scientist truong progressive condition, the complexity of evaluation and treatment is moderate. * This note was created using speech recognition collector of port software/or StudyTube collector of port services. Despite proofreading, several typographical errors might [...] stapedectomy for otosclerosis is an elective procedure. XT-Egtwsmewvidkuv-Iybwodlmk Work Phone: History of Present illness Narrative* [...] none. 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 * A comprehensive 10-point review of systems [...] my professional assessment of this patient s animal scientist truong progressive condition, the complexity of evaluation and treatment is moderate. * This note was created using speech recognition collector of port software/or [employer] collector of port services. Despite proofreading, several typographical errors might [...] stapedectomy for otosclerosis is an elective procedure. EI-Boergxkkmjmk-Kohcgykl Work Phone: History of Present illness Narrative* [...] none. 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 * A comprehensive 10-point review of systems [...] my professional assessment of this patient s animal scientist truong progressive condition, the complexity of evaluation and treatment is moderate. * This note was created using speech recognition collector of port software/or StudyTube collector of port services. Despite proofreading, several typographical errors might [...] stapedectomy for otosclerosis is an elective procedure. JH-Lgpoyoorvmiydo-Bidteyyq Work Phone: Hospital Discharge instructionsAdditional Instructions Uncomplicated diverticulitis seen on CT white count 15. You had incidental findings gallbladder stones with sludge you have no pain in this area. Taking finish antibiotic as prescribed. Use Tylenol as needed. Low fiber diet for next few weeks after discussion with Dr. Salinas. Follow-up with their office with Dr. Dixon for reevaluation and discussion for future colonoscopy.[facility] Work Phone: Reason for referral (narrative)No reason for referral information availableWTri[facility] Work Phone: Chief Complaint New patient visit possible otosclerosisFollow-up visit to discuss surgery for a middle ear exploration and possible stapedectomyFollow-up visit to discuss surgery for a middle ear exploration and possible stapedectomyPost-operative visit status post left stapedectomy on 07/19/22post-op left stapedectomy Chief Complaint and Reason for Visit Chief Complaint Annual (CONTACT LENS BLOCKER) Chief Complaint Annual (CONTACT LENS BLOCKER) SCREENING Chief Complaint APPENDECTOMY ACUTE APPENDICITIS ACUTE APPENDICITIS ER 10 day f/u appy 04/19 Reason for Visit S/P appendectomy Abdominal pain Acute appendicitis Umbilical hernia without obstruction and without gangrene S/P appendectomy Status post umbilical hernia repair, follow-up exam Chief Complaint Admit Date ABD PAIN; LLQ April 28, 2025 7:54 am Chief Complaint Admit Date ABD PAIN; LLQ April 28, 2025 7:54 am ER F/U - DIVERTICULITS May 06, 2025 1 2:28pm Family History No Family History Records Found Relationship Condition Age at Onset Recorded Date/T federico mother Hypertension Unknown Hyperlipidemia Unknown father Diabetes mellitus Unknown Hypertension Unknown Advance Directives No Advanced Directives Records Found Advance Directive Response Recorded Date/ Time Advance Directives No August 4:53pm Living Will No November 30 1:44am Power of Offset Second Press Operator No November 30, 2019 1:44am Advance Directive Response Recorded Date/ Time Advance Directives No August 4:53pm Living Will No Joycelyn 12th, 2022 9:24pm Power of Offset Second Press Operator No April 19 9:24pm Advance Directive Response Recorded Date/ Time Do you have a Healthcare Power of Offset Second Press Operator? No April 28, 2025 8:04am Advance Directives [...] DATE CREATED AUTHOR AUTHOR'S ORGANIZ ATION 10/21/2022 [facility] DATE CREATED AUTHOR AUTHOR'S ORGANIZ ATION 09/22/2024 [facility] DATE CREATED AUTHOR AUTHOR'S ORGANIZ ATION 01/17/2025 [facility] DATE CREATED AUTHOR AUTHOR'S ORGANIZ ATION 05/12/2025 [facility] Reason for Visit (unrecogniz ed section and content) Reason Comments s/p stapedectomy Reason Comments Follow-up Care Teams (unrecognized sec tion and content) Art Teacher Relationship Specialty Start Date End Date Gayatri Becker DO PCP - General 07/16/21 Art Teacher Relationship Specialty Start Date End Date Gayatir Becker DO PCP - General 07/16/21 Team Status: Active Member Role/Relationship Status Dates Dr. Gayatri Becker DO Primary Care Provider Active Team Status: Inactive Member Role/Relationship Status Dates Dr. Gayatri Becker DO Primary Care Provider Active Start: April 28, 2025 End: April 28, 2025 Dr. Stephen Plascencia DO Emergency Provider Active Start : April 28, 2025 End: April 28, 2025 Team Status: Inactive Member Role/Relationship Status Dates Dr. Gayatri Becker DO Primary Care Provider Active Start: April 28, 2025 End: April 28, 2025 Dr. Stephen Plascencia , DO Attending Provider Active Start : April 28, 2025 End: April 28, 2025 Dr. Stephen Plascencia DO Emergency Provider Active Start : April 28, 2025 End: April 28, 2025 Team Status: Inactive Member Role/Relationship Status Dates Dr. Gayatri Becker DO Primary Care Provider Active Start: May 06, 2025 End: May 06, 2025 Dr. Gayatri Becker DO Referring Provider Active St art: May 06, 2025 End: May 06, 2025 Dr. Dm Dixon MD Attending Provider Active Start: May 06, 2025 End: May 06, 2025 FOR RECORDS PERTAINING TO PATIENTS WHO [...] BE BASED ON THE PRIMARY CLINICAL RECORDS. [facility] [employer] provides no warranty or guarantee of the accuracy or completeness of information in this document.
== END | disposition home or self-care (01) ==
LOC: US 07:16
PROVIDERS: PCP Family Medicine; Referring Provider Surgery; Visit Provider Surgery
DX: K82.8 Other specified diseases of gallbladder (principal)
CPT/HCPCS: 76705

== ENCOUNTER 2025-07-03 06:32 | Day surgery (SDC) | payer BC, SELFPAY ==
[2025-07-03] VITALS (12 sets, daily range): BP systolic 80–121; BP diastolic 48–63; PULSE 61–95; RESP 10–18; TEMP 36.1–36.6; O2SAT 93–100; BMI 24.5
--- OUTSIDE RECORDS SUMMARY | 2025-07-03 06:35 | XMS RPT_ITS | CCD ---
Author Organization [facility] Care Team Providers Care Manager Infrastructure Name Role Phone Gayatri Becker Unavailable Unavailable Unavailable Dr. Gayatri Becker Primary Care Provider [phone] Dr. Gayatri Becker Referring Provider [phone] Liberty Rondon Attending Provider Dr. Gayatri Becker Primary Care Provider [phone] Dr. Irineo Kohli Emergency Provider [phone] Dm Dixon Attending Provider Zack, Dr. Chaidez Referring Provider [phone] Dr. Dm Dixon Other Provider Zack, Dr. Chaidez Admit Provider [phone] Declan, MsMichele Kruger Attending Unav ailable Eugenio, Dr. Gayatri Foss Primary Care Unavailable Rody, Dr. Kitty Galan Referring Unavail able Rody, Dr. Kitty Galan Referring Unavail able Malys, Dr. Gayatri Foss Primary Care Unavailable Rody, Dr. Kitty Galan Attending Unavail able Rody, Dr. Kitty Galan Attending Unavail able Malys, Dr. Gayatri Foss Primary Care Unavailable Rody, Dr. Kitty Galan Referring Unavail able Rody, Dr. Kitty Galan Attending Unavail able Malys, Dr. Gayatri Foss Primary Care Unavailable Rody, Dr. Kitty Galan Admitting Unavail able Rody, Dr. Kitty Galan Referring Unavail able Rody, Dr. Kitty Galan Attending Unavail able Self, Referral Referring Unavailable Malys, Dr. Gayatri Foss Primary Care Unavailable Malys Gayatri ZHAO Primary Care Provider KITTY DAY Attending Unavailable MALYS, GAYATRI AGUSTÍN Primary Care Unavailable KITTY DAY Attending Unavailable MALYS, GAYATRI AGUSTÍN Primary Care Unavailable Malys , Dr. Mendieta Primary Care Provider Thais ZHAO, Dr. Mitchell Emergency Provider Le , Dr. Mitchell Attending Provider Jamalys , Dr. Mendieta Referring Provider [phone] Zack HALL, Dr. Chaidez Attending Provider Zack HALL, Dr. Chaidez Referring Provider KITTY DAY Admitting Unavailable KITTY DAY Attending Unavailable MALYS, GAYATRI AGUSTÍN Primary Care Unavailable Dm Dixon Attending Unavailable Malys, Gayatri Referring Unavailable Malys, Gayatri Primary Care Unavailable Dm Dixon Referring Unavailable Malys, Gayatri Primary Care Unavailable Dm Dixon Attending Unavailable Shani Mo Attending Unavailable Malys, Gayatri Primary Care Unavailable Malys, Gayatri Referring Unavailable Dm iDxon Attending Unavailable Malys, Gayatri Referring Unavailable Malys, Gayatri Primary Care Unavailable Shani Mo Attending Unavailable Shani Mo Referring Unavailable Malys, Gayatri Primary Care Unavailable Malys, Gayatri Primary Care Unavailable Malys, Gayatri Attending Unavailable Malys, Gayatri Referring Unavailable Stephen Plascencia Attending Unavailable Malys, Gayatri Primary Care Unavailable Karime Newsome Attending Unavailable [place], Molly Referring Unavailable Malys, Gayatri Primary Care Unavailable Medications Current Medications Medication Drug Class(es) Dates Sig (Normalized) Sig (Original) amoxicillin 875 mg / clavulanate 125 mg oral tablet (3 sources) Penicillin-class Antibacterial Start: 04-28-2025 take 1 tablet by mouth every twelve hours Amoxicillin-Pot Clavulanate 875-125 mg tablet Active 875 mg PO Q12H 20 0 April 28, 2025 12:00am calcium carbonate 1500 mg oral tablet (3 sources) Start: 07-04-2024 take 1 tablet by [...] DAILY January 06, 2022 12:00am Multivitamin tablet (3 sources) Start: 01-06-2022 Multivitamin t ablet Active 1 {tbl} PO DAILY January 06, 2022 12:00am Completed/Discontinued Medications Medication Drug Class(es) Dates Sig (Normalized) Sig (Original) 1.1 ml HYDROXYprogesterone caproate (prison) 250 mg/ml auto-injector (7 sources) Start: 05-27-2019 End: 10-10-2019 Hydroxyprogest(Pf)( Preg Presv) (Yudelka (Pf)) 275 mg/1.1 mL auto-injector Discontinued 275 mg SC EVERY WEEK 1.1 12 May 27, 2019 12:00am October 10, 2019 9:37am acetaminophen 325 mg / oxyCODONE hydrochloride 5 mg oral tablet (7 sources) Opioid Agonist Start: 12-01-2019 End: 12-08-2019 [...] 2019 1:10am cephalexin 500 mg oral capsule (7 sources) Cephalosporin Antibacterial Start: 12-12-2019 End: 12-19-2019 [...] 25-Apr-2022 Active naproxen 250 mg oral tablet (7 sources) Nonsteroidal Anti-inflammatory Drug Start: 12-01-2019 End: 12-12-2019 take 250-500 mg by mouth every eight hours as needed for pain Naproxen 250 MG tablet Discontinued 250 - 500 mg PO EVERY 8 HOURS NEEDED as needed for MILD PAIN 30 1 December 01, 2019 1:00am December 12, 2019 11:44am oseltamivir 75 mg oral capsule (14 sources) Neuraminidase Inhibitor Start: 11-25-2019 End: 12-12-2019 take 1 capsule by mouth once daily Oseltamivir 75 MG capsule Discontinued 75 mg PO DAILY November 30, 2019 1:15am December 12, 2019 11:45am Check with primary doctor oxyCODONE hydrochloride 5 mg oral tablet (5 sources) Opioid Agonist Start: 04-20-2022 End: 06-02-2023 take 1 tablet by mouth every six hours as needed for pain Oxycodone 5 mg Tablet Discontinued 5 mg PO EVERY 6 HOURS NEEDED as needed for Pain Score 6-10 7 3 0 April 20, 2022 June 02, 2023 11:28am Status post appendectomy Acquired absence of other specified parts of digestive tract Vit,Vkkx95-Exru-Ciqqo (4 sources) Start: 06-26-2014 End: 01-06-2022 take 1 tablet by mouth once daily Vit,Xiyn10-Ffgl-Dffup Discontinued 1 TABLET PO DAILY June 26, 2014 4:08pm January 06, 2022 2:11pm Start: 06-26-2014 End: 01-06-2022 take 1 tablet by mouth once daily Vit,Kaxz51-Zaqj-Xwmbj Discontinued 1 TABLET PO DAILY June 26, 2014 12:00am January 06, 2022 2:11pm Vit,Sqtq29-Xunl-Olwyx 1 TABLET tablet (3 sources) Start: 06-26-2014 End: 01-06-2022 take 1 tablet by mouth once daily Vit,Jbho08-Ooci-Lbyfy 1 TABLET tablet Discontinued 1 {tbl} PO DAILY June 26, 2014 12:00am January 06, 2022 2:11pm Problems Active Problems Problem Classification Problem Date Documented Date Episodic/Chronic Abdominal hernia (7 sources) Umbilical hernia; Translations: [Umbilical hernia without obstruction or gangrene] Episodic Abdominal pain (11 sources) Abdominal pain; Translations: [Unspecified abdominal pain] Onset: 05-01-2025 Episodic Appendicitis and other appendiceal conditions (7 sources) Acute appendicitis; Translations: [Unspecified acute appendicitis] Episodic Biliary tract disease (6 sources) Gallstone; Translations: [Calculus of gallbladder without cholecystitis without obstruction] Onset: 05-22-2025 04-28-2025 Episodic Comment on above: Patient with new fin ding of cholelithiasis and otherwise equivocal findings on CT for acute cholecystitis. However, patient has no history supporting this diagnosis. Suggested we simply perform a right upper quadrant ultrasound to characterize better but did inform patient of the significant incidence of this finding without pathologic correlate. Diverticulosis and diverticulitis (6 sources) Diverticulitis of intestine; Translations: [Diverticulitis of intestine, part unspecified, without perforation or abscess without bleeding] 04-28-2025 Chronic Comment on above: 44-year-old female w ith a history of acute diverticulitis presenting for follow-up. Initial symptoms of left lower quadrant pain occurred post heavy lifting and were persistent until treated with antibiotics. Augmentin-induced changes in bowel habits were noted. Imaging identified biliary sludge, but the clinical presentation does not suggest acute cholecystitis. Repeated evaluation with right upper quadrant ultrasound is warranted, alongside scheduled colonoscopy post-symptomatic recovery. Patient appears to be at average risk for colon cancer otherwise and has not previously undergone colonoscopy. Procedure expectations, including preprocedure prep were discussed in detail. Hemorrhage during ; abruptio placenta; placenta previa (14 sources) Antepartum hemorrhage; Translations: [Hemorrhage in early , unspecified] 09-17-2019 Episodic Comment on above: Subchorionic hematom a: 05/08: 1.7cm; 05/21 .9cm resolved. Other aftercare (5 sources) History of repair of umbilical hernia; [...] unspecified, unspecified trimester] Episodic Other complications of (7 sources) Placental insufficiency; Translations: [Maternal care for known or suspected placental insufficiency, third trimester, not applicable or unspecified] 06-02-2023 Episodic Other complications of (7 sources) H/O: premature delivery; Translations: [Supervision of [...] conditions (not mental disorders or infectious disease) (2 sources) Encounter for screening mammogram for malignant neoplasm of breast; Translations: [Encounter for screening mammogram for malignant neoplasm of breast] Onset: 08-23-2024 Episodic Otitis media and related conditions (18 sources) Otosclerosis; 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, unspecified] Onset: 07-19-2022 Episodic Residual codes; unclassified (7 sources) History of cholestasis in ; Translations: [Personal history of other complications of , childbirth and the puerperium] 06-02-2023 Episodic Residual codes; unclassified (4 sources) Acquired absence of other specified parts of digestive tract; Translations: [Other postprocedural status] Episodic Umbilical cord complication (7 sources) Velamentous insertion of umbilical cord; Translations: [Velamentous insertion of umbilical cord, unspecified trimester] 06-02-2023 Episodic Comment on above: growth us every 4 we eks Unclassified (2 sources) s/p stapedectomy Onset: 10-19-2023 Past or Other Problems Problem Classification Problem Date Documented Da te Episodic/Chronic Unclassified (2 sources) Onset: 10-19-2023 Resolved: 09-19-2024 10-19-2023 Results Test Name Value Interpretation Reference Range Facility Abdomen Limitedon 05-13-2025 Abdomen Limited [facility] Services [address] [place] [address] Abdomen Limited MR#: [id number] Acct: [id number] Name: IRENE LOOMIS Rep #: [id number] : 1980 F 44 From: Natanael montano MD PCP: Dr. Gayatri Becker DO Status: REG CLI Study: Abdomen Limited Date of Exam: 05/13/25 Exam# [id number] Ordering Dr: Dm Dixon MD PROCEDURE: ABDOMEN LIMITED 05/13/2025 REASON FOR EXAM: GALLBLADDER SLUDGE COMPARISON: Prior CT scan of the abdomen and pelvis dated April 28, 2025. FINDINGS: Liver: Grossly normal size and echotexture. Gallbladder: Multiple echogenic gallstones are identified. Common bile duct: Normal measuring 3 mm . Pancreas: Normal Other: Visualized portions of the right kidney are unremarkable. No right upper quadrant ascites. US/Abdomen Limited IMPRESSION: Multiple gallstones. Reading Location: [id number] CC: Dr. Gayatri Becker DO; Dr. Dm Dixon MD Cyber Security Specialist: Signed Normal [facility] Surgery Visit Reporton 05-06 Surgery Visit Report [facility] [place] [address] OFFICE VISIT Date of Service: 05/06/25 MR#: [id number] Acct: [id number] Name: IRENE LOOMIS Rep #: [id number] : 1980 Provider: Dr. 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 Normal [facility] Abdomen/Pelvis W IV Cont ONL Yon 04-28-2025 Abdomen/Pelvis W IV Cont ONLY [facility] Imaging Services [address] [place] [address] Abdomen/Pelvis W IV Cont ONLY MR#: [id number] Acct: [id number] Name: IRENE LOOMIS Rep #: [id number] : 1980 F 44 From: Glenn Plascencia MD PCP: Dr. Gayatri Becker DO Status: [facility] ER Study: Abdomen/Pelvis W IV Cont ONLY Date of Exam: Exam# [id number] Ordering Dr: Stephen Plascencia DO EXAM: CT [...] 3. Hepatomegaly with fatty infiltration. Reading Location: [facility] CC: Dr. Gayatri Becker DO; Dr. Stephen Plascencia DO Cyber Security Specialist: Signed Normal [facility] Absolute lymphocyte countOrd ered By: Stephen Plascencia on 04-28-2025 Lymphocytes Auto (Unsp spec) [#/Vol] 0.95 10*3/uL 0.83-4.51 [facility] Absolute neutrophil countOrd ered By: Stephen Plascencia on 04-28-2025 Neutrophils (Bld) [#/Vol] 13.1 10*3/uL High 2.0-7.7 [facility] Anion gap in Serum or Plasma Ordered By: Stephen Plascencia on 04-28-2025 Anion gap [Moles/Vol] 11 mmol/L 5-15 [facility] Automated lymphocyte count a s percentage of total leukocytesOrdered By: Stephen Plascencia on 04-28-2025 Lymphocytes/100 WBC Auto (Unsp spec) 6.2 % Low 19-41 [facility] BUN/creatinine ratioOrdered By: Stephen Plascencia on 04-28-2025 Urea nitrogen/Creatinine [Mass ratio] 13.2 mg/mg 07-28 [facility] Basic Metabolic Profile (BMP )on 04-28-2025 BUN/CRE 13.2 RATIO Normal 07-28 [facility] Comment on above: Performed By: #### L 700.6800, L100.0100, L500.2500 ####[facility] [address] [place], [address] Calcium [Mass/Vol] 9.2 mg/dL Normal 7.6-11.0 [facility] Comment on above: Performed By: #### L 700.6800, L100.0100, L500.2500 ####[facility] [address] [place], [address] Chloride [Moles/Vol] 103 mmol/L Normal 98-108 [facility] Comment on above: Performed By: #### L 700.6800, L100.0100, L500.2500 ####[facility] [address] [place], [address] CO2 [Moles/Vol] 24.9 mmol/L Normal 21.0-32.0 [facility] Comment on above: Performed By: #### L 700.6800, L100.0100, L500.2500 ####[facility] [address] [place], [address] Creatinine [Mass/Vol] 0.77 mg/dL Normal 0.70-1.20 [facility] Comment on above: Performed By: #### L 700.6800, L100.0100, L500.2500 ####[facility] [address] [place], [address] ECRCL 74.10 ml/min Normal 50-250 [facility] Comment on above: Performed By: #### L 700.6800, L100.0100, L500.2500 ####[facility] [address] [place], [address] GAP 11 Normal 5-15 [facility] Comment on above: Performed By: #### L 700.6800, L100.0100, L500.2500 ####[facility] [address] [place], [address] GFR/1.73 sq M.predicted among non-blacks MDRD (S/P/Bld) [Vol rate/Area] 97 mL/min/{1.73_m2} Normal >60 [facility] Comment on above: Result Comment: mL/m in/1.73m2 CKD-EPI Creatinine Equation (2020) Performed By: #### L 700.6800, L100.0100, L500.2500 ####[facility] [address] [place], [address] Glucose [Mass/Vol] 111 mg/dL High 70-99 [facility] Comment on above: Performed By: #### L 700.6800, L100.0100, L500.2500 ####[facility] [address] [place], [address] Potassium [Moles/Vol] 3.8 mmol/L Normal 3.3-5.1 [facility] Comment on above: Performed By: #### L 700.6800, L100.0100, L500.2500 ####[facility] [address] [place], [address] Sodium [Moles/Vol] 139 mmol/L Normal 133-145 [facility] Comment on above: Performed By: #### L 700.6800, L100.0100, L500.2500 ####[facility] [address] [place], [address] Urea nitrogen [Mass/Vol] 10 mg/dL Normal 4-19 [facility] Comment on above: Performed By: #### L 700.6800, L100.0100, L500.2500 ####[facility] [address] [place], [address] Basophil percentageOrdered B y: Stephen Plascencia on 04-28-2025 Basophils/100 WBC (Bld) 0.4 % 0-1 [facility] Bilirubin Test strip Ql (U)O rdered By: Stephen Plascencia on 04-28-2025 Bilirubin Ql (U) Negative Negative [facility] CBC W/Diff, Automatedon 04-09-2024 Absolute Lymph 0.95 X10 3/uL Normal 0.83-4.51 [facility] Comment on above: Performed By: #### L 700.6800, L100.0100, L500.2500 ####[facility] [address] [place], [address] Absolute Neut 13.1 X10 3/uL High 2.0-7.7 [facility] Comment on above: Performed By: #### L 700.6800, L100.0100, L500.2500 ####[facility] [address] [place], [address] Basophils/100 WBC (Bld) 0.4 % Normal 0-1 [facility] Comment on above: Performed By: #### L 700.6800, L100.0100, L500.2500 ####[facility] [address] [place], [address] Eosinophils/100 WBC (Bld) 0.7 % Normal 0-5 [facility] Comment on above: Performed By: #### L 700.6800, L100.0100, L500.2500 ####[facility] [address] [place], [address] Erythrocyte distribution width (RBC) [Ratio] 12.9 % Normal 11.6-14.6 [facility] Comment on above: Performed By: #### L 700.6800, L100.0100, L500.2500 ####[facility] [address] [place], [address] Hematocrit (Bld) [Volume fraction] 38.4 % Normal 37-47 [facility] Comment on above: Performed By: #### L 700.6800, L100.0100, L500.2500 ####[facility] [address] [place], [address] Hemoglobin (Bld) [Mass/Vol] 13.6 g/dL Normal 12.0-15.0 [facility] Comment on above: Performed By: #### L 700.6800, L100.0100, L500.2500 ####[facility] [address] [place], [address] IG% 0.700 Normal 0.0-0.9 [facility] Comment on above: Result Comment: IG% - Immature Granulocytes (promyelocytes, myelocytes and metamyelocytes) > 1% indicates that a LEFT SHIFT is Present. Performed By: #### L 700.6800, L100.0100, L500.2500 ####[facility] [address] [place], [address] Lymphocytes/100 WBC (Bld) 6.2 % Low 19-41 [facility] Comment on above: Performed By: #### L 700.6800, L100.0100, L500.2500 ####[facility] [address] [place], [address] MCH (RBC) [Entitic mass] 31.5 pg Normal 27.0-32.0 [facility] Comment on above: Performed By: #### L 700.6800, L100.0100, L500.2500 ####[facility] [address] [place], [address] MCHC (RBC) [Mass/Vol] 35.4 g/dL Normal 32-36 [facility] Comment on above: Performed By: #### L 700.6800, L100.0100, L500.2500 ####[facility] [address] [place], [address] MCV (RBC) [Entitic vol] 88.9 fL Normal 81-99 [facility] Comment on above: Performed By: #### L 700.6800, L100.0100, L500.2500 ####[facility] [address] [place], [address] Monocytes/100 WBC (Bld) 6.4 % Normal 0-10 [facility] Comment on above: Performed By: #### L 700.6800, L100.0100, L500.2500 ####[facility] [address] [place], [address] Neutrophils/100 WBC (Bld) 85.6 % High 47-70 [facility] Comment on above: Performed By: #### L 700.6800, L100.0100, L500.2500 ####[facility] [address] [place], [address] Nucleated RBC (Bld) [#/Vol] 0 10*3/uL Normal 0-5 [facility] Comment on above: Performed By: #### L 700.6800, L100.0100, L500.2500 ####[facility] [address] [place], [address] Platelet mean volume (Bld) [Entitic vol] 10.4 fL Normal 6.2-12.0 [facility] Comment on above: Performed By: #### L 700.6800, L100.0100, L500.2500 ####[facility] [address] [place], [address] Platelets (Bld) [#/Vol] 276 10*3/uL Normal 150-450 [facility] Comment on above: Performed By: #### L 700.6800, L100.0100, L500.2500 ####[facility] [address] [place], [address] RBC (Bld) [#/Vol] 4.32 10*6/uL Normal 4.2-5.4 [facility] Comment on above: Performed By: #### L 700.6800, L100.0100, L500.2500 ####[facility] [address] [place], [address] RDW SD 41.9 fl Normal 35.1-43.9 [facility] Comment on above: Performed By: #### L 700.6800, L100.0100, L500.2500 ####[facility] [address] [place], [address] WBC (Bld) [#/Vol] 15.3 10*3/uL High 4.4-11.0 [facility] Comment on above: Performed By: #### L 700.6800, L100.0100, L500.2500 ####[facility] [address] [place], [address] Carbon dioxide, total [Moles /volume] in Central venous bloodOrdered By: Stephen Plascencia on 04-28-2025 CO2 [Moles/Vol] 24.9 mmol/L 21.0-32.0 [facility] Chloride assayOrdered By: Yonis Plascencia on 04-28-2025 Chloride [Moles/Vol] 103 mmol/L 98-108 [facility] Emergency Department Summary on 04-28-2025 Emergency Department Summary [facility] Medical Records Department [address] [place] [address] Emergency Department Summary 04/28/25 MR#: [id number] Acct: [id number] Name: IRENE LOOMIS Rep #: [id number] : 1980 44 From: Stephen Jones PCP: [...] Ash Disla Bibi 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 Negative Mcelroy's negative [place]'s. Palpation: Negative for guarding or rebound tenderness [...] not yue (more content not included)... Normal [facility] Eosinophil percentageOrdered By: Stephen Plascencia on 04-28-2025 Eosinophils/100 WBC (Bld) 0.7 % 0-5 [facility] Erythrocyte distribution wid th ratioOrdered By: Stephen Plascencia on 04-28-2025 Erythrocyte distribution width (RBC) [Ratio] 12.9 % 11.6-14.6 [facility] Erythrocyte distribution wid th standard deviationOrdered By: Stephen Plascencia on 04-28-2025 Erythrocyte distribution width (RBC) [Ratio] 41.9 fl 35.1-43.9 [facility] Glomerular filtration rate ( GFR) estimation/1.73 sq m using serum, plasma, or whole bOrdered By: Stephen Plascencia on 04-28-2025 GFR/1.73 sq M.predicted among non-blacks MDRD (S/P/Bld) [Vol rate/Area] 97 mL/min/{1.73_m2} >60 [facility] Comment on above: mL/min/1.73m2 CKD-EP I Creatinine Equation (2020) Hematocrit Auto (Bld) [Volum e fraction]Ordered By: Stephen Plascencia on 04-28-2025 Hematocrit (Bld) [Volume fraction] 38.4 % 37-47 [facility] Hemoglobin measurementOrdere d By: Stephen Plascencia on 04-28-2025 Hemoglobin (Bld) [Mass/Vol] 13.6 g/dL 12.0-15.0 [facility] Immature granulocytes/100 WB C Auto (Bld)Ordered By: Stephen Plascencia on 04-28-2025 Immature granulocytes/100 WBC (Bld) 0.700 % 0.0-0.9 [facility] Comment on above: IG% - Immature Granu locytes (promyelocytes, myelocytes and metamyelocytes) > 1% indicates that a LEFT SHIFT is Present. Ketones Test strip Ql (U)Ord ered By: Stephen Plascencia 04-28-2025 Ketones Ql (U) Negative Negative [facility] MCV (mean corpuscular volume ) determinationOrdered By: Stephen Plascencia 04-28-2025 MCV (RBC) [Entitic vol] 88.9 fL 81-99 [facility] Mean corpuscular hemoglobin (MCH) determinationOrdered By: Stephen Plascencia 04-28-2025 MCH (RBC) [Entitic mass] 31.5 pg 27.0-32.0 [facility] Mean corpuscular hemoglobin concentration (MCHC) determinationOrdered By: Stephen Plascencia 04-28-2025 MCHC (RBC) [Mass/Vol] 35.4 g/dL 32-36 [facility] Mean platelet volume determi nationOrdered By: Stephen Plascencia on 04-28-2025 Platelet mean volume (Bld) [Entitic vol] 10.4 fL 6.2-12.0 [facility] Microscopic analysis of urin e for red blood cells (RBC)Ordered By: Stephen Plascencia on 04-28-2025 Microscopic analysis of urine for red blood cells (RBC) 0-5 SEEN /hpf 0-5 [facility] Monocyte percentageOrdered B y: Stephen Plascencia on 04-28-2025 Monocytes/100 WBC (Bld) 6.4 % 0-10 [facility] Mucus LM Ql (Urine sed)Order ed By: Stephen Plascencia on 04-28-2025 Mucus Ql (Urine sed) RARE /hpf [facility] Neutrophil percentageOrdered By: Stephen Plascencia on 04-28-2025 Neutrophils/100 WBC (Bld) 85.6 % High 47-70 [facility] Nitrite Test strip Ql (U)Ord ered By: Stephen Plascencia on 04-28-2025 Nitrite Ql (U) Negative Negative [facility] Nucleated red blood cell per centageOrdered By: Stephen Plascencia on 04-28-2025 Nucleated RBC/100 WBC (Bld) [Ratio] 0 % 0-5 [facility] Platelet countOrdered By: Yonis Plascencia on 04-28-2025 Platelets (Bld) [#/Vol] 276 10*3/uL 150-450 [facility] Potassium measurement (mass/ volume)Ordered By: Stephen Plascencia on 04-28-2025 Potassium (Unsp spec) [Mass/Vol] 3.8 mmol/L 3.3-5.1 [facility] ,Serum,hCG Quali.on 04-28-2025 HCG, SERUM QUAL Negative Normal [facility] Comment on above: Performed By: #### L 700.9040, L100.0100, L500.2500 ####[facility] [address] [place], [address] Protein Test strip Ql (U)Ord ered By: Stephen Plascencia on 04-28-2025 Protein Ql (U) 15 mg/dl High Negative [facility] RBC Auto (Bld) [#/Vol]Ordere d By: Stephen Plascencia on 04-28-2025 RBC (Bld) [#/Vol] 4.32 10*6/uL 4.2-5.4 [facility] Serum beta-hCG test, qualita tiveOrdered By: Stephen Plascencia on 04-28-2025 Beta HCG ( test) Ql Negative [facility] Serum creatinine measurement (mass/volume)Ordered By: Setphen Plascencia on 04-28-2025 Creatinine [Mass/Vol] 0.77 mg/dL 0.70-1.20 [facility] Serum glucose measurement (m ass/volume)Ordered By: Stephen Plascencia on 04-28-2025 Glucose [Mass/Vol] 111 mg/dL High 70-99 [facility] Serum or plasma calcium blake urement (mass/volume)Ordered By: Stephen Plascencia on 04-28-2025 Calcium [Mass/Vol] 9.2 mg/dL 7.6-11.0 [facility] Serum or plasma urea nitroge n measurement (mass/volume)Ordered By: Stephen Plascencia on 04-28-2025 Urea nitrogen [Mass/Vol] 10 mg/dL 4-19 [facility] Sodium levelOrdered By: Stephen Plascencia on 04-28-2025 Sodium [Moles/Vol] 139 mmol/L 133-145 [facility] Squamous epithelial cells de tection in urine sediment by light microscopyOrdered By: Stephen Plascencia on 04-28-2025 Epithelial cells.squamous LM Ql (Urine sed) 0-5 SEEN /hpf - [facility] Urinalysis, Completeon 04-28 BACTERIA 2+ /hpf Normal None Seen [facility] Comment on above: Order Comment: CLEAN CATCH Performed By: #### L 400.0001 #### [facility] [address] [place], [place], [id number] EPI,SQUAMOUS 0-5 SEEN Normal - [facility] Comment on above: Order Comment: CLEAN CATCH Performed By: #### L 400.0001 #### [facility] [address] [place], [place], [id number] Mucus Ql (Urine sed) RARE Normal [facility] Comment on above: Order Comment: CLEAN CATCH Performed By: #### L 400.0001 #### [facility] [address] [place], [place], [id number] RBC 0-5 SEEN Normal 0-5 [facility] Comment on above: Order Comment: CLEAN CATCH Performed By: #### L 400.0001 #### [facility] [address] [place], [place], [id number] WBC 0-5 SEEN Normal 0-5 [facility] Comment on above: Order Comment: CLEAN CATCH Performed By: #### L 400.0001 #### [facility] [address] [place], [place], [id number] Urine clarityOrdered By: Nazario Plascencia on 04-28-2025 Clarity (U) Sl. Cloudy Clear [facility] Urine color determinationOrd ered By: Stephen Plascencia on 04-28-2025 Color (U) Yellow Yellow [facility] Urine glucose detectionOrder ed By: Stephen Plascencia on 04-28-2025 Glucose Ql (U) Normal mg/dl Normal [facility] Urine leukocyte esterase det ection by dipstickOrdered By: Stephen Plascencia on 04-28-2025 Leukocyte esterase Test strip Ql (U) 25 /ul High Negative [facility] Urine pHOrdered By: Stephen Plascencia on 04-28-2025 pH (U) 6.0 [pH] 5.0 - 8.0 [facility] Urine sediment bacteria coun t by microscopy (number/high power field)Ordered By: Stephen Plascencia on 04-28-2025 Bacteria LM.HPF (Urine sed) [#/Area] 2 /[HPF] None Seen [facility] Urine specific gravity measu rementOrdered By: Stephen Plascencia on 04-28-2025 Specific gravity (U) [Rel density] 1.015 1.002-1.030 [facility] Urine urobilinogen measureme ntOrdered By: Stephen Plascencia on 04-28-2025 Urobilinogen Ql (U) Normal mg/dl Normal [facility] White blood cell (WBC) count Ordered By: Stephen Plascencia on 04-28-2025 WBC (Bld) [#/Vol] 15.3 10*3/uL High 4.4-11.0 [facility] White blood cell countOrdere d By: Stephen Plascencia on 04-28-2025 White blood cell count 0-5 SEEN /hpf 0-5 [facility] PROGESTERONE 4317on 08-08-20 24 PROGESTERONE 0.7 ng/mL Normal . [facility] Comment on above: Order Comment: N Result Comment: Foll icular phase 0.1 - 0.9 Luteal phase 1.8 - 23.9 Ovulation phase 0.1 - 12.0 First trimester 11.0 - 44.3 Second trimester 25.4 - 83.3 Third trimester 58.7 - 214.0 Postmenopausal 0.0 - 0.1 Performed at: [address] [id number] Contract Officer: Mike Anderson PhD, Phone: [phone] Performed By: #### L 3100.5125, L3300.1750, L3300.6750, L801.2600, L501.9520, L3100.5170 #### [facility] [address] [place], [address] Thyroid Antibodieson 024 TG AB < 1.0 Normal 0.0-0.9 [facility] Comment on above: Result Comment: Thyr oglobulin Antibody measured by [facility] [place] Methodology It should be noted that the presence of thyroglobulin antibodies may not be pathogenic nor diagnostic, especially at very low levels. The assay insole beveler has found that four percent of individuals without evidence of thyroid disease or autoimmunity will have positive TgAb levels up to 4 IU/mL. Performed at: [address] [id number] Contract Officer: Mike Anderson PhD, Phone: [phone] Performed By: #### L 3100.5125, L3300.1750, L3300.6750, L801.2600, L501.9520, L3100.5170 #### [facility] [address] [place], [address] THYR PEROX AB 13 IU/mL Normal 0-34 [facility] Comment on above: Performed By: #### L 3100.5125, L3300.1750, L3300.6750, L801.2600, L501.9520, L3100.5170 #### [facility] [address] [place], [address] Estradiolon 08-07-2024 ESTRADIOL 37.4 pg/mL Normal [facility] Comment on above: Result Comment: NORM [...] 3100.5125, L3300.1750, L3300.6750, L801.2600, L501.9520, L3100.5170 #### [facility] [address] [place], [place], [address] Follicle Stimulating Hormone on 08-07-2024 FSH 5.2 mIU/mL Normal [facility] Comment on above: Result Comment: NORMAL REFERENCE RANGES FEMALE FOLLICULAR 2.3 - 12.6 mIU/mL MID-CYCLE PEAK 5.2 - 17.5 mIU/mL LUTEAL 1.7 - 12.9 mIU/mL POST-MENOPAUSAL ON MHT 5.9 - 72.8 mIU/mL NOT ON MHT 12.7 - 132.2 mlU/mL MALE 0.7 - 10.8 mIU/mL Performed By: #### L 3100.5125, L3300.1750, L3300.6750, L801.2600, L501.9520, L3100.5170 #### [facility] [address] [place], [place], [address] Luteinizing Hormoneon 2023 LH 3.8 mIU/mL Normal [facility] Comment on above: Result Comment: NORMAL REFERENCE RANGES FEMALE FOLLICULAR 1.9 - 26.2 mIU/mL MID-CYCLE PEAK 22.8 - 76.1 mIU/mL LUTEAL 0.6 - 16.6 mIU/mL POST-MENOPAUSAL ON MHT 1.1 - 52.4 mIU/mL NOT ON MHT 8.6 - 61.8 mIU/mL MALE 1.2 - 10.6 mIU/mL Performed By: #### L 3100.5125, L3300.1750, L3300.6750, L801.2600, L501.9520, L3100.5170 #### [facility] [address] [place], [place], [address] Thyroid Stim Hormone (TSH)on 08-07-2024 TSH 1.600 uIU/mL Normal 0.358-3.740 [facility] Comment on above: Performed By: #### L 3100.5125, L3300.1750, L3300.6750, L801.2600, L501.9520, L3100.5170 #### [facility] [address] [place], [place], [address] SCRN MAMM (CAD)W/MODE BILATo n 08-02-2024 SCRN MAMM (CAD)W/MODE BILAT [facility] [address] [place], [place] [address] SCRN MAMM (CAD)W/MODE BILAT MR#: [id number] Acct: [id number] Name: IRENE LOOMIS Rep #: [id number] : 1980 F 43 From: Natanael montano MD PCP: Dr. Gayatri Becker, DO Status: [facility] CLI Study: SCRN MAMM (CAD)W/MODE BILAT Date of Exam: 07/10 03/01 Exam# [id number] Ordering Dr: Shani Mo CNM [id number] MAMMOGRAPHY - BILATERAL SCREENING REASON FOR EXAM: [...] delay biopsy of a clinically suspicious abnormality. [id number] Electronically Signed: Natanael Ridley MD at 8:18 EDT , CC: GATITO Mo; Dr. Gayatri Becker DO Cyber Security Specialist: Signed Normal [facility] Sports Recruiter Office Visit Reporton 07-04-2024 Sports Recruiter Office Visit Report [facility]'s [address], [address] [place] [address] OFFICE VISIT Date of Service: 07/04/24 MR#: [id number] Acct: [id number] Name: IRENE LOOMIS Rep #: [id number] : 1980 Provider: GATITO Kuhn ams Age/Sex: 43/F Location[place] [facility] Status: Signed Intake Vital Signs 06/02/23 11:24 07/04/24 08:05 07/04/24 08:11 Height 4 ft 11 in 4 ft 11 in 4 ft 11 in Weight: 124 lb BMI 25.0 BP 106/71 Intake Visit Reasons: Annual (REGISTERED 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 Normal [facility] Established Visit (Otolaryng ology)on 10-20-2022 Established [...] This note was created using speech recognition delivery and installation subcontractor software/or [employer] delivery and installation subcontractor services. 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 Mixed hearing loss right ear. RECOMMENDATIONS 1. Continue medical follow-up with Kitty Dya MD. 2. Return for audiologic assessment in [...] pain, drainage, fullness, vertigo. Patient's preferred language: Solomon Islander Preferred language of the parent, legal guardian or surrogate decision-maker of this minor or incapacitated patient: [place] Islander No overt signs of domestic violence/neglect/abuse. No referral made to [facility]. Pain not interfering with optimal level of [...] This note was created using speech recognition delivery and installation subcontractor software/or [employer] delivery and installation subcontractor services. Despite proofreading, several typographical errors might be present that might affect the meaning of the content. Please call with any questions. By signing my name below, I, Jose Carlos Vo, attest that this documentation has been prepared under the direction and in the presence of Dr. Day. All medical record entries made by the Jose Carlos were at my direction and personally dictated [...] DAILY. Vitals Vital Signs Recorded: 18Aug2022 02:17PM Mfskhdfepft06 F Ahlkny459 lb 0.4 oz BMI Qlevermdnk47.64 kg/m2 BSA Calculated1.51 'Scores and Scales' Signatures Electronically signed by : Kitty Day MD; Aug 18 2022 4:39PM EST (Author) Normal [facility] Basophil percentageon 2021 Cholesterol [Mass/Vol] 195 mg/dL <200 [facility] Work Phone: Comment on above: <200 mg/dL Desirable 200-240 mg/dL Borderline >240 mg/dL High Risk Triglyceride [Mass/Vol] 62 mg/dL <199 [facility] Work Phone: Comment on above: The drugs N-Acetylcy steine and Metamizole may falsely depress this assay.Serum Triglycerides Reference Interval Normal <150 mg/dL Borderline high 150 - 199 mg/dL High 200 - 499 mg/dL Very High > or = 500 mg/dL Serum or plasma cholesterol in HDL measurement (mass/volume)on 08-04-2022 Cholesterol in HDL [Mass/Vol] 80 mg/dL >40 [facility] Work Phone: Comment on above: The drugs N-Acetylcy steine and Metamizole may falsely depress this assay. Reference Range HDL <40 mg/dL Low HDL Cholesterol HDL >or= 60 mg/dL High HDL Cholesterol Serum or plasma cholesterol in VLDL measurement (mass/volume)on 08-04-2022 Cholesterol in VLDL [Mass/Vol] 12 mg/dL 5-40 [facility] Work Phone: Serum or plasma low density lipoprotein (LDL) cholesterol measurement (mass/volume)on 08-04-2022 Cholesterol in LDL [Mass/Vol] 103 mg/dL 0-130 [facility] Work Phone: Order Reconciliationon 07-19 Order Reconciliation Page 1 Discharge Reconciliation Document Reconciliation Type: Discharge requested on behalf of Carmelita Dangelo (Resident) done by Caremlita Dangelo ( (Resident)) Discharge - Reconciliation: 19-Jul-2022 [...] be shared with your follow-up providers (doctor, science analyst, physical therapist, etc.). Follow Up with Rody in 4 Weeks 08/22/22 @ 11:45 [facility] clinic May not drive or operate motor [...] Diagnosis< H80 (more content not included)... Normal [facility] Patient Profile - Preop v3on 07-18-2022 Patient Profile - Preop v3 Patient Profile - Preop: Initial Info: Patient DemographicsName: IRENE LOOMIS Date: 1980 Address: [address] [place] [address], [id number] Date/Time [id number] 13:23 Primary Phone [phone] Instructions Givenanticoagulant meds - patient advised to consult ordering provider, appropriate clothing, bring list of medications, bring responsible adult as the tractor sweeper driver (procedure may be cancelled if no tractor sweeper driver), center location, diabetes meds - patient advised to consult ordering provider, insurance information, remove jewerly/piercings, time to arrive How to be AddressedShannon Spoken Language PreferredEnglish Stated Reason for Admissionleft stapedectomy Primary Contact Name and Jarett [phone] Medications Brought to Hospitalno General Health: Patient [...] child(shira) Living Arrangementshouse Resource/Environmental Concernsnone [place] [facility] Anticipated at Transitionnone Tobacco Use: Tobacco Useno Pre-op Checklist: Arrival [id number] Arrival Time09:15 Procedure Typeleft stapedectomy NPOyes Last Food [id number] 23:00 ID Band On Patientpatient ID (name) [...] 19-Jul-2022 09:26 by Jes Brumfield (RN) Normal [facility] CORONAVIRUS 2019, SCREEN ASY MPTOMATICon 07-16-2022 SARS-CoV-2 (COVID-19) RNA ANDRIY+probe Ql (Unsp spec) Not detected Normal Not Detected [facility] Comment on above: Result Comment: [...] patient management decisions. Fact sheet for providers: https://www.fda.gov/media/044814/download Fact sheet for patients: https://www.fda.gov/media/102443/download This test has received FDA Emergency Use Authorization (EUA) and has been verified by [facility] ([facility]). This test is only authorized for the duration of time that circumstances exist to justify the authorization of the emergency use of in vitro diagnostic tests for the detection of SARS-CoV-2 virus and/or diagnosis of COVID-19 infection under section 564(b)(1) of the Act, 21 U.S.C. 360bbb-3(b)(1), unless the authorization is terminated or revoked sooner. [facility] is certified under CLIA-88 as qualified to perform high complexity testing. Testing is performed in the [facility] laboratories located at [address] [place] [address]. Performed By: #### C OVSC #### [facility] [id number] [place] [address] Lab Specimen Source Nasal, Nasopharyngeal Normal [facility] Comment on above: Performed By: #### C OVSC #### [place] [address] Coronavirus 2019 RNA by PCR, Screening Asymptomticon 07-16-2022 Coronavirus 2019 RNA by PCR, Screening Asymptomtic Not detected Normal See Below -Otolaryng ology-[facility] Work Phone: Comment on above: SOURCE: [...] make patient management decisions.Fact sheet for providers: https://www.fda.gov/media/112996/downloadFact sheet for patients: https://www.fda.gov/media/734658/downloadThis test has received FDA Emergency Use Authorization (EUA) and has been verified by [facility] ([facility]). This test is only authorized for the duration of time that circumstances exist to justify the authorization of the emergency use of in vitro diagnostic tests for the detection of SARS-CoV-2 virus and/or diagnosis of COVID-19 infection under section 564(b)(1) of the Act, 21 U.S.C. 360bbb-3(b)(1), unless the authorization is terminated or revoked sooner. [facility] is certified under CLIA-88 as qualified to perform high complexity testing. Testing is performed in the [facility] laboratories located at [address] [place] [address]. Covid 19 Resultson 2 SARS-CoV-2 (COVID-19) RNA [...] You may also be contacted by the [facility] of Health to see if any [...] or Naproxen (Aleve) can also be used. Fijy-uou-dxfpmku cough and cold medicines can be used according to the instructions on the package. Some pbtc-kpn-yjnwspe medicines also contain acetaminophen. Make sure you [...] water are not available, use alcohol-based hand casing worker. Avoid touching your eyes, nose, and mouth [...] 24 ceasar (more content not included)... Normal [facility] Basophil percentageon 2021 Bilirubin [Mass/Vol] 0.60 mg/dL 0.20-1.00 [facility] Work Phone: Comment on above: For patients on eltr ombopag therapy, use of Dimension [place] TBIL is not recommended. Chloride [Moles/Vol] 105 mmol/L 98-107 [facility] Work Phone: [phone] Glucose [Mass/Vol] 110 mg/dL 74-106 [facility] Work Phone: Comment on above: Fasting Glucose resu lt from 100 to 125 mg/dL suggests IMPAIRED HOMEOSTASIS per A.D.A. criteria. Potassium [Moles/Vol] 4.0 mmol/L 3.5-5.1 [facility] Work Phone: [phone] Protein [Mass/Vol] 7.4 g/dL 6.4-8.2 [facility] Work Phone: [phone] Sodium [Moles/Vol] 138 mmol/L 136-145 [facility] Work Phone: [phone] WBC (Bld) [#/Vol] 5.7 10*3/uL 4.4-11.0 [facility] Work Phone: [phone] Blood erythrocytes count (nu mber/volume)on 06-23-2022 RBC (Bld) [#/Vol] 4.13 10*6/uL 4.2-5.4 [facility] Work Phone: [phone] Blood hemoglobin measurement (mass/volume)on 06-23-2022 Hemoglobin (Bld) [Mass/Vol] 12.9 g/dL 12.0-15.0 [facility] Work Phone: Blood platelet mean volumeon 06-23-2022 Platelet mean volume (Bld) [Entitic vol] 10.5 fL 6.2-12.0 [facility] Work Phone: Determination of erythrocyte mean corpuscular volume (MCV)on 06-23-2022 MCV (RBC) [Entitic vol] 91.0 fL 81-99 [facility] Work Phone: Hematocrit Auto (Bld) [Volum e fraction]on 06-23-2022 Hematocrit (Bld) [Volume fraction] 37.6 % 37-47 [facility] Work Phone: INR in Blood by Coagulation assayon 06-23-2022 INR Coag (Bld) [Relative time] 0.9 {INR} [facility] Work Phone: Laboratory - Chemistry and C hemistry - challengeon 06-23-2022 ALP [Catalytic activity/Vol] 78 U/L 45-117 [facility] Work Phone: ALT [Catalytic activity/Vol] 30 U/L 13-56 [facility] Work Phone: CO2 [Moles/Vol] 28.0 mmol/L 21.0-32.0 [facility] Work Phone: Globulin (S) [Mass/Vol] 3.3 g/dL 2.2-4.2 [facility] Work Phone: Urea nitrogen/Creatinine [Mass ratio] 29.6 mg/mg 10-20 [facility] Work Phone: Laboratory - Coagulationon 0 06-23-2022 aPTT Coag (Bld) [Time] 28.0 s 24.1-36.2 [facility] Work Phone: PT Coag (PPP) [Time] 12.3 s 11.7-14.9 os [facility] Work Phone: Laboratory - Hematology and Cell countson 06-23-2022 Erythrocyte distribution width (RBC) [Entitic vol] 41.2 fL 35.1-43.9 [facility] Work Phone: [phone] Erythrocyte distribution width (RBC) [Ratio] 12.4 % 11.6-14.6 [facility] Work Phone: MCH (RBC) [Entitic mass] 31.2 pg 27.0-32.0 [facility] Work Phone: [phone] MCHC Auto (RBC) [Mass/Vol]on 06-23-2022 MCHC (RBC) [Mass/Vol] 34.3 g/dL 32-36 [facility] Work Phone: No Panel Informationon 06-23 Estimated GFR (MDRD) Amer 91 mL/min >60 [facility] Work Phone: Comment on above: GFR Calc Estimated GFR (MDRD) Non-Af Amer 75 mL/min >60 [facility] Work Phone: [phone] Comment on above: Non- GFR Calc Platelets bldon 06-23-2022 Platelets (Bld) [#/Vol] 299 10*3/uL 150-450 [facility] Work Phone: [phone] Serum or plasma albumin blake urement (mass/volume)on 06-23-2022 Albumin [Mass/Vol] 4.1 g/dL 3.2-5.0 [facility] Work Phone: [phone] Serum or plasma albumin/glob ulin mass ratioon 06-23-2022 Albumin/Globulin [Mass ratio] 1.2 {ratio} 0.9-2.4 [facility] Work Phone: [phone] Serum or plasma calcium blake urement (mass/volume)on 06-23-2022 Calcium [Mass/Vol] 9.4 mg/dL 8.5-10.1 [facility] Work Phone: [phone] Serum or plasma creatinine m easurement (mass/volume)on 06-23-2022 Creatinine [Mass/Vol] 0.88 mg/dL 0.55-1.02 [facility] Work Phone: Comment on above: The validity of the calculated GFR & GFRAA in patients over 70 years has not been determined. Clinical correlation is essential. Serum or plasma urea nitroge n measurement (mass/volume)on 06-23-2022 Urea nitrogen [Mass/Vol] 26 mg/dL 7-18 [facility] Work Phone: Thin prep Papanicolaou smear with manual screeningon 06-23-2022 Thin prep Papanicolaou smear with manual screening 16 U/L 15-37 [facility] Work Phone: Thin prep Papanicolaou smear with manual screening 5 5-15 [facility] Work Phone: Tobacco Screening.on 022 Adult depression screening assessment No [facility] Work Phone: Fall risk assessment a) No falls within the last year [facility] Work Phone: Tobacco use status CPHS b) No [facility] Work Phone: Absolute lymphocyte counton 04-19-2022 Lymphocytes Auto (Unsp spec) [#/Vol] 1.58 10*3/uL 0.83-4.51 [facility] Work Phone: Basophil percentageon 2021 Basophil percentage 0 SEEN /hpf 0-5 [facility] Work Phone: Basophils/100 WBC (Bld) 0.6 % 0-1 [facility] Work Phone: Chloride [Moles/Vol] 103 mmol/L 98-107 [facility] Work Phone: Eosinophils/100 WBC (Bld) 1.9 % 0-5 [facility] Work Phone: Glucose [Mass/Vol] 123 mg/dL 74-106 [facility] Work Phone: Comment on above: Fasting Glucose resu lt from 100 to 125 mg/dL suggests IMPAIRED HOMEOSTASIS per A.D.A. criteria. Neutrophils (Bld) [#/Vol] 11.2 10*3/uL 2.0-7.7 [facility] Work Phone: Neutrophils/100 WBC (Bld) 80.1 % 47-70 [facility] Work Phone: Potassium [Moles/Vol] 3.5 mmol/L 3.5-5.1 [facility] Work Phone: [phone] Sodium [Moles/Vol] 137 mmol/L 136-145 [facility] Work Phone: WBC (Bld) [#/Vol] 14.1 10*3/uL 4.4-11.0 [facility] Work Phone: Beta hCG serum qualon 2021 Beta HCG ( test) Ql Negative [facility] Work Phone: Bilirubin Test strip Ql (U)o n 04-19-2022 Bilirubin Ql (U) Negative Negative [facility] Work Phone: Blood erythrocytes count (nu mber/volume)on 04-19-2022 RBC (Bld) [#/Vol] 4.25 10*6/uL 4.2-5.4 [facility] Work Phone: Blood hemoglobin measurement (mass/volume)on 04-19-2022 Hemoglobin (Bld) [Mass/Vol] 13.0 g/dL 12.0-15.0 [facility] Work Phone: Blood lymphocytes/100 leukoc yteson 04-19-2022 Lymphocytes/100 WBC (Bld) 11.2 % 19-41 [facility] Work Phone: Blood monocytes/100 leukocyt eson 04-19-2022 Monocytes/100 WBC (Bld) 5.8 % 0-10 [facility] Work Phone: Blood platelet mean volumeon 04-19-2022 Platelet mean volume (Bld) [Entitic vol] 10.8 fL 6.2-12.0 [facility] Work Phone: Determination of erythrocyte mean corpuscular volume (MCV)on 04-19-2022 MCV (RBC) [Entitic vol] 89.4 fL 81-99 [facility] Work Phone: [phone] Hematocrit Auto (Bld) [Volum e fraction]on 04-19-2022 Hematocrit (Bld) [Volume fraction] 38.0 % 37-47 [facility] Work Phone: [phone] Ketones Test strip Ql (U)on 04-19-2022 Ketones Ql (U) Negative Negative [facility] Work Phone: [phone] Laboratory - Chemistry and C hemistry - challengeon 04-19-2022 CO2 [Moles/Vol] 27.0 mmol/L 21.0-32.0 [facility] Work Phone: [phone] Urea nitrogen/Creatinine [Mass ratio] 19.8 mg/mg 10-20 [facility] Work Phone: [phone] Laboratory - Hematology and Cell countson 04-19-2022 Erythrocyte distribution width (RBC) [Entitic vol] 40.3 fL 35.1-43.9 [facility] Work Phone: [phone] Erythrocyte distribution width (RBC) [Ratio] 12.4 % 11.6-14.6 [facility] Work Phone: [phone] Immature granulocytes/100 WBC (Bld) 0.400 % 0.0-0.9 [facility] Work Phone: [phone] Comment on above: IG% - Immature Granu locytes (promyelocytes, myelocytes and metamyelocytes) > 1% indicates that a LEFT SHIFT is Present. MCH (RBC) [Entitic mass] 30.6 pg 27.0-32.0 [facility] Work Phone: [phone] Nucleated RBC/100 WBC (Bld) [Ratio] 0 % 0-5 [facility] Work Phone: [phone] MCHC Auto (RBC) [Mass/Vol]on 04-19-2022 MCHC (RBC) [Mass/Vol] 34.2 g/dL 32-36 [facility] Work [facility]: [phone] Mucus LM Ql (Urine sed)on Mucus Ql (Urine sed) 0 SEEN /hpf [facility] Work Phone: Nitrite Test strip Ql (U)on 04-19-2022 Nitrite Ql (U) Negative Negative [facility] Work Phone: No Panel Informationon 04-19 Estimated Creatinine Clearance Calc 74.90 ml/min [facility] Work Phone: Estimated GFR (MDRD) Amer 117 mL/min >60 [facility] Work Phone: Comment on above: GFR Calc Estimated GFR (MDRD) Non-Af Amer 97 mL/min >60 [facility] Work Phone: Comment on above: Non- GFR Calc Platelets bldon 04-19-2022 Platelets (Bld) [#/Vol] 318 10*3/uL 150-450 [facility] Work Phone: Protein Test strip Ql (U)on 04-19-2022 Protein Ql (U) Negative Negative [facility] Work Phone: Serum or plasma calcium blake urement (mass/volume)on 04-19-2022 Calcium [Mass/Vol] 9.1 mg/dL 8.5-10.1 [facility] Work Phone: Serum or plasma creatinine m easurement (mass/volume)on 04-19-2022 Creatinine [Mass/Vol] 0.71 mg/dL 0.55-1.02 [facility] Work Phone: Comment on above: The validity of the calculated GFR & GFRAA in patients over 70 years has not been determined. Clinical correlation is essential. Serum or plasma urea nitroge n measurement (mass/volume)on 04-19-2022 Urea nitrogen [Mass/Vol] 14 mg/dL 7-18 [facility] Work Phone: Squamous epithelial cells de tection in urine sediment by light microscopyon 04-19-2022 Epithelial cells.squamous LM Ql (Urine sed) 0-5 SEEN /hpf 5-10 [facility] Work Phone: Thin prep Papanicolaou smear with manual screeningon 04-19-2022 Thin prep Papanicolaou smear with manual screening 7 5-15 [facility] Work Phone: Urine blood detectionon 04-08 RBC Ql (U) 10 /ul Negative [facility] Work Phone: RBC Ql (U) 0 SEEN /hpf 0-5 [facility] Work Phone: Urine clarityon 04-19-2022 Clarity (U) Clear Clear [facility] Work Phone: Urine color determinationon 04-19-2022 Color (U) Straw Yellow [facility] Work Phone: Urine glucose detectionon Glucose Ql (U) Normal mg/dl Normal [facility] Work Phone: Urine leukocyte esterase det ection by dipstickon 04-19-2022 Leukocyte esterase Test strip Ql (U) Negative Negative [facility] Work Phone: Urine pHon 04-19-2022 pH (U) 6.5 [pH] 5.0 - 8.0 [facility] Work Phone: Urine sediment bacteria coun t by microscopy (number/high power field)on 04-19-2022 Bacteria LM.HPF (Urine sed) [#/Area] 0 /[HPF] None Seen [facility] Work Phone: Urine specific gravity measu rementon 04-19-2022 Specific gravity (U) [Rel density] 1.015 1.002-1.030 [facility] Work Phone: Urobilinogen Auto test strip Ql (U)on 04-19-2022 Urobilinogen Ql (U) Normal mg/dl Normal [facility] Work Phone: Cervical or vagninal specime n microscopic examination by cytology stain (reported ason 01-06-2022 Cytology report Cyto stain Doc (Cvx/Vag) Comment [facility] Work Phone: Comment on above: The [...] DNA Probe+sig amp Ql (Cvx) Negative Negative [facility] Work Phone: Comment on above: This nucleic acid am plification test detects fourteen high- risk HPV types (16,18,31,33,35,39,45,51,52,56,58,59,66,68)without differentiation.Performed at: [facility] [address] [id number] Director: Geraldine Aguilar MD, Phone: [phone] at: =[facility] [id number] Director: Geraldine Aguilar MD, Phone: [phone] Laboratory - Cytologyon 12-09 Technical Information Specialist Cyto stain Nom (Cvx/Vag) [ID] Comment [facility] Work Phone: Comment on above: Fernandez Shankar [employer] hnologist (ASCP) Laboratory - Miscellaneous t estson 01-06-2022 Service comment (Unsp spec) [Interp] Comment [facility] Work Phone: Comment on above: This liquid based Th inPrep(R) pap test was screened withthe use of an image guided system. Service comment (Unsp spec) [Interp] . [facility] Work Phone: No Panel Informationon 01-06 Pathology report final diagnosis Narrative Comment [facility] Work Phone: Comment on above: NEGATIVE FOR INTRAEP ITHELIAL LESION OR MALIGNANCY. Tobacco Screening.on 021 Fall risk assessment a) No falls within the last year [facility] Work Phone: Tobacco use status HS b) No [facility] Work Phone: Vital Signs Date Time Vital Sign Value Performing Clinician Facility 05-06-2025 12:39-0400 Body height 149.[address] Gayatri Becker DO Work Phone: [facility] 05-06-2025 12:39-0400 Body mass index (BMI) [Ratio] 25.2 kg/m2 Dr. Gayatri Becker DO Work Phone: [facility] 05-06-2025 12:39-0400 Body temperature 97.2 [degF] Dr. Gayatri Becker DO Work Phone: [facility] 05-06-2025 12:39-0400 Body weight 56.[address] Gayatri Becker DO Work Phone: [facility] 05-06-2025 12:39-0400 Diastolic blood pressure 74 mm[Hg] Dr. Gayatri Becker DO Work Phone: [facility] 05-06-2025 12:39-0400 Heart rate 79 /min Dr. Gayatri Becker DO Work Phone: [facility] 05-06-2025 12:39-0400 Respiratory rate 18 /min Dr. Gayatri Becker DO Work Phone: [facility] 05-06-2025 12:39-0400 SaO2% (BldA) [Mass fraction] 99 % Dr. Gayatri Becker DO Work Phone: [facility] 05-06-2025 12:39-0400 Systolic blood pressure 137 mm[Hg] Dr. Gayatri Becker DO Work Phone: [facility] 04-28-2025 11:08-0400 Body temperature 98.6 [degF] Dr. Gayatri Becker DO Work Phone: [facility] 04-28-2025 11:08-0400 Diastolic blood pressure 59 mm[Hg] Dr. Gayatri Becker DO Work Phone: [facility] 04-28-2025 11:08-0400 Heart rate 97 /min Dr. Gayatri Becker DO Work Phone: [facility] 04-28-2025 11:08-0400 Respiratory rate 18 /min Dr. Gayatri Becker DO Work Phone: [facility] 04-28-2025 11:08-0400 SaO2% (BldA) [Mass fraction] 100 % Dr. Gayatri Becker DO Work Phone: [facility] 04-28-2025 11:08-0400 Systolic blood pressure 98 mm[Hg] Dr. Gayatri Becker DO Work Phone: [facility] 04-28-2025 07:55-0400 Body height 149.[address] Gayatri Becker DO Work Phone: [facility] 04-28-2025 07:55-0400 Body mass index (BMI) [Ratio] 25.6 kg/m2 Dr. Gayatri Becker DO Work Phone: [facility] 04-28-2025 07:55-0400 Body weight 57.[address] Gayatri Becker DO Work Phone: [facility] 09-19-2024 15:59-0500 Body height 152.4 cm Kitty Day MD Work Phone: [facility] 09-19-2024 15:59-0500 Body mass index (BMI) [Ratio] 23.24 kg/m2 Kitty Day MD Work Phone: [facility] 09-19-2024 15:59-0500 Body temperature 98.6 [degF] Kitty Day MD Work Phone: [facility] 09-19-2024 15:59-0500 Body weight 53.98 kg Kitty Day MD Work Phone: [facility] 10-19-2023 09:50-0500 Body mass index (BMI) [Ratio] 24.02 kg/m2 Kitty Day MD Work Phone: [facility] 10-19-2023 09:50-0500 Body weight 55.79 kg Kitty Day MD Work Phone: [facility] 08-18-2022 14:17-0500 Body mass index (BMI) [Ratio] 23.64 kg/m2 [employer] [employer] Work Phone: EY[facility]Nphdafhgmntmie-T [facility] Work Phone: 08-18-2022 14:17-0500 Body surface area Derived from formula 1.51 m2 Gayatri [employer] Work Phone: BF-Vdreflkmuqqqzz-Y [facility] Work Phone: 08-18-2022 14:17-0500 Body temperature 98 [degF] Gayatri [employer] Work Phone: KU-Jdupijnupbeqez-N [facility] Work Phone: 08-18-2022 14:17-0500 Body weight 54.9 kg Gayatri Berryys Work Phone: XN-Chubzveyhlyjax-T [facility] Work Phone: 04-25-2022 10:37-0400 Body height 152.4 cm Gayatri Raya Malys Work Phone: QF-Orzrytohqtni-[facility] Work Phone: 04-25-2022 10:37-0400 Body mass index (BMI) [Ratio] 23.31 kg/m2 Gayatri Raya Malys Work Phone: JH-Pumawzllohlz-[facility] Work Phone: 04-25-2022 10:37-0400 Body surface area Derived from formula 1.5 m2 Gayatri Raya Malys Work Phone: SV-Eqwwqygmcgyt-Oib [facility] Work Phone: 04-25-2022 10:37-0400 Body temperature 97.1 [degF] Gayatri Becker Work Phone: BJ-Yphsbimubhds-[facility]co [facility] Work Phone: 04-25-2022 10:37-0400 Body weight 54.15 kg Gayatri Bekcer Work Phone: OZ-Yieqjzihjexy-Ibx [facility] Work Phone: 04-20-2022 10:25-0400 Body temperature 97.9 [degF] Dr. Gayatri Becker Work Phone: [facility] Work Phone: 04-20-2022 10:25-0400 Diastolic blood pressure 45 mm[Hg] Dr. Gayatri Becker Work Phone: [facility] Work Phone: 04-20-2022 10:25-0400 Heart rate 86 /min Dr. Gayatri Becker Work Phone: [facility] Work Phone: 04-20-2022 10:25-0400 Respiratory rate 16 /min Dr. Gayatri Becker Work Phone: [facility] Work Phone: 04-20-2022 10:25-0400 SaO2% (BldA) [Mass fraction] 100 % Dr. Gayatri Becker Work Phone: [facility] Work Phone: 04-20-2022 10:25-0400 Systolic blood pressure 100 mm[Hg] Dr. Gayatri Becker Work Phone: [facility] Work Phone: 04-19-2022 21:25-0400 Body height 151.[address] Gayatri Becker Work Phone: [facility] Work Phone: 04-19-2022 21:25-0400 Body mass index (BMI) [Ratio] 24.6 kg/m2 Dr. Gayatri Becker Work Phone: [facility] Work Phone: 04-19-2022 21:25-0400 Body weight 56.[address] Gayatri Becker Work Phone: [facility] Work Phone: 01-06-2022 14:11-0400 Body height 152.[address] Gayatri Becker Work Phone: [facility] Work Phone: 01-06-2022 14:11-0400 Body mass index (BMI) [Ratio] 23.8 kg/m2 Dr. Gayatri Becker Work Phone: [facility] Work Phone: 01-06-2022 14:11-0400 Body weight 55.[address] Gayatri Becker Work Phone: [facility] Work Phone: 01-06-2022 14:11-0400 Diastolic blood pressure 90 mm[Hg] Dr. Gayatri Becker Work Phone: [facility] Work Phone: 01-06-2022 14:11-0400 Systolic blood pressure 120 mm[Hg] Dr. Gayatri Becker Work Phone: [facility] Work Phone: 07-16-2021 09:06-0400 Body height 152.4 cm Gayatri Becker Work Phone: HU-Rqldvhlcovdixl-N [place] Work Phone: 07-16-2021 09:06-0400 Body mass index (BMI) [Ratio] 24.42 kg/m2 Gayatri Becker Work Phone: EE-Qkxytoyznticfc-J [place] Work Phone: 07-16-2021 09:06-0400 Body surface area Derived from formula 1.53 m2 Gyaatri Becker Work Phone: SH-Ramssstosszsce-S zunildarobert Work Phone: 07-16-2021 09:06-0400 Body temperature 97.2 [degF] Gayatri Raya Jamalazalea Work Phone: LU-Chajvxdsbnvaxn-Z zunildasmirian Work Phone: 07-16-2021 09:06-0400 Body weight 56.71 kg Gayatri Raya Jamalazalea Work Phone: IL-Bbrpkfyyqjgmcc-P zunildasmirian Work Phone: Encounters Encounter Date Encounter Type Care Provider Facility Start: 08-04-2025 ambulatory [facility] Facility :[facility] Start: 07-03-2025 ambulatory Dm Dixon Facility: [facility] Start: 07-01-2025 Encounter for other preprocedural examination Dm Dixon [facility] Start: 06-11-2025 ambulatory [facility] Start: 05-13-2025 End: 05-13-[address] Gayatri Becker DO Work Phone: -Ultrasound [facility] Start: 05-13-2025 End: 05-13-[address] Dm Dixon MD -Ultrasound [facility] Work Phone: Start: 05-13-2025 End: 05-13-2025 ambulatory Dm Dixon Facility:[facility] Start: 05-06-2025 End: 05-06-[address] Dm Dixon MD -[facility] Work Phone: Start: 05-06-2025 End: 05-06-[address] Gayatri Becker DO Work Phone: -[facility] Start: 04-28-2025 End: 04-28-2025 Emergency department patient visit Dr. 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 (Primary Dx); Otosclerosis of right ear Start: 09-19-2024 End: 09-20-2024 ambulatory [facility] Start: 08-07-2024 End: 08-07-2024 ambulatory Gayatri Becker Facility:[facility] Start: 08-02-2024 End: 08-02-2024 ambulatory Shani Mo Facility:[facility] Start: 07-04-2024 Encounter for gynecological examination (general) (routine) without abnormal findings Shani Mo [facility] Start: 07-04-2024 End: 07-04-2024 ambulatory Shani Mo Facility:[facility] Start: 10-19-2023 End: 10-19-2023 Office outpatient visit 15 minutes Kitty Day MD Work Phone: [facility] Comment on above: Otosclerosis, bilate ral (Primary Dx) Start: 10-19-2023 End: 10-19-2023 ambulatory [facility] Start: 10-20-2022 [facility] visit new patient Gayatri Becker Work Phone: MW-Aapkijgiw-Uedlzaswv Work Phone: Start: 10-20-[address] Kitty Day Facility:[id number] Start: 08-18-2022 Postop follow up vis it related to original px Gayatri Becker Work Phone: HL-Cwbvjjlswzqxbl-Lkss Work Phone: Start: 08-18-[address] iKtty Day Facility:[id number] Start: 08-04-2022 End: 08-04-[address] Gayatri Becker Work Phone: [facility] Work Phone: Start: 08-04-2022 End: 08-04-[address] Gayatri Becker Work Phone: [facility] Start: 07-19-2022 SURGWEST, Provider: Kitty Day, Status: Pen, Time: 11:00 AM Gayatri Becker Work Phone: IS-Zvudmatzjpeoax-Iafd [place] Work Phone: Start: 07-19-2022 End: 07-19-[address] Kitty Day Facility:[facility] Start: 07-18-2022 Chart Update Gayatri Becker Work Phone: JA-Lxewdgjpafylyn-Tnxm [place] Work Phone: Start: 06-23-2022 End: 06-23-[address] Gayatri Becker Work Phone: [facility] Work Phone: Start: 06-23-2022 End: 06-23-[address] Gayatri Becker Work Phone: [facility] Start: 04-29-2022 End: 04-29-[address] Gayatri Becker Work Phone: [facility] Start: 04-25-[address] Kitty Day Facility:[id number] Start: 04-25-2022 Office outpatient vi sit 15 minutes Gayatri Becker Work Phone: EB-Vudqqbfotzrh-Euuyqi an Work Phone: Start: 04-20-2022 Non-patient / Non-visit Dr. Marily Becker Work Phone: [facility] Start: 04-19-2022 End: 04-20-2022 Evaluation and management of inpatient Dr. Gayatri Becker Work Phone: [facility] 3 Start: 04-19-2022 Non-patient / Non-visit Dr. Marily Becker Work Phone: [facility] Start: 02-10-2022 End: 02-10-[address] Gayatri Becker [facility] Start: 01-06-2022 End: 01-06-[address] Gayatri Becker Work Phone: [facility]-Laboratory, Specimen Start: 01-06-2022 End: 01-06-[address] Gayatri Becker Work Phone: [facility] Start: 07-16-2021 Office consultation new/estab patient 60 min Gayatri Becker Work Phone: SQ-Qzlmaqnmwwkhnu-Ades [place] Work Phone: Evaluation finding Gayatri Becker Work Phone: VB-Jgtmwxrytbbu-Meeeqi an Work Phone: Procedures Date Procedure Procedure Detail Performing Clinician Start: 05-13-[address] Gayatri Becker DO Work Phone: Start: 04-28-2025 Urnls dip stick/tabl et reagent [...] of 2) Zoster Vaccines (1 of 2) [facility] Start: 09-17-2029 DTaP/Tdap/Td Vaccines (3 - Td or Tdap) DTaP/Tdap/Td Vaccines (3 - Td or Tdap) [facility] Start: 07-22-2025 Subsequent hospital visit by physician 07/22/[address] [facility] OR [address] [place] [id number] Kitty Day MD [address] [place] [address] [facility] OR Start: 04-28-2025 [facility] Start: 06-09-2024 COVID-19 Vaccine ( season) COVID-19 Vaccine ( season) [facility] Start: 06-09-2024 Influenza vaccination Influenza Vaccine (#1) [facility] Start: 10-19-2023 FUV, Provider: Kitty Day, Status: Pen, Time: 9:45 AM FUV, Provider: Kitty Day, Status: Pen, Time: 9:45 AM WM-Yyknvryfb-Uvyzglxc g Work Phone: Start: 10-19-2023 DUALJOSE ROBERTO, Provider: Antonina Manriquez, Status: Pen, Time: 9:00 AM MAK, Provider: Antonina Manriquez, Status: Pen, Time: 9:00 AM EB-Gfxaqmqvx-Cqfmbgro g Work Phone: Start: 06-09-2023 Influenza vaccination Influenza Vaccine (#1) [facility] Start: 10-20-2022 FUV, Provider: Kitty Day, Status: Pen, Time: 10:30 AM FUV, Provider: Kitty Day, Status: Pen, Time: 10:30 AM HX-Kondbehqlgxmla-[place] Work Phone: Start: 10-20-2022 DUALAUDIO, Provider: Antonina Manriquez, Status: Pen, Time: 9:30 AM DUALAUDIO, Provider: Antonina Manriquez, Status: Pen, Time: 9:30 AM HA-Aznewfvpnjceau-Wvp [place] Work Phone: Start: 08-22-2022 POV, Provider: Kitty Day, Status: Pen, Time: 11:45 AM POV, Provider: Kitty Day, Status: Pen, Time: 11:45 AM CW-Nkcjosipqmue-Xkkiu ban Work Phone: Start: 07-19-2022 SURGWEST, Provider: Kitty Day, Status: Pen, Time: 11:00 AM SURGWEST, Provider: Kitty Day, Status: Pen, Time: 11:00 AM PR-Eejbruycwuxpce-Cdm [place] Work Phone: Start: 04-20-2022 Patient discharge [facility] Work Phone: Start: 04-19-2022 Application of intermittent pneumatic compression device [facility] Work Phone: Start: 04-19-2022 Following clinical pathway protocol [facility] Work Phone: Start: 04-19-2022 Application of ice collar, cap or bag [facility] Work Phone: Start: 04-19-2022 Admission procedure [facility] Work Phone: Start: 04-19-2022 Anesthesia intraperitoneal lower abd w/laps nos ANESTH SURG LOWER ABDOMEN [facility] Work Phone: Start: 04-19-2022 Laparoscopic appendectomy LAPAROSCOPY APPENDECTOMY [facility] Work Phone: Start: 04-19-2022 Laps repair hernia except incal/ingun reducible LAP VENT/ABD HERNIA REPAIR [facility] Work Phone: Start: 11-25-2021 COVID-19 Vaccine (4 - Moderna series) COVID-19 Vaccine (4 - Moderna series) [facility] Start: 10-22-2021 POV, Provider: Kitty Day, Status: Pen, Time: 10:30 AM POV, Provider: Kitty Day, Status: Pen, Time: 10:30 AM [facility]cz[facility]vomvlfxfr[facility] Work Phone: Start: 2020 Screening for malignant neoplasm of breast Mammogram [facility] Start: 2001 Screening for malignant neoplasm of cervix [facility] Start: 12-24-1999 Hepatitis B Vaccines (1 of 3 - 19+ 3-dose series) Hepatitis B Vaccines (1 of 3 - 19+ 3-dose series) [facility] Start: 1998 Hepatitis C screening Hepatitis C Screening [facility] Start: 1993 Varicella vaccination Varicella Vaccines (1 of 2 - 13+ 2-dose series) [facility] Start: 1981 MMR Vaccines (1 of 1 - Standard series) MMR Vaccines (1 of 1 - Standard series) [facility] Start: 1981 Varicella vaccination Varicella Vaccines (1 of 2 - 2-dose childhood series) [facility] Start: 1980 Hepatitis B Vaccines (1 of 3 - 3-dose series) Hepatitis B Vaccines (1 of 3 - 3-dose series) [facility] Start: 1980 HIV screening HIV Screening [facility] Start: 1980 Lipid panel Lipid Panel [facility] Start: 1980 Yearly Adult Physical Yearly Adult Physical [facility] Colonoscopy [facility] Patient Education [facility] Work Phone: Patient referral [facility] Work Phone: Stapedectomy/stapedotomy Stapede ctomy Otosclerosis of right ear [facility] OR US Abdomen limited [facility] Immunizations Immunization Date Immunization Notes Care Provider Fa cility 09-30-2021 Covid (Moderna) Dr. Gayatri tristan Work Phone: [facility] 11-27-2020 Moderna COVID-19 Vac cine 100 MCG/0.5ML Intramuscular Suspension Gayatri Dorota Becker Work Phone: [facility] 10-27-2020 Moderna COVID-19 Vac cine 100 MCG/0.5ML Intramuscular Suspension Gayatri Dorota Becker Work Phone: [facility] 09-17-2019 tetanus toxoid, redu matt diphtheria toxoid, and acellular pertussis vaccine, adsorbed Gayatri Dorota Becker Work Phone: [facility] 09-17-2019 diphtheria, tetanus toxoids and acellular pertussis vaccine, unspecified formulation Dr. Gayatri Becker Work Phone: [facility] Work Phone: Payers Date Payer Category Payer Self-pay [id number] 2022 [employer] Blue [employer] Managed Care [facility] [id number] 2022 Unknown 2022 Unknown [id number] 1980 Unknown [id number]. 2.356 1980 Unknown [id number] 2.840.1.274312.3.579. 2.356 1980 Unknown [id number] 2.840.1.366682.3.579. 2.356 1980 Unknown [id number] 2.840.1.552729.3.579. 2.356 1980 Unknown [id number] 2.840.1.984763.3.579. 2.356 1980 Unknown [id number] 2.840.1.650119.3.579. 2.1244 1980 Unknown [id number] 2.840.1.078679.3.579. 2.1244 1980 Unknown [id number] 2.840.1.311299.3.579. 2.1245 Unknown [id number] Unknown [id number] [id number]. 2.462 Unknown [id number] [id number]. 2.462 Unknown [id number] 2.16840.1.818109.3.579. 2.462 Unknown [id number] [id number]. 2.462 Unknown [id number] [id number]. 2.462 Unknown [id number] [id number]. 2.462 Unknown [id number] [id number]. 2.462 Unknown [id number] [id number]. 2.462 Social History Date Type Detail Facility Start: 01-06-2022 End: 04-19-2022 Tobacco smoking status NHIS Unknown if ever smoked [facility] Work Phone: Start: 11-30-2019 None [facility] Start: 1980 Sex Assigned At Female [facility] Start: 10-19-2023 End: 04-28-2025 Tobacco smoking status NHIS Never smoked tobacco [facility] Work Phone: Start: 10-19-2023 Tobacco use and exposure Smokeless tobacco non-user [facility] Work Phone: Start: 10-19-2023 End: 09-19-2024 History of Social function [facility] Start: 10-19-2023 End: 09-19-2024 Tobacco use panel [facility] Start: 1980 Sex Assigned At Not on file U [facility] Work Phone: Start: 10-09-2023 End: 09-19-2024 Exposure to SARS-CoV-2 (event) Not sure [facility] Medical Equipment Procedure Code Equipment [...] a X 4.50mm Eclipse Flat Ribbon Case [id number] Start: 07-19-2022 Comment on above: Description: Convert ed from [facility]. Please see archived information for full log information. Goals Date Patient Goal Desired Activity /State Functional Status Date Assessment Result Facility 04-20-2022 Functional status Up ad sintia [facility] Work Phone: Mental Status Date Assessment Result Facility 04-20-2022 Cognitive function Level Of Cons ciousness Awake;Alert;Appropriate;Follow s Commands [facility] Work Phone: 04-19-2022 Cognitive function Voice/Name [facility] Work Phone: Clinical Notes 06-17-2021 to 05-13-2025 Note Date & Type Note Facility 05-13-2025 Radiology Diagnostic study note [facility] Imaging Services [address] [place], [place] [address] Abdomen Limited MR#: [id number] Acct: [id number] Name: IRENE LOOMIS Rep #: [id number] : 1980 F 44 From: Isak Ridley MD PCP: Dr. Gayatri Becker DO Status: REG CLI Study:Abdomen Limited Date of Exam: 03/02 Exam# [id number] Ordering Dr: Madison Dixon MD PROCEDURE: ABDOMEN LIMITED 05/13/2025 REASON FOR EXAM: GALLBLADDER SLUDGE COMPARISON: Prior CT scan of the abdomen and pelvis dated April 28, 2025. FINDINGS: Liver: Grossly normal size and echotexture. Gallbladder: Multiple echogenic gallstones are identified. Common bile duct: Normal measuring 3 mm . Pancreas: Normal Other: Visualized portions of the right kidney are unremarkable. No right upperquadrant ascites. US/Abdomen Limited IMPRESSION: Multiple gallstones. Reading Location: [facility] CC: Dr. Gayatri Becker DO; Dr. Dm Dixon MD ~ Cyber Security Specialist: Signed [facility] 05-06-2025 Evaluation note Diagnosis Onset Date Resolution Cholelithiasis acute May 06, 2025 12:28pm Diverticulitis acute May 06, 2025 12:28pm [facility] Work Phone: 1(414) 259-128807-21-2025 Radiology Diagnostic study note [facility] Imaging Services [address] [place], [place] [address] Abdomen/Pelvis W IV Cont ONLY MR#: [id number] Acct: [id number] Name: IRENE LOOMIS Rep #: [id number] : 1980 F 44 From: Lizeth Plascencia MD PCP: Dr. Gayatri Becker, Status: REG ER Study:Abdomen/Pelvis W IV Cont ONLY Date of E xam: 04/28/25 Exam# [id number] Ordering Dr: Stephen Plascencia DO EXAM: CT [...] 3. Hepatomegaly with fatty infiltration. Reading Location: [facility] CC: Dr. Gayatri Becker, DO; Dr. Stephen Plascencia DO ~ Cyber Security Specialist: Signed [facility]12-12-2024 History of Present illness Narrative* Kitty Day MD - 09/19/2024 3:45 PM EST History of present illness: Irene Loomis is [...] today for a follow-up visit. She is statuspost a left stapedectomy on 07/19/22. The patient is doing well and presents with no new otologicalcomplaints at this time. RECALL 08/18/22: The patient [...] mass, effusion, or infection within themiddle ear NOSE: Anterior rhinoscopy clear, no significant [...] and my professional assessment of this patient's prog ressive chronic condition, the complexity of evaluation and treatment is low. This note was created using speech recognition delivery and installation subcontractor software. Despite proofreading, several typographical errors might be present that might affect the meaning of the content. Please call with any questions. By signing my name below, Jasvir Adan Scribe attest that this documentation has been preparedunder the direction and in the presence of Kitty Day MD documented in this [facility] Work Phone: 1(482) 723-203901-11-2024 History of Present illness Narrative* Kitty Day MD - 10/19/2023 9:45 AM EST History of present illness: Irene Loomis is a 42 y.o. female presenting today for her annual follow-up. She has no new complaints. RECALL 10/20/2022 The patient is a 41 year old female presenting in clinic today for a follow-up visit. She is statuspost a left stapedectomy on 07/19/22. The patient is doing well and presents with no new otologicalcomplaints at this time. RECALL 08/18/22: The patient [...] mass, effusion, or infection within themiddle ear NOSE: Anterior rhinoscopy clear, no significant [...] Scribe Attestation By signing my name below, IAlthea, Jose Carlos attest that this documentation has been prepared under the direction and in the presence of Kitty Day MD. documented in this [facility] Work Phone: 1(834) 329-979210-11-2022 History of Present illness Narrative* Post- op visit * History of present illness: * The patient is a 41-year-old female presenting for her first post-operative visit following a left stapedectomy on 07/19/22. Overall, pain is adequately controlled, and she denies significant imbalance, or discharge from the surgical ear. She has noticed improvements in her hearing subjectively foll owing the surgical procedure. * Physical Examination: * Steri-strips were removed revealing the incision healing well without signs of infection. * Ear canal examined using the otomicroscope. Packing was removed. Graft appears to be healing well. * There are no signs to suggest an infection. * Air conduction is greater than bone conduction at 1024 Hz tuning forks in the left ear. * Impression: * Status post left stapedectomy * Doing well. * Plan: * Maintain dry ear precautions. Schedule a follow up in 8-10 weeks with an audiogram. * This note was created using speech recognition delivery and installation subcontractor software/or [employer] delivery and installation subcontractor services. Despite proofreading, several typographical errors might be present that might affect the meaning of the content. Please call with any questions. * By signing my name below, I, LucyJose Carlos Perla, attest that this documentation has been prepared under the direction and in the presence of Dr. Day. All medical record entries made by the Scribe were at my direction and personally dictated by me. I have reviewed the chart and agree that the record accurately reflects my personal performance of the history, physical exam, discussion, and plan. [facility] Work Phone: 1(140) 831-403110-11-2022 NotePROCEDURE DETAILS Preoperative Diagnosis: Left conductive hearing loss Postoperative Diagnosis: Left non-obliterative otosclerosis Surgeon: Rody Resident/Fellow/Other Plastics Heat Welder: Antolin Procedure: 1. Left stapedectomy with use of CO2 Omniguide laser 2. Microsurgical techniques requiring use of operating microscope. Anesthesia: general Estimated Blood Loss: 2 Findings: see operative report Specimens(s) Collected: no, Complications: none Implants: 4.50 x 0.6 mm, 360-degree Eclipse nitinol-based piston manufactured by [employer] Patient Returned To/Condition: PACU/stable Operative Report: Pre-operative diagnosis: Left conductive hearing loss Post-operative diagnosis: Left non-obliterative otosclerosis Procedure: Left stapedectomy with use of CO2 Omniguide laser Microsurgical techniques requiring use of operating microscope. Surgeon: Kitty Day MD Plastics Heat Welder surgeon: Anesthesia: General Endotracheal. Estimated blood loss: [...] mm, 360-degree Eclipse nitinol-based piston manufactured by [employer], [place], [place] was then placed and crimped onto [...] the entire procedure Electronic Signatures: Carmelita Dangelo ( (Resident)) (Signed 19-Jul-2022 11:02) Authored: Post-Operative Note, Chart Review, Note Completion Kitty Day) (Signed 27-Jul-2022 07:47) Authored: N (more content not included)...[facility]10-11-2022 NoteHistory of Present Illness: /Lactating: Are You no Are You Currently [...] Completion Last Updated: 27-Jul-2022 07:47 by Kitty Day)[facility]07-18-2022 NoteDiagnoses/Problems Blood tests prior to treatment or procedure (V72.63) (Z01.812) Otosclerosis (387.9) (H80.90) Orders Complete Blood Count; Status:Active - Retrospective By Protocol Authorization; Requested for:[id number]; Comprehensive Metabolic Panel; Status:Active - Retrospective By Protocol Authorization; Requested for:[id number]; Coagulation Screen; Status:Active - Retrospective By Protocol Authorization; Requested for:[id number]; Chief Complaint Follow-up visit to discuss surgery [...] left ear.The patient is 40 years old. When asked [...] of hearing loss, the patientadmits to none. 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 A comprehensive 10-point review of systems [...] normal floor of mouth/tongue/OP, no masses orlesions PHARYNGEAL DEE: No masses or lesions NECK/LYMPH: [...] perforation, taste disturba (more content not included)... [id number] NotePap Smear Specimen AdequacyMarch 2021 3:41pm CommentSatisfactory for evaluation. Endocervical and/or squamous metaplasticcells (endocervical component)are present.[facility] A#[id number] City Hospital Work Phone: Comment on above:Satisfactory for evaluation. Endocervical and/or squamous metaplasticcells (endocervical component)are present.01-06-2022 NotePap Smear Specimen AdequacyMarch 2021 3:41pmComment Satisfactory for evaluation. Endocervical and/or squamous metaplasticcells (endocervical component)are present.[facility] A#[id number] City Hospital Work Phone: Comment on above:Satisfactory for evaluation. Endocervical and/or squamous metaplasticcells (endocervical component)are present.06-17-2021 History of Present illness Narrative* Ms. Loomis, age 41 years, arrives today for a hearing evaluation following a left stapedectomy dueto bilateral otosclerosis and conductive hearing loss (see audiogram from 06/17/2021). She reports improvement in hearing in the left ear since stapedectomy, denies pain, drainage, fullness, vertigo. * Patient's preferred language: [place] Islander * Preferred language of the parent, legal guardian or surrogate decision-maker of this minor or incapacitated patient: [place] Islander * No overt signs of domestic violence/neglect/abuse. * No referral made to [facility]. * Pain not interfering with optimal level of function or ability to assess and/or treat. * Pain Scale rank: 0/10 * Pain Scale used: Numeric * No referral made to primary care provider (PCP). * Factors/Barriers influencing patient's ability to complete assessment or learn: none. * Person taught: patient. * Readiness to learn: no barriers. * Results of Teaching/Counseling: verbalize recall / understanding and teaching complete. DO-[facility]zd[facility]wl[facility]Xx[facility] Work Phone: Evaluation noteNo assessment information available [facility] Work Phone: Evaluation note* Diagnosis Onset Date Resolution Status S/P appendectomy acute Abdominal pain resolved Acute appendicitis resolved Umbilical hernia without obs truction and without gangrene resolved S/P appendectomy acute Status post umbilical hernia repair, follow-up exam acute [facility] Work Phone: Evaluation note* Diagnosis Otosclerosis, bilateral- Primary documented in this encounter [facility] Work Phone: Evaluation note* Diagnosis Conductive hearing loss of right ear with unrestricted hearing of left ear- Primary 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 * A comprehensive 10-point review of [...] my professional assessment of this patient s talent assistant truong progressive condition, the complexity of evaluation and treatment is moderate. * This note was created using speech recognition delivery and installation subcontractor software/or [employer] delivery and installation subcontractor services. Despite proofreading, several typographical errors might [...] stapedectomy for otosclerosis is an elective procedure. [facility]wzsw[facility]err[facility]xt[facility]Sa[facility] Work Phone: History of Present illness Narrative* [...] none. 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 * A comprehensive 10-point review of [...] my professional assessment of this patient s talent assistant truong progressive condition, the complexity of evaluation and treatment is moderate. * This note was created using speech recognition delivery and installation subcontractor software/or [employer] delivery and installation subcontractor services. Despite proofreading, several typographical errors might be present that might affect the meaning of the content. Please call with any questions. * By signing my name below, I, oJse Carlos Vo, attest that this documentation has been prepared under the direction and in the presence of Dr. Day. All medical record entries made by the Jose Carlos were at my direction and personally dictated [...] stapedectomy for otosclerosis is an elective procedure. [facility] Work Phone: History of Present illness Narrative* [...] none. 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 * A comprehensive 10-point review of [...] my professional assessment of this patient s talent assistant truong progressive condition, the complexity of evaluation and treatment is moderate. * This note was created using speech recognition delivery and installation subcontractor software/or [employer] delivery and installation subcontractor services. Despite proofreading, several typographical errors might be present that might affect the meaning of the content. Please call with any questions. * By signing my name below, I, Jose Carlos Vo, attest that this documentation has been prepared under the direction and in the presence of Dr. Day. All medical record entries made by the Jose Carlos were at my direction and personally dictated [...] stapedectomy for otosclerosis is an elective procedure. EL-Trgydjmpkybqpu-Litlywrg Work Phone: Hospital Discharge instructionsAdditional Instructions Uncomplicated diverticulitis seen on CT white count 15. You had incidental findings gallbladder stones with sludge you have no pain in this area. Taking finish antibiotic as prescribed. Use Tylenol as needed. Low fiber diet for next few weeks after discussion with Dr. Salinas. Follow-up with their office with Dr. Dixon for reevaluation and discussion for future colonoscopy.[facility] Work Phone: Reason for referral (narrative)No reason for referral information availableWMercy Memorial Hospital Work Phone: Chief Complaint New patient visit possible otosclerosisFollow-up visit to discuss surgery for a middle ear exploration and possible stapedectomyFollow-up visit to discuss surgery for a middle ear exploration and possible stapedectomyPost-operative visit status post left stapedectomy on 07/19/22post-op left stapedectomy Chief Complaint and Reason for Visit Chief Complaint Annual (REGISTERED NURSE MATERNITY) Chief Complaint Annual (REGISTERED NURSE MATERNITY) SCREENING Chief Complaint APPENDECTOMY ACUTE APPENDICITIS ACUTE [...] - DIVERTICULITS May 06, 2025 1 2:28pm Chief Complaint Admit Date ABD PAIN; LLQ April 28, 2025 7:54 am ER F/U - DIVERTICULITS May 06, 2025 1 2:28pm GALLBLADDER SLUDGE May 13, 2025 7:1 5am Reason for Visit Admit Date Cholelithiasis May 06, 2025 12:2 8pm Diverticulitis May 06, 2025 12:2 8pm Family History No Family History Records Found Relationship Condition Age at Onset Recorded Date/T [place] mother Hypertension Unknown Hyperlipidemia Unknown father Diabetes mellitus Unknown Hypertension Unknown Advance Directives No Advanced Directives Records Found Advance Directive Response Recorded Date/ Time Advance Directives No August 4:53pm Living Will No November 30 020 1:44am Power of Transit Planning Director No November 30, 2019 1:44am Advance Directive Response Recorded Date/ Time Advance Directives No August 4:53pm Living Will No April 19, 2022 9:24pm Power of Transit Planning Director No April 19 9:24pm Advance Directive Response Recorded Date/ Time Do you have a Healthcare Power of Transit Planning Director? No April 28, 2025 8:04am Advance Directives [...] section and content) DATE CREATED AUTHOR 10/20/2022 [employer] DATE CREATED AUTHOR AUTHOR'S ORGANIZ ATION 10/21/2022 [facility] DATE CREATED AUTHOR AUTHOR'S ORGANIZ ATION 09/22/2024 [facility] DATE CREATED AUTHOR AUTHOR'S ORGANIZ ATION 06/13/2025 [facility] DATE CREATED AUTHOR AUTHOR'S ORGANIZ ATION 07/02/2025 [facility] Reason for Visit (unrecogniz ed section and content) Reason Comments s/p stapedectomy Reason Comments Follow-up Care Teams (unrecognized sec tion and content) Manager Infrastructure Relationship Specialty Start Date End Date Gayatri Becker DO PCP - General 07/16/21 Manager Infrastructure Relationship Specialty Start Date End Date Gayatri [...] April 28, 2025 Dr. Stephen Plascencia DO Attending Provider Active Start : April [...] May 06, 2025 End: May 06, 2025 Team Status: Inactive Member Role/Relationship Status Dates Dr. Gayatri Becker DO Primary Care Provider Active Start: May 13, 2025 End: May 13, 2025 Dr. Dm Dixon MD Attending Provider Active Start: May 13, 2025 End: May 13, 2025 Dr. Dm Dixon MD Referring Provider Active Start: May 13, 2025 End: May 13, 2025 FOR RECORDS PERTAINING TO PATIENTS WHO [...] BE BASED ON THE PRIMARY CLINICAL RECORDS. [facility]. provides no warranty or guarantee of the accuracy or completeness of information in this document.
[2025-07-03 06:59] LABS: Internal QC Validated? YES +Cl - CLEAR BKGD; Pregnancy, Urine Negative Negative; Record Kit Lot#,Urine Preg 0000964736
[2025-07-03] MEDS: Lactated Ringers 1,000 ML 15 ML IV (07:03)
--- NOTE | 2025-07-03 07:18 | PCM.HP.BLA ---
History and Physical Date of Admission: 07/03/25 Date of Service: 05/06/25 MR#: [id number] Acct: [id number] Name: IRENE LONDONO Rep #: [id number] : 1980 Provider: Dr. Dm Dixon MD Age/Sex: 44/F Location: [facility] Status: Signed Intake Vital Signs 04/28/2507:55 05/06/2512:39 Height 4 ft 11 in 4 ft 11 in Weight: 125 lb 4 oz BMI 25.2 BP 137/74 H Blood Pressure Location Rt brachial Position Sitting Respiration 18 Pulse 79 Pulse Source Monitor Temp 97.2 F L Temp Source Temporal Pulse Oximetry (%) 99 Oxygen Delivery Method room air Intake Visit Reasons: ER F/U - DIVERTICULITS Chief Complaint: ER F/U- diverticulitis Is patient in pain?: No Allergies No Known Allergies Allergy (Verified 05/06/25 12:39) Medications Medication Instructions Recorded Confirmed Type multivitamin 1 tab PO DAILY 01/06/22 05/06/25 History calcium carbonate (Calcium 600) 600 mg PO QDAY 07/04/24 05/06/25 History amoxicillin 875 mg-potassium 875 mg PO Q12H #20 TABLETS 04/28/25 05/06/25 Rx clavulanate 125 mg tablet PFSH Medical History (Updated 05/06/25 @ 16:[address] Dm Dixon MD) Diverticulitis Hearing loss, left Hearing loss, right Non-smoker Placental insufficiency in third trimester Velamentous insertion of umbilical cord History of delivery, currently History of cholestasis during Surgical History Status post umbilical hernia repair, follow-up exam S/P appendectomy H/O dilation and curettage delivery delivered Family History Mother Hypertension Hyperlipidemia Father Diabetes Hyperlipidemia Hypertension Social History Smoking Status: Never smoker alcohol intake: current details: social substance use type: does not use caffeine: Yes what type of physical activity do you participate in: walking and weight training frequency: 3-4 times per week seatbelt use: always do you feel safe at home: Yes additional social history: [employer] 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 She is known to me for a history of acute appendicitis status post laparoscopic appendectomy April 2022. Approximately ten days ago, she developed left lower quadrant abdominal pain after lifting a heavy object, initially suspecting a hernia. Her visit to the emergency department occurred a day and a half later since symptoms persisted. Medical assessment confirmed acute diverticulitis through CT imaging, and she commenced antibiotic therapy with Augmentin, nearing completion of the course. She reports significant improvement in her symptoms on antibiotics and declares no discomfort presently. She noted no significant alteration in baseline bowel habits prior to the antibiotic but reports transient looser stools following initiation. Generally she describes her bowel habits as experiencing 1 bowel movement daily without significant straining. She estimates her toilet time at approximately 5 minutes. She denies any history of bloody or dark stools. She denies any recent weight change. Family history negative for diverticulitis, inflammatory bowel disease, or colon cancer. Patient has not undergone previous colonoscopy. In addition to diverticulitis, imaging indicated biliary sludge, with no clinical correlation of epigastric discomfort or significant gallbladder-related symptoms. She wishes to know the significance of this finding. She further clarifies that she has had some very "seldom" epigastric discomfort that occurs no more frequently than 1 time per month. She denies any associated nausea or vomiting. She further denies any unexplained fevers. She expresses surprise that she had evidence of gallstones given her very healthy diet. ROS General General: No weight change, appetite, fatigue, colon cancer, breast cancer or weakness HEENT HEENT: No difficulty swallowing, eye injury, eye surgery, swollen glands or hoarseness Endo Endocrine: No thyroid disease, diabetes mellitus, thyroid cancer, Hair loss, heat intolerance or cold intolerance Skin Skin: No rash or changing moles Musc Musculoskeletal: No back problems, arthritis, rheumatoid arthritis, gout or joint pain Cardio Cardiovascular: No murmur, pacemaker, heart disease, atrial fibrillation, high blood pressure, heart attack, heart stent, palpitations, shortness of breath with exertion or chest pain Psych Psychiatric: No depression, anxiety or hearing voices Resp Respiratory: No shortness of breath, No sleep apnea, No cough, No COPD, No asthma, No emphysema and No wheezing Gastro Gastrointestinal: No abdominal pain, No nausea or vomiting, No diarrhea, No constipation, No blood in stool, No acid reflux, No hemorrhoids, No ulcers, No gallbladder problem and No black,tarry stools Cedric Hematologic: No blood thinners, No blood disorders, No bleeding, No anemia and No blood clots Neuro Neurologic: No numbness, No tingling and No weakness Exam Const General: cooperative, comfortable and no acute distress Resp Effort & Inspection: normal respiratory effort GI Other: - Mild left lower quadrant tenderness to palpation, without any observable bulge in the left groin. - No tenderness in the right upper quadrant and negative Mcelroy sign. Assessment and Plan Assessment and Plan (1) Diverticulitis: Status: Acute Comment: 44-year-old female with a history of acute diverticulitis presenting for follow-up. Initial symptoms of left lower quadrant pain occurred post heavy lifting and were persistent until treated with antibiotics. Augmentin-induced changes in bowel habits were noted. Imaging identified biliary sludge, but the clinical presentation does not suggest acute cholecystitis. Repeated evaluation with right upper quadrant ultrasound is warranted, alongside scheduled colonoscopy post-symptomatic recovery. Patient appears to be at average risk for colon cancer otherwise and has not previously undergone colonoscopy. Procedure expectations, including preprocedure prep were discussed in detail. Plan: Plan will be to complete colonoscopy on first mutually agreeable date after obligatory 7-week wait period (With the intent of trying to minimize patient's risk for perforation and allow for complete resolution of inflammatory change of the sigmoid colon) under local MAC. Pre-procedure prep discussed and paper instructions provided. Patient is also made aware that she will need to have a ice cream truck driver with her the day of the procedure. (2) Cholelithiasis: Status: Acute Comment: Patient with new finding of cholelithiasis and otherwise equivocal findings on CT for acute cholecystitis. However, patient has no history supporting this diagnosis. Suggested we simply perform a right upper quadrant ultrasound to characterize better but did inform patient of the significant incidence of this finding without pathologic correlate. Plan: Right upper quadrant ultrasound to be obtained on elective outpatient basis I have examined the patient the following changes are noted: Patient confirms resolution of her abdominal pain with no recurrence. She also confirms she completed prep for today's procedure and her output is now clear. However her abdominal exam remains benign. Will now proceed to endoscopy suite for planned colonoscopy. As previously noted patient did obtain right upper quadrant ultrasound of the gallbladder which confirmed finding of cholelithiasis but both gallbladder wall thickness and common bile duct diameter are within normal limits.
--- NOTE | 2025-07-03 07:20 | PCM.PRE.AN2 ---
ASA Classification* ASA Classification ASA Classification: 1 Assessment & Plan Anesthesia* Anesthesia Assessment Anesthesia Assessment: Discussed sedation and/or anesthesia options, risks, benefits, and alternatives with patient/parents/legal guardian/POA. Questions invited. The patient/parents/legal guardian/POA seems to understand and agrees to proceed with anesthesia plan. Reviewed the physical assessment, medical history, allergy history and patient home medications list prior to surgery/procedure/anesthetic and documented any changes. Performed airway and anesthesia risk assessments. Anesthesia Type Anesthesia Type: MAC History Source History Obtained from:: Patient and Chart Anesthesia Focused Assessment* Temperature: 97.9 F Pulse Rate: 95 Blood Pressure: 121/48 Respiratory Rate: 12 Pulse Ox: 100 Oxygen Delivery Method: Room Air Airway Assessment Mouth opens: >3 cm Mallampati Score: II Teeth Condition: Intact Neck Range of motion (ROM): Full ROM Labs Anesthesia Preop lab: CBC WBC, (4.4-11.0) 15.3 K/mm3 H 04/28/25, 08:36 RBC, (4.2-5.4) 4.32 M/mm3 04/28/25, 08:36 Hgb, (12.0-15.0) 13.6 g/dL 04/28/25, 08:36 Hct, (37-47) 38.4 % 04/28/25, 08:36 Plt Count, (150-450) 276 K/mm3 04/28/25, 08:36 CHEMISTRY Potassium, (3.3-5.1) 3.8 mmol/L 04/28/25, 08:36 Sodium, (133-145) 139 mmol/L 04/28/25, 08:36 BUN, (4-19) 10 mg/dL 04/28/25, 08:36 Creatinine, (0.70-1.20) 0.77 mg/dL 04/28/25, 08:36 Glucose, (70-99) 111 mg/dL H 04/28/25, 08:36 TSH, (0.358-3.740) 1.600 uIU/mL 08/07/24, 09:01 COAG PT, (11.7-14.9) 12.3 SECONDS 06/23/22, 08:11 HCG, Quant, (1-3) 91394 mIU/mL H 04/27/19, 10:05 Urine Test Negative Negative Today, 06:46 Pre-Assessment Diagnosis/Proposed Procedure Planned Operative Procedure(s): COLONOSCOPY Anesthesia History Anesthesia History - food processing scientist: Anesthesia History - food processing scientist Hx Hospitalization No 06/30/25 12:04 Any Problems With Anesthesia Yes: N&V 06/30/25 12:04 Cholinesterase deficiency No 06/30/25 12:04 You/Your Family Experience No 06/30/25 12:04 fever (hyperthermia) with Relationship Recent Exposure to Contagious No 07/03/25 06:54 Disease Does patient have nerve No 06/30/25 12:04 stimulator Patient instructed to have device shut off --Does patient have Pacemaker No 07/03/25 06:54 or ICD? When Was Last Pacemaker Check QUESTION #4 FULL TEXT: You/Your Family Experience fever (hyperthermia) with Anesthesia Any additional information?: No Last Oral Intake Last Oral intake: Last Oral Intake NPO since 22:00 07/03/25 06:54 Meds taken in AM with sips of water? Meds patient instructed to take am of surgery Any additional information?: No PONV PONV - food processing scientist: PONV - food processing scientist Female Yes 06/30/25 12:04 HX of Motion Sickness Yes 06/30/25 12:04 HX of N/V After Surgery Yes 06/30/25 12:04 Non-Smoker Yes 06/30/25 12:04 Duration of Surgery greater No 06/30/25 12:04 than 60 minutes Number of Risk Factors 4 06/30/25 12:04 PONV Score Severe Risk 06/30/25 12:04 Any additional information?: No Height & Weight Height & Weight: Anesthesia: Height & Weight Height 4 ft 11 in 07/03/25 06:54 Weight: 55.2 kg 07/03/25 06:54 Body Mass Index (BMI) 24.5 07/03/25 06:54 Respiratory Assessment Respiratory Assessment - food processing scientist: Respiratory Tract Infection Hx - food processing scientist Hx Respiratory Tract Infection No 06/30/25 12:04 Any additional information?: No STOP Sleep Apnea STOP Sleep Apnea - food processing scientist: STOP Sleep Apnea - food processing scientist Hx Hypertension No 06/30/25 12:04 Hx Sleep Apnea No 06/30/25 12:04 CPAP BIPAP Do you snore loudly (louder No 06/30/25 12:04 than talking or can be heard Do you often feel tired/ No 06/30/25 12:04 fatigued/ sleepy during daytime? Has anyone observed you stop No 06/30/25 12:04 breathing during sleep? STOP Results Negative 06/30/25 12:04 QUESTION #5 FULL TEXT : Do you snore loudly (louder than talking or can be heard through closed doors)? Any additional information?: No Tobacco Use History Tobacco Use History - food processing scientist: Tobacco Use History - food processing scientist Tobacco Use Smoking Status Never smoker 06/30/25 12:04 Hx Tobacco Use No 06/30/25 12:04 Years Smoking Packs Smoked per Day Smoking Cessation Date was within the last 15 years Hx Smoking Cessation Date Hx Smoking Cessation Counseling Any additional information?: No Hematologic Medial History Hematologic Hx - food processing scientist: Hematologic Medical Hx - computer publisher Hx of Blood Transfusion No 06/30/25 12:04 Hx of Transfusion in last 3 No 06/30/25 12:04 Months Date of Last Transfusion (if within last 3 months) Ever experience any problems No 06/30/25 12:04 with transfusion(s)? Specify any problems Hx of Preganancy in last 3 No 06/30/25 12:04 Months Nurse Filling Out Transfusion VCHRISTIN 06/30/25 12:04 & Questions: Date: 06/30/25 06/30/25 12:04 Time: 12:05 06/30/25 12:04 Patient unable to answer at this time (ie. confused, unrespo Any additional information?: No /Reproduction History /Reproductive History - food processing scientist: /Reproductive Hx- food processing scientist Hx Now No 06/30/25 12:04 Gestational Age (in weeks): EDC: Hx Hx Para Hx Section SAB No 06/30/25 12:04 Active Medications Active Medications: Current Medications Generic Name Dose Route Start Last Admin Trade Name Freq PRN Reason Stop Dose Admin Lactated Ringer's 1,000 mls @ 15 mls/hr 07/03/25 06:45 07/03/25 07:03 IV 15 mls/hr .Q48H SACHIN Administration PFSH Medical History (Updated 06/30/25 @ 12:04 by Erum Kulkarni) Wears contact lenses Wears glasses History of diverticulitis Diverticulitis Hearing loss, left Hearing loss, right Non-smoker Placental insufficiency in third trimester Velamentous insertion of umbilical cord History of delivery, currently History of cholestasis during Home Medications Medication Instructions Recorded Last Taken Type multivitamin 1 tab PO DAILY 01/06/22 Unknown History calcium carbonate (Calcium 600) 600 mg PO QDAY 07/04/24 Unknown History Allergy/AdvReac Type Severity Reaction Status Date / Time No Known Allergies Allergy Verified 07/03/25 06:54 Family History Mother Hypertension Hyperlipidemia Father Diabetes Hyperlipidemia Hypertension Surgical History (Updated 06/30/25 @ 12:04 by Erum Kulkarni) History of stapedectomy Status post umbilical hernia repair, follow-up exam S/P appendectomy H/O dilation and curettage delivery delivered Social History Smoking Status: Never smoker alcohol intake: current details: social substance use type: does not use caffeine: Yes what type of physical activity do you participate in: walking and weight training frequency: 3-4 times per week seatbelt use: always do you feel safe at home: Yes additional social history: [employer] 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
--- NOTE | 2025-07-03 07:28 | PCM.PRE.AN2 ---
Assessment & Plan Anesthesia* Anesthesia Assessment Anesthesia Assessment: Discussed sedation and/or anesthesia options, risks, benefits, and alternatives with patient/parents/legal guardian/POA. Questions invited. The patient/parents/legal guardian/POA seems to understand and agrees to proceed with anesthesia plan. Reviewed the physical assessment, medical history, allergy history and patient home medications list prior to surgery/procedure/anesthetic and documented any changes. Performed airway and anesthesia risk assessments. Anesthesia Focused Assessment* Temperature: 97.9 F Pulse Rate: 95 Blood Pressure: 121/48 Respiratory Rate: 12 Pulse Ox: 100 Labs Anesthesia Preop lab: CBC WBC, (4.4-11.0) 15.3 K/mm3 H 04/28/25, 08:36 RBC, (4.2-5.4) 4.32 M/mm3 04/28/25, 08:36 Hgb, (12.0-15.0) 13.6 g/dL 04/28/25, 08:36 Hct, (37-47) 38.4 % 04/28/25, 08:36 Plt Count, (150-450) 276 K/mm3 04/28/25, 08:36 CHEMISTRY Potassium, (3.3-5.1) 3.8 mmol/L 04/28/25, 08:36 Sodium, (133-145) 139 mmol/L 04/28/25, 08:36 BUN, (4-19) 10 mg/dL 04/28/25, 08:36 Creatinine, (0.70-1.20) 0.77 mg/dL 04/28/25, 08:36 Glucose, (70-99) 111 mg/dL H 04/28/25, 08:36 TSH, (0.358-3.740) 1.600 uIU/mL 08/07/24, 09:01 COAG PT, (11.7-14.9) 12.3 SECONDS 06/23/22, 08:11 HCG, Quant, (1-3) 74864 mIU/mL H 04/27/19, 10:05 Urine Test Negative Negative Today, 06:46 Pre-Assessment Diagnosis/Proposed Procedure Planned Operative Procedure(s): COLONOSCOPY Anesthesia History Anesthesia History - certified medical transcriptionist: Anesthesia History - certified medical transcriptionist Hx Hospitalization No 06/30/25 12:04 Any Problems With Anesthesia Yes: N&V 06/30/25 12:04 Cholinesterase deficiency No 06/30/25 12:04 You/Your Family Experience No 06/30/25 12:04 fever (hyperthermia) with Relationship Recent Exposure to Contagious No 07/03/25 06:54 Disease Does patient have nerve No 06/30/25 12:04 stimulator Patient instructed to have device shut off --Does patient have Pacemaker No 07/03/25 06:54 or ICD? When Was Last Pacemaker Check QUESTION #4 FULL TEXT: You/Your Family Experience fever (hyperthermia) with Anesthesia Last Oral Intake Last Oral intake: Last Oral Intake NPO since 22:00 07/03/25 06:54 Meds taken in AM with sips of water? Meds patient instructed to take am of surgery PONV PONV - certified medical transcriptionist: PONV - certified medical transcriptionist Female Yes 06/30/25 12:04 HX of Motion Sickness Yes 06/30/25 12:04 HX of N/V After Surgery Yes 06/30/25 12:04 Non-Smoker Yes 06/30/25 12:04 Duration of Surgery greater No 06/30/25 12:04 than 60 minutes Number of Risk Factors 4 06/30/25 12:04 PONV Score Severe Risk 06/30/25 12:04 Height & Weight Height & Weight: Anesthesia: Height & Weight Height 4 ft 11 in 07/03/25 06:54 Weight: 55.2 kg 07/03/25 06:54 Body Mass Index (BMI) 24.5 07/03/25 06:54 Respiratory Assessment Respiratory Assessment - certified medical transcriptionist: Respiratory Tract Infection Hx - certified medical transcriptionist Hx Respiratory Tract Infection No 06/30/25 12:04 STOP Sleep Apnea STOP Sleep Apnea - certified medical transcriptionist: STOP Sleep Apnea - certified medical transcriptionist Hx Hypertension No 06/30/25 12:04 Hx Sleep Apnea No 06/30/25 12:04 CPAP BIPAP Do you snore loudly (louder No 06/30/25 12:04 than talking or can be heard Do you often feel tired/ No 06/30/25 12:04 fatigued/ sleepy during daytime? Has anyone observed you stop No 06/30/25 12:04 breathing during sleep? STOP Results Negative 06/30/25 12:04 QUESTION #5 FULL TEXT : Do you snore loudly (louder than talking or can be heard through closed doors)? Tobacco Use History Tobacco Use History - certified medical transcriptionist: Tobacco Use History - certified medical transcriptionist Tobacco Use Smoking Status Never smoker 06/30/25 12:04 Hx Tobacco Use No 06/30/25 12:04 Years Smoking Packs Smoked per Day Smoking Cessation Date was within the last 15 years Hx Smoking Cessation Date Hx Smoking Cessation Counseling Hematologic Medial History Hematologic Hx - certified medical transcriptionist: Hematologic Medical Hx - senior it assistant Hx of Blood Transfusion No 06/30/25 12:04 Hx of Transfusion in last 3 No 06/30/25 12:04 Months Date of Last Transfusion (if within last 3 months) Ever experience any problems No 06/30/25 12:04 with transfusion(s)? Specify any problems Hx of Preganancy in last 3 No 06/30/25 12:04 Months Nurse Filling Out Transfusion VCHRISTIN 06/30/25 12:04 & Questions: Date: 06/30/25 06/30/25 12:04 Time: 12:05 06/30/25 12:04 Patient unable to answer at this time (ie. confused, unrespo /Reproduction History /Reproductive History - certified medical transcriptionist: /Reproductive Hx- certified medical transcriptionist Hx Now No 06/30/25 12:04 Gestational Age (in weeks): EDC: Hx Hx Para Hx Section SAB No 06/30/25 12:04 Active Medications Active Medications: Current Medications Generic Name Dose Route Start Last Admin Trade Name Freq PRN Reason Stop Dose Admin Lactated Ringer's 1,000 mls @ 15 mls/hr 07/03/25 06:45 07/03/25 07:03 IV 15 mls/hr .Q48H SACHIN Administration PFSH Medical History (Updated 06/30/25 @ 12:04 by Erum Kulkarni) Wears contact lenses Wears glasses History of diverticulitis Diverticulitis Hearing loss, left Hearing loss, right Non-smoker Placental insufficiency in third trimester Velamentous insertion of umbilical cord History of delivery, currently History of cholestasis during Home Medications Medication Instructions Recorded Last Taken Type multivitamin 1 tab PO DAILY 01/06/22 Unknown History calcium carbonate (Calcium 600) 600 mg PO QDAY 07/04/24 Unknown History Allergy/AdvReac Type Severity Reaction Status Date / Time No Known Allergies Allergy Verified 07/03/25 06:54 Family History Mother Hypertension Hyperlipidemia Father Diabetes Hyperlipidemia Hypertension Surgical History (Updated 06/30/25 @ 12:04 by Erum Kulkarni) History of stapedectomy Status post umbilical hernia repair, follow-up exam S/P appendectomy H/O dilation and curettage delivery delivered Social History Smoking Status: Never smoker alcohol intake: current details: social substance use type: does not use caffeine: Yes what type of physical activity do you participate in: walking and weight training frequency: 3-4 times per week seatbelt use: always do you feel safe at home: Yes additional social history: [employer] 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
[2025-07-03] MEDS: Lactated Ringers 500 ML IV (07:30)
[2025-07-03] MEDS: dexMEDEtomidine 200 MCG/2 ML ML 83 MCG IV (07:35)
[2025-07-03] MEDS: Lidocaine 1% (5 ml sdv) 5 ML Vial 10 ML IV (07:36)
--- NOTE | 2025-07-03 08:10 | OP.COLON_ITS ---
Patient Name: Laurence Loomis Procedure Date: 07/03/2025 6:46 AM Date of : 1980 Age: 44 Procedure: Colonoscopy Indications: Follow-up of diverticulitis Providers: Dm Dixon MD Referring MD: Gayatri Becker Medicines: See the Anesthesia note for documentation of the administered medications Patient Profile: Refer to note in patient chart for documentation of history and physical. Last Colonoscopy: none. The patient's first colonoscopy is today. Complications: No immediate complications. Estimated blood loss: None. Procedure: Pre-Anesthesia Assessment: - The heart rate, respiratory rate, oxygen saturations, blood pressure, adequacy of pulmonary ventilation, and response to care were monitored throughout the procedure. After I obtained informed consent, the scope was passed under direct vision. Throughout the procedure, the patient's blood pressure, pulse, and oxygen saturations were monitored continuously. The colonoscope was introduced through the anus and advanced to the cecum, identified by the appendiceal orifice, IC valve and transillumination. The colonoscopy was performed without difficulty. The patient tolerated the procedure well. The quality of the bowel preparation was adequate to identify polyps. Scope In: 7:38:56 AM Scope Withdrawal Time 0 hours 11 minutes 11 seconds Scope Out: 8:01:31 AM Total Procedure Duration Time 0 hours 22 minutes 35 seconds Findings: The perianal and digital rectal examinations were normal. Pertinent negatives include normal sphincter tone. A few small-mouthed diverticula were found in the distal sigmoid colon. No biopsies or other specimens were collected for this exam. Anal papilla(e) were hypertrophied. No biopsies or other specimens were collected for this exam. The exam was otherwise without abnormality on direct and retroflexion views. Impression: - Diverticulosis in the distal sigmoid colon. No specimens collected. - Anal papilla(e) were hypertrophied. No specimens collected. - The examination was otherwise normal on direct and retroflexion views. Recommendation: - Discharge patient to home (via wheelchair). - High fiber diet today. - Continue present medications. - Repeat colonoscopy in 10 years for screening purposes. - Telephone my office for study results in 1 week. Procedure Code(s): --- Professional --- 86039, Colonoscopy, flexible; diagnostic, including collection of specimen(s) by brushing or washing, when performed (separate procedure) Diagnosis Code(s): --- Professional --- K62.89, Other specified diseases of anus and rectum K57.32, Diverticulitis of large intestine without perforation or abscess without bleeding K57.30, Diverticulosis of large intestine without perforation or abscess without bleeding CPT copyright 2021 [employer]. All rights reserved. The codes documented in this report are preliminary and upon hospice spiritual care coordinator review may be revised to meet current compliance requirements. Dm Dixon MD 07/03/2025 8:10:23 AM This report has been signed electronically. Number of Addenda: 0 Note Initiated On: 07/03/2025 6:46 AM
--- NOTE | 2025-07-03 08:11 | OP.PROVAT_ITS ---
07/03/2025 Gayatri Becker [address] [place] [address] Re : Colonoscopy procedure for Laurence Loomis Dear Dr. Becker This procedure was performed on June. My impressions and recommendations are as follows: Impressions : - Diverticulosis in the distal sigmoid colon. No specimens collected. - Anal papilla(e) were hypertrophied. No specimens collected. - The examination was otherwise normal on direct and retroflexion views. Recommendations : - Discharge patient to home (via wheelchair). - High fiber diet today. - Continue present medications. - Repeat colonoscopy in 10 years for screening purposes. - Telephone my office for study results in 1 week. My findings are described in the full procedure note, which is enclosed. If I can be of further assistance, please feel free to contact me at Doctor phone number(s): , Work: . Sincerely, Dm Dixon MD 07/03/2025 8:10:23 AM This report has been signed electronically.
--- NOTE | 2025-07-03 08:21 | PCM.POST.ANE ---
Anesthesia: Postop Eval I Current Vital Signs Temperature: 97.3 F Pulse Rate: 88 Blood Pressure: 88/56 Respiratory Rate: 18 Pulse Ox: 96 Oxygen Delivery Method: Room Air Assessment Airway patent: Yes Spontaneous unlabored respirations: Yes Mental status: Calm and Asleep nausea: No Vomiting: No Anesthesia Complication: No Fluid Hydration Crystalloid volume administer (ml): 500 Total IV fluid infused: 500 Progress Note Anesthesia document: Postop Eval 1 completed: Yes
--- NOTE | 2025-07-03 10:48 | POSTOPAN2_ITS ---
Anesthesia Postop Eval I Sum Postop Eval Completion status Anesthesia document: Postop Eval 1 completed: Yes Anesthesia Postop Eval I Summary Anesthesia Postop Eval I Summary: Anesthesia Postop Eval I: Assessment Summary Airway patent Yes 07/03/25 08:21 [email or web address] Spontaneous unlabored Yes 07/03/25 08:21 [email or web address] respirations Mental status Calm,Asleep 07/03/25 08:21 [email or web address] nausea No 07/03/25 08:21 [email or web address] Vomiting No 07/03/25 08:21 [email or web address] Anesthesia Postop Eval I: Fluid Summary Crystalloid volume administer 500 07/03/25 08:21 [email or web address] (ml) Colloids volume administered ( ml) Blood Product volume administered (ml) Total IV fluid infused 500 07/03/25 08:21 [email or web address] Anesthesia Postop Eval I: Summary Notes Anesthesia Complication No 07/03/25 08:21 [email or web address] Anesthesia Complication Comment: Post-operative progress note Anesthesia: Postop Eval II Evaluation Mental status: Awake and Calm Pain Level: 0 nausea: No Vomiting: No Complications Anesthesia Complication: No
--- NOTE | 2025-07-03 10:48 | PCM.POSTANE2 ---
Anesthesia Postop Eval I Sum Postop Eval Completion status Anesthesia document: Postop Eval 1 completed: Yes Anesthesia Postop Eval I Summary Anesthesia Postop Eval I Summary: Anesthesia Postop Eval I: Assessment Summary Airway patent Yes 07/03/25 08:21 [email or web address] Spontaneous unlabored Yes 07/03/25 08:21 [email or web address] respirations Mental status Calm,Asleep 07/03/25 08:21 [email or web address] nausea No 07/03/25 08:21 [email or web address] Vomiting No 07/03/25 08:21 [email or web address] Anesthesia Postop Eval I: Fluid Summary Crystalloid volume administer 500 07/03/25 08:21 [email or web address] (ml) Colloids volume administered ( ml) Blood Product volume administered (ml) Total IV fluid infused 500 07/03/25 08:21 [email or web address] Anesthesia Postop Eval I: Summary Notes Anesthesia Complication No 07/03/25 08:21 [email or web address] Anesthesia Complication Comment: Post-operative progress note Anesthesia: Postop Eval II Evaluation Mental status: Awake and Calm Pain Level: 0 nausea: No Vomiting: No Complications Anesthesia Complication: No
== END 2025-07-03 09:50 | disposition home or self-care (01) ==
LOC: EN 06:33 → AC 06:34
PROVIDERS: Anesthesiology; PCP Family Medicine; Referring Provider Family Medicine; Visit Provider Surgery
PROC: 0DJD8ZZ Inspection of Lower Intestinal Tract, Via Natural or Artificial Opening Endoscopic (ICD-10-PCS; CPT 45378; principal; 2025-07-03 07:25)
DX: K57.32 Diverticulitis of large intestine without perforation or abscess without bleeding (principal); Z90.49 Acquired absence of other specified parts of digestive tract
CPT/HCPCS: 45378; 81025; J2405

== ENCOUNTER → 2025-07-08 | Outpatient (CLI) | payer BC, SELFPAY ==
--- OUTSIDE RECORDS SUMMARY | 2025-06-11 13:31 | XMS RPT_ITS ---
Author Name Auto Generated Organization [facility] Care Team Providers Care Electronic Design Engineer Name Role Phone CARLINE DAY Attending Unavailable ONELIA DURANT Primary Care Unavailable CARLINE DAY Admitting Unavailable CARLINE DAY Attending Unavailable ONELIA DURANT Primary Care Unavailable PROBLEMS DATE TYPE CONDITION / CODE ATTENDING STATUS [facility] 09/19/2024 Admitting Diagnosis Unspecified otosclerosis, right ear / H80.91(ICD-10) CARLINE DAY [facility] 09/19/2024 Admitting Diagnosis Conductive hearing loss, unilateral, right ear, with unrestricted hearing on the contralateral side / H90.11(ICD-10) CARLINE DAY [facility]ulatory PROCEDURES No Procedure Records Found RESULTS ALLERGIES DATE TYPE / CODE NAME / CODE REACTION SEVERITY SOURCE SYSTEMIC/[id number]( SNOMED CT) NO KNOWN ALLERGIES [facility] Ambulatory ENCOUNTERS ADMIT/DISCHARGE ACCOUNT NUMBER ADMITTING ENCOUNTER CLASS LOCATION SOURCE 06/11/2025 [id number] CARLINE DAY Ambulatory Building:[facility] 09/19/2024/09/20/20 [id number] Ambulatory Building:[address] Ambulatory PAYERS ENCOUNTER GUARANTOR PAYER SUBSCRIBER SOURCE 06/11/2025 IRENE LOWAMBROSIOOB: [place] [address]Zme: () Primary Insurance:DAVID gerard Number: [id number] fective Date:2022-07-09 SHANNEN VIZCARRAOB: [id number] [place] [address]Sax: (HP) [facility] 09/19/2024 IRENE F[place]LEY: [place] [address]Xpn: (HP) Primary Insurance:DAVID gerard Number: [id number] fective Date:2022-07-09 SHANNEN VIZCARRAOB: [id number] [place] [address]Haz: () [facility]
[2025-07-08 08:14] LABS: Hematocrit 41.2 % (37-47); Hemoglobin 14.3 g/dL (12.0-15.0); Mean Corp Hgb Conc 34.7 g/dL (32-36); Mean Corpuscular Volume 88.8 fL (81-99); Mean Platelet Vol. 10.4 fl (6.2-12.0); Platelet Count 292 K/mm3 (150-450); RBC Distribution Width CV 13.1 % (11.6-14.6); RBC Distribution Width SD 42.7 fl (35.1-43.9); Red Blood Count 4.64 M/mm3 (4.2-5.4); White Blood Count 7.1 K/mm3 (4.4-11.0)
[2025-07-08 09:11] LABS: Anion Gap 12 (5-15); BUN 14 mg/dL (4-19); BUN/Creat Ratio 17.4 RATIO (10-20); Calcium,Total 9.8 mg/dL (7.6-11.0); Carbon Dioxide 22.7 mmol/L (21.0-32.0); Chloride 103 mmol/L (98-108); Glucose 97 mg/dL (70-99); Potassium 4.2 mmol/L (3.3-5.1)
== END | disposition home or self-care (01) ==
LOC: LAB 07:47
PROVIDERS: PCP Family Medicine
DX: Z01.810 Encounter for preprocedural cardiovascular examination (principal)
CPT/HCPCS: 36415; 80048; 85027

== ENCOUNTER → 2025-08-04 | Outpatient (CLI) | payer BC, SELFPAY ==
--- NOTE | 2025-08-04 08:15 | BI_ITS ---
EXAM: SCRN MAMM (CAD)W/MODE BILAT DATE: 08/04/2025 CLINICAL HISTORY: F, Age 44 y/o , SCREEN FOR BREAST CANCER TECHNIQUE: Procedure Code: [id number] Modality: MG Procedure: SCRN MAMM (CAD)W/MODE BILAT COMPARISON: Prior exam(s) dated 08/02/2024 and 08/01/2023. FINDINGS: TISSUE DENSITY: The breasts are extremely dense, which lowers the sensitivity of mammography. This type of breast parenchymal tissue does decrease the sensitivity of mammography. Small masses could be obscured. Bilateral Breast Mammographic Findings: No significant masses, calcifications or other abnormalities are identified. Benign-appearing round microcalcifications are seen in both breast. A benign-appearing macrocalcification is seen in the right breast. BI/SCRN MAMM (CAD)W/MODE BILAT IMPRESSION: Benign screening mammogram OVERALL FINAL ASSESSMENT BI-RADS 2: BENIGN RECOMMENDATION: Routine annual follow-up in 1 Year Additional Recommendation none A letter with findings and recommendations will be mailed to the patient. Reading Location: [id number]
== END | disposition home or self-care (01) ==
PROVIDERS: PCP Family Medicine; Referring Provider Nurse Practitioner Women's Health; Visit Provider Nurse Practitioner Women's Health
DX: Z12.31 Encounter for screening mammogram for malignant neoplasm of breast (principal)
CPT/HCPCS: 77063; 77067